=== PATIENT | male | born 1985 | race Hispanic/Latino ===

== ENCOUNTER 2017-07-21 19:23 | Emergency (ER) | payer OTHER ==
[2017-07-21] MEDS ORDERED: NA CHLORIDE 0.9% 1,000 ML ONE (20:33)
[2017-07-21 21:06] LABS: Absolute Lymphocytes (CBC) 0.8 K/uL (0.7-4.9); Absolute Monocytes 0.6 K/uL (0.1-1.3); Absolute Neutrophil 4.9 K/uL (1.8-8.0); Basophils % 0.4 % (0-1.3); Eosinophils % 3.8 % (0-4.4); Hematocrit 42.2 % (39.6-49.0); Lymphocytes % 12.3 % (15.3-44.8); MCV 82.4 fL (80-100); MPV 11.4 fL (7.6-11.3); Monocytes % 9.4 % (3.3-12.3); RBC Red Blood Cell Count 5.13 M/uL (4.33-5.43)
[2017-07-21 21:12] LABS: Urine Blood NEGATIVE (NEG); Urine Glucose NEGATIVE (NEG); Urine Protein NEGATIVE (NEG)
[2017-07-21 21:18] LABS: Bicarbonate 31 mEq/L (21-31); Glucose Level 103 mg/dL (65-120); Lipase 29 U/L (22-51); Potassium 3.9 mEq/L (3.6-5.0); Sodium Level 137 mEq/L (135-145)
[2017-07-21 21:23] LABS: ALT/SGPT 17 IU/L (10-60); AST/SGOT 22 IU/L (10-42); Albumin 4.1 g/dL (3.2-5.5); Alkaline Phosphatase 77 IU/L (42-121); BUN Blood Urea Nitrogen 10 mg/dL (6-20); Bilirubin Direct 0.1 mg/dL (0-0.2); Bilirubin Total 0.6 mg/dL (0.3-1.2); Protein, Total 8.8 g/dL (6.0-8.3)
[2017-07-21 21:24] LABS: Amylase Level 43 U/L (28-100)
[2017-07-21 21:48] LABS: Urine Bacteria <20 /HPF (NONE SEEN); Urine Culture Reflex Order NOT NEEDED; Urine RBC <5 /HPF (NONE SEEN)
--- NOTE | 2017-07-21 22:19 | EDPHYS ---
Physician Documentation [facility] Name: Kimani Augustin Jr Age: 32 yrs Sex: Male : 1985 Arrival Date: 07/21/2017 Time: 19:28 Bed 7 Private MD: ED Physician Irving Draper HPI: 07/21 20:33 This 32 yrs old Male presents to ER via Ambulatory with complaints of tw4 Weakness, Dizziness, Body ache. 20:33 The patient presents to the emergency department with weakness of the entire body, tw4 generalized weakness. Context: occurred at home. Associated signs and symptoms: The patient has no apparent associated signs or symptoms. Severity of symptoms: At their worst the symptoms were moderate in the emergency department the symptoms are unchanged. The patient has not experienced similar symptoms in the past. 20:34 The patient presents to the emergency department with weakness of the. Patient's tw4 baseline: Neuro: alert and fully oriented, Motor: no deficits, Ambulation: walks without assistance. Current symptoms:. 20:34 Onset: The symptoms/episode began/occurred 2 day(s) ago. tw4 Historical: - Allergies: 19:48 EGG/POULTRY; tl3 - Home Meds: 19:48 Depakote 500 mg Oral TbEC 2 tabs 2 times per day [Active]; Dilantin 1/2 TAB Oral 50 mg tl3 twice a day [Active]; calcitrol 0.25mg [Active]; - PMHx: 19:48 hypocalcemia; Seizures; tl3 - Immunization history:: Adult Immunizations up to date. - Social history:: Smoking status: Patient uses tobacco products, denies chronic smoking, but will smoke occasionally. - Ebola Screening: : Patient denies travel to an Ebola-affected area in the 21 days before illness onset. ROS: 20:33 Constitutional: Negative for fever, chills, and weight loss, Cardiovascular: Negative tw4 for chest pain, palpitations, and edema, Respiratory: Negative for shortness of breath, cough, wheezing, and pleuritic chest pain, Abdomen/GI: Negative for abdominal pain, nausea, vomiting, diarrhea, and constipation, Back: Negative for injury and pain, MS/Extremity: Negative for injury and deformity. Exam: 20:33 Constitutional: This is a well developed, well nourished patient who is awake, alert, tw4 and in no acute distress. Head/Face: Normocephalic, atraumatic. Chest/axilla: Normal chest wall appearance and motion. Nontender with no deformity. No lesions are appreciated. Cardiovascular: Regular rate and rhythm with a normal S1 and S2. No gallops, murmurs, or rubs. Normal PMI, no JVD. No pulse deficits. Respiratory: Lungs have equal breath sounds bilaterally, clear to auscultation and percussion. No rales, rhonchi or wheezes noted. No increased work of breathing, no retractions or nasal flaring. Abdomen/GI: Soft, non-tender, with normal bowel sounds. No distension or tympany. No guarding or rebound. No evidence of tenderness throughout. Back: No spinal tenderness. No costovertebral tenderness. Full range of motion. MS/ Extremity: Pulses equal, no cyanosis. Neurovascular intact. Full, normal range of motion. Neuro: Awake and alert, GCS 15, oriented to person, place, time, and situation. Cranial nerves II-XII grossly intact. Motor strength 5/5 in all extremities. Sensory grossly intact. Cerebellar exam normal. Normal gait. Vital Signs: 19:48 BP 121 / 77; Pulse 107; Resp 18; Temp 98.6(O); Pulse Ox 98% ; Height 5 ft. 6 in. tl3 (167.64 cm); 21:05 BP 125 / 104; Resp 16; Temp 99.1; rv 21:35 BP 118 / 82; Pulse 83; Resp 16; Pulse Ox 100% on R/A; rv NIH Stroke Scale Scores: 21:32 NIHSS Score: 4 rv MDM: 20:24 Patient medically screened. tw4 22:38 Data reviewed: vital signs, nurses notes. Counseling: I had a detailed discussion with [facility] the patient and/or guardian regarding: the historical points, exam findings, and any diagnostic results supporting the discharge/admit diagnosis. Special discussion: I discussed with the patient/guardian in detail that at this point there is no indication for admission to the hospital. It is understood, however, that if the symptoms persist or worsen the patient needs to return immediately for re-evaluation. 07/21 20:25 Order name: Amylase, Serum [facility] 07/21 20:25 Order name: Basic Metabolic Panel [facility] 07/21 20:25 Order name: CBC with Diff 07/21 20:25 Order name: Creatinine for Radiology 4 07/21 20:25 Order name: Hepatic Function 07/21 20:25 Order name: Lipase 07/21 20:25 Order name: Urine Microscopic Only 07/21 20:25 Order name: Flu; Complete Time: 21:43 tw4 07/21 20:25 Order name: Amylase Level; Complete Time: 21:57 EDMS 07/21 20:25 Order name: Basic Metabolic Panel; Complete Time: 21:57 EDMS 07/21 21:57 Interpretation: Normal except: CA 6.3; CL 99. 4 07/21 20:25 Order name: CBC with Automated Diff; Complete Time: 21:43 EDMS 07/21 21:43 Interpretation: Normal except: MCV 82.4; PLT 102; RDW 16.8; MPV 11.4; TERRA% 74.1; LYM% tw4 12.3. 07/21 20:25 Order name: Creatinine (Radiology Only); Complete Time: 21:43 EDMS 07/21 20:25 Order name: Liver (Hepatic) Function; Complete Time: 21:57 EDMS 07/21 21:57 Interpretation: A/G 0.9; GLOB 4.7; TP 8.8. 4 07/21 20:25 Order name: Lipase; Complete Time: 21:57 EDMS 07/21 21:57 Interpretation: Within normal limits: LIP 29. 07/21 20:25 Order name: IV Saline Lock; Complete Time: 21:21 [facility] 07/21 20:25 Order name: Labs collected and sent; Complete Time: 20:57 [facility] 07/21 20:25 Order name: Urine Dipstick-Ancillary (obtain specimen); Complete Time: 20:57 [facility] 07/21 20:25 Order name: Urine Microscopic Only; Complete Time: 21:57 EDMS 07/21 20:57 Order name: Urine Dipstick--Ancillary (enter results); Complete Time: 21:43 ms Administered Medications: 20:57 Drug: NS 0.9% 1000 ml Route: IV; Rate: 1 bolus; Site: right antecubital; rv 22:42 Drug: Calcium Carbonate 500 mg 2 tablet Route: PO; rv Disposition: 07/21/17 22:18 Discharged to Home. Impression: Hypocalcemia. - Condition is Stable. - Discharge Instructions: Hypocalcemia, Adult. - Medication Reconciliation Form, Thank You Letter, Antibiotic Education, Prescription Opioid Use form. - Follow up: Private Physician; When: As needed; Reason: Recheck today's complaints, Continuance of care, Re-evaluation by your physician. - Problem is new. - Symptoms are unchanged. NIH Stroke Scale - NIH Stroke Score Date: 07/21/2017 Time: 21:32 Total Score = 4 1a. Level of Consciousness (LOC) - 0(Alert) 1b. Level of Consciousness (LOC) (Year \T\ Age) - 0(Both) 1c. LOC Commands (Open \T\ Closes Eyes/Route Supervisor) - 0(Both) 2. Best Gaze (Lateral Gaze Paresis) - 0(Normal) 3. Visual Field Loss - 0(No visual loss) 4. Facial Palsy - 0(Normal) 5a. Left Arm: Motor (10-second hold) - 0(No drift) 5b. Right Arm: Motor (10-second hold) - 0(No drift) 6a. Left Leg: Motor (5-second hold - always test supine) - 2(Drift, some effort against gravity) 6b. Right Leg: Motor (5-second hold - always test supine) - 2(Drift, some effort against gravity) 7. Limb Ataxia (finger/nose \T\ heel/brandt - test with eyes open) - 0(Absent) 8. Sensory Loss (pinprick arms/legs/face) - 0(Normal) 9. Best Language: Aphasia (description/naming/reading) - 0(No aphasia) 10. Dysarthria (speech clarity - read or repeat words) - 0(Normal) 11. Extinction and Inattention (visual/tactile/auditory/spatial/personal) - 0(No abnormality) Initials: rv Signatures: Dispatcher [employer] EDIrving Grande MD MD tw4 Daphney Torres RN RN tl3 Chapincito Manning RN RN rv Corrections: (The following items were deleted from the chart) 20:35 20:33 Onset: The symptoms/episode began/occurred today, [facility] tw 22:43 22:18 07/21/2017 22:18 Discharged to Home. Impression: Hypocalcemia. Condition rv is Stable. Forms are Medication Reconciliation Form, Thank You Letter, Antibiotic Education, Prescription Opioid Use. Follow up: Private Physician; When: As needed; Reason: Recheck today's complaints, Continuance of care, Re-evaluation by your physician. Problem is new. Symptoms are unchanged. tw4
--- NOTE | 2017-07-21 22:19 | ER ---
Nurse's Notes [facility] Name: Kimani Augustin Jr Age: 32 yrs Sex: Male : 1985 Arrival Date: 07/21/2017 Time: 19:28 Bed 7 Private MD: Diagnosis: Hypocalcemia Presentation: 07/21 19:45 Presenting complaint: Patient states: states he has been feeling weak with body aches, tl3 vomiting X 2, S/S for the last two days. Transition of care: patient was not received from another setting of care. No acute neurological deficit is noted. Pre-hospital glucose is not applicable to this patient. Onset of symptoms. Risk Assessment: Do you want to hurt yourself or someone else? Patient reports no desire to harm self or others. Initial Sepsis Screen: Does the patient meet any 2 criteria? No. Patient's initial sepsis screen is negative. Does the patient have a suspected source of infection? No. Patient's initial sepsis screen is negative. Care prior to arrival: None. 19:45 Method Of Arrival: Ambulatory tl3 19:45 Acuity: GUZMAN 3 tl3 Triage Assessment: 19:48 The onset of the patients symptoms was more than six hours ago. tl3 21:07 The onset of the patients symptoms was July 20, 2017 at 08:00. General: Appears. rv General: Behavior is calm, cooperative. 21:07 Neuro: Reports dizziness, weakness since yesterday. rv Stroke Activation: Physician: Stroke Attending; Name: ; Notified At: ; Arrived At: Physician: Chief Stroke Resident; Name: ; Notified At: ; Arrived At: Physician: Stroke Resident; Name: ; Notified At: ; Arrived At: Physician: ED Attending; Name: ; Notified At: ; Arrived At: Physician: ED Resident; Name: ; Notified At: ; Arrived At: 19:45 not applical tl3 Historical: - Allergies: 19:48 EGG/POULTRY; tl3 - Home Meds: 19:48 Depakote 500 mg Oral TbEC 2 tabs 2 times per day [Active]; Dilantin 1/2 TAB Oral 50 mg tl3 twice a day [Active]; calcitrol 0.25mg [Active]; - PMHx: 19:48 hypocalcemia; Seizures; tl3 - Immunization history:: Adult Immunizations up to date. - Social history:: Smoking status: Patient uses tobacco products, denies chronic smoking, but will smoke occasionally. - Ebola Screening: : Patient denies travel to an Ebola-affected area in the 21 days before illness onset. Screenin:06 Abuse screen: Denies threats or abuse. Denies injuries from another. Nutritional rv screening: No deficits noted. Tuberculosis screening: No symptoms or risk factors identified. Fall Risk None identified. Assessment: 20:58 The patient has not been NPO before screening. The patient is alert, and able to follow rv commands. The patient does not exhibit slurred or garbled speech. The patient is not exhibiting difficulty speaking. The patient does not exhibit difficulty understanding words. The patient is able to swallow own secretions with no drooling or need for suction. Patient tolerated one teaspoon of water. No drooling, immediate coughing, gurgling, or clearing of the throat was noted. The patient tolerated 90mL of water. No drooling, immediate coughing, gurgling, or clearing of the throat was noted. The patient passed the bedside swallow screening. Oral medications may be given as ordered. Contact Physician for further diet orders. T-PA (Activase) Screening:. Pain: Denies pain. Neuro: Level of Consciousness is awake, alert, obeys commands, Oriented to person, place, time, situation, Weakness weakness in both lower extremities. Cardiovascular: Capillary refill < 3 seconds. Respiratory: Airway is patent. GI: No signs and/or symptoms were reported involving the gastrointestinal system. : No signs and/or symptoms were reported regarding the genitourinary system. EENT: No signs and/or symptoms were reported regarding the EENT system. Derm: Skin is intact. Musculoskeletal: Reports weakness in right leg and left leg. Vital Signs: 19:48 BP 121 / 77; Pulse 107; Resp 18; Temp 98.6(O); Pulse Ox 98% ; Height 5 ft. 6 in. tl3 (167.64 cm); 21:05 BP 125 / 104; Resp 16; Temp 99.1; rv 21:35 BP 118 / 82; Pulse 83; Resp 16; Pulse Ox 100% on R/A; rv NIH Stroke Scale Scores: 21:32 NIHSS Score: 4 rv ED Course: 19:28 Patient arrived in ED. es 19:47 Triage completed. tl3 19:48 Arm band placed on left wrist. tl3 20:23 Jose Foster, LILIAN is Primary Nurse. bp 20:23 Irving Draper MD is Attending Physician. tw4 20:30 Inserted saline lock: 20 gauge in right antecubital area, using aseptic technique. rv 21:41 Patient has correct armband on for positive identification. Placed in gown. Bed in low rv position. Call light in reach. Side rails up X 1. Pulse ox on. NIBP on. 22:42 No provider procedures requiring assistance completed. IV discontinued, intact, rv bleeding controlled, No redness/swelling at site. Pressure dressing applied. Administered Medications: 20:57 Drug: NS 0.9% 1000 ml Route: IV; Rate: 1 bolus; Site: right antecubital; rv 22:42 Drug: Calcium Carbonate 500 mg 2 tablet Route: PO; rv Outcome: 22:18 Discharge ordered by . tw4 22:42 Discharged to home ambulatory. rv 22:42 Condition: improved 22:42 Discharge instructions given to patient, Instructed on discharge instructions. 22:43 Patient left the ED. rv NIH Stroke Scale - NIH Stroke Score Date: 07/21/2017 Time: 21:32 Total Score = 4 1a. Level of Consciousness (LOC) - 0(Alert) 1b. Level of Consciousness (LOC) (Year \T\ Age) - 0(Both) 1c. LOC Commands (Open \T\ Closes Eyes/Radiologic Technologist Mammogram) - 0(Both) 2. Best Gaze (Lateral Gaze Paresis) - 0(Normal) 3. Visual Field Loss - 0(No visual loss) 4. Facial Palsy - 0(Normal) 5a. Left Arm: Motor (10-second hold) - 0(No drift) 5b. Right Arm: Motor (10-second hold) - 0(No drift) 6a. Left Leg: Motor (5-second hold - always test supine) - 2(Drift, some effort against gravity) 6b. Right Leg: Motor (5-second hold - always test supine) - 2(Drift, some effort against gravity) 7. Limb Ataxia (finger/nose \T\ heel/brandt - test with eyes open) - 0(Absent) 8. Sensory Loss (pinprick arms/legs/face) - 0(Normal) 9. Best Language: Aphasia (description/naming/reading) - 0(No aphasia) 10. Dysarthria (speech clarity - read or repeat words) - 0(Normal) 11. Extinction and Inattention (visual/tactile/auditory/spatial/personal) - 0(No abnormality) Initials: rv Signatures: Kerline Bravo Brian, RN RN Irving Brown MD MD tw4 Daphney Torres RN RN tl3 Chapincito Manning RN RN rv Corrections: (The following items were deleted from the chart) 21:05 21:04 Inserted saline lock: 20 gauge in right antecubital area, using aseptic rv technique. rv 21:34 20:58 NIHSS Score: 6 rv rv
[2017-07-21] MEDS ORDERED: CALCIUM CARBONATE 500 MG TAB ONE (22:35)
== END 2017-07-21 22:43 | disposition home or self-care (01) ==
LOC: ER 19:23
DX: E83.51 Hypocalcemia (principal)
CPT/HCPCS: 36415; 80048; 80076; 81003; 81015; 82150; 83690; 85025; 87804; 99283; J7030

== ENCOUNTER 2017-10-25 18:26 | Emergency (ER) | payer OTHER ==
--- NOTE | 2017-10-25 19:49 | RAD REPORT ---
EXAM DESCRIPTION: CT - Head C Spine Mpr Wo Con - 10/25/2017 7:18 pm CLINICAL HISTORY: Head and neck injury status post fall. Head and neck pain COMPARISON: None. TECHNIQUE: Computed axial tomography of the head and cervical spine was obtained. Sagittal and coronal reconstruction was performed. All CT scans are performed using dose optimization technique as appropriate and may include automated exposure control or mA/KV adjustment according to patient size. FINDINGS: Left temporal scalp swelling is present. An intracranial bleed is not seen. Bilateral cerebral calcifications are unchanged. The ventricles ar e normal in caliber. An extra-axial fluid collection is not noted.Fluid within the visualized sinuses is not seen A cervical fracture is not visualized. No dislocation is noted. 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 A cervical fracture is not visualized. If the patient continues to have symptoms to suggest intracra nial /spinal cord pathology then MRI would be recommended
[2017-10-25 20:18] LABS: Absolute Lymphocytes (CBC) 1.1 K/uL (0.7-4.9); Absolute Monocytes 0.5 K/uL (0.1-1.3); Absolute Neutrophil 4.5 K/uL (1.8-8.0); Basophils % 0.6 % (0-1.3); Eosinophils % 2.4 % (0-4.4); Hematocrit 43.9 % (39.6-49.0); Lymphocytes % 17.7 % (15.3-44.8); MCH 27.6 pg (27.0-35.0); MCV 84.4 fL (80-100); MPV 11.1 fL (7.6-11.3); Monocytes % 7.5 % (3.3-12.3)
[2017-10-25 20:21] LABS: Protime INR 1.2
[2017-10-25 21:15] LABS: ALT/SGPT 23 U/L (12-78); AST/SGOT 28 U/L (15-37); Albumin 3.6 g/dL (3.4-5.0); Alkaline Phosphatase 95 U/L (45-117); BUN Blood Urea Nitrogen 12 mg/dL (7-18); Bicarbonate 32 mmol/L (21-32); Bilirubin Direct < 0.1 mg/dL (0-0.2); Bilirubin Total 0.3 mg/dL (0.2-1.0); Glucose Level 94 mg/dL (74-106); Potassium 4.1 mmol/L (3.5-5.1); Protein, Total 8.8 g/dL (6.4-8.2); Sodium Level 140 mmol/L (136-145)
[2017-10-25 21:21] LABS: Phenytoin (Dilantin) Level < 0.4 ug/mL (10.0-20.0); Valproic Acid (Depakene) Level < 3.0 ug/mL (50-100)
[2017-10-25] MEDS ORDERED: DIVALPROEX DR 250 MG TAB PO ONE (21:39)
[2017-10-25] MEDS ORDERED: NA CHLORIDE 0.9% 2,000 ML ONE (21:39)
[2017-10-25] MEDS ORDERED: PHENYTOIN ER 100 MG CAP PO ONE (21:44)
--- NOTE | 2017-10-25 21:52 | ER ---
Nurse's Notes [facility] Name: Kimani Augustin Jr Age: 32 yrs Sex: Male : 1985 Arrival Date: 10/25/2017 Time: 18:30 Bed 7 Private MD: Diagnosis: Epilepsy and recurrent seizures;Hypocalcemia;Contusion of unspecified part of head Presentation: 10/25 18:56 Presenting complaint: Patient states: Reports Pain to left side of head after unknown aj head injury yesterday with + LOC. Patient does not recall circumstances. Bruising noted to left jain and positive dela cruz sign behind left ear. Transition of care: patient was not received from another setting of care. 18:56 Method Of Arrival: Ambulatory aj 18:58 Care prior to arrival: None. Mechanism of Injury: unknown. Trauma event details: Injury aj occurred in the [facility], Injury occurred: in a public building. Injury occurred: October 24, 2017 Injury occurred at: 17:00. 18:58 Acuity: GUZMAN 3 aj 19:01 Onset of symptoms was October 24, 2017. Risk Assessment: Do you want to hurt yourself aj or someone else? Patient reports no desire to harm self or others. Initial Sepsis Screen: Does the patient meet any 2 criteria? No. Patient's initial sepsis screen is negative. Does the patient have a suspected source of infection? No. Patient's initial sepsis screen is negative. Trauma Activation: Alert Physician: ED Physician; Name: ; Notified At: 18:59; Arrived At: Physician: General Surgeon; Name: not notified; Notified At: 18:59; Arrived At: Physician: Radiology; Name: ; Notified At: 18:59; Arrived At: Physician: Respiratory; Name: ; Notified At: 18:59; Arrived At: Physician: Lab; Name: ; Notified At: 18:59; Arrived At: Historical: - Allergies: 19:02 EGG/POULTRY; aj - Home Meds: 19:02 calcitrol 0.25mg [Active]; Depakote 500 mg Oral TbEC 2 tabs 2 times per day [Active]; aj Dilantin 1/2 TAB Oral 50 mg twice a day [Active]; - PMHx: 19:02 hypocalcemia; Seizures; aj - Immunization history: Last tetanus immunization: < 5 years ago. - Social history:: Smoking status: Patient uses tobacco products, smokes one-half pack cigarettes per day. - Ebola Screening: : Patient negative for fever greater than or equal to 101.5 degrees Fahrenheit, and additional compatible Ebola Virus Disease symptoms Patient denies exposure to infectious person Patient denies travel to an Ebola-affected area in the 21 days before illness onset No symptoms or risks identified at this time. Screenin:21 Abuse screen: Denies threats or abuse. Nutritional screening: No deficits noted. tl2 Tuberculosis screening: No symptoms or risk factors identified. Fall Risk Primary Survey: 18:58 A: Airway: patent. Breathing/Chest: Respiratory pattern: regular, Respiratory effort: aj spontaneous, unlabored, Breath sounds: clear, bilaterally. Circulation: Skin color: pink, Skin temperature: warm, dry. Disability Alert. 20:58 Reassessment Airway Airway Patent Breathing/Chest Respiratory pattern Regular ea Respiratory effort Spontaneous Unlabored Circulation Color [place] Temperature Warm Dry. Secondary Survey: 19:55 Gastrointestinal: Abdomen is soft, Bowel sounds present in all quadrants. : No signs ea and/or symptoms were reported regarding the genitourinary system. Injury Description: contusion. Assessment: 18:58 General: Appears in no apparent distress. comfortable, Behavior is calm, cooperative, aj appropriate for age. Pain: Complains of pain in left frontal area, left temporal area and left ear. Neuro: Level of Consciousness is awake, alert, obeys commands, Oriented to person, place, time, situation, Appropriate for age. Respiratory: Airway is patent Respiratory effort is even, unlabored, Respiratory pattern is regular, symmetrical. Derm: Skin is intact, is healthy with good turgor, Skin is pink, warm \T\ dry. normal, Bruising that is dark purple, on left side of forehead, left temporal area and left ear. 19:50 General: Appears in no apparent distress. comfortable, Behavior is calm, cooperative, ea appropriate for age. Pain: Complains of pain in left side of forehead. Neuro: Level of Consciousness is awake, alert, obeys commands, Oriented to person, place, time, situation, Appropriate for age. Cardiovascular: Heart tones S1 S2 present Patient's skin is warm and dry. Respiratory: Airway is patent Respiratory effort is even, unlabored, Respiratory pattern is regular, symmetrical, Breath sounds are clear bilaterally. GI: No signs and/or symptoms were reported involving the gastrointestinal system. Bowel sounds present X 4 quads. Derm: Bruising that is dark purple, on left side of forehead. Musculoskeletal: Circulation, motion, and sensation intact. 20:00 Reassessment: Patient and/or family updated on plan of care and expected duration. Pain ea level reassessed. Patient is alert, oriented x 3, equal unlabored respirations, skin warm/dry/pink. 21:21 Reassessment: Patient and/or family updated on plan of care and expected duration. Pain ea level reassessed. Patient is alert, oriented x 3, equal unlabored respirations, skin warm/dry/pink. 22:47 Reassessment: Patient and/or family updated on plan of care and expected duration. Pain ea level reassessed. Patient is alert, oriented x 3, equal unlabored respirations, skin warm/dry/pink. awaiting on IV fluids to complete. Patient states feeling better. Patient states symptoms have improved. 22:57 Reassessment: Patient and/or family updated on plan of care and expected duration. Pain ea level reassessed. Patient is alert, oriented x 3, equal unlabored respirations, skin warm/dry/pink. Discharge instructions given to patient, verbalized the understanding of instruction. Vital Signs: 18:58 BP 133 / 92; Pulse 102; Resp 16; Temp 98.7; Pulse Ox 97% on R/A; Weight 81.19 kg; aj Height 5 ft. 6 in. (167.64 cm); 19:55 BP 110 / 71; Pulse 91; Resp 18; Pulse Ox 100% on R/A; tl2 21:21 BP 120 / 92; Pulse 87; Resp 18; Pulse Ox 98% on R/A; tl2 22:46 BP 120 / 82; Pulse 85; Resp 18; Pulse Ox 98% ; ea 22:51 Temp 98.2(TE); ea 18:58 Body Mass Index 28.89 (81.19 kg, 167.64 cm) aj Mary Jane Coma Score: 18:58 Eye Response: spontaneous(4). Verbal Response: oriented(5). Motor Response: obeys aj commands(6). Total: 15. 19:20 Eye Response: spontaneous(4). Verbal Response: oriented(5). Motor Response: obeys cp commands(6). Total: 15. 19:55 Eye Response: spontaneous(4). Verbal Response: oriented(5). Motor Response: obeys tl2 commands(6). Total: 15. 21:21 Eye Response: spontaneous(4). Verbal Response: oriented(5). Motor Response: obeys ea commands(6). Total: 15. 22:46 Eye Response: spontaneous(4). Verbal Response: oriented(5). Motor Response: obeys ea commands(6). Total: 15. Trauma Score (Adult): 18:58 Eye Response: spontaneous(1); Verbal Response: oriented(1); Motor Response: obeys aj commands(2); Systolic BP: > 89 mm Hg(4); Respiratory Rate: 10 to 29 per min(4); [place] Score: 15; Trauma Score: 12 19:55 Eye Response: spontaneous(1); Verbal Response: oriented(1); Motor Response: obeys tl2 commands(2); Systolic BP: > 89 mm Hg(4); Respiratory Rate: 10 to 29 per min(4); Mary Jane Score: 15; Trauma Score: 12 ED Course: 18:30 Patient arrived in ED. rg4 18:59 Triage completed. aj 19:02 Arm band placed on left wrist. Patient placed in an exam room. aj 19:12 Nelson Lemon PA is PHCP. cp 19:13 Lamont Lester MD is Attending Physician. cp 19:[address] nj 19:18 CT completed. Patient tolerated procedure well. Patient moved back from CT. nj 19:19 Head C Spine MPR Wo Con CT In Process Unspecified. EDMS 19:49 Mona Villegas, LILIAN is Primary Nurse. ea 19:55 Inserted saline lock: 20 gauge in right antecubital area, using aseptic technique. tl2 Blood collected. 20:00 Rigid cervical collar applied. tl2 20:21 Patient has correct armband on for positive identification. Bed in low position. Call tl2 light in reach. Side rails up X2. Seizure precautions initiated. 20:22 Patient maintains SpO2 saturation greater than 95% on room air. tl2 20:22 Thermoregulation: warm blanket given to patient. tl2 21:51 Ezequiel Joyner MD is Referral Physician. cp 22:51 No provider procedures requiring assistance completed. ea 23:01 IV discontinued, intact, bleeding controlled, No redness/swelling at site. Pressure ea dressing applied. Administered Medications: 21:37 Not Given (Physician Discretion): Dilantin 25 mg PO once cp 21:44 Drug: NS 0.9% 1000 ml Route: IV; Rate: 1 bolus; Site: right antecubital; ea 22:55 Follow up: Response: No adverse reaction; IV Status: Completed infusion; IV Intake: ea 1000ml 21:44 Drug: NS 0.9% 1000 ml Route: IV; Rate: 1 bolus; Site: right antecubital; ea 22:54 Follow up: Response: No adverse reaction; IV Status: Completed infusion; IV Intake: ea 1000ml 21:44 Drug: Depakote 1000 mg Route: PO; ea 22:19 Follow up: Response: No adverse reaction ea 21:44 Drug: Dilantin 100 mg Route: PO; ea 22:19 Follow up: Response: No adverse reaction ea 22:35 Drug: Calcium Carbonate 500 mg 2 tablet Route: PO; tl2 22:54 Follow up: Response: No adverse reaction ea Intake: 22:54 IV: 1000ml; Total: 1000ml. ea 22:55 IV: 1000ml; Total: 2000ml. ea 22:56 PO: 250ml (Water); IV: 2000ml; Total: 4250ml. ea Outcome: 21:52 Discharge ordered by . cp 22:51 Patient's length of stay in the Emergency Department was greater than 2 hours. awaiting ea on IV fluids to completePatient's length of stay extended due to 22:55 Condition: improved ea 22:55 Discharge instructions given to patient, Instructed on discharge instructions, follow up and referral plans. medication usage, Demonstrated understanding of instructions, follow-up care, medications, Prescriptions given X 2. 23:02 Discharged to home ambulatory. ea 23:02 Patient left the ED. ea Signatures: Dispatcher [employer] EDMS Ximena Hightower RN Nelson Rodriguez PA PA cp Knox, Taylor, RN RN tl2 Ilsa Pollard4 Emre Perez Elena, RN RN ea
--- NOTE | 2017-10-25 21:52 | EDPHYS ---
Physician Documentation [facility] Name: Kimani Augustin Jr Age: 32 yrs Sex: Male : 1985 Arrival Date: 10/25/2017 Time: 18:30 Bed 7 Private MD: ED Physician Lamont Lester HPI: 10/25 19:20 This 32 yrs old Male presents to ER via Ambulatory with complaints of Weakness.cp 19:20 The patient or guardian reports injury. The complaints affect the left side of head. cp Context of injury: resulted from seizure. 19:20 Onset: The symptoms/episode began/occurred yesterday. Associated signs and symptoms: cp Loss of consciousness: This patient experience a loss of consciousness, for an unknown period of time, Pertinent positives: neck pain, seizure, generalized weakness, Pertinent negatives: incontinence, vomiting. Severity of symptoms: in the emergency department the symptoms have improved, moderately. 19:20 Patient reports running out of prescribed medications for seizures for past month. cp Historical: - Allergies: 19:02 EGG/POULTRY; aj - Home Meds: 19:02 calcitrol 0.25mg [Active]; Depakote 500 mg Oral TbEC 2 tabs 2 times per day [Active]; aj Dilantin 1/2 TAB Oral 50 mg twice a day [Active]; - PMHx: 19:02 hypocalcemia; Seizures; aj - Immunization history: Last tetanus immunization: < 5 years ago. - Social history:: Smoking status: Patient uses tobacco products, smokes one-half pack cigarettes per day. - Ebola Screening: : Patient negative for fever greater than or equal to 101.5 degrees Fahrenheit, and additional compatible Ebola Virus Disease symptoms Patient denies exposure to infectious person Patient denies travel to an Ebola-affected area in the 21 days before illness onset No symptoms or risks identified at this time. ROS: 19:25 Constitutional: Negative for body aches, chills, fever, poor PO intake. cp 19:25 Eyes: Negative for injury, pain, redness, and discharge. cp 19:25 ENT: Negative for drainage from ear(s), ear pain, sore throat, difficulty swallowing, cp difficulty handling secretions. 19:25 Neck: Positive for pain with movement. cp 19:25 Cardiovascular: Negative for chest pain. 19:25 Respiratory: Negative for cough, shortness of breath, wheezing. 19:25 Abdomen/GI: Negative for abdominal pain, nausea, vomiting, and diarrhea. 19:25 Skin: Negative for cellulitis, rash. 19:25 Neuro: Positive for headache, loss of consciousness, history of seizures, Negative for altered mental status. 19:25 All other systems are negative. Exam: 19:30 Constitutional: The patient appears in no acute distress, alert, awake, comfortable, cp non-toxic, well developed, well nourished. 19:30 Eyes: Pupils equal round and reactive to light, extra-ocular motions intact. Lids and cp lashes normal. Conjunctiva and sclera are non-icteric and not injected. Cornea within normal limits. Periorbital areas with no swelling, redness, or edema. 19:30 Head/face: Noted is contusion, that is superficial, of the left temporal area and left ear. 19:30 ENT: Ear canal(s): are normal, clear, TM's: bulging, is not appreciated, bilaterally, erythema, is not appreciated, bilaterally, Nose: is normal, Mouth: Lips: moist, Oral mucosa: pink and intact, moist, Posterior pharynx: is normal, airway is patent, no erythema, no exudate. 19:30 Neck: External neck: tenderness, that is mild, left lateral neck, Trachea: is midline with no obvious abnormalities, ROM/movement: pain, that is mild, with rotation to the left, limited range of motion, is not appreciated, nuchal rigidity, is not appreciated. 19:30 Chest/axilla: Inspection: normal, Palpation: is normal, no crepitus, no tenderness. 19:30 Cardiovascular: Rate: normal, Rhythm: regular, Pulses: Pulses are 2+ in right radial artery and left radial artery. Edema: is not appreciated, JVD: is not appreciated. 19:30 Respiratory: the patient does not display signs of respiratory distress, Respirations: normal, no use of accessory muscles, no retractions, no splinting, no tachypnea, labored breathing, is not present, Breath sounds: are clear throughout, no decreased breath sounds, no stridor, no wheezing. 19:30 Abdomen/GI: Inspection: abdomen appears normal, Palpation: abdomen is soft and cp non-tender, in all quadrants. 19:30 Back: pain, is absent, ROM is normal. 19:30 Musculoskeletal/extremity: Exam is negative for decreased range of motion, deformity. cp 19:30 Skin: cellulitis, is not appreciated, no rash present. 19:30 Neuro: Orientation: to person, place \T\ time. Mentation: lucid, able to follow commands, Cerebellar function: is grossly normal, Motor: moves all fours, strength is normal, Sensation: no obvious gross deficits. 20:13 ECG was reviewed by the Attending Physician. cp Vital Signs: 18:58 BP 133 / 92; Pulse 102; Resp 16; Temp 98.7; Pulse Ox 97% on R/A; Weight 81.19 kg; aj Height 5 ft. 6 in. (167.64 cm); 19:55 BP 110 / 71; Pulse 91; Resp 18; Pulse Ox 100% on R/A; tl2 21:21 BP 120 / 92; Pulse 87; Resp 18; Pulse Ox 98% on R/A; tl2 22:46 BP 120 / 82; Pulse 85; Resp 18; Pulse Ox 98% ; ea 22:51 Temp 98.2(TE); ea 18:58 Body Mass Index 28.89 (81.19 kg, 167.64 cm) aj Mary Jane Coma Score: 18:58 Eye Response: spontaneous(4). Verbal Response: oriented(5). Motor Response: obeys aj commands(6). Total: 15. 19:20 Eye Response: spontaneous(4). Verbal Response: oriented(5). Motor Response: obeys cp commands(6). Total: 15. 19:55 Eye Response: spontaneous(4). Verbal Response: oriented(5). Motor Response: obeys tl2 commands(6). Total: 15. 21:21 Eye Response: spontaneous(4). Verbal Response: oriented(5). Motor Response: obeys ea commands(6). Total: 15. 22:46 Eye Response: spontaneous(4). Verbal Response: oriented(5). Motor Response: obeys ea commands(6). Total: 15. Trauma Score (Adult): 18:58 Eye Response: spontaneous(1); Verbal Response: oriented(1); Motor Response: obeys aj commands(2); Systolic BP: > 89 mm Hg(4); Respiratory Rate: 10 to 29 per min(4); Mary Jane Score: 15; Trauma Score: 12 19:55 Eye Response: spontaneous(1); Verbal Response: oriented(1); Motor Response: obeys tl2 commands(2); Systolic BP: > 89 mm Hg(4); Respiratory Rate: 10 to 29 per min(4); [place] Score: 15; Trauma Score: 12 MDM: 19:14 Patient medically screened. cp 20:00 Differential diagnosis: Contusion of Hematoma on Intracranial bleed- Concussion cp cerebral contusion. 21:50 Data reviewed: vital signs, nurses notes, lab test result(s), EKG, radiologic studies, cp CT scan. 21:50 Test interpretation: by ED physician or midlevel provider: ECG. cp 21:50 Counseling: I had a detailed discussion with the patient and/or guardian regarding: the cp historical points, exam findings, and any diagnostic results supporting the discharge/admit diagnosis, lab results, radiology results, the need for outpatient follow up, a neurologist, to return to the emergency department if symptoms worsen or persist or if there are any questions or concerns that arise at home. 21:50 ED course: VSS. No seizure activity observed in ED. Will discharge to home for cp continued monitoring. 10/25 19:13 Order name: Acetaminophen; Complete Time: 21:21 10/25 19:13 Order name: Basic Metabolic Panel; Complete Time: 21:21 cp 10/25 19:13 Order name: CBC with Diff; Complete Time: 20:52 cp 10/25 20:52 Interpretation: Normal except: PLT 111; RDW 17.1. 10/25 19:13 Order name: ETOH Level; Complete Time: 21:13 cp 10/25 21:13 Interpretation: ETOH 3; Reviewed. 10/25 19:13 Order name: Hepatic Function; Complete Time: 21:21 cp 10/25 19:13 Order name: PT-INR; Complete Time: 20:52 cp 10/25 19:08 Order name: Head C Spine MPR Wo Con CT; Complete Time: 20:09 tl2 10/25 20:10 Interpretation: Reviewed report. 10/25 19:13 Order name: Ptt, Activated; Complete Time: 20:52 cp 10/25 19:13 Order name: Salicylate; Complete Time: 21:13 cp 10/25 21:14 Interpretation: Reviewed. 10/25 20:12 Order name: Dilantin; Complete Time: 21:24 cp /06 20:12 Order name: Depakote; Complete Time: 21:24 cp 10/25 20:12 Order name: LAB Add On cp 10/25 19:13 Order name: EKG; Complete Time: 19:14 cp 10/25 19:13 Order name: EKG - Nurse/Tech; Complete Time: 20:13 cp 10/25 19:13 Order name: IV Saline Lock; Complete Time: 20:13 cp 10/25 19:13 Order name: Labs collected and sent; Complete Time: 20:13 cp 10/25 19:13 Order name: C-Collar; Complete Time: 19:50 cp 10/25 19:14 Order name: Seizure Precautions; Complete Time: 19:50 cp EC:13 Rate is 84 beats/min. Rhythm is regular. SC interval is normal. QRS interval is normal. cp QT interval is normal. Interpreted by me. Reviewed by me. Administered Medications: 21:37 Not Given (Physician Discretion): Dilantin 25 mg PO once cp 21:44 Drug: NS 0.9% 1000 ml Route: IV; Rate: 1 bolus; Site: right antecubital; ea 22:55 Follow up: Response: No adverse reaction; IV Status: Completed infusion; IV Intake: ea 1000ml 21:44 Drug: NS 0.9% 1000 ml Route: IV; Rate: 1 bolus; Site: right antecubital; ea 22:54 Follow up: Response: No adverse reaction; IV Status: Completed infusion; IV Intake: ea 1000ml 21:44 Drug: Depakote 1000 mg Route: PO; ea 22:19 Follow up: Response: No adverse reaction ea 21:44 Drug: Dilantin 100 mg Route: PO; ea 22:19 Follow up: Response: No adverse reaction ea 22:35 Drug: Calcium Carbonate 500 mg 2 tablet Route: PO; tl2 22:54 Follow up: Response: No adverse reaction ea Disposition: 10/26 02:12 Co-signature as Attending Physician, Lamont Lester MD I agree with the assessment and ps1 plan of care. Disposition: 10/25/17 21:52 Discharged to Home. Impression: Epilepsy and recurrent seizures, Hypocalcemia, Contusion of unspecified part of head. - Condition is Stable. - Discharge Instructions: Head Injury, Adult, Seizure, Adult, Hypocalcemia, Adult. - Prescriptions for calcitriol 0.25 mcg Oral capsule - take 1 capsule by ORAL route once daily; 30 capsule. Depakote 500 mg Oral Tablet, Delayed Release (E.C.) - take 2 tablet by ORAL route every 12 hours; 60 tablet. - Medication Reconciliation Form, Thank You Letter, Antibiotic Education, Prescription Opioid Use, Work release form, Family Work Release form. - Follow up: Ezequiel Joyner MD; When: 1 - 2 days; Reason: Recheck today's complaints. - Problem is an ongoing problem. - Symptoms have improved. Signatures: Dispatcher [employer] EDMS Ximena Hightower RN RN Nelson Segura PA PA cp Tabitha Kidd RN RN tl2 Mona Villegas RN RN Lamont Alexander MD MD ps1 Corrections: (The following items were deleted from the chart) 10/25 23:02 21:52 10/25/2017 21:52 Discharged to Home. Impression: Epilepsy and recurrent seizures; ea Hypocalcemia; Contusion of unspecified part of head. Condition is Stable. Forms are Medication Reconciliation Form, Thank You Letter, Antibiotic Education, Prescription Opioid Use. Follow up: Ezequiel Joyner; When: 1 - 2 days; Reason: Recheck today's complaints. Problem is an ongoing problem. Symptoms have improved. cp
[2017-10-25] MEDS ORDERED: CALCIUM CARBONATE 500 MG TAB ONE (22:29)
--- NOTE | 2017-10-26 07:33 | EKG ---
Test Date: 2017-10-25 Test Time: 19:55:36 [employer]: REA MEASUREMENT RESULTS: Intervals: Rate: 84 [place]: 116 QRSD: 96 QT: 382 QTc: 451 [place]: P: 74 OH: 116 QRS: 45 T: 60 INTERPRETIVE STATEMENTS: Normal sinus rhythm Normal ECG Compared to ECG 11/22/2015 17:56:01 No significant changes Electronically Signed On 10-26-17 07:32:53 CDT by Beni Rhodes
== END 2017-10-25 23:02 | disposition home or self-care (01) ==
LOC: ER 18:26
DX: S00.93XA Contusion of unspecified part of head, initial encounter (principal); E83.51 Hypocalcemia; X58.XXXA Exposure to other specified factors, initial encounter; Y93.9 Activity, unspecified; Y92.9 Unspecified place or not applicable; Z91.012 Allergy to eggs; Z91.018 Allergy to other foods; F17.210 Nicotine dependence, cigarettes, uncomplicated
CPT/HCPCS: 36415; 70450; 72125; 80048; 80076; 80164; 80185; 80320; 80329; 85025; 85610; 85730; 93005; 96360; 99285; J7030

== ENCOUNTER 2017-12-02 21:58 | Emergency (ER) | payer OTHER ==
--- NOTE | 2017-12-02 22:21 | ER ---
Nurse's Notes [facility] Name: Kimani Augustin Jr Age: 32 yrs Sex: Male : 1985 Arrival Date: 12/02/2017 Time: 22:04 Bed 6 Private MD: Diagnosis: Nausea Presentation: 12/02 22:00 Presenting complaint: Patient states: that he was sent home from work because he became fc sweaty and not feeling well. States that he is concerned that his bp is high. Has hx of seizures and last one was 3 months ago. Has been taking medications as ordered. Transition of care: patient was not received from another setting of care. Onset of symptoms was December 02, 2017. Risk Assessment: Do you want to hurt yourself or someone else? Patient reports no desire to harm self or others. Initial Sepsis Screen: Does the patient meet any 2 criteria? HR > 90 bpm. Yes Does the patient have a suspected source of infection? No. Patient's initial sepsis screen is negative. Care prior to arrival: None. 22:00 Method Of Arrival: Ambulatory fc 22:00 Acuity: GUZMAN 3 fc Historical: - Allergies: 22:23 EGG/POULTRY; fc - Home Meds: 22:23 calcitrol 0.25mg [Active]; Depakote 500 mg Oral TbEC 2 tabs 2 times per day [Active]; fc - PMHx: 22:23 hypocalcemia; Seizures; fc - PSHx: 22:23 None; fc - Immunization history:: Last tetanus immunization: up to date. - Social history:: Smoking status: Patient/guardian denies using tobacco. - Ebola Screening: : Patient negative for fever greater than or equal to 101.5 degrees Fahrenheit, and additional compatible Ebola Virus Disease symptoms Patient denies exposure to infectious person Patient denies travel to an Ebola-affected area in the 21 days before illness onset. Screenin:22 Abuse screen: Denies threats or abuse. Nutritional screening: No deficits noted. Tuberculosis screening: No symptoms or risk factors identified. Fall Risk No fall in past 12 months (0 pts). Secondary diagnosis (15 points) seizures, No IV (0 pts). Ambulatory Aid- None/Bed Rest/Nurse Assist (0 pts). Gait- Normal/Bed Rest/Wheelchair (0 pts) Mental Status- Overestimates/Forgets Limitations (15 pts.). Total Domínguez Fall Scale indicates Low Risk Score (25-44 pts). Fall prevention measures have been instituted. Side Rails Up X 2 Placed close to Nursing Station Frequent Obs/Assesments occuring As available Patient and Family Educated on Fall Prevention Program and strategies. Assessment: 22:28 General: Appears in no apparent distress. Behavior is appropriate for age. Pain: Denies lp1 pain. Neuro: Level of Consciousness is awake, alert, obeys commands. Cardiovascular: Patient's skin is warm and dry. Respiratory: Respiratory effort is even, unlabored. GI: Abdomen is flat, Reports nausea. : No signs and/or symptoms were reported regarding the genitourinary system. EENT: No signs and/or symptoms were reported regarding the EENT system. Derm: Skin is pink, warm \T\ dry. Musculoskeletal: Circulation, motion, and sensation intact. Vital Signs: 22:00 BP 117 / 92; Pulse 97; Resp 18; Temp 98.6(O); Pulse Ox 98% on R/A; Weight 80.74 kg (R); fc Height 5 ft. 6 in. (167.64 cm) (R); Pain 0/10; 22:00 Body Mass Index 28.73 (80.74 kg, 167.64 cm) ED Course: 22:00 Arm band placed on Patient placed in an exam room, on a stretcher. fc 22:04 Patient arrived in ED. ds1 22:07 Chavez Blevins MD is Attending Physician. gs 22:20 Triage completed. fc 22:22 Patient has correct armband on for positive identification. Bed in low position. Call fc light in reach. Side rails up X 1. Pulse ox on. NIBP on. 22:26 Daiana Regalado, LILIAN is Primary Nurse. lp1 22:28 No provider procedures requiring assistance completed. Patient did not have IV access lp1 during this emergency room visit. Administered Medications: No medications were administered Outcome: 22:21 Discharge ordered by . gs 22:28 Discharged to home ambulatory. lp1 22:28 Condition: good 22:28 Discharge instructions given to patient, Instructed on discharge instructions, follow up and referral plans. medication usage, Demonstrated understanding of instructions, follow-up care, medications, Prescriptions given X 2. 22:28 Patient left the ED. lp1 Signatures: Monique Farnsworth RN RN fc Constanza Anne ds1 Daiana Regalado RN RN lp1 Chavez Blevins MD MD gs Corrections: (The following items were deleted from the chart) 22:22 Fall Risk None identified. [facility]
--- NOTE | 2017-12-02 22:21 | EDPHYS ---
Physician Documentation [facility] Name: Kimani Augustin Jr Age: 32 yrs Sex: Male : 1985 Arrival Date: 12/02/2017 Time: 22:04 Bed 6 Private MD: ED Physician Chavez Blevins HPI: 12/02 22:17 This 32 yrs old Male presents to ER via Unassigned with complaints of Nausea. gs 22:17 Onset: The symptoms/episode began/occurred today, at 03:00. Possible causes: unknown. gs The symptoms are aggravated by food . Associated signs and symptoms: Pertinent negatives: abdominal pain, dysuria, fever, vomiting. Severity of symptoms: At their worst the symptoms were moderate in the emergency department the symptoms have resolved and did so earlier today. The patient has experienced similar episodes in the past, a few times. Historical: - Allergies: 22:23 EGG/POULTRY; fc - Home Meds: 22:23 calcitrol 0.25mg [Active]; Depakote 500 mg Oral TbEC 2 tabs 2 times per day [Active]; fc - PMHx: 22:23 hypocalcemia; Seizures; fc - PSHx: 22:23 None; fc - Immunization history:: Last tetanus immunization: up to date. - Social history:: Smoking status: Patient/guardian denies using tobacco. - Ebola Screening: : Patient negative for fever greater than or equal to 101.5 degrees Fahrenheit, and additional compatible Ebola Virus Disease symptoms Patient denies exposure to infectious person Patient denies travel to an Ebola-affected area in the 21 days before illness onset. ROS: 22:17 All other systems are negative. gs Exam: 22:17 Head/Face: Normocephalic, atraumatic. Eyes: Pupils equal round and reactive to light, gs extra-ocular motions intact. Lids and lashes normal. Conjunctiva and sclera are non-icteric and not injected. Cornea within normal limits. Periorbital areas with no swelling, redness, or edema. ENT: Nares patent. No nasal discharge, no septal abnormalities noted. Tympanic membranes are normal and external auditory canals are clear. Oropharynx with no redness, swelling, or masses, exudates, or evidence of obstruction, uvula midline. Mucous membranes moist. Neck: Trachea midline, no thyromegaly or masses palpated, and no cervical lymphadenopathy. Supple, full range of motion without nuchal rigidity, or vertebral point tenderness. No Meningismus. Chest/axilla: Normal chest wall appearance and motion. Nontender with no deformity. No lesions are appreciated. Cardiovascular: Regular rate and rhythm with a normal S1 and S2. No gallops, murmurs, or rubs. Normal PMI, no JVD. No pulse deficits. Respiratory: Lungs have equal breath sounds bilaterally, clear to auscultation and percussion. No rales, rhonchi or wheezes noted. No increased work of breathing, no retractions or nasal flaring. Abdomen/GI: Soft, non-tender, with normal bowel sounds. No distension or tympany. No guarding or rebound. No evidence of tenderness throughout. Back: No spinal tenderness. No costovertebral tenderness. Full range of motion. Skin: Warm, dry with normal turgor. Normal color with no rashes, no lesions, and no evidence of cellulitis. MS/ Extremity: Pulses equal, no cyanosis. Neurovascular intact. Full, normal range of motion. Neuro: Awake and alert, GCS 15, oriented to person, place, time, and situation. Cranial nerves II-XII grossly intact. Motor strength 5/5 in all extremities. Sensory grossly intact. Cerebellar exam normal. Normal gait. 22:17 Constitutional: The patient appears alert, awake. Vital Signs: 22:00 BP 117 / 92; Pulse 97; Resp 18; Temp 98.6(O); Pulse Ox 98% on R/A; Weight 80.74 kg (R); fc Height 5 ft. 6 in. (167.64 cm) (R); Pain 0/10; 22:00 Body Mass Index 28.73 (80.74 kg, 167.64 cm) fc MDM: 22:16 Patient medically screened. gs 22:17 Differential diagnosis: viral gastroenteritis, heat illness. Data reviewed: vital gs signs, nurses notes. Response to treatment: the patient's symptoms have resolved after treatment, and as a result, I will discharge patient. Administered Medications: No medications were administered Disposition: 12/02/17 22:21 Discharged to Home. Impression: Nausea. - Condition is Stable. - Discharge Instructions: Nausea, Adult, Form - Excuse from Work, School, or Physical Activity. - Prescriptions for Pepcid 20 mg Oral Tablet - take 1 tablet by ORAL route every 12 hours As needed; 20 tablet. Zofran 4 mg Oral Tablet - take 1 tablet by ORAL route every 12 hours As needed; 6 tablet. - Work release form, Medication Reconciliation Form, Thank You Letter, Antibiotic Education, Prescription Opioid Use form. - Follow up: Emergency Department; When: 2 - 3 days; Reason: Re-evaluation by your physician. Signatures: Monique Farnsworth RN RN Daiana Regalado RN RN lp1 Chavez Blevins MD MD gs Corrections: (The following items were deleted from the chart) 22:28 22:21 12/02/2017 22:21 Discharged to Home. Impression: Nausea. Condition is Stable. lp1 Forms are Medication Reconciliation Form, Thank You Letter, Antibiotic Education, Prescription Opioid Use. Follow up: Emergency Department; When: 2 - 3 days; Reason: Re-evaluation by your physician. gs
== END 2017-12-02 22:28 | disposition home or self-care (01) ==
LOC: ER 21:58
DX: R11.0 Nausea (principal); G40.909 Epilepsy, unspecified, not intractable, without status epilepticus; Z91.012 Allergy to eggs; Z91.018 Allergy to other foods
CPT/HCPCS: 99283

== ENCOUNTER 2017-12-12 01:21 | Emergency (ER) | payer OTHER ==
[2017-12-12 02:07] LABS: Absolute Lymphocytes (CBC) 2.4 K/uL (0.7-4.9); Absolute Monocytes 0.5 K/uL (0.1-1.3); Absolute Neutrophil 4.4 K/uL (1.8-8.0); Basophils % 0.6 % (0-1.3); Eosinophils % 3.1 % (0-4.4); Hematocrit 42.4 % (39.6-49.0); Lymphocytes % 31.2 % (15.3-44.8); MCH 28.4 pg (27.0-35.0); MCV 84.5 fL (80-100); MPV 11.2 fL (7.6-11.3); Monocytes % 7.1 % (3.3-12.3); RBC Red Blood Cell Count 5.02 M/uL (4.33-5.43)
[2017-12-12 02:40] LABS: ALT/SGPT 30 U/L (12-78); AST/SGOT 34 U/L (15-37); Albumin 3.6 g/dL (3.4-5.0); Alkaline Phosphatase 96 U/L (45-117); BUN Blood Urea Nitrogen 18 mg/dL (7-18); Bicarbonate 27 mmol/L (21-32); Bilirubin Direct < 0.1 mg/dL (0-0.2); Bilirubin Total 0.3 mg/dL (0.2-1.0); CKMB Creatine Kinase MB 1.1 ng/mL (0.3-3.6); Creatine Phosphokinase 372 U/L (39-308); Glucose Level 90 mg/dL (74-106); Lipase 224 U/L (73-393); Magnesium 1.8 mg/dL (1.8-2.4); Potassium 3.3 mmol/L (3.5-5.1); Protein, Total 8.7 g/dL (6.4-8.2); Sodium Level 138 mmol/L (136-145)
[2017-12-12] MEDS ORDERED: POTASSIUM CL SA 10 MEQ TAB PO ONE (03:10)
--- NOTE | 2017-12-12 03:17 | ER ---
Nurse's Notes [facility] Name: Kimani Augustin Jr Age: 32 yrs Sex: Male : 1985 Arrival Date: 12/12/2017 Time: :23 Bed 8 Private MD: Diagnosis: Epilepsy and recurrent seizures;Hypocalcemia;Hypokalemia Presentation: 12/12 01:28 Presenting complaint: EMS states: Pt was at work and had a seizure, sustained small tl2 laceration to nose. Pt has history of epilepsy and last seizure was approx 1 month ago. Pt took morning dose of Keppra but missed night dose. Pt was post ictal upon EMS arrival but is now AOx4. Transition of care: patient was not received from another setting of care. Onset of symptoms was December 12, 2017 at 00:30. Risk Assessment: Do you want to hurt yourself or someone else? Patient reports no desire to harm self or others. Initial Sepsis Screen: Does the patient meet any 2 criteria? No. Patient's initial sepsis screen is negative. Does the patient have a suspected source of infection? No. Patient's initial sepsis screen is negative. Care prior to arrival: None. 01:28 Method Of Arrival: EMS: [facility] tl2 01:28 Acuity: GUZMAN 3 tl2 Triage Assessment: :31 General: Appears in no apparent distress. uncomfortable, Behavior is calm, cooperative, tl2 appropriate for age. Pain: Complains of pain in nose. Neuro: Level of Consciousness is awake, alert, obeys commands, Oriented to person, place, time, situation. Cardiovascular: Denies chest pain. Respiratory: Airway is patent Respiratory effort is even, unlabored, Respiratory pattern is regular, symmetrical. GI: No signs and/or symptoms were reported involving the gastrointestinal system. : No signs and/or symptoms were reported regarding the genitourinary system. Derm: Skin is pink, warm \T\ dry. Injury Description: Laceration sustained to nose is clean, superficial, 0.5 to 2.5 cm long, was sustained 30-60 minutes ago. Historical: - Allergies: EGG/POULTRY; tl2 - Home Meds: : Depakote 500 mg Oral TbEC 2 tabs 2 times per day [Active]; calcitrol 0.25mg [Active]; tl2 - PMHx: 01:31 hypocalcemia; Seizures; tl2 - Immunization history:: Adult Immunizations up to date. - Social history:: Smoking status: Patient/guardian denies using tobacco. - Ebola Screening: : No symptoms or risks identified at this time. Screenin:33 Abuse screen: Denies threats or abuse. Nutritional screening: No deficits noted. tl2 Tuberculosis screening: No symptoms or risk factors identified. Fall Risk Gait- Impaired (20 pts.). Assessment: 01:31 General: see triage assessment. General:. tl2 02:46 Reassessment: Patient appears in no apparent distress at this time. Patient and/or tl2 family updated on plan of care and expected duration. Pain level reassessed. Pt appears to be sleeping, RR even and unlabored. 03:49 Reassessment: Patient appears in no apparent distress at this time. Patient and/or tl2 family updated on plan of care and expected duration. Pain level reassessed. Patient is alert, oriented x 3, equal unlabored respirations, skin warm/dry/pink. Pt verbalized understanding of discharge instructions, need for follow up. Pt stable and ambulatory out of ER Patient states feeling better. Vital Signs: 01:31 BP 127 / 86; Pulse 99; Resp 18; Temp 98.6(O); Pulse Ox 98% on R/A; Weight 86.18 kg; tl2 Height 5 ft. 8 in. (172.72 cm); Pain 5/10; 02:44 BP 109 / 64 LA Sitting (auto/reg); Pulse 88 LA; Resp 22 S; Pulse Ox 96% on R/A; cb2 01:31 Body Mass Index 28.89 (86.18 kg, 172.72 cm) tl2 Alleman Coma Score: 01:31 Eye Response: spontaneous(4). Verbal Response: oriented(5). Motor Response: obeys tl2 commands(6). Total: 15. ED Course: 01:23 Patient arrived in ED. al2 01:24 Irvnig Draper MD is Attending Physician. tw4 01:26 Tabitha Kidd, LILIAN is Primary Nurse. tl2 01:30 Triage completed. tl2 01:31 Arm band placed on right wrist. tl2 01:33 Patient has correct armband on for positive identification. Bed in low position. Call tl2 light in reach. Side rails up X2. 01:33 Inserted saline lock: 22 gauge in left hand, using aseptic technique. Blood collected. tl2 Maintain EMS IV. Dressing intact. Site clean \T\ dry. Gauge \T\ site: 18 g R AC. 01:34 Seizure precautions initiated. tl2 02:41 Notified ED physician of a critical lab result(s). calcium of 5.8 Dr Draper notified. bb 03:49 No provider procedures requiring assistance completed. IV discontinued, intact, tl2 bleeding controlled, No redness/swelling at site. Pressure dressing applied. Administered Medications: 03:06 Drug: Potassium Chloride 40 mEq Route: PO; tl2 03:48 Follow up: Response: No adverse reaction tl2 03:20 CANCELLED (Physician Discretion): Depakene 500 mg PO once lp1 03:22 Drug: Calcium Carbonate 500 mg 2 tablet Route: PO; tl2 03:48 Follow up: Response: No adverse reaction tl2 03:22 Drug: Depakote 500 mg Route: PO; tl2 03:48 Follow up: Response: No adverse reaction tl2 Point of Care Testing: Blood Glucose: 01:28 Blood Glucose: 92 mg/dL; cb2 Ranges: Outcome: 03:17 Discharge ordered by . tw4 03:49 Discharged to home ambulatory. tl2 03:49 Condition: stable 03:49 Discharge instructions given to patient, Instructed on discharge instructions, follow up and referral plans. Demonstrated understanding of instructions, follow-up care. 03:51 Patient left the ED. tl2 Signatures: Mary Grace Diaz RN RN bb Tabitha Kidd RN RN tl2 Jose Farnsworth Angelica al2 Wadley, Terrence, MD MD tw4 Daiana Regalado RN lp1
--- NOTE | 2017-12-12 03:17 | EDPHYS ---
Physician Documentation [facility] Name: Kimani Augustin Jr Age: 32 yrs Sex: Male : 1985 Arrival Date: 12/12/2017 Time: :23 Bed 8 Private MD: ED Physician Irving Draper HPI: 12/12 01:47 This 32 yrs old Male presents to ER via EMS with complaints of Seizure. tw4 01:47 The patient presents after having a single isolated seizure, that lasted an unknown tw4 period of time. Character of seizure(s): Loss of consciousness: the patient experienced loss of consciousness, Motor activity: the motor activity is unknown. Context: the seizure(s) was witnessed, by no one, the downtime is unknown. Seizure Hx: Seizure medications: phenobarbital. Associated injury: The patient did not suffer any apparent associated injury. The patient has not experienced similar symptoms in the past. Historical: - Allergies: 01:31 EGG/POULTRY; tl2 - Home Meds: :31 Depakote 500 mg Oral TbEC 2 tabs 2 times per day [Active]; calcitrol 0.25mg [Active]; tl2 - PMHx: 01:31 hypocalcemia; Seizures; tl2 - Immunization history:: Adult Immunizations up to date. - Social history:: Smoking status: Patient/guardian denies using tobacco. - Ebola Screening: : No symptoms or risks identified at this time. ROS: 01:47 Constitutional: Negative for fever, chills, and weight loss, Cardiovascular: Negative tw4 for chest pain, palpitations, and edema, Respiratory: Negative for shortness of breath, cough, wheezing, and pleuritic chest pain, Abdomen/GI: Negative for abdominal pain, nausea, vomiting, diarrhea, and constipation, Back: Negative for injury and pain, MS/Extremity: Negative for injury and deformity, Skin: Negative for injury, rash, and discoloration. 01:47 Neuro: Positive for seizure activity. Exam: 01:47 Constitutional: This is a well developed, well nourished patient who is awake, alert, tw4 and in no acute distress. Head/Face: Normocephalic, atraumatic. Chest/axilla: Normal chest wall appearance and motion. Nontender with no deformity. No lesions are appreciated. Cardiovascular: Regular rate and rhythm with a normal S1 and S2. No gallops, murmurs, or rubs. Normal PMI, no JVD. No pulse deficits. Respiratory: Lungs have equal breath sounds bilaterally, clear to auscultation and percussion. No rales, rhonchi or wheezes noted. No increased work of breathing, no retractions or nasal flaring. Abdomen/GI: Soft, non-tender, with normal bowel sounds. No distension or tympany. No guarding or rebound. No evidence of tenderness throughout. Back: No spinal tenderness. No costovertebral tenderness. Full range of motion. MS/ Extremity: Pulses equal, no cyanosis. Neurovascular intact. Full, normal range of motion. Neuro: Awake and alert, GCS 15, oriented to person, place, time, and situation. Cranial nerves II-XII grossly intact. Motor strength 5/5 in all extremities. Sensory grossly intact. Cerebellar exam normal. Normal gait. Vital Signs: 01:31 BP 127 / 86; Pulse 99; Resp 18; Temp 98.6(O); Pulse Ox 98% on R/A; Weight 86.18 kg; tl2 Height 5 ft. 8 in. (172.72 cm); Pain 5/10; 02:44 BP 109 / 64 LA Sitting (auto/reg); Pulse 88 LA; Resp 22 S; Pulse Ox 96% on R/A; cb2 01:31 Body Mass Index 28.89 (86.18 kg, 172.72 cm) tl2 Mary Jane Coma Score: 01:31 Eye Response: spontaneous(4). Verbal Response: oriented(5). Motor Response: obeys tl2 commands(6). Total: 15. MDM: 01:25 Patient medically screened. tw4 03:14 Differential diagnosis: cerebral vascular accident, cardiac arrhythmia. Data reviewed: tw4 vital signs, nurses notes. Data interpreted: Pulse oximetry: Interpretation: normal. Counseling: I had a detailed discussion with the patient and/or guardian regarding: the historical points, exam findings, and any diagnostic results supporting the discharge/admit diagnosis. Special discussion: I discussed with the patient/guardian in detail that at this point there is no indication for admission to the hospital. It is understood, however, that if the symptoms persist or worsen the patient needs to return immediately for re-evaluation. 12/12 01:26 Order name: BE 12/12 01:26 Order name: Basic Metabolic Panel 12/12 01:26 Order name: CBC with Diff 12/12 01:26 Order name: Ckmb; Complete Time: 02:41 12/12 02:42 Interpretation: Within normal limits: CKMB 1.1. 12/12 01:26 Order name: CPK; Complete Time: 02:41 12/12 02:41 Interpretation: Normal except: CPK 372. 12/12 01:26 Order name: Hepatic Function; Complete Time: 02:41 12/12 02:41 Interpretation: Normal except: TP 8.7; GLOB 5.1; A/G 0.7. 12/12 01:26 Order name: Lipase; Complete Time: 02:41 12/12 02:42 Interpretation: Within normal limits: LIP 224. 12/12 01:26 Order name: Magnesium; Complete Time: 02:41 12/12 02:42 Interpretation: Within normal limits: MG 1.8. 12/12 01:26 Order name: Basic Metabolic Panel; Complete Time: 02:41 EDMS 12/12 02:42 Interpretation: Normal except: K 3.3; GFR 78; CA 5.8. 12/12 01:26 Order name: CBC with Automated Diff; Complete Time: 02:41 EDMS 12/12 02:42 Interpretation: Normal except: PLT 118; RDW 16.4. 12/12 01:26 Order name: Cardiac monitoring; Complete Time: :35 12/12 01:26 Order name: EKG - Nurse/Tech; Complete Time: :44 12/12 01:26 Order name: IV Saline Lock; Complete Time: :35 12/12 01:26 Order name: Labs collected and sent; Complete Time: :34 12/12 01:26 Order name: NPO; Complete Time: 34 12/12 01:26 Order name: O2 Per Protocol; Complete Time: :34 12/12 01:26 Order name: O2 Sat Monitoring; Complete Time: :4 Administered Medications: 03:06 Drug: Potassium Chloride 40 mEq Route: PO; tl2 03:48 Follow up: Response: No adverse reaction tl2 03:20 CANCELLED (Physician Discretion): Depakene 500 mg PO once lp1 03:22 Drug: Calcium Carbonate 500 mg 2 tablet Route: PO; tl2 03:48 Follow up: Response: No adverse reaction tl2 03:22 Drug: Depakote 500 mg Route: PO; tl2 03:48 Follow up: Response: No adverse reaction tl2 Point of Care Testing: Blood Glucose: 01:28 Blood Glucose: 92 mg/dL; cb2 Ranges: Critical Glucose Levels:Adult <50 mg/dl or >400 mg/dl <40 mg/dl or >180 mg/dl Disposition: 12/12/17 03:17 Discharged to Home. Impression: Epilepsy and recurrent seizures, Hypocalcemia, Hypokalemia. - Condition is Stable. - Discharge Instructions: Potassium Content of Foods, Seizure, Adult, Hypocalcemia, , Hypocalcemia, Adult, Hypokalemia. - Medication Reconciliation Form, Thank You Letter, Antibiotic Education, Prescription Opioid Use form. - Follow up: Private Physician; When: Upon discharge from the Emergency Department; Reason: Further diagnostic work-up, Recheck today's complaints, Continuance of care. - Problem is new. - Symptoms have improved. Signatures: Dispatcher [employer] EDDaiana Otero RN RN lp1 Tabitha Kidd RN RN tl2 Irving Draper MD MD tw4 Corrections: (The following items were deleted from the chart) 03:20 03:13 Depakene 500 mg PO once ordered. tw4 lp1 03:51 03:17 12/12/2017 03:17 Discharged to Home. Impression: Epilepsy and recurrent seizures; tl2 Hypocalcemia; Hypokalemia. Condition is Stable. Forms are Medication Reconciliation Form, Thank You Letter, Antibiotic Education, Prescription Opioid Use. Follow up: Private Physician; When: Upon discharge from the Emergency Department; Reason: Further diagnostic work-up, Recheck today's complaints, Continuance of care. Problem is new. Symptoms have improved. tw4
[2017-12-12] MEDS ORDERED: CALCIUM CARBONATE 500 MG TAB ONE (03:23)
[2017-12-12] MEDS ORDERED: DIVALPROEX DR 250 MG TAB PO ONE (03:26)
--- NOTE | 2017-12-12 08:25 | EKG ---
Test Date: 2017-12-12 Test Time: 01:42:41 Director Financial Planning: JENNY MEASUREMENT RESULTS: Intervals: Rate: 99 MI: 120 QRSD: 100 QT: 368 QTc: 472 [place]: P: 81 MI: 120 QRS: 65 T: 57 INTERPRETIVE STATEMENTS: Normal sinus rhythm Incomplete right bundle branch block Borderline ECG Compared to ECG 10/25/2017 19:55:36 Incomplete right bundle-branch block now present Electronically Signed On 12-12-17 08:25:05 CDT by Collin Sigala
== END 2017-12-12 03:51 | disposition home or self-care (01) ==
LOC: ER 01:21
DX: E83.51 Hypocalcemia (principal); E87.6 Hypokalemia; Z91.012 Allergy to eggs; Z91.018 Allergy to other foods
CPT/HCPCS: 36415; 80048; 80076; 82550; 82553; 82962; 83690; 83735; 85025; 93005; 99284

== ENCOUNTER 2018-01-16 10:17 | Emergency (ER) | payer OTHER ==
[2018-01-16] MEDS ORDERED: NA CHLORIDE 0.9% 1,000 ML ONE (10:59)
[2018-01-16] MEDS ORDERED: DIVALPROEX DR 250 MG TAB PO ONE ×2 (10:59→12:15)
[2018-01-16] MEDS ORDERED: levETIRAcetam 1,000 MG in NA CHLORIDE 0.9% 100 ML IV ONE (11:00)
[2018-01-16 11:14] LABS: Absolute Lymphocytes (CBC) 0.8 K/uL (0.7-4.9); Absolute Monocytes 0.3 K/uL (0.1-1.3); Absolute Neutrophil 3.8 K/uL (1.8-8.0); Basophils % 0.5 % (0-1.3); Eosinophils % 2.6 % (0-4.4); Hematocrit 43.1 % (39.6-49.0); Lymphocytes % 16.1 % (15.3-44.8); MCH 28.2 pg (27.0-35.0); MCV 85.8 fL (80-100); Monocytes % 6.6 % (3.3-12.3); RBC Red Blood Cell Count 5.03 M/uL (4.33-5.43)
[2018-01-16 11:28] LABS: Protime INR 1.27
[2018-01-16 11:41] LABS: ALT/SGPT 26 U/L (12-78); AST/SGOT 27 U/L (15-37); Albumin 3.9 g/dL (3.4-5.0); Alkaline Phosphatase 103 U/L (45-117); BUN Blood Urea Nitrogen 15 mg/dL (7-18); Bicarbonate 31 mmol/L (21-32); Bilirubin Direct 0.1 mg/dL (0-0.2); Bilirubin Total 0.5 mg/dL (0.2-1.0); Glucose Level 103 mg/dL (74-106); Potassium 3.7 mmol/L (3.5-5.1); Protein, Total 9.2 g/dL (6.4-8.2); Sodium Level 140 mmol/L (136-145)
--- NOTE | 2018-01-16 11:45 | EKG ---
Test Date: 2018-01-16 Test Time: 10:31:32 Core Inspector: LANIE MEASUREMENT RESULTS: Intervals: Rate: 103 NV: 118 QRSD: 96 QT: 372 QTc: 487 [place]: P: 69 NV: 118 QRS: 42 T: 54 INTERPRETIVE STATEMENTS: Sinus tachycardia Otherwise normal ECG Compared to ECG 12/12/2017 01:42:41 Sinus rhythm no longer present Incomplete right bundle-branch block no longer present Electronically Signed On 01-16-18 11:44:03 CATALYTIC CONVERTER OPERATOR by Collin Sigala
[2018-01-16] MEDS ORDERED: CALCIUM GLUCONATE 1gm/100 ML NS (4.65 mEq/100mL) IV ONE ×2 (12:15)
--- NOTE | 2018-01-16 12:41 | ER ---
Nurse's Notes [facility] Name: Kimani Augustin Jr Age: 32 yrs Sex: Male : 1985 Arrival Date: 01/16/2018 Time: 10:18 Bed 8 Private MD: Diagnosis: Epileptic seizures related to external causes;Epilepsy and recurrent seizures;Hypocalcemia;Hypoparathyroidism, unspecified;Hypoparathyroidism Presentation: 01/16 10:19 Presenting complaint: EMS states: SEIZURE. Transition of care: patient was not received bp from another setting of care. Onset of symptoms is unknown. Risk Assessment: Do you want to hurt yourself or someone else? Patient reports no desire to harm self or others. Initial Sepsis Screen: Does the patient meet any 2 criteria? No. Patient's initial sepsis screen is negative. Does the patient have a suspected source of infection? No. Patient's initial sepsis screen is negative. Care prior to arrival: None. 10:19 Method Of Arrival: EMS: [facility] bp 10:19 Acuity: GUZMAN 3 bp Triage Assessment: 10:20 General: Appears in no apparent distress. comfortable, Behavior is calm, cooperative, bp appropriate for age. Pain: Denies pain. EENT: No deficits noted. Neuro: Level of Consciousness is awake, alert, obeys commands, Oriented to person, place, time, situation, Appropriate for age. Cardiovascular: No deficits noted. Respiratory: Airway is patent Respiratory effort is even, unlabored, Respiratory pattern is regular, symmetrical. GI: No signs and/or symptoms were reported involving the gastrointestinal system. : No signs and/or symptoms were reported regarding the genitourinary system. Derm: No deficits noted. Musculoskeletal: Circulation, motion, and sensation intact. Range of motion: intact in all extremities. Historical: - Allergies: 10:20 EGG/POULTRY; bp - Home Meds: 10:20 calcitrol 0.25mg [Active]; Depakote 500 mg Oral TbEC 2 tabs 2 times per day [Active]; bp - PMHx: 10:20 hypocalcemia; Seizures; bp - Immunization history:: Adult Immunizations up to date. - Social history:: Smoking status: unknown. - Ebola Screening: : Patient negative for fever greater than or equal to 101.5 degrees Fahrenheit, and additional compatible Ebola Virus Disease symptoms Patient denies exposure to infectious person Patient denies travel to an Ebola-affected area in the 21 days before illness onset No symptoms or risks identified at this time. - Family history:: not pertinent. Screenin:25 Abuse screen: Denies threats or abuse. Denies injuries from another. Nutritional bp screening: No deficits noted. Tuberculosis screening: No symptoms or risk factors identified. Fall Risk None identified. Assessment: 10:24 General: SEE TRIAGE NOTE. bp 10:45 General: Appears comfortable, Behavior is calm, cooperative. Pain: Denies pain. Neuro: aa5 Level of Consciousness is awake, alert, obeys commands, Oriented to person, place, time, situation. Cardiovascular: Heart tones S1 S2 present Rhythm is regular. Respiratory: Airway is patent Respiratory effort is even, unlabored, Respiratory pattern is regular, symmetrical, Breath sounds are clear bilaterally. GI: Abdomen is round non-distended, Bowel sounds present X 4 quads. Abd is soft and non tender X 4 quads. : No signs and/or symptoms were reported regarding the genitourinary system. EENT: No signs and/or symptoms were reported regarding the EENT system. Derm: Skin is pink, warm \T\ dry. Musculoskeletal: Range of motion: intact in all extremities. 11:10 Reassessment: Patient and/or family updated on plan of care and expected duration. Pain aa5 level reassessed. Patient is alert, oriented x 3, equal unlabored respirations, skin warm/dry/pink. Patient denies pain at this time. Pt sitting up in bed. Pt's family at bedside. Pt notified of wait time for lab results. . 12:35 Reassessment: Patient and/or family updated on plan of care and expected duration. Pain aa5 level reassessed. Patient is alert, oriented x 3, equal unlabored respirations, skin warm/dry/pink. Patient denies pain at this time. Awaiting for calcium infusion to complete for d/c home, pt notified of wait time. . 13:35 Reassessment: Patient is alert, oriented x 3, equal unlabored respirations, skin aa5 warm/dry/pink. Vital Signs: 10:20 BP 112 / 67; Pulse 100; Resp 16; Temp 98; Pulse Ox 98% ; Weight 81.65 kg; bp 11:10 BP 111 / 71; Pulse 93; Resp 18 S; Pulse Ox 97% on R/A; Pain 0/10; aa5 11:40 BP 107 / 61; Pulse 94; Resp 18 S; Pulse Ox 99% on R/A; aa5 12:43 BP 106 / 77; Pulse 89; Resp 18 S; Pulse Ox 99% on R/A; aa5 13:34 BP 102 / 69; Pulse 86; Resp 16 S; Temp 98.1(O); Pulse Ox 98% on R/A; Pain 0/10; aa5 Mary Jane Coma Score: 10:20 Eye Response: spontaneous(4). Verbal Response: oriented(5). Motor Response: obeys bp commands(6). Total: 15. ED Course: 10:18 Patient arrived in ED. bp 10:19 Triage completed. bp 10:20 Nelson Mercer MD is Attending Physician. fermín 10:20 Arm band placed on. bp 10:25 Patient has correct armband on for positive identification. Bed in low position. Call bp light in reach. Side rails up X2. Adult w/ patient. Seizure precautions initiated. 10:35 EKG done, by maintenance shop technician. reviewed by Nelson Mercer MD. at1 10:41 Dionne Danielson, LILIAN is Primary Nurse. aa5 10:55 Initial lab(s) drawn, sent to lab. Inserted saline lock: 20 gauge in right antecubital aa5 area, using aseptic technique. Blood collected. 11:42 Notified ED physician of a critical lab result(s). Ca=6.0. iw 12:40 Ezequiel Joyner MD is Referral Physician. fermín 12:43 Dre Pulliam MD is Referral Physician. fermín 13:34 No provider procedures requiring assistance completed. aa5 13:34 IV discontinued, intact, bleeding controlled, No redness/swelling at site. Pressure aa5 dressing applied. Administered Medications: 10:55 Drug: NS 0.9% 1000 ml Route: IV; Rate: 1 bolus; Site: right antecubital; aa5 12:35 Follow up: IV Status: Completed infusion aa5 10:55 Drug: Depakote 500 mg Route: PO; aa5 12:35 Follow up: Response: No adverse reaction aa5 11:10 Drug: Keppra 1000 mg Route: IV; Rate: per protocol; Site: right antecubital; aa5 11:25 Follow up: Response: No adverse reaction; IV Status: Completed infusion aa5 12:35 Drug: Depakote 500 mg Route: PO; aa5 13:34 Follow up: Response: No adverse reaction aa5 12:35 Drug: Calcium Gluconate 1 grams Route: IVPB; Infused Over: 60 mins; Site: right aa5 antecubital; 13:34 Follow up: Response: No adverse reaction; IV Status: Completed infusion aa5 12:35 Drug: Calcium Carbonate 500 mg Route: PO; aa5 13:34 Follow up: Response: No adverse reaction aa5 12:35 Drug: Calcium Carbonate 500 mg Route: PO; aa5 13:34 Follow up: Response: No adverse reaction aa5 Outcome: 12:41 Discharge ordered by MD. kovacs 13:35 Discharged to home ambulatory, with significant other. aa5 13:35 Condition: stable 13:35 Discharge instructions given to patient, significant other, Instructed on discharge instructions, follow up and referral plans. medication usage, Demonstrated understanding of instructions, follow-up care, medications, Prescriptions given X 2. 13:36 Patient left the ED. aa5 Signatures: Nelson Mercer MD MD cha Williams, Irene, RN RN Dionne Danielson, RN RN aa5 Ximena Love, under ground miner EKG Tat1 Jose Foster RN RN bp
--- NOTE | 2018-01-16 12:41 | EDPHYS ---
Physician Documentation [facility] Name: Kimani Augustin Jr Age: 32 yrs Sex: Male : 1985 Arrival Date: 01/16/2018 Time: 10:18 Bed 8 Private MD: Nelson Grossman HPI: 01/16 10:26 This 32 yrs old Male presents to ER via EMS with complaints of Seizure. fermín 10:26 The patient presents after having a single isolated seizure, that lasted 60 second(s). fermín Character of seizure(s): Loss of consciousness: the patient experienced loss of consciousness, Motor activity: generalized. Seizure onset: this morning. Context: the seizure(s) was witnessed, by family. Seizure Hx: Cause: unknown, Last seizure: The patient's last seizure was approximately 1 week(s) ago, Usual frequency: roughly every 2 week(s). Associated injury: The patient did not suffer any apparent associated injury. Current symptoms: Currently, the patient is not experiencing any symptoms, the patient feels back to baseline. The patient has experienced similar episodes in the past, multiple times. Historical: - Allergies: 10:20 EGG/POULTRY; bp - Home Meds: 10:20 calcitrol 0.25mg [Active]; Depakote 500 mg Oral TbEC 2 tabs 2 times per day [Active]; bp - PMHx: 10:20 hypocalcemia; Seizures; bp - Immunization history:: Adult Immunizations up to date. - Social history:: Smoking status: unknown. - Ebola Screening: : Patient negative for fever greater than or equal to 101.5 degrees Fahrenheit, and additional compatible Ebola Virus Disease symptoms Patient denies exposure to infectious person Patient denies travel to an Ebola-affected area in the 21 days before illness onset No symptoms or risks identified at this time. - Family history:: not pertinent. ROS: 10:26 Constitutional: Negative for fever, chills, and weight loss, Eyes: Negative for injury, fermín pain, redness, and discharge, ENT: Negative for injury, pain, and discharge, Neck: Negative for injury, pain, and swelling, Cardiovascular: Negative for chest pain, palpitations, and edema, Respiratory: Negative for shortness of breath, cough, wheezing, and pleuritic chest pain, Abdomen/GI: Negative for abdominal pain, nausea, vomiting, diarrhea, and constipation, Back: Negative for injury and pain, : Negative for injury, bleeding, discharge, and swelling, MS/Extremity: Negative for injury and deformity, Skin: Negative for injury, rash, and discoloration, Psych: Negative for depression, anxiety, suicide ideation, homicidal ideation, and hallucinations, Allergy/Immunology: Negative for hives, rash, and allergies, Endocrine: Negative for neck swelling, polydipsia, polyuria, polyphagia, and marked weight changes, Hematologic/Lymphatic: Negative for swollen nodes, abnormal bleeding, and unusual bruising. 10:26 Neuro: Positive for seizure activity. Exam: 10:26 Constitutional: This is a well developed, well nourished patient who is awake, alert, fermín and in no acute distress. Head/Face: Normocephalic, atraumatic. Eyes: Pupils equal round and reactive to light, extra-ocular motions intact. Lids and lashes normal. Conjunctiva and sclera are non-icteric and not injected. Cornea within normal limits. Periorbital areas with no swelling, redness, or edema. ENT: Nares patent. No nasal discharge, no septal abnormalities noted. Tympanic membranes are normal and external auditory canals are clear. Oropharynx with no redness, swelling, or masses, exudates, or evidence of obstruction, uvula midline. Mucous membranes moist. Neck: Trachea midline, no thyromegaly or masses palpated, and no cervical lymphadenopathy. Supple, full range of motion without nuchal rigidity, or vertebral point tenderness. No Meningismus. Chest/axilla: Normal chest wall appearance and motion. Nontender with no deformity. No lesions are appreciated. Cardiovascular: Regular rate and rhythm with a normal S1 and S2. No gallops, murmurs, or rubs. Normal PMI, no JVD. No pulse deficits. Respiratory: Lungs have equal breath sounds bilaterally, clear to auscultation and percussion. No rales, rhonchi or wheezes noted. No increased work of breathing, no retractions or nasal flaring. Abdomen/GI: Soft, non-tender, with normal bowel sounds. No distension or tympany. No guarding or rebound. No evidence of tenderness throughout. Back: No spinal tenderness. No costovertebral tenderness. Full range of motion. Male : Normal genitalia with no discharge or lesions. Skin: Warm, dry with normal turgor. Normal color with no rashes, no lesions, and no evidence of cellulitis. MS/ Extremity: Pulses equal, no cyanosis. Neurovascular intact. Full, normal range of motion. Neuro: Awake and alert, GCS 15, oriented to person, place, time, and situation. Cranial nerves II-XII grossly intact. Motor strength 5/5 in all extremities. Sensory grossly intact. Cerebellar exam normal. Normal gait. Psych: Awake, alert, with orientation to person, place and time. Behavior, mood, and affect are within normal limits. Vital Signs: 10:20 BP 112 / 67; Pulse 100; Resp 16; Temp 98; Pulse Ox 98% ; Weight 81.65 kg; bp 11:10 BP 111 / 71; Pulse 93; Resp 18 S; Pulse Ox 97% on R/A; Pain 0/10; aa5 11:40 BP 107 / 61; Pulse 94; Resp 18 S; Pulse Ox 99% on R/A; aa5 12:43 BP 106 / 77; Pulse 89; Resp 18 S; Pulse Ox 99% on R/A; aa5 13:34 BP 102 / 69; Pulse 86; Resp 16 S; Temp 98.1(O); Pulse Ox 98% on R/A; Pain 0/10; aa5 [place] Coma Score: 10:20 Eye Response: spontaneous(4). Verbal Response: oriented(5). Motor Response: obeys bp commands(6). Total: 15. MDM: 10:20 Patient medically screened. [facility] 10:28 Data reviewed: vital signs, nurses notes, lab test result(s), EKG. [facility] 01/16 10:23 Order name: Acetaminophen; Complete Time: 11:43 [facility] 01/16 10:23 Order name: Basic Metabolic Panel; Complete Time: 11:43 [facility] 01/16 10:23 Order name: CBC with Diff; Complete Time: : [facility] 01/16 10:23 Order name: ETOH Level; Complete Time: 11: fermín 01/16 10:23 Order name: Hepatic Function; Complete Time: :43 01/16 10:23 Order name: PT-INR; Complete Time: 11: [facility] 01/16 10:23 Order name: Ptt, Activated; Complete Time: 11: [facility] 01/16 10:23 Order name: Salicylate; Complete Time: 11:43 [facility] 01/16 10:23 Order name: Urine Drug Screen [facility] 01/16 10:26 Order name: Depakote; Complete Time: 11:41 [facility] 01/16 11:43 Order name: Pth,Intact; Complete Time: 12:37 [facility] 01/16 13:07 Order name: Urine Dipstick--Ancillary (enter results) 01/16 10:23 Order name: EKG; Complete Time: 10:24 [facility] 01/16 10:23 Order name: EKG - Nurse/Tech; Complete Time: 11:21 [facility] 01/16 10:23 Order name: IV Saline Lock; Complete Time: 11:21 [facility] 01/16 10:23 Order name: Labs collected and sent; Complete Time: 11:22 [facility] 01/16 10:23 Order name: Urine Dipstick-Ancillary (obtain specimen); Complete Time: 13:14 [facility] 01/16 10:23 Order name: Seizure Precautions; Complete Time: 10:42 [facility] Administered Medications: 10:55 Drug: NS 0.9% 1000 ml Route: IV; Rate: 1 bolus; Site: right antecubital; aa5 12:35 Follow up: IV Status: Completed infusion aa5 10:55 Drug: Depakote 500 mg Route: PO; aa5 12:35 Follow up: Response: No adverse reaction aa5 11:10 Drug: Keppra 1000 mg Route: IV; Rate: per protocol; Site: right antecubital; aa5 11:25 Follow up: Response: No adverse reaction; IV Status: Completed infusion aa5 12:35 Drug: Depakote 500 mg Route: PO; aa5 13:34 Follow up: Response: No adverse reaction aa5 12:35 Drug: Calcium Gluconate 1 grams Route: IVPB; Infused Over: 60 mins; Site: right aa5 antecubital; 13:34 Follow up: Response: No adverse reaction; IV Status: Completed infusion aa5 12:35 Drug: Calcium Carbonate 500 mg Route: PO; aa5 13:34 Follow up: Response: No adverse reaction aa5 12:35 Drug: Calcium Carbonate 500 mg Route: PO; aa5 13:34 Follow up: Response: No adverse reaction aa5 Disposition: 01/16/18 12:41 Discharged to Home. Impression: Epileptic seizures related to external causes, Epilepsy and recurrent seizures, Hypocalcemia, Hypoparathyroidism, unspecified, Hypoparathyroidism. - Condition is Stable. - Discharge Instructions: Seizure, Adult, Seizure, Adult, [id number], Hypocalcemia, Adult, Hypoparathyroidism. - Prescriptions for Keppra 500 mg Oral Tablet - take 1 tablet by ORAL route every 12 hours; 20 tablet. Os- Cuong 500 + D3 - take 1 tablet by ORAL route 2 times per day; 60 tablet. - Medication Reconciliation Form, Thank You Letter, Antibiotic Education, Prescription Opioid Use, Work release form form. - Follow up: Private Physician; When: 2 - 3 days; Reason: Recheck today's complaints, Continuance of care, Re-evaluation by your physician. Follow up: Ezequiel Joyner; When: 2 - 3 days; Reason: Recheck today's complaints, Continuance of care, Re-evaluation by your physician. Follow up: Dre Pulliam MD; When: 2 - 3 days; Reason: Recheck today's complaints, Re-evaluation by your physician. - Problem is new. - Symptoms have improved. Signatures: Dispatcher [employer] EDMS Nelson Mercer MD MD cha Calderon, Audri, RN RN aa5 Jose Foster RN RN bp Corrections: (The following items were deleted from the chart) 12:43 12:41 01/16/2018 12:41 Discharged to Home. Impression: Epileptic seizures related to fermín external causes; Epilepsy and recurrent seizures; Hypocalcemia; Hypoparathyroidism, unspecified; Hypoparathyroidism. Condition is Stable. Discharge Instructions: Seizure, Adult, Seizure, Adult, [id number], Hypocalcemia, Adult. Prescriptions for Depakote 500 mg Oral Tablet, Delayed Release (E.C.) - take 1 tablet by ORAL route every 12 hours; 30 tablet, Keppra 500 mg Oral Tablet - take 1 tablet by ORAL route every 12 hours; 20 tablet, Os-Cuong 500 + D3 - take 1 tablet by ORAL route 2 times per day; 60 tablet. and Forms are Medication Reconciliation Form, Thank You Letter, Antibiotic Education, Prescription Opioid Use. Follow up: Private Physician; When: 2 - 3 days; Reason: Recheck today's complaints, Continuance of care, Re-evaluation by your physician. Follow up: Ezequiel Joyner; When: 2 - 3 days; Reason: Recheck today's complaints, Continuance of care, Re-evaluation by your physician. Problem is new. Symptoms have improved. fermín 13:36 12:43 01/16/2018 12:41 Discharged to Home. Impression: Epileptic seizures related to aa5 external causes; Epilepsy and recurrent seizures; Hypocalcemia; Hypoparathyroidism, unspecified; Hypoparathyroidism. Condition is Stable. Discharge Instructions: Seizure, Adult, Seizure, Adult, [id number], Hypocalcemia, Adult, Hypoparathyroidism. Prescriptions for Keppra 500 mg Oral Tablet - take 1 tablet by ORAL route every 12 hours; 20 tablet, Os-Cuong 500 + D3 - take 1 tablet by ORAL route 2 times per day; 60 tablet. and Forms are Medication Reconciliation Form, Thank You Letter, Antibiotic Education, Prescription Opioid Use. Follow up: Private Physician; When: 2 - 3 days; Reason: Recheck today's complaints, Continuance of care, Re-evaluation by your physician. Follow up: Ezequiel Joyner; When: 2 - 3 days; Reason: Recheck today's complaints, Continuance of care, Re-evaluation by your physician. Follow up: Dre Pulliam; When: 2 - 3 days; Reason: Recheck today's complaints, Re-evaluation by your physician. Problem is new. Symptoms have improved. fermín
[2018-01-16] MEDS ORDERED: CALCIUM CARBONATE 500 MG TAB PO SCH (13:00)
[2018-01-16 13:21] LABS: Barbiturates NEGATIVE (NEGATIVE); Benzodiazepines NEGATIVE (NEGATIVE); Cocaine NEGATIVE (NEGATIVE); METHAMPHETAM NEGATIVE (NEGATIVE); Methadone NEGATIVE (NEGATIVE); Opiates NEGATIVE (NEGATIVE); Phencyclidine NEGATIVE (NEGATIVE); THC Cannibis NEGATIVE (NEGATIVE)
[2018-01-16 15:13] LABS: Urine Blood NEGATIVE (NEG); Urine Glucose NEGATIVE (NEG); Urine Protein 2+ (NEG)
== END 2018-01-16 13:36 | disposition home or self-care (01) ==
LOC: ER 10:17
DX: E83.51 Hypocalcemia (principal); E20.9 Hypoparathyroidism, unspecified; G40.909 Epilepsy, unspecified, not intractable, without status epilepticus; Z91.012 Allergy to eggs; Z91.018 Allergy to other foods
CPT/HCPCS: 36415; 80048; 80076; 80164; 80307; 80320; 80329; 81003; 83970; 85025; 85610; 85730; 93005; 96361; 96365; 96375; 99284; J0610; J1953; J7030

== ENCOUNTER 2018-02-09 19:41 | Observation (INO) | payer OTHER ==
[2018-02-09 20:45] LABS: Absolute Lymphocytes (CBC) 1.8 K/uL (0.7-4.9); Absolute Monocytes 0.5 K/uL (0.1-1.3); Absolute Neutrophil 2.8 K/uL (1.8-8.0); Basophils % 0.8 % (0-1.3); Eosinophils % 5.2 % (0-4.4); Hematocrit 41.3 % (39.6-49.0); Lymphocytes % 32.8 % (15.3-44.8); MPV 11.9 fL (7.6-11.3); Monocytes % 9.6 % (3.3-12.3); RBC Red Blood Cell Count 4.68 M/uL (4.33-5.43)
[2018-02-09 20:52] LABS: Protime INR 1.23
[2018-02-09] MEDS ORDERED: FAMOTIDINE 20 MG/2 ML VIAL IV ONE (20:52)
[2018-02-09] MEDS ORDERED: ASPIRIN 81 MG CHEWABLE TABLET ONE (20:52)
--- NOTE | 2018-02-09 21:05 | RAD REPORT ---
EXAM DESCRIPTION: RAD - Chest Single View - 02/09/2018 8:42 pm CLINICAL HISTORY: Chest pain COMPARISON: November 2015 TECHNIQUE: AP portable chest image was obtained 3 hours . FINDINGS: Lungs are clear. Heart and vasculature are normal. No measurable pleural effusion and no p neumothorax. No acute bony abnormality seen. No acute aortic findings suspected. IMPRESSION: No acute cardiopulmonary process. No significant change from comparison.
[2018-02-09 21:20] LABS: Barbiturates NEGATIVE (NEGATIVE); Benzodiazepines NEGATIVE (NEGATIVE); Cocaine NEGATIVE (NEGATIVE); METHAMPHETAM NEGATIVE (NEGATIVE); Methadone NEGATIVE (NEGATIVE); Opiates NEGATIVE (NEGATIVE); Phencyclidine NEGATIVE (NEGATIVE); THC Cannibis NEGATIVE (NEGATIVE)
[2018-02-09 21:42] LABS: ALT/SGPT 26 U/L (12-78); AST/SGOT 27 U/L (15-37); Albumin 3.7 g/dL (3.4-5.0); Alkaline Phosphatase 97 U/L (45-117); BUN Blood Urea Nitrogen 11 mg/dL (7-18); Bicarbonate 27 mmol/L (21-32); Bilirubin Direct 0.1 mg/dL (0-0.2); Bilirubin Total 0.4 mg/dL (0.2-1.0); Glucose Level 62 mg/dL (74-106); Lipase 172 U/L (73-393); Magnesium 1.7 mg/dL (1.8-2.4); NT PRO-BNP 37 pg/mL (<125); Potassium 3.2 mmol/L (3.5-5.1); Protein, Total 8.3 g/dL (6.4-8.2); Sodium Level 137 mmol/L (136-145); Troponin (Emerg Dept Use Only) < 0.02 ng/mL (0.0-0.045)
[2018-02-09 21:47] LABS: Urine Blood NEGATIVE (NEG); Urine Glucose NEGATIVE (NEG); Urine Protein NEGATIVE (NEG)
--- NOTE | 2018-02-09 22:11 | ER ---
Nurse's Notes [facility] Name: Kimani Augustin Jr Age: 32 yrs Sex: Male : 1985 Arrival Date: 02/09/2018 Time: 19:42 Bed 4 Private MD: Diagnosis: Chest pain, unspecified;Hypokalemia;Hypocalcemia;Hypomagnesemia Presentation: 02/09 19:44 Presenting complaint: Patient states: "Sometimes I feel cold or hot, I dont know. I aj1 feel like my chest hurts a little bit and I just feel like my blood pressure goes up. Reports left sided chest pain that radiates to the left shoulder. Reports that this pain has been on and off for the past 3 days. Patient appears drowsy in triage, has a hard time answering questions. States that he is tired because he "works too much". Transition of care: patient was not received from another setting of care. Onset of symptoms was February 06, 2018. Risk Assessment: Do you want to hurt yourself or someone else? Patient reports no desire to harm self or others. Initial Sepsis Screen: Does the patient meet any 2 criteria? No. Patient's initial sepsis screen is negative. Does the patient have a suspected source of infection? No. Patient's initial sepsis screen is negative. Care prior to arrival: None. 19:44 Method Of Arrival: Ambulatory aj1 19:44 Acuity: GUZMAN 3 aj1 Triage Assessment: 19:47 General: Appears in no apparent distress. comfortable, Behavior is calm, cooperative, aj1 appropriate for age. Pain: Complains of pain in anterior aspect of left upper chest Pain radiates to left arm Pain currently is 5 out of 10 on a pain scale. Neuro:. Cardiovascular: Reports chest pain. Respiratory: Airway is patent Respiratory effort is even, unlabored, Respiratory pattern is regular, symmetrical. Historical: - Allergies: 19:47 EGG/POULTRY; aj1 - Home Meds: 19:47 calcitrol 0.25mg [Active]; Depakote 500 mg Oral TbEC 2 tabs 2 times per day [Active]; aj1 - PMHx: 19:47 hypocalcemia; Seizures; aj1 - Immunization history:: Flu vaccine is not up to date. - Social history:: Smoking status: Patient uses tobacco products, smokes one pack cigarettes per day. - Ebola Screening: : Patient denies travel to an Ebola-affected area in the 21 days before illness onset. - Family history:: not pertinent. Screenin:15 Abuse screen: Denies threats or abuse. Nutritional screening: No deficits noted. ea Tuberculosis screening: No symptoms or risk factors identified. Fall Risk None identified. Assessment: 20:15 General: Appears in no apparent distress. Behavior is calm, cooperative, drowsy. Pain: ea Complains of pain in chest. Neuro: Level of Consciousness is awake, alert, obeys commands, Oriented to person, place, time. Cardiovascular: Patient's skin is warm and dry. Respiratory: Airway is patent Respiratory effort is even, unlabored, Respiratory pattern is regular, symmetrical, Breath sounds are clear. GI: No signs and/or symptoms were reported involving the gastrointestinal system. : No signs and/or symptoms were reported regarding the genitourinary system. Derm: Skin is pink, warm \\T\\ dry. 21:50 Reassessment: Patient and/or family updated on plan of care and expected duration. Pain ea level reassessed. Patient is alert, oriented x 3, equal unlabored respirations, skin warm/dry/pink. 22:30 Reassessment: Patient and/or family updated on plan of care and expected duration. Pain ea level reassessed. Patient is alert, oriented x 3, equal unlabored respirations, skin warm/dry/pink. 23:25 Reassessment: Patient and/or family updated on plan of care and expected duration. Pain ea level reassessed. Patient is alert, oriented x 3, equal unlabored respirations, skin warm/dry/pink. Awaiting on room assignment. 23:46 Reassessment: Report called to Michelle RN on second floor. ea Vital Signs: 19:47 BP 126 / 85; Pulse 86; Resp 18; Temp 98.4; Pulse Ox 100% on R/A; aj1 20:21 BP 140 / 82; Pulse 88; Resp 18; Pulse Ox 99% ; ea 21:00 BP 114 / 77; Pulse 72; Resp 18; Pulse Ox 99% ; ea 22:30 BP 137 / 96; Pulse 70; Resp 18; Pulse Ox 98% ; ea 23:49 BP 118 / 74; Pulse 68; Resp 18; Pulse Ox 98% ; ea ED Course: 19:42 Patient arrived in ED. ag3 19:47 Triage completed. aj1 19:47 Arm band placed on Patient placed in an exam room. aj1 20:02 Mona Villegas, LILIAN is Primary Nurse. ea 20:04 Nelson Mercer MD is Attending Physician. fermín 20:15 Patient has correct armband on for positive identification. Bed in low position. Call ea light in reach. Side rails up X2. monitoring manager on. Pulse ox on. NIBP on. 20:15 Patient maintains SpO2 saturation greater than 95% on room air. ea 20:19 Inserted saline lock: 20 gauge in left antecubital area, using aseptic technique. Blood ea collected. 20:42 XRAY Chest (1 view) In Process Unspecified. EDMS 22:09 Pawan Lux MD is Hospitalizing Provider. fermín 23:24 No provider procedures requiring assistance completed. Patient admitted, IV remains in ea place. Administered Medications: 20:50 Drug: Aspirin Chewable Tablet 324 mg Route: PO; ea 21:00 Follow up: Response: No adverse reaction ea 21:06 Drug: Pepcid 20 mg Route: IVP; Site: left antecubital; ea 21:15 Follow up: Response: No adverse reaction ea 22:10 Drug: Potassium Effervescent Tablet 50 mEq Route: PO; ea 22:50 Follow up: Response: No adverse reaction ea 22:10 Drug: Magnesium Sulfate 2 grams Route: IVPB; Infused Over: 2 hrs; Site: left ea antecubital; 02/10 00:01 Follow up: Response: No adverse reaction; IV Status: Completed infusion ea 02/09 22:50 Drug: Calcium Gluconate 1 grams Route: IVPB; Infused Over: 60 mins; Site: left ea antecubital; 23:48 Follow up: Response: No adverse reaction; IV Status: Completed infusion ea 23:25 Drug: Calcium Carbonate 500 mg 2 tablet Route: PO; ea 23:49 Follow up: Response: No adverse reaction ea Outcome: 22:10 Decision to Hospitalize by Provider. fermín 22:30 Condition: stable ea 22:30 Instructed on the need for admit. 02/10 00:17 Patient left the ED. ea Signatures: Dispatcher [employer] EDBere Velasquez RN RN aj1 Nelson Mercer MD MD cha Antunez, Elena, RN RN ea Gomez, Alice 3 Corrections: (The following items were deleted from the chart) 02/09 19:49 19:44 Presenting complaint: Patient states: "Sometimes I feel cold or hot, I dont know. aj1 I feel like my chest hurts a little bit and I just feel like my blood pressure goes up. Reports left sided chest pain that radiates to the left shoulder. Reports that this pain has been on and off for the past 3 days aj1
--- NOTE | 2018-02-09 22:12 | EDPHYS ---
Physician Documentation [facility] Name: Kimani Augustin Jr Age: 32 yrs Sex: Male : 1985 Arrival Date: 02/09/2018 Time: 19:42 Bed 4 Private MD: ED Physician Nelson Mercer HPI: 02/09 20:33 This 32 yrs old Male presents to ER via Ambulatory with complaints of Chest fermín Pain. 20:33 The patient or guardian reports chest pain that is located primarily in the anterior fermín chest wall, left. The pain does not radiate. Associated signs and symptoms: The patient has no apparent associated signs or symptoms. The chest pain is described as a heaviness. Modifying factors: The symptoms are alleviated by nothing. the symptoms are aggravated by nothing. Severity of pain: At its worst the pain was mild in the emergency department the pain is unchanged. The patient has not experienced similar symptoms in the past. Historical: - Allergies: 19:47 EGG/POULTRY; aj1 - Home Meds: 19:47 calcitrol 0.25mg [Active]; Depakote 500 mg Oral TbEC 2 tabs 2 times per day [Active]; aj1 - PMHx: 19:47 hypocalcemia; Seizures; aj1 - Immunization history:: Flu vaccine is not up to date. - Social history:: Smoking status: Patient uses tobacco products, smokes one pack cigarettes per day. - Ebola Screening: : Patient denies travel to an Ebola-affected area in the 21 days before illness onset. - Family history:: not pertinent. ROS: 20:33 Constitutional: Negative for fever, chills, and weight loss, Eyes: Negative for injury, fermín pain, redness, and discharge, ENT: Negative for injury, pain, and discharge, Neck: Negative for injury, pain, and swelling, Respiratory: Negative for shortness of breath, cough, wheezing, and pleuritic chest pain, Abdomen/GI: Negative for abdominal pain, nausea, vomiting, diarrhea, and constipation, Back: Negative for injury and pain, : Negative for injury, bleeding, discharge, and swelling, MS/Extremity: Negative for injury and deformity, Skin: Negative for injury, rash, and discoloration, Neuro: Negative for headache, weakness, numbness, tingling, and seizure. 20:33 Cardiovascular: Positive for chest pain. Exam: 20:33 Constitutional: This is a well developed, well nourished patient who is awake, alert, fermín and in no acute distress. Head/Face: Normocephalic, atraumatic. Eyes: Pupils equal round and reactive to light, extra-ocular motions intact. Lids and lashes normal. Conjunctiva and sclera are non-icteric and not injected. Cornea within normal limits. Periorbital areas with no swelling, redness, or edema. ENT: Nares patent. No nasal discharge, no septal abnormalities noted. Tympanic membranes are normal and external auditory canals are clear. Oropharynx with no redness, swelling, or masses, exudates, or evidence of obstruction, uvula midline. Mucous membranes moist. Neck: Trachea midline, no thyromegaly or masses palpated, and no cervical lymphadenopathy. Supple, full range of motion without nuchal rigidity, or vertebral point tenderness. No Meningismus. Chest/axilla: Normal chest wall appearance and motion. Nontender with no deformity. No lesions are appreciated. Cardiovascular: Regular rate and rhythm with a normal S1 and S2. No gallops, murmurs, or rubs. Normal PMI, no JVD. No pulse deficits. Respiratory: Lungs have equal breath sounds bilaterally, clear to auscultation and percussion. No rales, rhonchi or wheezes noted. No increased work of breathing, no retractions or nasal flaring. Abdomen/GI: Soft, non-tender, with normal bowel sounds. No distension or tympany. No guarding or rebound. No evidence of tenderness throughout. Back: No spinal tenderness. No costovertebral tenderness. Full range of motion. Male : Normal genitalia with no discharge or lesions. Skin: Warm, dry with normal turgor. Normal color with no rashes, no lesions, and no evidence of cellulitis. MS/ Extremity: Pulses equal, no cyanosis. Neurovascular intact. Full, normal range of motion. Neuro: Awake and alert, GCS 15, oriented to person, place, time, and situation. Cranial nerves II-XII grossly intact. Motor strength 5/5 in all extremities. Sensory grossly intact. Cerebellar exam normal. Normal gait. Psych: Awake, alert, with orientation to person, place and time. Behavior, mood, and affect are within normal limits. 20:33 Musculoskeletal/extremity: DVT Exam: No signs of deep vein thrombosis. no pain, no swelling, no tenderness, negative Homans' sign noted on exam, no appreciated bluish discoloration, no erythema, no increased warmth. Vital Signs: 19:47 BP 126 / 85; Pulse 86; Resp 18; Temp 98.4; Pulse Ox 100% on R/A; aj1 20:21 BP 140 / 82; Pulse 88; Resp 18; Pulse Ox 99% ; ea 21:00 BP 114 / 77; Pulse 72; Resp 18; Pulse Ox 99% ; ea 22:30 BP 137 / 96; Pulse 70; Resp 18; Pulse Ox 98% ; ea 23:49 BP 118 / 74; Pulse 68; Resp 18; Pulse Ox 98% ; ea MDM: 20:09 Patient medically screened. [facility] 20:34 Data reviewed: vital signs, nurses notes, lab test result(s), EKG, radiologic studies, fermín plain films. 02/09 20:07 Order name: Basic Metabolic Panel; Complete Time: 22:01 [facility] 02/09 20:07 Order name: CBC with Diff; Complete Time: 21:25 [facility] 02/09 20:07 Order name: LFT's; Complete Time: 22:01 [facility] 02/09 20:07 Order name: Magnesium; Complete Time: 22:01 [facility] 02/09 20:07 Order name: NT PRO-BNP; Complete Time: 22:01 [facility] 02/09 20:07 Order name: PT-INR; Complete Time: 21:25 [facility] 02/09 20:07 Order name: Troponin (emerg Dept Use Only); Complete Time: 22:01 [facility] 02/09 20:07 Order name: UDS; Complete Time: 21:25 [facility] 02/09 20:07 Order name: Lipase; Complete Time: 22:01 [facility] 02/09 20:07 Order name: Urine Culture [facility] 02/09 20:09 Order name: Depakote; Complete Time: 21:37 [facility] 02/09 21:11 Order name: Urine Dipstick--Ancillary (enter results); Complete Time: 22:01 02/09 23:22 Order name: Lipid Profile [facility] 02/09 23:22 Order name: Lipid Profile [facility] 02/09 20:07 Order name: XRAY Chest (1 view); Complete Time: 21:25 [facility] 02/09 20:07 Order name: EKG; Complete Time: 20:08 [facility] 02/09 20:07 Order name: Cardiac monitoring; Complete Time: 21:17 [facility] 02/09 20:07 Order name: EKG - Nurse/Tech; Complete Time: 20:39 [facility] 02/09 23:22 Order name: Heart Healthy [facility] 02/09 23:22 Order name: EKG Electrocardiogram [facility] 02/09 23:22 Order name: EKG Electrocardiogram [facility] 02/09 23:22 Order name: Troponin I [facility] 02/09 23:22 Order name: Troponin I [facility] 02/09 23:22 Order name: Troponin I [facility] 02/09 20:07 Order name: IV Saline Lock; Complete Time: 20:39 [facility] 02/09 20:07 Order name: Labs collected and sent; Complete Time: 20:39 [facility] 02/09 20:07 Order name: O2 Per Protocol; Complete Time: 20:39 [facility] 02/09 20:07 Order name: O2 Sat Monitoring; Complete Time: 20:39 [facility] 02/09 20:07 Order name: Urine Dipstick-Ancillary (obtain specimen); Complete Time: 21:17 [facility] Administered Medications: 20:50 Drug: Aspirin Chewable Tablet 324 mg Route: PO; ea 21:00 Follow up: Response: No adverse reaction ea 21:06 Drug: Pepcid 20 mg Route: IVP; Site: left antecubital; ea 21:15 Follow up: Response: No adverse reaction ea 22:10 Drug: Potassium Effervescent Tablet 50 mEq Route: PO; ea 22:50 Follow up: Response: No adverse reaction ea 22:10 Drug: Magnesium Sulfate 2 grams Route: IVPB; Infused Over: 2 hrs; Site: left ea antecubital; 02/10 00:01 Follow up: Response: No adverse reaction; IV Status: Completed infusion ea 02/09 22:50 Drug: Calcium Gluconate 1 grams Route: IVPB; Infused Over: 60 mins; Site: left ea antecubital; 23:48 Follow up: Response: No adverse reaction; IV Status: Completed infusion ea 23:25 Drug: Calcium Carbonate 500 mg 2 tablet Route: PO; ea 23:49 Follow up: Response: No adverse reaction Disposition: 02/09/18 22:10 Hospitalization ordered by Pawan Lux for Observation. Preliminary diagnosis are Chest pain, unspecified, Hypokalemia, Hypocalcemia, Hypomagnesemia. - Bed requested for Telemetry/MedSurg (observation). - Status is Observation. ea - Condition is Stable. - Problem is new. - Symptoms have improved. UTI on Admission? No Signatures: Dispatcher [employer] EDBere Velasquez RN RN aj1 Nelson Mercer MD MD cha Garcia, Cindy, LILIAN RN Mona Mo RN RN ea Corrections: (The following items were deleted from the chart) 23:36 22:10 Hospitalization Ordered by Pawan Lux MD for Observation. Preliminary cg diagnosis is Chest pain, unspecified; Hypokalemia; Hypocalcemia; Hypomagnesemia. Bed requested for Telemetry/MedSurg (observation). Status is Observation. Condition is Stable. Problem is new. Symptoms have improved. UTI on Admission? No. [facility] 02/10 00:17 02/09 23:36 02/09/2018 22:10 Hospitalization Ordered by Pawan Lux MD for ea Observation. Preliminary diagnosis is Chest pain, unspecified; Hypokalemia; Hypocalcemia; Hypomagnesemia. Bed requested for Telemetry/MedSurg (observation). Status is Observation. Condition is Stable. Problem is new. Symptoms have improved. UTI on Admission? No. cg
[2018-02-09] MEDS ORDERED: POTASSIUM 25 MEQ EFFERV TAB ONE (22:18)
[2018-02-09] MEDS ORDERED: Magnesium Sulfate 2gm IVPB 2 G/50 ML BAG IV ONE (22:19)
[2018-02-09] MEDS ORDERED: CALCIUM GLUCONATE 1 GM IVPB 1 GM/50 ML BAG IV ONE (22:34)
[2018-02-09] MEDS ORDERED: CALCIUM CARBONATE 500 MG TAB ONE (23:06)
[2018-02-09] MEDS ORDERED: MORPHINE 4 MG/ML SYR IV PRN (23:18)
[2018-02-09] MEDS ORDERED: ACETAMINOPHEN 500 MG TAB PO PRN (23:18)
[2018-02-09] MEDS ORDERED: ALPRAZOLAM 0.25 MG TABLET PO PRN (23:18)
[2018-02-10] MEDS ORDERED: CALCIUM CARB 500MG/VIT D 200 IU TAB PO SCH (08:00)
[2018-02-10] MEDS ORDERED: INFLUENZA VACCINE (for 3y+) 0.5 ML DOSE IMVAC ONE (08:00)
[2018-02-10] MEDS ORDERED: CALCIUM GLUC 10% INJ 4.65 MEQ in NA CHLORIDE 0.9% 100 ML IV ONE (08:00)
--- NOTE | 2018-02-10 08:44 | P.HP ---
Certification for Inpatient Patient admitted to: Observation With expected LOS: <2 Midnights Patient will require the following post-hospital care: None Practitioner: I am a practitioner with admitting privileges, knowledge of patient current condition, hospital course, and medical plan of care. Services: Services provided to patient in accordance with Admission requirements found in Title 42 Section 412.3 of the Code of Federal Regulations Patient History Date of Service: 02/09/18 Reason for admission: History of multiple old electrolyte abnormalities; history of seizure disor History of Present Illness: Patient 32-year-old gentleman who came into the hospital with multiple electrolyte abnormalities. He has history of seizures and is not overly compliant with his treatment regimen. He came into the hospital with severe hypocalcemia as well as some hypomagnesemia and hypokalemia. He appears to knee mainly treatment for the a calcium although the other electrolytes were slightly abnormal. He will be admitted to the hospital for workup. Allergies EGG/POULTRY Allergy (Uncoded 02/10/18 00:40) Unknown Home Medications: Calcitriol 1 cap PO BID 11/22/15 Calcium Carbonate/Vitamin D3 [Oscal 500 + Vit D 200 Iu Tab*] 1 tab PO BIDWM #60 tab 04/30/17 Divalproex Sodium [Depakote] 500 mg PO BID #60 tablet. 04/30/17 PHENYTOIN ER Cap [Dilantin ER Cap*] 100 mg PO TID #90 cap 04/30/17 - Past Medical/Surgical History Has patient received pneumonia vaccine in the past: No Diabetic: No -: hypocalcemia -: seizures -: hypoparathyroidism -: Partial colectomy - Family History Father Medical History: Hypertension, Diabetes, Kidney disease Mother Medical History: Diabetes, Cancer - Social History Smoking Status: Current every day smoker Alcohol use: Yes CD- Drugs: No Place of Residence: Home Review of Systems 10-point ROS is otherwise unremarkable Physical Examination - Vital Signs Temperature: 98.0 F Blood Pressure: 116/74 Pulse: 88 Respirations: 18 Pulse Ox (%): 96 - Physical Exam General: Alert, In no apparent distress, Oriented x3 HEENT: Atraumatic, PERRLA, Mucous membr. moist/pink, EOMI, Sclerae nonicteric Neck: Supple, 2+ carotid pulse no bruit, No LAD, Without JVD or thyroid abnormality Respiratory: Clear to auscultation bilaterally, Normal air movement Cardiovascular: Regular rate/rhythm, Normal S1 S2, No murmurs Gastrointestinal: Normal bowel sounds, Hypoactive, Soft and benign, Non- distended, W/out succussion splash, W/out hepatosplenomegaly, W/out hepatomegaly , W/out splenomegaly, No tenderness Musculoskeletal: No clubbing, No swelling, No tenderness Integumentary: No rashes Neurological: Normal gait, Normal speech, Normal strength at 5/5 x4 extr, Normal tone, Sensation intact, Cranial nerves 3-12 intact, Normal affect Lymphatics: No axilla or inguinal lymphadenopathy - Studies Laboratory Data (last 24 hrs) 02/09/18 20:30: PT 14.5 H, INR 1.23 02/09/18 20:30: WBC 5.5, Hgb 13.5 L, Hct 41.3, Plt Count 113 L 02/09/18 20:30: Sodium 137, Potassium 3.2 L, BUN 11, Creatinine 1.09, Glucose 62 L, Magnesium 1.7 L, Total Bilirubin 0.4, AST 27, ALT 26, Alkaline Phosphatase 97, Lipase 172 Assessment & Plan - Problems (Diagnosis) (1) Inguinal hernia Current Visit: Yes Status: Acute (2) Hypokalemia Onset Date: 12/13/15 Current Visit: No Status: Acute (3) Seizure Onset Date: 12/13/15 Current Visit: No Status: Acute (4) Hypocalcemia Onset Date: 04/30/17 Current Visit: No Status: Chronic (5) Hypoparathyroidism Onset Date: 12/13/15 Current Visit: No Status: Chronic Qualifiers: - Plan Plan: 1. Supplement 2. Recheck his labs are better than possible discharge 3. Patient niece the take calcium and vitamin-D supplementation 4. Continue monitoring labs as an outpatient 5. Strict blood pressure and blood sugar control 6. GI and DVT prophylaxis Discharge Plan: Home Plan to discharge in: 24 Hours - Advance Directives Does patient have a Living Will: No Does patient have a Durable POA for Healthcare: No - Code Status/Comfort Care Code Status Assessed: Yes Code Status: Full Code Critical Care: No Time Spent Managing PTS Care (In Minutes): 55
[2018-02-10] MEDS ORDERED: ENOXAPARIN 40 MG/0.4 ML SQ SCH (09:00)
[2018-02-10] MEDS ORDERED: DIVALPROEX DR 500MG TAB PO SCH (09:00)
[2018-02-10] MEDS ORDERED: CALCITRIOL PO SCH (09:00)
[2018-02-10] MEDS ORDERED: ASPIRIN EC 81 MG TAB PO SCH (09:00)
[2018-02-10] MEDS ORDERED: METOPROLOL TAR 50 MG TAB PO SCH (09:00)
[2018-02-10] MEDS ORDERED: CALCITROL 0.25 MCG CAP PO SCH (09:00)
[2018-02-10] MEDS ORDERED: PHENYTOIN ER 100 MG CAP PO SCH (09:00)
[2018-02-10 12:51] LABS: Absolute Lymphocytes (CBC) 1.9 K/uL (0.7-4.9); Absolute Monocytes 0.4 K/uL (0.1-1.3); Absolute Neutrophil 4.4 K/uL (1.8-8.0); Basophils % 0.9 % (0-1.3); Eosinophils % 3.9 % (0-4.4); Hematocrit 44.7 % (39.6-49.0); Lymphocytes % 26.6 % (15.3-44.8); MPV 11.3 fL (7.6-11.3); RBC Red Blood Cell Count 5.15 M/uL (4.33-5.43)
[2018-02-10 13:13] LABS: BUN Blood Urea Nitrogen 10 mg/dL (7-18); Bicarbonate 30 mmol/L (21-32); Glucose Level 83 mg/dL (74-106); Magnesium 2.4 mg/dL (1.8-2.4); Phosphorus 6.2 mg/dL (2.5-4.9); Potassium 4.2 mmol/L (3.5-5.1); Sodium Level 138 mmol/L (136-145)
[2018-02-10] MEDS ORDERED: CALCIUM GLUC 10% INJ 9.3 MEQ in NA CHLORIDE 0.9% 100 ML IV ONE (13:25)
--- NOTE | 2018-02-10 17:28 | EKG ---
Test Date: 2018-02-09 Test Time: 20:15:52 Physician Liaison: REA MEASUREMENT RESULTS: Intervals: Rate: 82 PA: 120 QRSD: 94 QT: 420 QTc: 490 [place]: P: 67 PA: 120 QRS: 48 T: 49 INTERPRETIVE STATEMENTS: Normal sinus rhythm Prolonged QT Abnormal ECG Compared to ECG 01/16/2018 10:31:32 Prolonged QT interval now present Sinus tachycardia no longer present Electronically Signed On 02-10-18 17:18:09 [employer] ARRANGEMENT COUNSELOR by Beni Rhodes
== END 2018-02-10 15:18 | disposition home or self-care (01) ==
LOC: ER 19:41 → ERHOLD 23:18 → 2ND 23:48
PROVIDERS: ADMIT Hospitalist; ATTEND Hospitalist
DX: K40.90 Unilateral inguinal hernia, without obstruction or gangrene, not specified as recurrent (principal); E87.6 Hypokalemia; E83.51 Hypocalcemia; R56.9 Unspecified convulsions; E20.9 Hypoparathyroidism, unspecified; F17.210 Nicotine dependence, cigarettes, uncomplicated; Z91.012 Allergy to eggs
CPT/HCPCS: 36415; 71045; 80048; 80061; 80076; 80164; 80307; 81003; 83690; 83735; 83880; 84100; 84484; 85025; 85610; 87086; 87088; 93005; 96365; 96368; 96375; 99285; G0378; J0610; J1650; J3475

== ENCOUNTER 2018-03-08 18:44 | Inpatient (IN) | payer OTHER, SELFPAY ==
[2018-03-08 20:02] LABS: Absolute Lymphocytes (CBC) 1.2 K/uL (0.7-4.9); Absolute Monocytes 0.4 K/uL (0.1-1.3); Absolute Neutrophil 6.2 K/uL (1.8-8.0); Basophils % 0.8 % (0-1.3); Eosinophils % 2.2 % (0-4.4); Hematocrit 44.3 % (39.6-49.0); Lymphocytes % 14.6 % (15.3-44.8); MPV 11.9 fL (7.6-11.3); Monocytes % 5.2 % (3.3-12.3); RBC Red Blood Cell Count 5.14 M/uL (4.33-5.43)
[2018-03-08] MEDS ORDERED: levETIRAcetam 500 MG TAB ONE (20:02)
[2018-03-08] MEDS ORDERED: NA CHLORIDE 0.9% 1,000 ML ONE (20:02)
[2018-03-08 20:15] LABS: BUN Blood Urea Nitrogen 12 mg/dL (7-18); Bicarbonate 30 mmol/L (21-32); Glucose Level 98 mg/dL (74-106); Potassium 3.9 mmol/L (3.5-5.1); Sodium Level 141 mmol/L (136-145)
[2018-03-08] MEDS ORDERED: ACETAMINOPHEN 500 MG TAB ONE (20:53)
[2018-03-08] MEDS ORDERED: CALCIUM GLUCONATE 1 GM IVPB 1 GM/50 ML BAG IV ONE (21:05)
--- NOTE | 2018-03-08 21:14 | EDPHYS ---
Physician Documentation [facility] Name: Kimani Augustin Jr Age: 32 yrs Sex: Male : 1985 Arrival Date: 03/08/2018 Time: 18:48 Bed 25 Private MD: ED Physician Chavez Blevins HPI: 03/08 21:06 This 32 yrs old Male presents to ER via Wheelchair with complaints of hands gs cramping. 21:06 Onset: The symptoms/episode began/occurred today. Associated signs and symptoms: gs Pertinent negatives: None. Current symptoms: In the emergency department the patient's symptoms are unchanged from the initial presentation. The patient has experienced similar episodes in the past, several times. The patient has not recently seen a physician. Historical: - Allergies: 18:50 EGG/POULTRY; sv - Home Meds: 19:54 calcitrol 0.25mg [Active]; Depakote 500 mg Oral TbEC 2 tabs 2 times per day [Active]; mg2 - PMHx: 18:50 hypocalcemia; Seizures; sv - PSHx: 19:54 None; mg2 - Immunization history:: Flu vaccine status is unknown. - Social history:: Smoking status: unknown. - Ebola Screening: : No symptoms or risks identified at this time. ROS: 21:06 All other systems are negative. gs Exam: 21:11 Head/Face: Normocephalic, atraumatic. Eyes: Pupils equal round and reactive to light, gs extra-ocular motions intact. Lids and lashes normal. Conjunctiva and sclera are non-icteric and not injected. Cornea within normal limits. Periorbital areas with no swelling, redness, or edema. ENT: Nares patent. No nasal discharge, no septal abnormalities noted. Tympanic membranes are normal and external auditory canals are clear. Oropharynx with no redness, swelling, or masses, exudates, or evidence of obstruction, uvula midline. Mucous membranes moist. Neck: Trachea midline, no thyromegaly or masses palpated, and no cervical lymphadenopathy. Supple, full range of motion without nuchal rigidity, or vertebral point tenderness. No Meningismus. Chest/axilla: Normal chest wall appearance and motion. Nontender with no deformity. No lesions are appreciated. Cardiovascular: Regular rate and rhythm with a normal S1 and S2. No gallops, murmurs, or rubs. Normal PMI, no JVD. No pulse deficits. Respiratory: Lungs have equal breath sounds bilaterally, clear to auscultation and percussion. No rales, rhonchi or wheezes noted. No increased work of breathing, no retractions or nasal flaring. Abdomen/GI: Soft, non-tender, with normal bowel sounds. No distension or tympany. No guarding or rebound. No evidence of tenderness throughout. Back: No spinal tenderness. No costovertebral tenderness. Full range of motion. Skin: Warm, dry with normal turgor. Normal color with no rashes, no lesions, and no evidence of cellulitis. 21:11 Constitutional: The patient appears alert, awake. 21:11 Musculoskeletal/extremity: Extremities: grossly normal except: carpel pedal spasm, Circulation is intact in all extremities. Vital Signs: 18:50 BP 133 / 95; Pulse 97; Resp 18; Temp 98.2; Pulse Ox 100% ; Weight 81.65 kg; Height 5 sv ft. 8 in. (172.72 cm); Pain 0/10; 20:17 BP 110 / 45; Pulse 91; Resp 18; Pulse Ox 99% on R/A; tl3 22:01 BP 112 / 73; Pulse 95; Resp 18; Temp 98.1; Pulse Ox 100% on R/A; mg2 18:50 Body Mass Index 27.37 (81.65 kg, 172.72 cm) sv MDM: 19:39 Patient medically screened. 21:11 Data reviewed: vital signs, nurses notes. 03/08 19:39 Order name: CBC with Diff; Complete Time: 20:19 03/08 19:39 Order name: Basic Metabolic Panel; Complete Time: 20:19 03/08 20:21 Order name: Albumin; Complete Time: 21:13 03/08 21:17 Order name: Ionized Calcium EDWA 03/08 21:56 Order name: CBC with Automated Diff EDWA 03/08 21:56 Order name: CBC with Automated Diff EDMS 03/08 21:56 Order name: CONS Pharmacy Consult EDWA 03/08 21:56 Order name: Regular EDMS 03/08 21:56 Order name: Comprehensive Metabolic Panel EDWA 03/08 21:56 Order name: Comprehensive Metabolic Panel EDWA Administered Medications: 20:11 Drug: NS 0.9% 1000 ml Route: IV; Rate: 1 bolus; Site: left antecubital; Delivery: tl3 Primary tubing; 21:48 Follow up: IV Status: Completed infusion; IV Intake: 1000ml tl3 20:11 Drug: Keppra 1000 mg Route: PO; tl3 20:18 Follow up: Response: No adverse reaction tl3 20:45 Drug: Tylenol 1000 mg Route: PO; mg2 21:47 Follow up: Response: No adverse reaction tl3 21:12 Drug: Calcium Gluconate 1 grams Route: IVPB; Infused Over: 60 mins; Site: left mg2 antecubital; 22:52 Follow up: IV Status: Completed infusion; IV Intake: 50ml tl3 Disposition: 03/08/18 21:13 Hospitalization ordered by Pawan Lux for Observation. Preliminary diagnosis is Hypocalcemia. - Bed requested for Telemetry/MedSurg (observation). - Status is Observation. tl3 - Condition is Stable. - Problem is an acute exacerbation. - Symptoms have improved. UTI on Admission? No Signatures: Dispatcher [employer] EDMakeda Love RN RN Kristen Thomas RN RN Chavez Blevins MD MD Daphney Torres RN RN tl3 Obey Howard RN RN mg2 Corrections: (The following items were deleted from the chart) 21:57 21:13 Hospitalization Ordered by Pawan Lux MD for Observation. Preliminary mw diagnosis is Hypocalcemia. Bed requested for Telemetry/MedSurg (observation). Status is Observation. Condition is Stable. Problem is an acute exacerbation. Symptoms have improved. UTI on Admission? No. 23:23 21:57 03/08/2018 21:13 Hospitalization Ordered by Pawan Lux MD for Observation. tl3 Preliminary diagnosis is Hypocalcemia. Bed requested for Telemetry/MedSurg (observation). Status is Observation. Condition is Stable. Problem is an acute exacerbation. Symptoms have improved. UTI on Admission? No. mw
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
[2018-03-08] MEDS ORDERED: MORPHINE 2 MG/ML SYR IV PRN (21:53)
[2018-03-08] MEDS ORDERED: ACETAMINOPHEN 500 MG TAB PO PRN (21:53)
[2018-03-08] MEDS ORDERED: CALCIUM GLUC 10% INJ 9.3 MEQ in NA CHLORIDE 0.9% 100 ML IV ONE (21:53)
[2018-03-08] MEDS ORDERED: ONDANSETRON 4 MG/2 ML VIAL IV PRN (21:53)
[2018-03-08] MEDS: CALCIUM CARB 500MG/VIT D 200 IU TAB PO SCH (23:52)
[2018-03-08] MEDS: NA CHLORIDE 0.9% 1,000 ML IV SCH (23:53)
[2018-03-09 00:10] VITALS: O2SAT 96; BMI 27.3
[2018-03-09 05:50] LABS: Absolute Lymphocytes (CBC) 1.5 K/uL (0.7-4.9); Absolute Monocytes 0.4 K/uL (0.1-1.3); Absolute Neutrophil 3.3 K/uL (1.8-8.0); Basophils % 0.7 % (0-1.3); Eosinophils % 5.4 % (0-4.4); Hematocrit 37.5 % (39.6-49.0); Lymphocytes % 26.6 % (15.3-44.8); MPV 11.5 fL (7.6-11.3); Monocytes % 7.4 % (3.3-12.3); RBC Red Blood Cell Count 4.36 M/uL (4.33-5.43)
[2018-03-09 06:50] LABS: ALT/SGPT 18 U/L (12-78); AST/SGOT 18 U/L (15-37); Albumin 2.9 g/dL (3.4-5.0); Alkaline Phosphatase 78 U/L (45-117); BUN Blood Urea Nitrogen 11 mg/dL (7-18); Bicarbonate 29 mmol/L (21-32); Bilirubin Total 0.2 mg/dL (0.2-1.0); Glucose Level 102 mg/dL (74-106); Potassium 3.1 mmol/L (3.5-5.1); Protein, Total 6.9 g/dL (6.4-8.2); Sodium Level 144 mmol/L (136-145)
--- NOTE | 2018-03-09 07:25 | P.HP ---
Certification for Inpatient Patient admitted to: Inpatient With expected LOS: >2 Midnights Patient will require the following post-hospital care: None Practitioner: I am a practitioner with admitting privileges, knowledge of patient current condition, hospital course, and medical plan of care. Services: Services provided to patient in accordance with Admission requirements found in Title 42 Section 412.3 of the Code of Federal Regulations Patient History Date of Service: 03/08/18 Reason for admission: Severe hypocalcemia History of Present Illness: Patient is a 32-year-old gentleman came into the hospital with severe hypocalcemia. Patient has a history of hypoparathyroidism. This appears to be a genetic issue although he is not exactly sure. He does state that he has other family members who had low calcium levels. Patient has been admitted for numerous times in the past for similar complaints. Will admit him to the hospital and treat his calcium. Will start him on IV calcium and proceed from there. Increase his oral calcium intake daily. Continue his calcitriol and his seizure medication. Allergies No Known Allergies Allergy (Verified 03/09/18 00:13) Home Medications: Calcitriol [Rocaltrol] 0.25 mcg PO DAILY 03/09/18 Levetiracetam [Keppra] 500 mg PO BID 03/09/18 - Past Medical/Surgical History Has patient received pneumonia vaccine in the past: No Diabetic: No -: hypocalcemia -: seizures -: hypoparathyroidism -: Partial colectomy - Family History Father Medical History: Hypertension, Diabetes, Kidney disease Mother Medical History: Diabetes, Cancer - Social History Smoking Status: Current every day smoker Alcohol use: Yes CD- Drugs: No Caffeine use: No Place of Residence: Home Review of Systems 10-point ROS is otherwise unremarkable Physical Examination - Vital Signs Temperature: 98.1 F Blood Pressure: 112/73 Pulse: 95 Respirations: 18 Pulse Ox (%): 98 - Physical Exam General: Alert, In no apparent distress, Oriented x3 HEENT: Atraumatic, PERRLA, Mucous membr. moist/pink, EOMI, Sclerae nonicteric Neck: Supple, 2+ carotid pulse no bruit, No LAD, Without JVD or thyroid abnormality Respiratory: Clear to auscultation bilaterally, Normal air movement Cardiovascular: Regular rate/rhythm, Normal S1 S2 Gastrointestinal: Normal bowel sounds, Soft and benign, Non-distended, No tenderness Musculoskeletal: No clubbing, No swelling, No tenderness Integumentary: No rashes Neurological: Normal gait, Normal speech, Normal strength at 5/5 x4 extr, Normal tone, Sensation intact, Cranial nerves 3-12 intact, Normal affect Lymphatics: No axilla or inguinal lymphadenopathy - Studies Laboratory Data (last 24 hrs) 03/08/18 19:45: Sodium 141, Potassium 3.9, BUN 12, Creatinine 0.84, Glucose 98 03/08/18 19:45: WBC 8.1, Hgb 14.6, Hct 44.3, Plt Count 135 L Assessment & Plan - Problems (Diagnosis) (1) Hypocalcemia Onset Date: 12/13/15 Current Visit: No Status: Acute (2) Seizure Onset Date: 12/13/15 Current Visit: No Status: Acute (3) Hypoparathyroidism Onset Date: 12/13/15 Current Visit: No Status: Chronic Qualifiers: - Plan Plan: 1. Gentle hydration 2. IV calcium supplementation 3. Check phosphorus and Mag level 4. Tax Assistant regarding compliance 5. Increase oral calcium intake 6. Increase fluid intake to prevent nephrolithiasis 7. Anticipate discharge home in the next 48 hr as long as his calcium stabilizes. Discharge Plan: Home Plan to discharge in: Greater than 2 days - Advance Directives Does patient have a Living Will: No Does patient have a Durable POA for Healthcare: No - Code Status/Comfort Care Code Status Assessed: Yes Code Status: Full Code Critical Care: No Time Spent Managing PTS Care (In Minutes): 50
[2018-03-09] MEDS ORDERED: INFLUENZA VACCINE (for 3y+) 0.5 ML DOSE IMVAC ONE (08:00)
[2018-03-09] MEDS: CALCIUM CARB 500MG/VIT D 200 IU TAB PO SCH ×2 (08:30→14:01)
[2018-03-09] MEDS ORDERED: CALCITROL 0.25 MCG CAP PO SCH (09:00)
[2018-03-09] MEDS ORDERED: levETIRAcetam 500 MG TAB PO SCH (09:00)
[2018-03-09] MEDS ORDERED: CALCIUM GLUC 10% INJ 4.65 MEQ in NA CHLORIDE 0.9% 100 ML IV ONE (10:00)
[2018-03-09] MEDS: NA CHLORIDE 0.9% 1,000 ML IV SCH (11:10)
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
[2018-03-09 15:27] LABS: ALT/SGPT 21 U/L (12-78); AST/SGOT 18 U/L (15-37); Albumin 3.4 g/dL (3.4-5.0); Alkaline Phosphatase 91 U/L (45-117); BUN Blood Urea Nitrogen 10 mg/dL (7-18); Bicarbonate 31 mmol/L (21-32); Bilirubin Total 0.2 mg/dL (0.2-1.0); Glucose Level 76 mg/dL (74-106); Protein, Total 8.5 g/dL (6.4-8.2); Sodium Level 142 mmol/L (136-145)
--- NOTE | 2018-03-09 16:20 | P.DS ---
Admission Date: 03/08/18 Discharge Date: 03/09/18 Primary [facility] Provider: [facility] Disposition: ROUTINE DISCHARGE Discharge Condition: GOOD Reason for Admission: Severe hypocalcemia Consultations: none Procedures: Medical Problem List: Chronic Hypocalcemia secondary to hypoparathyroidism Seizure disorder Hypokalemia Dehydration Brief History of Present Illness: 32-year-old male presented emergency room with muscle spasms. Patient found to have hypocalcemia. Patient with history of chronic hypocalcemia related to hypoparathyroidism. Patient reports noncompliance with medication. He reports that his PCP was not able to refill his medication for treatment. Hospital Course: Patient presented with spasm to his muscles. Patient found to have hypocalcemia. Patient with history of chronic hypocalcemia secondary to hypoparathyroidism. Patient with noncompliance of medication. Patient reports not following up with his PCP to refill his medication. Compliance addressed in detail. Patient was given IV calcium and IV fluids. Patient's symptoms resolved. Patient without any spasms, tetany, seizures, chest pain or shortness of breath. At discharge patient will continue with Calcitrol 0.25 mcg daily and Caltrate plus vitamin D 1 pills 3 times a day. Recommend to recheck CMP with magnesium in 1 week. Recommend for the patient to establish care with Endocrinology to further evaluate and treat his condition. Patient to increase fluid intake. No work until repeat CMP is reviewed by his PCP and cleared to go back. Patient with underlying seizure disorder. No active seizures identified. Patient will continue with Keppra 500 mg 1 pill twice daily. Vital Signs/Physical Exam: Temp Pulse Resp BP Pulse Ox 98.6 F 76 16 98/51 L 97 03/09/18 14:39 03/09/18 14:39 03/09/18 14:39 03/09/18 14:39 03/09/18 14:39 General: Alert, In no apparent distress, Oriented x3, Cooperative HEENT: Atraumatic Neck: Supple Respiratory: Clear to auscultation bilaterally, Normal air movement Cardiovascular: Normal pulses, Regular rate/rhythm Gastrointestinal: Normal bowel sounds, Soft and benign, Non-distended, No tenderness, No masses, No rebound, No guarding Musculoskeletal: No erythema, No tenderness, No warmth Integumentary: No tenderness/swelling, No erythema, No warmth, No cyanosis Neurological: Normal speech, Normal strength at 5/5 x4 extr, Normal tone, Normal affect Lymphatics: No axilla or inguinal lymphadenopathy Laboratory Data at Discharge: WBC 5.6 K/uL (4.3-10.9) D 03/09/18 05:20 Hgb 12.4 g/dL (13.6-17.9) L 03/09/18 05:20 Hct 37.5 % (39.6-49.0) L D 03/09/18 05:20 Plt Count 120 K/uL (152-406) L 03/09/18 05:20 Sodium 142 mmol/L (136-145) 03/09/18 14:38 Potassium 4.0 mmol/L (3.5-5.1) 03/09/18 14:38 BUN 10 mg/dL (7-18) 03/09/18 14:38 Creatinine 0.89 mg/dL (0.55-1.3) 03/09/18 14:38 Glucose 76 mg/dL (74-106) 03/09/18 14:38 Total Bilirubin 0.2 mg/dL (0.2-1.0) 03/09/18 14:38 AST 18 U/L (15-37) 03/09/18 14:38 ALT 21 U/L (12-78) 03/09/18 14:38 Alkaline Phosphatase 91 U/L (45-117) 03/09/18 14:38 Home Medications: Calcitriol [Rocaltrol] 0.25 mcg PO DAILY #30 capsule 03/09/18 Calcium Carbonate/Vitamin D3 [Oscal 500 + Vit D 200 Iu Tab*] 1 tab PO TID #90 tab 03/09/18 Levetiracetam [Keppra] 500 mg PO BID 03/09/18 New Medications: Calcitriol [Rocaltrol] 0.25 mcg PO DAILY #30 capsule Calcium Carbonate/Vitamin D3 [Oscal 500 + Vit D 200 Iu Tab*] 1 tab PO TID #90 tab Patient Discharge Instructions: 1. Patient will need to follow up with his PCP within 1 week to follow up this hospitalization. 2. Patient presented with spasm to his muscles. Patient found to have hypocalcemia. Patient with history of chronic hypocalcemia secondary to hypoparathyroidism. Patient with noncompliance of medication. Patient reports not following up with his PCP to refill his medication. Compliance addressed in detail. Patient was given IV calcium and IV fluids. Patient's symptoms resolved. Patient without any spasms , tetany, seizures, chest pain or shortness of breath. At discharge patient will continue with Calcitrol 0.25 mcg daily and Caltrate plus vitamin D 1 pills 3 times a day. Recommend to recheck CMP with magnesium in 1 week. Recommend for the patient to establish care with Endocrinology to further evaluate and treat his condition. Patient to increase fluid intake. No work until repeat CMP is reviewed by his PCP and cleared to go back. 3. Patient with underlying seizure disorder. No active seizures identified. Patient will continue with Keppra 500 mg 1 pill twice daily. Diet: AHA Activity: Ad mateusz Time spent managing pt's care (in minutes): 55
[2018-03-09] MEDS ORDERED: ENOXAPARIN 40 MG/0.4 ML SQ SCH (17:00)
[2018-03-09 17:09] VITALS: BP 107/67; TEMP 99
[2018-03-09] MEDS ORDERED: CALCIUM CARB 500MG/VIT D 200 IU TAB PO SCH (21:55)
== END 2018-03-09 17:31 | disposition home or self-care (01) | DRG 645 ==
LOC: ER 18:44 → ERHOLD 22:02 → 4TH 22:52
PROVIDERS: ADMIT Hospitalist; ATTEND Family Medicine
DX: E20.9 Hypoparathyroidism, unspecified (principal); E83.51 Hypocalcemia; G40.909 Epilepsy, unspecified, not intractable, without status epilepticus; E87.6 Hypokalemia; E86.0 Dehydration; Z91.14 Patient's other noncompliance with medication regimen; Z91.012 Allergy to eggs; F17.210 Nicotine dependence, cigarettes, uncomplicated
CPT/HCPCS: 36415; 80048; 80053; 82040; 82330; 85025; G0008; J0610; J1650; J7030; Q2035

== ENCOUNTER 2018-03-14 02:24 | Inpatient (IN) | payer SELFPAY ==
[2018-03-14 03:03] LABS: Absolute Lymphocytes (CBC) 1.5 K/uL (0.7-4.9); Absolute Monocytes 0.5 K/uL (0.1-1.3); Absolute Neutrophil 4.2 K/uL (1.8-8.0); Basophils % 0.7 % (0-1.3); Eosinophils % 3.7 % (0-4.4); Hematocrit 42.2 % (39.6-49.0); Lymphocytes % 22.7 % (15.3-44.8); MPV 11.3 fL (7.6-11.3); Monocytes % 8.4 % (3.3-12.3)
[2018-03-14 03:05] LABS: Protime INR 1.26
[2018-03-14] MEDS ORDERED: NA CHLORIDE 0.9% 1,000 ML ONE (03:07)
[2018-03-14 03:32] LABS: ALT/SGPT 24 U/L (12-78); AST/SGOT 29 U/L (15-37); Albumin 3.2 g/dL (3.4-5.0); Alkaline Phosphatase 83 U/L (45-117); BUN Blood Urea Nitrogen 15 mg/dL (7-18); Bicarbonate 33 mmol/L (21-32); Bilirubin Direct < 0.1 mg/dL (0-0.2); Bilirubin Total 0.3 mg/dL (0.2-1.0); Glucose Level 119 mg/dL (74-106); Potassium 3.4 mmol/L (3.5-5.1); Sodium Level 140 mmol/L (136-145)
--- NOTE | 2018-03-14 03:41 | EDPHYS ---
Physician Documentation [facility] Name: Kimani Augustin Jr Age: 32 yrs Sex: Male : 1985 Arrival Date: 03/14/2018 Time: 02:25 Bed 6 Private MD: ED Physician Nelson Mercer HPI: 03/14 02:34 This 32 yrs old Male presents to ER via EMS with complaints of Seizure. cp Historical: - Allergies: 02:33 EGG/POULTRY; ea - Home Meds: 02:33 Depakote 500 mg Oral TbEC 2 tabs 2 times per day [Active]; calcitrol 0.25mg [Active]; ea - PMHx: 02:33 hypocalcemia; Seizures; ea - PSHx: 02:33 None; ea - Immunization history:: Adult Immunizations up to date. - Social history:: Smoking status: Patient uses tobacco products, 3 packs per week, Patient uses alcohol, on a daily basis. - Ebola Screening: : No symptoms or risks identified at this time. ROS: 02:37 Eyes: Negative for injury, pain, redness, and discharge. cp 02:37 Constitutional: Negative for body aches, chills, fever, poor PO intake. 02:37 ENT: Negative for drainage from ear(s), ear pain, sore throat, difficulty swallowing, difficulty handling secretions. 02:37 Cardiovascular: Negative for chest pain, edema, palpitations. 02:37 Respiratory: Negative for cough, shortness of breath, wheezing. 02:37 Abdomen/GI: Negative for abdominal pain, nausea, vomiting, and diarrhea, constipation, black/tarry stool, rectal bleeding. 02:37 : Negative for urinary symptoms. 02:37 Skin: Negative for cellulitis, rash. 02:37 Neuro: Positive for headache, history of seizure, Negative for altered mental status. cp 02:37 All other systems are negative. cp Exam: 02:39 Head/Face: Normocephalic, atraumatic. cp 02:39 Constitutional: The patient appears in no acute distress, alert, awake, non-diaphoretic, non-toxic, well developed, well nourished. 02:56 ECG was reviewed by the Attending Physician. cp Vital Signs: 02:30 BP 124 / 84; Pulse 115; Resp 18; Temp 98.7(O); Pulse Ox 95% on R/A; Weight 81.65 kg; ea Height 5 ft. 8 in. (172.72 cm); 03:49 BP 100 / 58; Pulse 94; Resp 18; Pulse Ox 97% on R/A; mt 04:55 BP 106 / 85; Pulse 75; Resp 18; Pulse Ox 97% on R/A; ea 02:30 Body Mass Index 27.37 (81.65 kg, 172.72 cm) ea [place] Coma Score: 02:30 Eye Response: spontaneous(4). Verbal Response: oriented(5). Motor Response: obeys ea commands(6). Total: 15. MDM: 02:35 Patient medically screened. 03:10 Data reviewed: vital signs, nurses notes, lab test result(s), EKG, radiologic studies. [facility] 03:40 Physician consultation: Alyce Dickson MD was called at 03:40, was contacted at 03:40, regarding admission, to the telemetry unit. 03/14 02:29 Order name: Acetaminophen; Complete Time: 03:36 cp 03/14 02:29 Order name: Basic Metabolic Panel; Complete Time: 03:36 cp 03/14 02:29 Order name: CBC with Diff; Complete Time: 03:06 cp 03/14 02:29 Order name: ETOH Level; Complete Time: 03:26 cp 03/14 02:29 Order name: Hepatic Function; Complete Time: 03:36 cp 03/14 02:29 Order name: PT-INR; Complete Time: 03:06 cp 03/14 02:29 Order name: Ptt, Activated; Complete Time: 03:06 cp 03/14 02:29 Order name: Salicylate; Complete Time: 03:26 cp 03/14 02:29 Order name: Urine Drug Screen 03/14 02:44 Order name: Depakote 03/14 03:21 Order name: Valproic Acid (Depakene) Level; Complete Time: 03:36 EDMS 03/14 05:50 Order name: Urine Dipstick--Ancillary (enter results) mi 03/14 02:29 Order name: EKG; Complete Time: 02:31 cp 03/14 02:29 Order name: EKG - Nurse/Tech; Complete Time: 02:53 cp 03/14 02:29 Order name: IV Saline Lock; Complete Time: 02:50 cp 03/14 02:29 Order name: Labs collected and sent; Complete Time: 02:50 cp 03/14 02:29 Order name: Urine Dipstick-Ancillary (obtain specimen); Complete Time: 02:53 cp EC:56 Rate is 99 beats/min. Rhythm is regular. MI interval is normal. QRS interval is normal. cp QT interval is prolonged at 380 msec. T waves are Peaked. Interpreted by me. Reviewed by me. Administered Medications: 03:00 Drug: NS 0.9% 1000 ml Route: IV; Rate: 1 bolus; Site: right antecubital; ea 04:12 Follow up: Response: No adverse reaction; IV Status: Completed infusion; IV Intake: ea 1000ml 04:03 Drug: Keppra 500 mg Route: IV; Rate: per protocol; Site: right antecubital; ea 04:20 Follow up: Response: No adverse reaction; IV Status: Completed infusion ea 04:03 Drug: Depakote 500 mg Route: PO; ea 04:27 Follow up: Response: No adverse reaction ea 05:06 Drug: Calcium Gluconate 1 grams Route: IVPB; Infused Over: 60 mins; Site: right ea antecubital; 05:50 Follow up: Response: No adverse reaction; IV Status: Completed infusion ea 05:06 Drug: Calcium Carbonate 500 mg 2 tablet Route: PO; ea 05:40 Follow up: Response: No adverse reaction ea Disposition: 03:10 Co-signature as Attending Physician, Nelson Mercer MD I agree with the assessment and fermní plan of care. Disposition: 03/14/18 03:41 Hospitalization ordered by Alyce Dickson for Observation. Preliminary diagnosis are Epilepsy and recurrent seizures, Hypocalcemia. - Bed requested for Telemetry/MedSurg (observation). - Status is Observation. ea - Condition is Stable. - Problem is an acute exacerbation. - Symptoms have improved. UTI on Admission? No Signatures: Dispatcher [employer] Nelson Hernandez MD MD cha Page, Corey, PA PA cp Garcia, Cindy, RN RN cg Antunez, Elena, RN RN ea Corrections: (The following items were deleted from the chart) 02:44 02:37 Neuro: Positive for history of seizure, Negative for altered mental status, cp headache, cp 02:44 02:37 All other systems are negative, cp cp 03:20 02:45 Valproic Acid (Depakene) Level ordered. EDMS EDMS 04:38 03:41 Hospitalization Ordered by Alyce Dickson MD for Observation. Preliminary cg diagnosis is Epilepsy and recurrent seizures; Hypocalcemia. Bed requested for Telemetry/MedSurg (observation). Status is Observation. Condition is Stable. Problem is an acute exacerbation. Symptoms have improved. UTI on Admission? No. cp 05:52 04:38 03/14/2018 03:41 Hospitalization Ordered by Alyce Dickson MD for Observation. ea Preliminary diagnosis is Epilepsy and recurrent seizures; Hypocalcemia. Bed requested for Telemetry/MedSurg (observation). Status is Observation. Condition is Stable. Problem is an acute exacerbation. Symptoms have improved. UTI on Admission? No. cg
--- NOTE | 2018-03-14 03:41 | ER ---
Nurse's Notes [facility] Name: Kimani Augustin Jr Age: 32 yrs Sex: Male : 1985 Arrival Date: 03/14/2018 Time: 02:25 Bed 6 Private MD: Diagnosis: Epilepsy and recurrent seizures;Hypocalcemia Presentation: 03/14 02:26 Presenting complaint: EMS states: EMS called to scene, pt reports she witnessed ea him having seizure about 20 to 30 minutes ago. EMS reports he was post ictal upon arrival. BP 120/64, P:118, Temp 97.7, 95% room air, BGL 91. Transition of care: patient was not received from another setting of care. Onset of symptoms was March 14, 2018. Risk Assessment: Do you want to hurt yourself or someone else? Patient reports no desire to harm self or others. Initial Sepsis Screen: Does the patient meet any 2 criteria? No. Patient's initial sepsis screen is negative. Does the patient have a suspected source of infection? No. Patient's initial sepsis screen is negative. Care prior to arrival: 20 G to RAC, BGL 91. 02:26 Method Of Arrival: EMS: [facility] ea 02:26 Acuity: GUZMAN 3 ea Triage Assessment: 02:30 General: Appears in no apparent distress. Behavior is calm, cooperative. Pain: ea Complains of pain in headache. Neuro: Level of Consciousness is awake, alert, obeys commands, Oriented to person, place, time, situation. Cardiovascular: Patient's skin is warm and dry. Respiratory: Airway is patent Respiratory effort is even, unlabored, Respiratory pattern is regular, symmetrical. GI: No signs and/or symptoms were reported involving the gastrointestinal system. : No signs and/or symptoms were reported regarding the genitourinary system. Derm: Skin is pink, warm \T\ dry. Historical: - Allergies: 02:33 EGG/POULTRY; ea - Home Meds: 02:33 Depakote 500 mg Oral TbEC 2 tabs 2 times per day [Active]; calcitrol 0.25mg [Active]; ea - PMHx: 02:33 hypocalcemia; Seizures; ea - PSHx: 02:33 None; ea - Immunization history:: Adult Immunizations up to date. - Social history:: Smoking status: Patient uses tobacco products, 3 packs per week, Patient uses alcohol, on a daily basis. - Ebola Screening: : No symptoms or risks identified at this time. Screenin:38 Abuse screen: Denies threats or abuse. Nutritional screening: No deficits noted. ea Tuberculosis screening: No symptoms or risk factors identified. Fall Risk Secondary diagnosis (15 points) seizures, IV access (20 points). Assessment: 02:30 Reassessment: see triage assessment. ea 03:30 Reassessment: Patient and/or family updated on plan of care and expected duration. Pain ea level reassessed. Patient is alert, oriented x 3, equal unlabored respirations, skin warm/dry/pink. 04:21 Reassessment: Patient and/or family updated on plan of care and expected duration. Pain ea level reassessed. Patient is alert, oriented x 3, equal unlabored respirations, skin warm/dry/pink. 05:28 Reassessment: Report called to receiving nurse on second floor. ea 05:38 Reassessment: Patient and/or family updated on plan of care and expected duration. Pain ea level reassessed. Patient is alert, oriented x 3, equal unlabored respirations, skin warm/dry/pink. 05:43 Reassessment: Patient and/or family updated on plan of care and expected duration. Pain ea level reassessed. Patient is alert, oriented x 3, equal unlabored respirations, skin warm/dry/pink. Pt admitted to second floor via wheelchair per tech, pt tolerating well. Vital Signs: 02:30 BP 124 / 84; Pulse 115; Resp 18; Temp 98.7(O); Pulse Ox 95% on R/A; Weight 81.65 kg; ea Height 5 ft. 8 in. (172.72 cm); 03:49 BP 100 / 58; Pulse 94; Resp 18; Pulse Ox 97% on R/A; mt 04:55 BP 106 / 85; Pulse 75; Resp 18; Pulse Ox 97% on R/A; ea 02:30 Body Mass Index 27.37 (81.65 kg, 172.72 cm) ea [place] Coma Score: 02:30 Eye Response: spontaneous(4). Verbal Response: oriented(5). Motor Response: obeys ea commands(6). Total: 15. ED Course: 02:25 Patient arrived in ED. ea 02:30 Patient has correct armband on for positive identification. Bed in low position. Call ea light in reach. Side rails up X2. 02:30 Arm band placed on right wrist. Patient placed in an exam room, on a stretcher, on ea pulse oximetry. 02:30 Seizure precautions initiated. ea 02:30 Maintain EMS IV. Dressing intact. Good blood return noted. Site clean \T\ dry. Gauge \T\ ea site: 20 G RAC. 02:32 Triage completed. ea 02:33 Nelson Lemon PA is PHCP. cp 02:33 Nelson Mercer MD is Attending Physician. cp 02:39 Mona Villegas RN is Primary Nurse. ea 03:40 Alyce Dickson MD is Hospitalizing Provider. cp 04:49 No provider procedures requiring assistance completed. Patient admitted, IV remains in ea place. Administered Medications: 03:00 Drug: NS 0.9% 1000 ml Route: IV; Rate: 1 bolus; Site: right antecubital; ea 04:12 Follow up: Response: No adverse reaction; IV Status: Completed infusion; IV Intake: ea 1000ml 04:03 Drug: Keppra 500 mg Route: IV; Rate: per protocol; Site: right antecubital; ea 04:20 Follow up: Response: No adverse reaction; IV Status: Completed infusion ea 04:03 Drug: Depakote 500 mg Route: PO; ea 04:27 Follow up: Response: No adverse reaction ea 05:06 Drug: Calcium Gluconate 1 grams Route: IVPB; Infused Over: 60 mins; Site: right ea antecubital; 05:50 Follow up: Response: No adverse reaction; IV Status: Completed infusion ea 05:06 Drug: Calcium Carbonate 500 mg 2 tablet Route: PO; ea 05:40 Follow up: Response: No adverse reaction ea Intake: 04:12 IV: 1000ml; Total: 1000ml. ea Outcome: 03:41 Decision to Hospitalize by Provider. cp 04:30 Instructed on the need for admit. ea 05:39 Condition: stable ea 05:39 Admitted to Med/surg accompanied by nurse, room 212, with chart, Report called to ea Receiving nurse on second floor. 05:52 Patient left the ED. ea Signatures: Nelson Lemon PA PA cp [place], Moriah ok Mona Villegas, LILIAN RN star
[2018-03-14] MEDS ORDERED: LEVETIRACETAM 500 MG/5 ML VIAL IV ONE (03:59)
[2018-03-14] MEDS ORDERED: NA CHLORIDE 0.9% 100 ML IV ONE (03:59)
[2018-03-14] MEDS ORDERED: DIVALPROEX DR 250 MG TAB PO ONE (03:59)
[2018-03-14] MEDS ORDERED: CALCIUM CARBONATE CHEW 500MG TAB ONE (05:04)
[2018-03-14] MEDS ORDERED: CALCIUM CARBONATE 500 MG TAB ONE (05:06)
[2018-03-14] MEDS ORDERED: CALCIUM GLUCONATE 1 GM IVPB 1 GM/50 ML BAG IV ONE (05:06)
--- NOTE | 2018-03-14 05:12 | P.HP ---
Certification for Inpatient Patient admitted to: Observation With expected LOS: <2 Midnights Practitioner: I am a practitioner with admitting privileges, knowledge of patient current condition, hospital course, and medical plan of care. Services: Services provided to patient in accordance with Admission requirements found in Title 42 Section 412.3 of the Code of Federal Regulations Patient History Date of Service: 03/14/18 Reason for admission: seizure episode History of Present Illness: Mr Augustin is a 32 years old male with history of hypocalcemia due to hypoparathyroidism, seizure disorder, who was was recently admitted to the hospital due to muscle spasm secondary to hypocalcemia. Early this morning, when the patient was asleep, his found him having a seizure episode around 2:00 AM. She called 911, when EMS arrived found the patient post-ictal status. There are no history of fever or chills. At my encounter, the patient was alert but does not remember what happened. Lab work was remarkable for hypocalcemia, 5.1 mg/dl. According to his , he was not taking his medication. Allergies No Known Allergies Allergy (Verified 03/09/18 00:13) Home medications list reviewed: Yes Home Medications: Calcitriol [Rocaltrol] 0.25 mcg PO DAILY #30 capsule 03/09/18 Calcium Carbonate/Vitamin D3 [Oscal 500 + Vit D 200 Iu Tab*] 1 tab PO TID #90 tab 03/09/18 Levetiracetam [Keppra] 500 mg PO BID 03/09/18 - Past Medical/Surgical History Diabetic: No -: hypocalcemia -: seizures -: hypoparathyroidism -: Partial colectomy - Family History Father -: Hypertension, Diabetes, Kidney disease Mother -: Diabetes, Cancer - Social History Alcohol use: Yes CD- Drugs: No Caffeine use: No Place of Residence: Home Review of Systems 10-point ROS is otherwise unremarkable Physical Examination - Physical Exam General: Alert, In no apparent distress, Confused HEENT: Atraumatic, PERRLA, Mucous membr. moist/pink, EOMI, Sclerae nonicteric Neck: Supple, 2+ carotid pulse no bruit, No LAD, Without JVD or thyroid abnormality Respiratory: Clear to auscultation bilaterally, Normal air movement Cardiovascular: Regular rate/rhythm, Normal S1 S2 Gastrointestinal: Normal bowel sounds, No tenderness Musculoskeletal: No tenderness Integumentary: No rashes Neurological: Normal speech, Normal strength at 5/5 x4 extr, Normal tone, Normal affect Lymphatics: No axilla or inguinal lymphadenopathy - Studies Laboratory Data (last 24 hrs) 03/14/18 02:45: PT 14.9 H, INR 1.26, APTT 35.3 03/14/18 02:45: WBC 6.5 D, Hgb 13.9, Hct 42.2, Plt Count 109 L 03/14/18 02:45: Sodium 140, Potassium 3.4 L, BUN 15, Creatinine 1.02, Glucose 119 H, Total Bilirubin 0.3, AST 29, ALT 24, Alkaline Phosphatase 83 Assessment and Plan - Problems (Diagnosis) (1) Seizure Onset Date: 04/30/17 Current Visit: No Status: Acute (2) Hypocalcemia Onset Date: 04/30/17 Current Visit: No Status: Chronic (3) Hypoparathyroidism Onset Date: 12/13/15 Current Visit: No Status: Chronic Qualifiers: Hypoparathyroidism type: unspecified Qualified Code(s): E20.9 - Hypoparathyroidism, unspecified - Plan The patient will be admitted to the hospital due to seizure episode in context of sever hypocalcemia. He already has received 1 gm of IV calcium gluconate. Will order 1 more gm of calcium gluconate IV, check calcium level at noon, resume Keppra, consult neurology. - Advance Directives Does patient have a Living Will: No Does patient have a Durable POA for Healthcare: No - Code Status/Comfort Care Code Status Assessed: Yes Code Status: Full Code
[2018-03-14] MEDS ORDERED: ONDANSETRON 4 MG/2 ML VIAL IV PRN (05:22)
[2018-03-14] MEDS ORDERED: CALCIUM GLUC 10% INJ 4.65 MEQ in NA CHLORIDE 0.9% 100 ML IV ONE (05:22)
[2018-03-14 06:04] LABS: Barbiturates NEGATIVE (NEGATIVE); Benzodiazepines NEGATIVE (NEGATIVE); Cocaine NEGATIVE (NEGATIVE); METHAMPHETAM NEGATIVE (NEGATIVE); Methadone NEGATIVE (NEGATIVE); Opiates NEGATIVE (NEGATIVE); Phencyclidine NEGATIVE (NEGATIVE); THC Cannibis NEGATIVE (NEGATIVE)
[2018-03-14 06:05] VITALS: BMI 28.2
[2018-03-14] MEDS ORDERED: ACETAMINOPHEN 500 MG TAB PO PRN (06:10)
[2018-03-14] MEDS: NA CHLORIDE 0.9% 1,000 ML IV SCH ×2 (06:12→14:18)
[2018-03-14] MEDS ORDERED: POTASSIUM CL SA 10 MEQ TAB PO ONE (09:00)
[2018-03-14] MEDS ORDERED: CALCIUM CARB 500MG/VIT D 200 IU TAB PO SCH (09:00)
[2018-03-14 09:26] LABS: Urine Appearance CLEAR; Urine Bilirubin NEGATIVE (NEG); Urine Blood NEGATIVE (NEG); Urine Color YELLOW; Urine Glucose NEGATIVE (NEG); Urine Protein NEGATIVE (NEG); Urine Urobilinogen 0.2 mg/dL (0.2-1.0); Urine pH 7.5 (5.0-7.0)
[2018-03-14 09:47] LABS: Urine Microscopic Reflex NO UMIC
[2018-03-14] MEDS: ENOXAPARIN 40 MG/0.4 ML SQ SCH (09:56)
[2018-03-14] MEDS: levETIRAcetam 500 MG TAB PO SCH ×2 (09:56→20:41)
[2018-03-14] MEDS: CALCITROL 0.25 MCG CAP PO SCH (09:56)
[2018-03-14] MEDS: DIVALPROEX DR 500MG TAB PO SCH ×2 (09:57→20:41)
--- NOTE | 2018-03-14 10:44 | EKG ---
Test Date: 2018-03-14 Test Time: 02:48:46 Masticator: NIKIA MEASUREMENT RESULTS: Intervals: Rate: 99 ME: 120 QRSD: 100 QT: 380 QTc: 487 Flanagan: P: 67 ME: 120 QRS: 68 T: 64 INTERPRETIVE STATEMENTS: Normal sinus rhythm Prolonged QT Abnormal ECG Compared to ECG 02/09/2018 20:15:52 No significant changes Electronically Signed On 03-14-18 10:42:45 [employer] EDUCATION [employer] TEACH[employer] by Beni Rhodes
[2018-03-14 11:34] LABS: Urine Blood NEGATIVE (NEG); Urine Glucose NEGATIVE (NEG); Urine Protein 2+ (NEG); Urine Specific Gravity 1.015 (1.005-1.030); Urine pH 7.5 (5.0-7.0)
[2018-03-14] MEDS: CALCIUM GLUC 10% INJ 4.65 MEQ in NA CHLORIDE 0.9% 100 ML IV SCH ×3 (12:26→22:39)
--- NOTE | 2018-03-14 13:01 | P.PN ---
Subjective Date of Service: 03/14/18 Primary Care Provider: [facility] Chief Complaint: seizure episode Subjective: Improving Physical Examination - Vital Signs Temperature: 97.6 F Blood Pressure: 101/59 Pulse: 73 Respirations: 16 Pulse Ox (%): 96 - Physical Exam General: Alert, In no apparent distress, Oriented x3, Cooperative HEENT: Atraumatic Neck: Supple Respiratory: Clear to auscultation bilaterally, Normal air movement Cardiovascular: Normal pulses, Regular rate/rhythm Gastrointestinal: Normal bowel sounds, Soft and benign, Non-distended, No tenderness, No masses, No rebound, No guarding Musculoskeletal: No erythema, No tenderness, No warmth Integumentary: No tenderness/swelling, No erythema, No warmth, No cyanosis Neurological: Normal speech, Normal strength at 5/5 x4 extr, Normal tone, Normal affect - Studies Laboratory Data (last 24 hrs) 03/14/18 02:45: PT 14.9 H, INR 1.26, APTT 35.3 03/14/18 02:45: WBC 6.5 D, Hgb 13.9, Hct 42.2, Plt Count 109 L 03/14/18 02:45: Sodium 140, Potassium 3.4 L, BUN 15, Creatinine 1.02, Glucose 119 H, Total Bilirubin 0.3, AST 29, ALT 24, Alkaline Phosphatase 83 Medications List Reviewed: Yes Assessment & Plan Discharge Plan: Home Plan to discharge in: 48 Hours Physician Review Additional Text: Impression: Seizure with history of seizure disorder Hypocalcemia likely hypoparathyroidism Dehydration Plan: Seizure with history of seizure disorder: Will restart anti seizure medication. Neurology consulted. Seizure likely related to low calcium. This is currently being replaced. Hypocalcemia likely hypoparathyroidism: Continue with IV calcium replacement. Case discussed with nephrology. Continue with recommendations Dehydration: Continue IV fluids. Time Spent Managing Pts Care (In Minutes): 55
[2018-03-14] MEDS: POTASSIUM CL 40 MEQ in NA CHLORIDE 0.9% 500 ML IV SCH ×2 (13:47→18:26)
[2018-03-14] MEDS: CALCIUM CARB 500MG/VIT D 200 IU TAB PO SCH ×2 (14:18→20:41)
--- NOTE | 2018-03-14 14:38 | CON ---
Date of Consultation: 03/14/2018 NEPHROLOGY CONSULTATION Consulting Physician: Dr. Erwin. Reason For Consultation: Hypocalcemia, electrolyte imbalance, hypertension. History Of Present Illness: This is a pleasant, unfortunate 32-year-old gentleman with significant p ast medical history of recurrent hypocalcemia secondary to hypoparathyroidism. Complicated with the seizure, the patient on calcitriol and Keppra with calcium supplement. Recently, the patient was adm itted to the hospital early this month on the . The patient when he was admitted, he was treated for hypocalcemia. Upon discharge, his calcium was corrected 6.2. The patient was completely asympt omatic. Apparently, the patient was brought back to the hospital because of seizure activity. On ev aluation, his calcium was down to 6. The patient denied any nausea, any vomiting. According to him, he has been taking his medication, but it looks doubt to be that way. Past Medical History: Include: 1.Hypoparathyroidism. 2.Seizure. Allergies: NO KNOWN DRUGS ALLERGY. Family History: Positive for hypertension, diabetes, and kidney disease. Surgical History: Negative. Social History: The patient is an active smoker, active alcohol. Denies drug abuse. Review of Systems: Head and Neck: No red eye. No ear pain. GI: No nausea, no vomiting. : No polyuria, no dysuria, no hematuria. [employer] ST[employer] PROFESSOR: Not applicable. Respiratory: No shortness of breath. Cardiovascular: No chest pain. Neuro: Has seizure. Musculoskeletal: No joint pain. Endocrine: No polydipsia. Skin: No rash. Physical Examination: Vital Signs: When I saw the patient, blood pressure 106/51, pulse of 83. Chest: Clear to auscultation. Heart: S1, S2 regular. Abdomen: Soft and nontender. Extremities: No edema. Neuro: Alert and oriented. Nonfocal. Laboratory Data: Sodium 140, potassium 3.4, bicarb 33, BUN 15, creatinine 1, calcium 5.1, corrected calcium is 5.7, albumin 3.2. Previous PTH back in December less than 6, TSH 1.5. Current Medications: The patient on include: 1.Lovenox. 2.Calcium carbonate oral 1 tablet daily. 3.Keppra. 4.Depakote. 5.Zofran. 6.IV fluid. Assessment And Plan: 1.Hypocalcemia, symptomatic, with the seizure. I am going to go ahead and give the patient 2 g of c alcium gluconate right now, and then we will maintain the patient on 1 g every 6 hour for goal of cor rected calcium above 7.5. We will increase his oral calcium to t.i.d. I am going to go ahead and re peat the PTH and the vitamin D level with the active vitamin D and we will follow up. 2.Hypokalemia. The patient received oral supplement. Given the seizure, I am going to give him als o IV and we will follow up the patient. We will go ahead and check for magnesium level. 3.Seizure secondary to hypocalcemia. We will follow up with the Primary. Continue Brooke and the Reagan for the time being. Thank you, Dr. Erwin for allowing us to participate in the care of your patient RADHA Voice ID: [id number] Report ID: [id number]
--- NOTE | 2018-03-14 23:43 | CON ---
Reason For Consultation: Consultation called because of seizures. History Of Present Illness: Mr. 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 He also has hypoparathyroidism and repeated hypocalcemia which likely in fact due to the se izure risk. He reportedly had a seizure earlier this morning, found by his , seizing, brought to the [facility], found to have hypocalcemia to 5.1 and was not taking his Dilantin and Keppr a like he should. The patient was given calcium replacement along with Depakote 1000 mg twice daily and Keppra 500 mg twice daily. Since his hospitalization, he has not had additional seizures. Past Medical History: Hypocalcemia, seizures, hypothyroidism, and partial colectomy. Family History: Hypertension, diabetes, and kidney disease in father and cancer and diabetes in moth er. Social History: Regular use of alcohol and tobacco. Denies IV drugs. Allergies: NO KNOWN DRUG ALLERGIES. Home Medications: Rocaltrol 0.25 mcg daily, vitamin D3, Os-Cuong plus D 1 daily, and Keppra 500 mg twi ce daily. Review of Systems: No recent fevers, chills, nausea, vomiting, myalgias, arthralgias, rash, headache, or weight change. Physical Examination: Vital Signs: Blood pressure 101/59, pulse 55, respiratory rate 17, temperature 98.7, and oxygen satu ration 96%. Weight 158 pounds, height 5 feet and 8 inches, and BMI 28.2. General: Mr. Augustin is resting in bed. He is actually no distress. HEENT: He is normocephalic, atraumatic. He has significant gum hypertrophy, likely secondary to pro longed use of Dilantin. NEUROLOGIC: Otherwise, cranial nerves show no defects or deficits. Motor is symmetric in arms and l egs, 5/5 strength proximally and distally. Sensory exam is intact in upper and lower extremities. C oordination is intact in upper and lower extremities. Gait, good stance and stride. Reflexes 2+, up per and lower extremities. Laboratory Data: Labs have been reviewed. His complete blood count with differential is normal. Co agulation panel unremarkable. Chemistries remarkable for a calcium of 5.1 on admission, still 5.[address] replacement. Vitamin D level low at 16.3. Urinalysis, 2+ protein. Urine toxicology negative fo r alcohol. Valproic acid level of 4. Assessment: Mr. Augustin is a 32-year-old patient with complex partial seizures and poorly compliant with antiepileptic medications along with hypoparathyroidism and chronic hypocalcemia, which is also a risk for seizures. He has no signs of infection. Plan: 1.Replace calcium. 2.Restart the Keppra as indicated. 3.He is currently on Depakote. Continue Depakote as indicated. 4.The patient was instructed on the importance of being compliant with medications. 5.Once he is within normal range of calcium, he may be discharged home. Follow up with Dr. Joyner in clinic 1 month later. Continue all medications as indicated. CARLY/ILENE Voice ID: [id number] Report ID: [id number]
[2018-03-15 05:10] LABS: Albumin 3.3 g/dL (3.4-5.0); BUN Blood Urea Nitrogen 12 mg/dL (7-18); Bicarbonate 32 mmol/L (21-32); Creatine Phosphokinase 431 U/L (39-308); Glucose Level 83 mg/dL (74-106); Magnesium 1.9 mg/dL (1.8-2.4); Phosphorus 5.8 mg/dL (2.5-4.9); Potassium 4.4 mmol/L (3.5-5.1); Sodium Level 142 mmol/L (136-145)
[2018-03-15] MEDS: CALCIUM GLUC 10% INJ 4.65 MEQ in NA CHLORIDE 0.9% 100 ML IV SCH ×2 (05:21→11:08)
[2018-03-15] MEDS: NA CHLORIDE 0.9% 1,000 ML IV SCH (05:21)
[2018-03-15] MEDS: levETIRAcetam 500 MG TAB PO SCH ×2 (08:08→23:08)
[2018-03-15] MEDS: CALCIUM CARB 500MG/VIT D 200 IU TAB PO SCH ×3 (08:08→23:08)
[2018-03-15] MEDS: CALCITROL 0.25 MCG CAP PO SCH ×2 (08:08→23:08)
[2018-03-15] MEDS: ENOXAPARIN 40 MG/0.4 ML SQ SCH (08:08)
[2018-03-15] MEDS: DIVALPROEX DR 500MG TAB PO SCH ×2 (08:08→23:08)
[2018-03-15 09:41] VITALS: O2SAT 95
--- NOTE | 2018-03-15 11:20 | P.PN ---
Subjective Date of Service: 03/15/18 Primary Care Provider: [facility] Chief Complaint: seizure episode Subjective: Improving Physical Examination - Vital Signs Temperature: 98.8 F Blood Pressure: 96/53 Pulse: 77 Respirations: 18 Pulse Ox (%): 95 - Physical Exam General: Alert, In no apparent distress, Oriented x3, Cooperative HEENT: Atraumatic Neck: Supple Respiratory: Clear to auscultation bilaterally, Normal air movement Cardiovascular: Normal pulses, Regular rate/rhythm Gastrointestinal: Normal bowel sounds, Soft and benign, Non-distended, No tenderness, No masses, No rebound, No guarding Musculoskeletal: No erythema, No tenderness, No warmth Integumentary: No tenderness/swelling, No erythema, No warmth, No cyanosis Neurological: Normal speech, Normal strength at 5/5 x4 extr, Normal tone, Normal affect - Studies Medications List Reviewed: Yes Assessment & Plan Discharge Plan: Home Plan to discharge in: 24 Hours Physician Review Additional Text: Impression: Seizure with history of seizure disorder Hypocalcemia likely hypoparathyroidism Dehydration Plan: Seizure with history of seizure disorder: Will restart anti seizure medication. Neurology consulted. Seizure likely related to low calcium. This is currently being replaced. Hypocalcemia likely hypoparathyroidism: Will discontinue and continued IV calcium replacement. Patient doing well. Will continue with calcium carbonate 3 times a day and Calcitrol 1 mcg if twice daily. Will recheck calcium tomorrow. Anticipate possible discharge tomorrow. Dehydration: Continue IV fluids. Time Spent Managing Pts Care (In Minutes): 55
[2018-03-15] MEDS: NACHLORIDE 0.45% 1,000 ML IV SCH ×2 (11:46→23:09)
--- NOTE | 2018-03-15 20:04 | P.PN ---
Subjective Date of Service: 03/15/18 Primary Care Provider: [facility] Chief Complaint: seizure episode Subjective: Improving Corrected Ca ~7.0 PTH 6.0 Asymptomatic can dc IV calcium by tomorrow discharge on calcitriol 0.5 mcg bid and calcium carbonate 1250mg tid need to rpt labs in 2-3wks can f/u with nephrology clinic in 2-3wks Physical Examination - Vital Signs Temperature: 99 F Blood Pressure: 93/51 Pulse: 80 Respirations: 18 Pulse Ox (%): 96 - Physical Exam General: In no apparent distress, Oriented x3 HEENT: Atraumatic Neck: Supple, Without JVD or thyroid abnormality Respiratory: Clear to auscultation bilaterally, Normal air movement Cardiovascular: No edema, Normal pulses, Regular rate/rhythm, Normal S1 S2, No rubs, No murmurs Gastrointestinal: Normal bowel sounds, Soft and benign - Studies Medications List Reviewed: Yes Assessment And Plan - Current Problems (Diagnosis) (1) Hypocalcemia Onset Date: 12/13/15 Current Visit: No Status: Acute (2) Seizure Onset Date: 12/13/15 Current Visit: No Status: Acute - Plan symptomatic Hypocalcemia, due to hypoparathyrodism improving can dc IV calcium tomorrow and dc on calictriol 0.5mcg bid and calcium carbonate 1250mg tid Seizures likely due to hypocalcemia on depakote and kemattra neurology on board
[2018-03-16 05:12] LABS: Albumin 3.1 g/dL (3.4-5.0); BUN Blood Urea Nitrogen 12 mg/dL (7-18); Bicarbonate 31 mmol/L (21-32); Glucose Level 107 mg/dL (74-106); Magnesium 1.8 mg/dL (1.8-2.4); Phosphorus 5.5 mg/dL (2.5-4.9); Potassium 3.4 mmol/L (3.5-5.1); Sodium Level 141 mmol/L (136-145)
[2018-03-16] MEDS ORDERED: POTASSIUM 25 MEQ EFFERV TAB PO ONE (05:33)
[2018-03-16] MEDS ORDERED: MAGNESIUM SULFATE 1 gm IVPB 1 GM/100 ML BAG IV ONE (05:35)
[2018-03-16] MEDS: NACHLORIDE 0.45% 1,000 ML IV SCH (05:57)
[2018-03-16] MEDS ORDERED: CALCIUM GLUC 10% INJ 4.65 MEQ in NA CHLORIDE 0.9% 100 ML IV ONE (07:45)
[2018-03-16] MEDS: CALCITROL 0.25 MCG CAP PO SCH (09:18)
[2018-03-16] MEDS: ENOXAPARIN 40 MG/0.4 ML SQ SCH (09:18)
[2018-03-16] MEDS: CALCIUM CARB 500MG/VIT D 200 IU TAB PO SCH ×2 (09:21→13:27)
[2018-03-16] MEDS: levETIRAcetam 500 MG TAB PO SCH (09:21)
[2018-03-16] MEDS: DIVALPROEX DR 500MG TAB PO SCH (09:22)
[2018-03-16 09:36] VITALS: BP 123/59; TEMP 98.3
--- NOTE | 2018-03-16 11:16 | P.DS ---
Admission Date: 03/14/18 Discharge Date: 03/16/18 Primary Care Provider: [facility] Disposition: ROUTINE DISCHARGE Discharge Condition: GOOD Reason for Admission: seizure episode Consultations: Neurology-Dr. Joyner Nephrology-Dr. Berkowitz Procedures: none Medical Problem List: Seizure with history of seizure disorder Hypocalcemia likely hypoparathyroidism Dehydration Brief History of Present Illness: 32 yo HM with history of chronic hypocalcemia, seizure disorder and hypoparathyroidism presented to the ER with seizures. He was found to have hypocalcemia again. He was admitted for treatment. Hospital Course: Patient presented with seizure due to hypocalcemia. He also has a seizure disorder. He was recently hospitalized for low calcium. He was found to have a calcium level of 5.1. While in the hospital he received IV fluids and IV calcium. Calcium improved. No more seizures identified. Patient was seen by nephrology and neurology. At discharge patient will continue with calcitriol 0.5 mcg twice daily and Caltrate plus vitamin-D 1 pill 3 times a day. Recommend to follow up with nephrology in his PCP within 1 week. Recommend to recheck lab calcium level and CMP within 1 week as medication will likely need to be adjusted. Patient with underlying seizure disorder. No more seizures occur during the hospital. Patient will continue with seizure precautions. Patient will continue with his medications including Depakote and Keppra. Patient may follow up with neurology within 1 month. Vital Signs/Physical Exam: Temp Pulse Resp BP Pulse Ox 98.3 F 93 H 20 123/59 L 94 03/16/18 08:00 03/16/18 08:00 03/16/18 08:00 03/16/18 08:00 03/16/18 08:00 General: Alert, In no apparent distress, Oriented x3, Cooperative HEENT: Atraumatic Neck: Supple Respiratory: Clear to auscultation bilaterally, Normal air movement Cardiovascular: Normal pulses, Regular rate/rhythm Gastrointestinal: Normal bowel sounds, Soft and benign, Non-distended, No tenderness, No masses, No rebound, No guarding Musculoskeletal: No erythema, No tenderness, No warmth Integumentary: No tenderness/swelling, No erythema, No warmth, No cyanosis Neurological: Normal speech, Normal strength at 5/5 x4 extr, Normal tone, Normal affect Lymphatics: No axilla or inguinal lymphadenopathy Laboratory Data at Discharge: WBC 6.5 K/uL (4.3-10.9) D 03/14/18 02:45 Hgb 13.9 g/dL (13.6-17.9) 03/14/18 02:45 Hct 42.2 % (39.6-49.0) 03/14/18 02:45 Plt Count 109 K/uL (152-406) L 03/14/18 02:45 PT 14.9 SECONDS (9.5-12.5) H 03/14/18 02:45 INR 1.26 03/14/18 02:45 APTT 35.3 SECONDS (24.3-36.9) 03/14/18 02:45 Sodium 141 mmol/L (136-145) 03/16/18 04:25 Potassium 3.4 mmol/L (3.5-5.1) L 03/16/18 04:25 BUN 12 mg/dL (7-18) 03/16/18 04:25 Creatinine 0.72 mg/dL (0.55-1.3) 03/16/18 04:25 Glucose 107 mg/dL (74-106) H 03/16/18 04:25 Phosphorus 5.5 mg/dL (2.5-4.9) H 03/16/18 04:25 Magnesium 1.8 mg/dL (1.8-2.4) 03/16/18 04:25 Total Bilirubin 0.3 mg/dL (0.2-1.0) 03/14/18 02:45 AST 29 U/L (15-37) 03/14/18 02:45 ALT 24 U/L (12-78) 03/14/18 02:45 Alkaline Phosphatase 83 U/L (45-117) 03/14/18 02:45 Home Medications: Divalproex Sodium [Depakote] 2 tab PO BID 03/14/18 levETIRAcetam [Keppra*] 1 tab PO BID 03/14/18 Calcitriol [Rocaltrol] 0.5 mcg PO BID #60 capsule 03/16/18 Calcium Carbonate/Vitamin D3 [Oscal 500 + Vit D 200 Iu Tab*] 1 tab PO TID #90 tab 03/16/18 New Medications: Calcitriol [Rocaltrol] 0.5 mcg PO BID #60 capsule Calcium Carbonate/Vitamin D3 [Oscal 500 + Vit D 200 Iu Tab*] 1 tab PO TID #90 tab Patient Discharge Instructions: 1. Patient will need to follow up with his PCP within 1 week to follow up this hospitalization. 2. Patient presented with seizure due to hypocalcemia. He also has a seizure disorder. He was recently hospitalized for low calcium. He was found to have a calcium level of 5.1. While in the hospital he received IV fluids and IV calcium. Calcium improved. No more seizures identified. Patient was seen by nephrology and neurology. At discharge patient will continue with calcitriol 0.5 mcg twice daily and Caltrate plus vitamin-D 1 pill 3 times a day. Recommend to follow up with nephrology in his PCP within 1 week. Recommend to recheck lab calcium level and CMP within 1 week as medication will likely need to be adjusted. 3. Patient with underlying seizure disorder. Patient will continue with his medications including Depakote and Keppra. Patient will continue with seizure precautions. Patient may follow up with neurology within 1 month. Diet: Regular Activity: Fall precautions Time spent managing pt's care (in minutes): 55
[2018-03-16] MEDS ORDERED: POTASSIUM CL SA 10 MEQ TAB PO ONE (12:51)
--- NOTE | 2018-03-16 13:16 | P.PN ---
Subjective Date of Service: 03/16/18 Primary Care Provider: [facility] Chief Complaint: seizure episode Corrected Ca ~7.0 PTH 6.0 Asymptomatic discharge on calcitriol 0.5 mcg bid and Osca 2tabs tid clesred for discharge from nephrology point of view need to rpt labs in 2-3wks can f/u with nephrology clinic in 2-3wks Physical Examination - Vital Signs Temperature: 98.3 F Blood Pressure: 123/59 Pulse: 93 Respirations: 20 Pulse Ox (%): 94 - Physical Exam General: Alert, In no apparent distress, Oriented x3 HEENT: Atraumatic Neck: Supple, Without JVD or thyroid abnormality Respiratory: Clear to auscultation bilaterally, Normal air movement Cardiovascular: No edema, Regular rate/rhythm, Normal S1 S2 - Studies Medications List Reviewed: Yes Assessment And Plan - Current Problems (Diagnosis) (1) Hypocalcemia Onset Date: 12/13/15 Current Visit: No Status: Acute (2) Seizure Onset Date: 12/13/15 Current Visit: No Status: Acute - Plan symptomatic Hypocalcemia, due to hypoparathyrodism improving can dc IV calcium tomorrow and dc on calictriol 0.5mcg bid and oscal 2tabs tid Seizures likely due to hypocalcemia on depakote and keppra neurology on board
[2018-03-18 22:44] LABS: Vitamin D 1,25-Dihydroxy Total 20 pg/mL (18-72); Vitamin D,1,25-OH2, D2 <8 pg/mL
== END 2018-03-16 14:16 | disposition home or self-care (01) | DRG 101 ==
LOC: ER 02:24 → ERHOLD 04:29 → OBSVTOIN 04:29 → 2ND 05:29
PROVIDERS: ADMIT Internal Medicine; ATTEND Family Medicine
DX: G40.909 Epilepsy, unspecified, not intractable, without status epilepticus (principal); E83.51 Hypocalcemia; E87.6 Hypokalemia; E86.0 Dehydration; E20.9 Hypoparathyroidism, unspecified
CPT/HCPCS: 36415; 80048; 80069; 80076; 80164; 80307; 80320; 80329; 81003; 82306; 82310; 82550; 82652; 83735; 83970; 84132; 85025; 85610; 85730; 93005; 96361; 96365; 96367; 99285; J0610; J1650; J1953; J3475; J7030

== ENCOUNTER 2018-05-06 14:32 | Emergency (ER) | payer OTHER ==
--- NOTE | 2018-05-06 15:09 | ER ---
Nurse's Notes [facility] Name: Kimani Augustin Jr Age: 32 yrs Sex: Male : 1985 Arrival Date: 05/06/2018 Time: 14:35 Bed Waiting Private MD: Diagnosis: Presentation: 05/06 14:40 Presenting complaint: Intermittent upper abdominal pain x 1 year. Transition of care: hb patient was not received from another setting of care. Onset of symptoms is unknown. Risk Assessment: Do you want to hurt yourself or someone else? Patient reports no desire to harm self or others. Care prior to arrival: None. 14:40 Method Of Arrival: Ambulatory hb 14:40 Acuity: GUZMAN 3 hb Historical: - Allergies: 14:41 EGG/POULTRY; hb - Home Meds: 14:41 calcitrol 0.25mg [Active]; Depakote 500 mg Oral TbEC 2 tabs 2 times per day [Active]; hb - PMHx: 14:41 hypocalcemia; Seizures; hb - PSHx: 14:41 None; hb - Immunization history:: Adult Immunizations up to date. - Social history:: Smoking status: Patient/guardian denies using tobacco. - Ebola Screening: : No symptoms or risks identified at this time. Vital Signs: 14:41 BP 113 / 79; Pulse 79; Resp 16; Temp 99.4; Pulse Ox 100% on R/A; Pain 0/10; hb ED Course: 14:35 Patient arrived in ED. as 14:41 Triage completed. hb 14:41 Arm band placed on right wrist. hb Administered Medications: No medications were administered Outcome: 15:08 Patient left the ED. hb Signatures: Michelle Conti Heather, RN RN hb
[2018-05-06 15:19] VITALS: BP 113/79; TEMP 99.4; O2SAT 100
== END 2018-05-06 15:08 | disposition left against medical advice (07) ==
LOC: ER 14:32
DX: Z53.21 Procedure and treatment not carried out due to patient leaving prior to being seen by health care provider (principal)
CPT/HCPCS: 99281

== ENCOUNTER 2018-11-07 00:33 | Emergency (ER) | payer OTHER ==
[2018-11-07] MEDS ORDERED: NA CHLORIDE 0.9% 1,000 ML ONE (00:50)
[2018-11-07] MEDS ORDERED: DIVALPROEX DR 250 MG TAB PO ONE (00:50)
--- NOTE | 2018-11-07 01:57 | ER ---
Nurse's Notes [facility] Name: Kimani Augustin Jr Age: 33 yrs Sex: Male : 1985 Arrival Date: 11/07/2018 Time: 00:35 Bed 7 Private MD: Diagnosis: Epilepsy and recurrent seizures Presentation: 11/07 00:37 Presenting complaint: Nurse states patient was visiting ICU patient when he began lp1 seizing, witness by ICU patient who is mother. States seizure lasting about 4 minutes; Patient has hx of seizures; Patient post-ictal on arrival to ED. Transition of care: patient was not received from another setting of care. Onset of symptoms was November 07, 2018 at 00:00. Risk Assessment: Do you want to hurt yourself or someone else? Patient reports no desire to harm self or others. Initial Sepsis Screen: Does the patient meet any 2 criteria? No. Patient's initial sepsis screen is negative. Does the patient have a suspected source of infection? No. Patient's initial sepsis screen is negative. Care prior to arrival: None. 00:37 Method Of Arrival: Wheelchair lp1 00:37 Acuity: GUZMAN 2 lp1 Historical: - Allergies: 00:40 EGG/POULTRY; lp1 - Home Meds: 00:40 Depakote 500 mg Oral TbEC 2 tabs 2 times per day [Active]; calcitrol 0.25mg [Active]; lp1 - PMHx: 00:40 hypocalcemia; Seizures; lp1 - PSHx: 00:40 None; lp1 - Immunization history:: Adult Immunizations unknown. - Social history:: Smoking status: Patient uses tobacco products, smokes one pack cigarettes per day. - Ebola Screening: : No symptoms or risks identified at this time. Screenin:40 Fall Risk Total Domínguez Fall Scale indicates High Risk Score (45 or more points). Fall lp1 prevention measures have been instituted. Side Rails Up X 2 Frequent Obs/Assessments Occuring As available patient and family educated on Fall Prevention Program and Strategies. 01:05 Abuse screen: Denies threats or abuse. Denies injuries from another. Nutritional lp1 screening: No deficits noted. Tuberculosis screening: No symptoms or risk factors identified. Assessment: 00:45 General: Appears in no apparent distress. Behavior is calm. Pain: Denies pain. Neuro: lp1 Level of Consciousness is awake, confused, Oriented to person. Cardiovascular: Patient's skin is warm and dry. Respiratory: Respiratory effort is even, unlabored. GI: No signs and/or symptoms were reported involving the gastrointestinal system. : No signs and/or symptoms were reported regarding the genitourinary system. EENT: No signs and/or symptoms were reported regarding the EENT system. Derm: Skin is pink, warm \T\ dry. Musculoskeletal: No deficits noted. 01:05 General: Behavior is calm, cooperative. Neuro: Level of Consciousness is awake, alert, lp1 obeys commands, Oriented to person, place. Respiratory: Respiratory effort is even, unlabored. Derm: Skin is pink, warm \T\ dry. 01:48 Reassessment: Patient appears in no apparent distress at this time. Patient resting, lp1 eyes closed, respirations unlabored. 02:31 Reassessment: Patient appears in no apparent distress at this time. No changes from lp1 previously documented assessment. Vital Signs: 00:39 BP 103 / 80; Pulse 110; Resp 20; Temp 99(TE); Pulse Ox 98% on R/A; Weight 81.65 kg; lp1 Height 5 ft. 6 in. (167.64 cm); Pain 0/10; 01:03 BP 124 / 88; Pulse 89; Resp 20; Pulse Ox 97% on R/A; lp1 01:49 BP 124 / 88; Pulse 78; Resp 15; Pulse Ox 96% on R/A; lp1 02:31 BP 109 / 78; Pulse 73; Resp 14; Pulse Ox 99% on R/A; lp1 00:39 Body Mass Index 29.05 (81.65 kg, 167.64 cm) lp1 Mary Jane Coma Score: 00:40 Eye Response: spontaneous(4). Verbal Response: confused(4). Motor Response: obeys lp1 commands(6). Total: 14. 01:04 Eye Response: spontaneous(4). Verbal Response: oriented(5). Motor Response: obeys lp1 commands(6). Total: 15. ED Course: 00:35 Patient arrived in ED. ds1 00:37 Daiana Regalado RN is Primary Nurse. lp1 00:38 Chavez Blevins MD is Attending Physician. gs 00:39 Triage completed. lp1 00:39 Arm band placed on. lp1 00:40 Seizure precautions initiated. drug department worker on. Pulse ox on. NIBP on. lp1 00:55 Inserted saline lock: 20 gauge in right forearm, using aseptic technique. Blood lp1 collected. 02:29 No provider procedures requiring assistance completed. lp1 02:39 IV discontinued, No redness/swelling at site. Pressure dressing applied. lp1 Administered Medications: 00:50 Drug: Depakote 1000 mg Route: PO; lp1 02:29 Follow up: Response: No adverse reaction lp1 00:55 Drug: NS 0.9% 1000 ml Route: IV; Rate: 1 bolus; Site: right forearm; lp1 02:29 Follow up: IV Status: Completed infusion; IV Intake: 1000ml lp1 Intake: 02:29 IV: 1000ml; Total: 1000ml. lp1 Outcome: 01:55 Discharge ordered by . 02:39 Discharged to Patient transported back to ICU where mother is lp1 02:39 Condition: good 02:39 Discharge instructions given to patient, Instructed on discharge instructions, follow up and referral plans. Demonstrated understanding of instructions, follow-up care. 02:40 Patient left the ED. lp1 Signatures: Constanza Anne ds1 Daiana Regalado RN RN lp1 Chavez Blevins MD MD
--- NOTE | 2018-11-07 01:57 | EDPHYS ---
Physician Documentation [facility] Name: Kimani Augustin Jr Age: 33 yrs Sex: Male : 1985 Arrival Date: 11/07/2018 Time: 00:35 Bed 7 Private MD: ED Physician Chavez Blevins HPI: 11/07 01:54 This 33 yrs old Male presents to ER via Wheelchair with complaints of Seizure. gs 01:54 The patient presents after having a single isolated seizure. Character of seizure(s): gs Motor activity: generalized. Seizure onset: just prior to arrival. Context: Contributing factors: missed recent doses of medications. Seizure Hx: Last seizure: The patient's last seizure was approximately 1 month(s) ago. Associated injury: The patient did not suffer any apparent associated injury. Current symptoms: Currently, the patient is not experiencing any symptoms. The patient has experienced similar episodes in the past, chronically. Historical: - Allergies: 00:40 EGG/POULTRY; lp1 - Home Meds: 00:40 Depakote 500 mg Oral TbEC 2 tabs 2 times per day [Active]; calcitrol 0.25mg [Active]; lp1 - PMHx: 00:40 hypocalcemia; Seizures; lp1 - PSHx: 00:40 None; lp1 - Immunization history:: Adult Immunizations unknown. - Social history:: Smoking status: Patient uses tobacco products, smokes one pack cigarettes per day. - Ebola Screening: : No symptoms or risks identified at this time. ROS: 01:54 All other systems are negative. gs Exam: 01:54 Head/Face: Normocephalic, atraumatic. Eyes: Pupils equal round and reactive to light, gs extra-ocular motions intact. Lids and lashes normal. Conjunctiva and sclera are non-icteric and not injected. Cornea within normal limits. Periorbital areas with no swelling, redness, or edema. ENT: Nares patent. No nasal discharge, no septal abnormalities noted. Tympanic membranes are normal and external auditory canals are clear. Oropharynx with no redness, swelling, or masses, exudates, or evidence of obstruction, uvula midline. Mucous membranes moist. Neck: Trachea midline, no thyromegaly or masses palpated, and no cervical lymphadenopathy. Supple, full range of motion without nuchal rigidity, or vertebral point tenderness. No Meningismus. Chest/axilla: Normal chest wall appearance and motion. Nontender with no deformity. No lesions are appreciated. Cardiovascular: Regular rate and rhythm with a normal S1 and S2. No gallops, murmurs, or rubs. Normal PMI, no JVD. No pulse deficits. Respiratory: Lungs have equal breath sounds bilaterally, clear to auscultation and percussion. No rales, rhonchi or wheezes noted. No increased work of breathing, no retractions or nasal flaring. Abdomen/GI: Soft, non-tender, with normal bowel sounds. No distension or tympany. No guarding or rebound. No evidence of tenderness throughout. Back: No spinal tenderness. No costovertebral tenderness. Full range of motion. Skin: Warm, dry with normal turgor. Normal color with no rashes, no lesions, and no evidence of cellulitis. MS/ Extremity: Pulses equal, no cyanosis. Neurovascular intact. Full, normal range of motion. Neuro: Awake and alert, GCS 15, oriented to person, place, time, and situation. Cranial nerves II-XII grossly intact. Motor strength 5/5 in all extremities. Sensory grossly intact. Cerebellar exam normal. Normal gait. 01:54 Constitutional: The patient appears alert, awake. Vital Signs: 00:39 BP 103 / 80; Pulse 110; Resp 20; Temp 99(TE); Pulse Ox 98% on R/A; Weight 81.65 kg; lp1 Height 5 ft. 6 in. (167.64 cm); Pain 0/10; 01:03 BP 124 / 88; Pulse 89; Resp 20; Pulse Ox 97% on R/A; lp1 01:49 BP 124 / 88; Pulse 78; Resp 15; Pulse Ox 96% on R/A; lp1 02:31 BP 109 / 78; Pulse 73; Resp 14; Pulse Ox 99% on R/A; lp1 00:39 Body Mass Index 29.05 (81.65 kg, 167.64 cm) lp1 Mary Jane Coma Score: 00:40 Eye Response: spontaneous(4). Verbal Response: confused(4). Motor Response: obeys lp1 commands(6). Total: 14. 01:04 Eye Response: spontaneous(4). Verbal Response: oriented(5). Motor Response: obeys lp1 commands(6). Total: 15. MDM: 00:43 Patient medically screened. 01:54 Data reviewed: vital signs, nurses notes. Data reviewed: lab test result(s). Counseling: I had a detailed discussion with the patient and/or guardian regarding: the historical points, exam findings, and any diagnostic results supporting the discharge/admit diagnosis, lab results. Response to treatment: the patient's symptoms have markedly improved after treatment, and as a result, I will discharge patient. 11/07 00:44 Order name: Daltonakote; Complete Time: 01:54 Administered Medications: 00:50 Drug: Depakote 1000 mg Route: PO; lp1 02:29 Follow up: Response: No adverse reaction lp1 00:55 Drug: NS 0.9% 1000 ml Route: IV; Rate: 1 bolus; Site: right forearm; lp1 02:29 Follow up: IV Status: Completed infusion; IV Intake: 1000ml 1 Disposition: 11/07/18 01:55 Discharged to Home. Impression: Epilepsy and recurrent seizures. - Condition is Stable. - Discharge Instructions: Seizure, Adult. - Medication Reconciliation Form, Thank You Letter, Antibiotic Education, Prescription Opioid Use form. - Follow up: Private Physician; When: 2 - 3 days; Reason: Re-evaluation by your physician. Signatures: Dispatcher [employer] Daiana Young RN RN 1 Chavez Blevins MD MD Corrections: (The following items were deleted from the chart) 02:40 01:55 11/07/2018 01:55 Discharged to Home. Impression: Epilepsy and recurrent seizures. lp1 Condition is Stable. Forms are Medication Reconciliation Form, Thank You Letter, Antibiotic Education, Prescription Opioid Use. Follow up: Private Physician; When: 2 - 3 days; Reason: Re-evaluation by your physician.
[2018-11-07 06:07] VITALS: TEMP 99
[2018-11-07 06:11] VITALS: BP 109/78; O2SAT 99
== END 2018-11-07 02:40 | disposition home or self-care (01) ==
LOC: ER 00:33
DX: G40.909 Epilepsy, unspecified, not intractable, without status epilepticus (principal); F17.210 Nicotine dependence, cigarettes, uncomplicated; Z91.012 Allergy to eggs; Z91.018 Allergy to other foods
CPT/HCPCS: 96361; 36415; 80164; 96360; 99284; J7030

== ENCOUNTER 2018-11-12 06:26 | Emergency (ER) | payer OTHER ==
[2018-11-12 06:55] LABS: Absolute Lymphocytes (CBC) 2.8 K/uL (0.7-4.9); Basophils % 0.4 % (0-1.3); Hematocrit 43.9 % (39.6-49.0); Lymphocytes % 35.6 % (15.3-44.8); MPV 11.4 fL (7.6-11.3); RBC Red Blood Cell Count 4.97 M/uL (4.33-5.43)
[2018-11-12 07:51] LABS: Potassium 3.6 mmol/L (3.5-5.1)
--- NOTE | 2018-11-12 08:02 | EDPHYS ---
Physician Documentation [facility] Name: Kimani Augustin Jr Age: 33 yrs Sex: Male : 1985 Arrival Date: 11/12/2018 Time: 06:27 Bed 7 Private MD: ED Physician Artie Espino HPI: 11/12 06:38 This 33 yrs old Male presents to ER via Stretcher with complaints of Seizure. pm1 06:38 The patient presents after having a single isolated seizure, the episode(s) was pm1 witnessed, staff in hospital. Character of seizure(s): Motor activity: generalized, Incontinence: none, Apnea: the patient did not experience apnea, Circulation: the patient did not experience evidence of pulse disturbance. Seizure onset: just prior to arrival. Context: occurred at a hospital, while visiting with mother who is hospitalized, occurred while the patient was sitting in chair. Contributing factors: not taking seizure medications as directed. Seizure Hx: Seizure medications: valproic acid. Associated injury: The patient did not suffer any apparent associated injury. Current symptoms: sleepy. No ORONA, paralysis, visual changes. The patient has experienced similar episodes in the past, multiple times. The patient has been recently seen at the [facility] Emergency Department, last week, for similar complaints labs were performed, low valproic acid level. Historical: - Allergies: 06:32 EGG/POULTRY; jd3 - Home Meds: 06:32 calcitrol 0.25mg [Active]; Depakote 500 mg Oral TbEC 2 tabs 2 times per day [Active]; jd3 - PMHx: 06:32 hypocalcemia; Seizures; jd3 - PSHx: 06:32 None; jd3 - Immunization history:: Adult Immunizations unknown. - Social history:: Smoking status: unknown. - Ebola Screening: : Patient negative for fever greater than or equal to 101.5 degrees Fahrenheit, and additional compatible Ebola Virus Disease symptoms. ROS: 06:45 Constitutional: Negative for fever, chills, and weight loss, Eyes: Negative for injury, pm1 pain, redness, and discharge, ENT: Negative for injury, pain, and discharge, Neck: Negative for injury, pain, and swelling, Cardiovascular: Negative for chest pain, palpitations, and edema, Respiratory: Negative for shortness of breath, cough, wheezing, and pleuritic chest pain, Abdomen/GI: Negative for abdominal pain, nausea, vomiting, diarrhea, and constipation, Back: Negative for injury and pain, MS/Extremity: Negative for injury and deformity, Skin: Negative for injury, rash, and discoloration. 06:45 Neuro: Positive for seizure activity, Negative for altered mental status, headache, numbness, tingling, weakness. Exam: 06:45 Eyes: Pupils equal round and reactive to light, extra-ocular motions intact. Lids and pm1 lashes normal. Conjunctiva and sclera are non-icteric and not injected. Cornea within normal limits. Periorbital areas with no swelling, redness, or edema. ENT: Nares patent. No nasal discharge, no septal abnormalities noted. Tympanic membranes are normal and external auditory canals are clear. Oropharynx with no redness, swelling, or masses, exudates, or evidence of obstruction, uvula midline. Mucous membranes moist. Neck: Trachea midline, no thyromegaly or masses palpated, and no cervical lymphadenopathy. Supple, full range of motion without nuchal rigidity, or vertebral point tenderness. No Meningismus. Chest/axilla: Normal chest wall appearance and motion. Nontender with no deformity. No lesions are appreciated. Cardiovascular: Regular rate and rhythm with a normal S1 and S2. No gallops, murmurs, or rubs. Normal PMI, no JVD. No pulse deficits. Respiratory: Lungs have equal breath sounds bilaterally, clear to auscultation and percussion. No rales, rhonchi or wheezes noted. No increased work of breathing, no retractions or nasal flaring. Abdomen/GI: Soft, non-tender, with normal bowel sounds. No distension or tympany. No guarding or rebound. No evidence of tenderness throughout. Back: No spinal tenderness. No costovertebral tenderness. Full range of motion. Skin: Warm, dry with normal turgor. Normal color with no rashes, no lesions, and no evidence of cellulitis. MS/ Extremity: Pulses equal, no cyanosis. Neurovascular intact. Full, normal range of motion. 06:45 Constitutional: The patient appears in no acute distress, alert, awake, comfortable, non-diaphoretic, non-toxic, well developed, well hydrated, well groomed, well nourished. 06:45 Neuro: Orientation: is normal, Motor: is normal, no acute changes, moves all fours. Vital Signs: 06:34 BP 114 / 70; Pulse 107; Resp 19 S; Temp 98.4(TE); Pulse Ox 100% on 4 lpm NC; Weight jd3 81.65 kg (R); Height 5 ft. 6 in. (167.64 cm) (R); Pain 0/10; 07:30 BP 108 / 76; Pulse 100; Resp 16; Pulse Ox 100% on 2 lpm NC; ph 08:26 BP 112 / 78; Pulse 98; Resp 18; Temp 98.1; Pulse Ox 98% on R/A; ph 06:34 Body Mass Index 29.05 (81.65 kg, 167.64 cm) jd3 Irvine Coma Score: 06:36 Eye Response: spontaneous(4). Verbal Response: confused(4). Motor Response: obeys jd3 commands(6). Total: 14. MDM: 06:34 Patient medically screened. pm1 07:57 Data reviewed: vital signs. Data interpreted: Pulse oximetry: on room air is 100 %. pm1 Interpretation: normal. Counseling: I had a detailed discussion with the patient and/or guardian regarding: the historical points, exam findings, and any diagnostic results supporting the discharge/admit diagnosis, lab results, the need for outpatient follow up, for definitive care, a neurologist, Frame Nailer, to return to the emergency department if symptoms worsen or persist or if there are any questions or concerns that arise at home. 11/12 06:37 Order name: CBC with Diff; Complete Time: 07:15 pm1 11/12 06:37 Order name: BMP; Complete Time: 07:53 pm1 11/12 06:37 Order name: Valproic Acid (depakote); Complete Time: 07:53 pm1 11/12 06:37 Order name: UDS; Complete Time: 08:09 pm11/12 08:13 Order name: Urine Dipstick--Ancillary (enter results) bd 11/12 06:37 Order name: IV Saline Lock; Complete Time: 08:04 pm1 11/12 06:37 Order name: Urine Dipstick-Ancillary (obtain specimen); Complete Time: 08:03 pm1 11/12 07:51 Order name: Diet Regular; Complete Time: 07:53 ph Administered Medications: 08:08 Drug: Depakote 1000 mg Route: PO; ph 08:08 Follow up: Response: No adverse reaction; Medication administered at discharge. ph Disposition: 22:46 Co-signature as Attending Physician, Artie Espino MD. rn Disposition: 11/12/18 08:00 Discharged to Home. Impression: Epilepsy and recurrent seizures. - Condition is Stable. - Discharge Instructions: Seizure, Adult, [id number]. - Prescriptions for Depakote 500 mg Oral Tablet, Delayed Release (E.C.) - take 2 tablet by ORAL route every 12 hours; 60 tablet. - Work release form, Medication Reconciliation Form, Thank You Letter, Antibiotic Education, Prescription Opioid Use form. - Follow up: Emergency Department; When: As needed; Reason: Worsening of condition. Follow up: Private Physician; When: 2 - 3 days; Reason: Recheck today's complaints, Continuance of care, Re-evaluation by your physician. - Problem is new. - Symptoms have improved. Signatures: Dispatcher [employer] EDMS Artie Espino MD MD rn Hall, Patricia RN RN Devon Sargent, [employer] DEVELOPMENT ARCHITECT pm1 Margarito Ha RN RN jd3 Corrections: (The following items were deleted from the chart) 08:29 08:00 11/12/2018 08:00 Discharged to Home. Impression: Epilepsy and recurrent seizures. ph Condition is Stable. Forms are Medication Reconciliation Form, Thank You Letter, Antibiotic Education, Prescription Opioid Use. Follow up: Emergency Department; When: As needed; Reason: Worsening of condition. Follow up: Private Physician; When: 2 - 3 days; Reason: Recheck today's complaints, Continuance of care, Re-evaluation by your physician. Problem is new. Symptoms have improved. pm1
--- NOTE | 2018-11-12 08:02 | ER ---
Nurse's Notes [facility] Name: Kimani Augustin Jr Age: 33 yrs Sex: Male : 1985 Arrival Date: 11/12/2018 Time: 06:27 Bed 7 Private MD: Diagnosis: Epilepsy and recurrent seizures Presentation: 11/12 06:27 Presenting complaint: Shruthi RN (boathouse keeper): " the pt had this happen a couple of jd3 days ago. He is visiting his mother here on the fourth floor and had a seizure. it lasted about 10-12 mins. he has a history of seizures.". Transition of care: patient was not received from another setting of care. Onset of symptoms was November 12, 2018. Risk Assessment: Do you want to hurt yourself or someone else? Patient reports no desire to harm self or others. Initial Sepsis Screen: Does the patient meet any 2 criteria? No. Patient's initial sepsis screen is negative. Does the patient have a suspected source of infection? No. Patient's initial sepsis screen is negative. Care prior to arrival: None. 06:27 Method Of Arrival: Stretcher jd3 06:27 Acuity: GUZMAN 2 jd3 Triage Assessment: 06:36 Neuro: Level of Consciousness is awake, obeys commands, confused, Oriented to person, jd3 place. Historical: - Allergies: 06:32 EGG/POULTRY; jd3 - Home Meds: 06:32 calcitrol 0.25mg [Active]; Depakote 500 mg Oral TbEC 2 tabs 2 times per day [Active]; jd3 - PMHx: 06:32 hypocalcemia; Seizures; jd3 - PSHx: 06:32 None; jd3 - Immunization history:: Adult Immunizations unknown. - Social history:: Smoking status: unknown. - Ebola Screening: : Patient negative for fever greater than or equal to 101.5 degrees Fahrenheit, and additional compatible Ebola Virus Disease symptoms. Screenin:38 Abuse screen: Denies threats or abuse. Nutritional screening: No deficits noted. jd3 Tuberculosis screening: No symptoms or risk factors identified. Fall Risk IV access (20 points). Ambulatory Aid- None/Bed Rest/Nurse Assist (0 pts). Gait- Normal/Bed Rest/Wheelchair (0 pts) Mental Status- Oriented to own ability (0 pts). Total Domínguez Fall Scale indicates No Risk (0-24 pts). Assessment: 06:37 General: Appears in no apparent distress. comfortable, Behavior is calm, cooperative, jd3 appropriate for age, drowsy. Pain: Denies pain. Neuro: Level of Consciousness is awake, obeys commands, confused, post ictal, Oriented to person, place. Cardiovascular: Heart tones S1 S2 present Capillary refill < 3 seconds Patient's skin is warm and dry. Respiratory: Airway is patent Respiratory effort is even, unlabored, Respiratory pattern is regular, symmetrical, Breath sounds are clear bilaterally. GI: No signs and/or symptoms were reported involving the gastrointestinal system. Patient currently denies nausea, vomiting. : No signs and/or symptoms were reported regarding the genitourinary system. EENT: No signs and/or symptoms were reported regarding the EENT system. Derm: Skin is intact, Skin is dry, Skin is normal, Skin temperature is warm. 08:08 Reassessment: Patient appears in no apparent distress at this time. Patient and/or ph family updated on plan of care and expected duration. Pain level reassessed. Patient is alert, oriented x 3, equal unlabored respirations, skin warm/dry/pink. 08:23 Reassessment: Patient appears in no apparent distress at this time. Patient and/or ph family updated on plan of care and expected duration. Pain level reassessed. Patient is alert, oriented x 3, equal unlabored respirations, skin warm/dry/pink. Pt d/c home w/ Depakote prescription and states that he has follow up appt later this week. Vital Signs: 06:34 BP 114 / 70; Pulse 107; Resp 19 S; Temp 98.4(TE); Pulse Ox 100% on 4 lpm NC; Weight jd3 81.65 kg (R); Height 5 ft. 6 in. (167.64 cm) (R); Pain 0/10; 07:30 BP 108 / 76; Pulse 100; Resp 16; Pulse Ox 100% on 2 lpm NC; ph 08:26 BP 112 / 78; Pulse 98; Resp 18; Temp 98.1; Pulse Ox 98% on R/A; ph 06:34 Body Mass Index 29.05 (81.65 kg, 167.64 cm) jd3 Mary Jane Coma Score: 06:36 Eye Response: spontaneous(4). Verbal Response: confused(4). Motor Response: obeys jd3 commands(6). Total: 14. ED Course: 06:27 Patient arrived in ED. jd3 06:28 [facility] pm1 06:28 Artie Espino MD is Attending Physician. pm1 06:31 Triage completed. jd3 06:37 Arm band placed on. jd3 06:38 Patient has correct armband on for positive identification. Bed in low position. Call jd3 light in reach. Side rails up X2. Seizure precautions initiated. 07:51 Buffy Hardwick, RN is Primary Nurse. ph 08:28 No provider procedures requiring assistance completed. IV discontinued, intact, ph bleeding controlled, No redness/swelling at site. Pressure dressing applied, IV started by night filler. Administered Medications: 08:08 Drug: Depakote 1000 mg Route: PO; ph 08:08 Follow up: Response: No adverse reaction; Medication administered at discharge. ph Outcome: 08:00 Discharge ordered by MD. pm1 08:28 Discharged to home ambulatory. ph 08:28 Condition: improved 08:28 Discharge instructions given to patient, Instructed on discharge instructions, follow up and referral plans. medication usage, Demonstrated understanding of instructions, follow-up care, medications, Prescriptions given X 1. 08:29 Patient left the ED. ph Signatures: Buffy Hardwick, RN RN Devon Sargent NP BOATHOUSE KEEPER pm1 Margarito Ha RN RN jd3 Corrections: (The following items were deleted from the chart) 06:38 06:36 Neuro: Level of Consciousness is awake, alert, obeys commands, confused, Oriented jd3 to person, place, jd3 06:45 06:37 Neuro: Level of Consciousness is awake, obeys commands, confused, Oriented to jd3 person, place, jd3
[2018-11-12 08:04] LABS: Barbiturates NEGATIVE (NEGATIVE); Benzodiazepines NEGATIVE (NEGATIVE); Cocaine NEGATIVE (NEGATIVE); METHAMPHETAM NEGATIVE (NEGATIVE); Methadone NEGATIVE (NEGATIVE); Opiates NEGATIVE (NEGATIVE); Phencyclidine NEGATIVE (NEGATIVE); THC Cannibis NEGATIVE (NEGATIVE)
[2018-11-12] MEDS ORDERED: DIVALPROEX DR 250 MG TAB PO ONE (08:08)
[2018-11-12 08:48] VITALS: BP 112/78; TEMP 98.1; O2SAT 98
[2018-11-12 09:51] LABS: Urine Blood NEGATIVE (NEG); Urine Glucose NEGATIVE (NEG); Urine Protein 2+ (NEG); Urine pH 7.5 (5.0-7.0)
== END 2018-11-12 08:29 | disposition home or self-care (01) ==
LOC: ER 06:26
DX: G40.909 Epilepsy, unspecified, not intractable, without status epilepticus (principal); Z91.012 Allergy to eggs; Z91.018 Allergy to other foods
CPT/HCPCS: 36415; 80048; 80164; 80307; 81003; 85025; 99283

== ENCOUNTER 2018-11-23 19:13 | Emergency (ER) | payer OTHER ==
[2018-11-23 20:04] LABS: Absolute Lymphocytes (CBC) 1.6 K/uL (0.7-4.9); Basophils % 0.8 % (0-1.3); Hematocrit 42.3 % (39.6-49.0); Lymphocytes % 18.8 % (15.3-44.8); RBC Red Blood Cell Count 4.91 M/uL (4.33-5.43)
[2018-11-23 20:07] LABS: Protime INR 1.32
[2018-11-23 20:11] LABS: Barbiturates NEGATIVE (NEGATIVE); Benzodiazepines NEGATIVE (NEGATIVE); Cocaine NEGATIVE (NEGATIVE); METHAMPHETAM NEGATIVE (NEGATIVE); Methadone NEGATIVE (NEGATIVE); Opiates NEGATIVE (NEGATIVE); Phencyclidine NEGATIVE (NEGATIVE); THC Cannibis NEGATIVE (NEGATIVE)
[2018-11-23 20:25] LABS: Urine Blood NEGATIVE (NEG); Urine Glucose NEGATIVE (NEG); Urine Protein TRACE (NEG)
[2018-11-23 20:39] LABS: ALT/SGPT 19 U/L (12-78); AST/SGOT 31 U/L (15-37); Albumin 3.7 g/dL (3.4-5.0); Alkaline Phosphatase 91 U/L (45-117); BUN Blood Urea Nitrogen 10 mg/dL (7-18); Bicarbonate 29 mmol/L (21-32); Bilirubin Direct 0.1 mg/dL (0-0.2); Bilirubin Total 0.7 mg/dL (0.2-1.0); Glucose Level 94 mg/dL (74-106); Potassium 4.2 mmol/L (3.5-5.1); Protein, Total 8.6 g/dL (6.4-8.2); Sodium Level 139 mmol/L (136-145)
[2018-11-23 20:42] LABS: Valproic Acid (Depakene) Level < 3.0 ug/mL (50-100)
[2018-11-23] MEDS ORDERED: DIVALPROEX DR 250 MG TAB PO ONE (20:57)
[2018-11-23] MEDS ORDERED: CALCIUM CARBONATE CHEW 500MG TAB ONE (21:05)
--- NOTE | 2018-11-23 21:22 | ER ---
Nurse's Notes [facility] Name: Kimani Augustin Jr Age: 33 yrs Sex: Male : 1985 Arrival Date: 11/23/2018 Time: 19:16 Bed 25 Private MD: Diagnosis: Epilepsy and recurrent seizures;Hypocalcemia Presentation: 11/23 19:27 Presenting complaint: Presenting complaint: Patient states: His told him that when aj1 he was asleep last night he had several seizures, more than is usual for him. Patient states that the rest of today he has not had any seizure. Patient denies any recent head injury. Patient takes Depakote for his seizures. 19:28 Transition of care: patient was not received from another setting of care. Onset of aj1 symptoms was November 23, 2018. Risk Assessment: Do you want to hurt yourself or someone else? Patient reports no desire to harm self or others. Initial Sepsis Screen: Does the patient meet any 2 criteria? No. Patient's initial sepsis screen is negative. Does the patient have a suspected source of infection? No. Patient's initial sepsis screen is negative. Care prior to arrival: None. 19:28 Method Of Arrival: Ambulatory aj 19:28 Acuity: GUZMAN 3 aj1 Triage Assessment: 19:31 General: Appears in no apparent distress. comfortable, Behavior is calm, cooperative, aj1 appropriate for age. Pain: Denies pain. Neuro: Level of Consciousness is awake, alert, obeys commands. Cardiovascular: Patient's skin is warm and dry. Respiratory: Airway is patent Respiratory effort is even, unlabored, Respiratory pattern is regular, symmetrical. Historical: - Allergies: 19:31 EGG/POULTRY; aj1 - Home Meds: 19:31 calcitrol 0.25mg [Active]; Depakote 500 mg Oral TbEC 2 tabs 2 times per day [Active]; aj1 - PMHx: 19:31 hypocalcemia; Seizures; aj1 - Immunization history:: Flu vaccine is not up to date. - Social history:: Smoking status: Patient uses tobacco products, smokes one-half pack cigarettes per day. - Ebola Screening: : Patient denies travel to an Ebola-affected area in the 21 days before illness onset. Screenin:59 Abuse screen: Denies threats or abuse. Denies injuries from another. Nutritional mg2 screening: No deficits noted. Tuberculosis screening: No symptoms or risk factors identified. Fall Risk Secondary diagnosis (15 points) seizures, IV access (20 points). Assessment: 19:57 General: Appears in no apparent distress. comfortable, Behavior is calm, cooperative. mg2 Pain: Complains of pain in head and throat. Neuro: Level of Consciousness is awake, alert, obeys commands, Oriented to person, place, time, situation. Neuro: Seizure activity patient had 2 episodes of seizure last night. Cardiovascular: Capillary refill < 3 seconds Patient's skin is warm and dry. Respiratory: Airway is patent Respiratory effort is even, unlabored, Respiratory pattern is regular, symmetrical. GI: No signs and/or symptoms were reported involving the gastrointestinal system. : No signs and/or symptoms were reported regarding the genitourinary system. EENT: No signs and/or symptoms were reported regarding the EENT system. Derm: Skin is intact, is healthy with good turgor, Skin is pink, warm \T\ dry. normal. Musculoskeletal: Circulation, motion, and sensation intact. Capillary refill < 3 seconds. 21:14 Reassessment: Patient appears in no apparent distress at this time. Patient and/or mg2 family updated on plan of care and expected duration. Pain level reassessed. Patient is alert, oriented x 3, equal unlabored respirations, skin warm/dry/pink. 21:35 Reassessment: no seizures noted in ed. mg2 Vital Signs: 19:31 BP 114 / 80; Pulse 91; Resp 18; Temp 98.4; Pulse Ox 98% on R/A; Height 5 ft. 6 in. aj1 (167.64 cm) (R); Pain 0/10; 21:13 BP 106 / 80; Pulse 90; Resp 18; Pulse Ox 100% on R/A; mg2 Mary Jane Coma Score: 19:31 Eye Response: spontaneous(4). Verbal Response: oriented(5). Motor Response: obeys aj1 commands(6). Total: 15. ED Course: 19:16 Patient arrived in ED. cl3 19:30 Triage completed. aj1 19:31 Arm band placed on Patient placed in an exam room. aj 19:33 Marc Pittman PA is PHCP. [facility] 19:33 Irving Draper MD is Attending Physician. [facility] 19:35 Obey Howard, RN is Primary Nurse. mg2 19:59 Patient has correct armband on for positive identification. Pulse ox on. NIBP on. Door mg2 closed. Warm blanket given. 19:59 No provider procedures requiring assistance completed. Inserted saline lock: 20 gauge mg2 in left forearm, using aseptic technique. Blood collected. 20:00 Bed in low position. Call light in reach. Side rails up X2. Seizure precautions mg2 initiated. 21:35 IV discontinued, intact, bleeding controlled, No redness/swelling at site. Pressure mg2 dressing applied. Administered Medications: 21:05 Drug: Depakote 500 mg Route: PO; mg2 21:20 Follow up: Response: No adverse reaction mg2 21:13 Drug: Calcium Carbonate 500 mg 2 tablet Route: PO; mg2 21:20 Follow up: Response: No adverse reaction mg2 Outcome: 21:22 Discharge ordered by MD. [facility] 21:35 Discharged to home ambulatory. mg2 21:35 Condition: stable 21:35 Discharge instructions given to patient, Instructed on discharge instructions, follow up and referral plans. medication usage, Demonstrated understanding of instructions, follow-up care, medications, Prescriptions given X 1. 21:36 Patient left the ED. mg2 Signatures: Bere Zaldivar RN RN aj1 Marc Pittman PA PA [facility] Obey Howard, LILIAN RN mg2 Eileen Taylor cl3 Corrections: (The following items were deleted from the chart) 19:30 19:27 Presenting complaint: aj1 aj1
--- NOTE | 2018-11-23 21:23 | EDPHYS ---
Physician Documentation [facility] Name: Kimani Augustin Jr Age: 33 yrs Sex: Male : 1985 Arrival Date: 11/23/2018 Time: 19:16 Bed 25 Private MD: ED Physician Irving Draper HPI: 11/23 19:34 This 33 yrs old Male presents to ER via Ambulatory with complaints of Seizure. jmm 19:34 The patient presents with a history of multiple seizures. Seizure onset: today. This is jmm a 33 year old male with a history of epilepsy and chronic hypocalcemia that presents to the ED concerned his calcium levels may be low due to increased seizures. Patient states he is taking Depakote as directed. . Historical: - Allergies: 19:31 EGG/POULTRY; aj1 - Home Meds: 19:31 calcitrol 0.25mg [Active]; Depakote 500 mg Oral TbEC 2 tabs 2 times per day [Active]; aj1 - PMHx: 19:31 hypocalcemia; Seizures; aj1 - Immunization history:: Flu vaccine is not up to date. - Social history:: Smoking status: Patient uses tobacco products, smokes one-half pack cigarettes per day. - Ebola Screening: : Patient denies travel to an Ebola-affected area in the 21 days before illness onset. ROS: 19:34 Constitutional: Negative for fever, chills, and weight loss, Cardiovascular: Negative jmm for chest pain, palpitations, and edema, Respiratory: Negative for shortness of breath, cough, wheezing, and pleuritic chest pain. 19:34 Neuro: Positive for seizure activity. 19:34 All other systems are negative. Exam: 19:34 Constitutional: This is a well developed, well nourished patient who is awake, alert, jmm and in no acute distress. Head/Face: atraumatic. Eyes: EOMI, no conjunctival erythema appreciated ENT: Moist Mucus Membranes Neck: Trachea midline, Supple Chest/axilla: Normal chest wall appearance and motion. Cardiovascular: Regular rate and rhythm. No edema appreciated Respiratory: Normal respirations, no respiratory distress appreciated Abdomen/GI: Non distended, soft Back: Normal ROM Skin: General appearance color normal MS/ Extremity: Moves all extremities, no obvious deformities appreciated, no edema noted to the lower extremities Neuro: Awake and alert, normal gait Psych: Behavior is normal, Mood is normal, Patient is cooperative and pleasant Vital Signs: 19:31 BP 114 / 80; Pulse 91; Resp 18; Temp 98.4; Pulse Ox 98% on R/A; Height 5 ft. 6 in. aj1 (167.64 cm) (R); Pain 0/10; 21:13 BP 106 / 80; Pulse 90; Resp 18; Pulse Ox 100% on R/A; mg2 [place] Coma Score: 19:31 Eye Response: spontaneous(4). Verbal Response: oriented(5). Motor Response: obeys aj1 commands(6). Total: 15. MDM: 19:34 Patient medically screened. [facility] [place] 21:21 Data reviewed: vital signs, nurses notes. Counseling: I had a detailed discussion with nickie the patient and/or guardian regarding: the historical points, exam findings, and any diagnostic results supporting the discharge/admit diagnosis, lab results, the need for outpatient follow up, to return to the emergency department if symptoms worsen or persist or if there are any questions or concerns that arise at home. ED course: Labs appear consistent with previous. Depakote replaced. Patient advised to take depakote as directed. Patient otherwise given strict return precautions. Patient understood and agrees with the plan of care. . 11/23 19:34 Order name: Acetaminophen; Complete Time: 20:44 [facility] [place] 11/23 19:34 Order name: Basic Metabolic Panel; Complete Time: 20:44 [facility] 11/23 19:34 Order name: CBC with Diff; Complete Time: 20:11 [facility] 11/23 19:34 Order name: ETOH Level; Complete Time: 20:58 [facility] 11/23 19:34 Order name: Hepatic Function; Complete Time: 20:44 [facility] 11/23 19:34 Order name: PT-INR; Complete Time: 20:11 [facility] 11/23 19:34 Order name: Ptt, Activated; Complete Time: 20:11 [facility] 11/23 19:34 Order name: Salicylate; Complete Time: 20:41 [facility] 11/23 19:34 Order name: Urine Drug Screen; Complete Time: 20:11 [facility] 11/23 19:34 Order name: Depakote; Complete Time: 20:44 [facility] 11/23 19:46 Order name: Urine Dipstick--Ancillary (enter results); Complete Time: 20:27 ar5 11/23 20:01 Order name: Strep; Complete Time: 20:27 mg2 11/23 20:43 Order name: Throat Culture [facility] 11/23 19:34 Order name: EKG; Complete Time: 19:35 [facility] 11/23 19:34 Order name: EKG - Nurse/Tech; Complete Time: 19:56 [facility] 11/23 19:34 Order name: IV Saline Lock; Complete Time: 19:56 [facility] 11/23 19:34 Order name: Labs collected and sent; Complete Time: 19:56 [facility] 11/23 19:34 Order name: Urine Dipstick-Ancillary (obtain specimen); Complete Time: 19:57 [facility] Administered Medications: 21:05 Drug: Depakote 500 mg Route: PO; mg2 21:20 Follow up: Response: No adverse reaction mg2 21:13 Drug: Calcium Carbonate 500 mg 2 tablet Route: PO; mg2 21:20 Follow up: Response: No adverse reaction mg2 Disposition: 11/24 06:51 Co-signature as Attending Physician, Irving Draper MD I agree with the assessment and tw4 plan of care. Disposition: 11/23/18 21:22 Discharged to Home. Impression: Epilepsy and recurrent seizures, Hypocalcemia. - Condition is Stable. - Discharge Instructions: Seizure, Adult, Hypocalcemia, Adult. - Prescriptions for Depakote 500 mg Oral Tablet - take 1 tablet by ORAL route every 12 hours; 60 tablet. - Medication Reconciliation Form, Thank You Letter, Antibiotic Education, Prescription Opioid Use, Work release form form. - Follow up: Private Physician; When: 2 - 3 days; Reason: Recheck today's complaints, Continuance of care, Re-evaluation by your physician. Signatures: Dispatcher [employer] EDBere Velasquez RN RN aj1 Marc Pittman PA PA jmm Wadley, Terrence, MD MD tw4 Obey Howard RN RN mg2 Corrections: (The following items were deleted from the chart) 11/23 21:36 21:22 11/23/2018 21:22 Discharged to Home. Impression: Epilepsy and recurrent seizures; mg2 Hypocalcemia. Condition is Stable. Forms are Medication Reconciliation Form, Thank You Letter, Antibiotic Education, Prescription Opioid Use. Follow up: Private Physician; When: 2 - 3 days; Reason: Recheck today's complaints, Continuance of care, Re-evaluation by your physician. nickie
[2018-11-23 22:01] VITALS: TEMP 98.4
[2018-11-23 22:03] VITALS: BP 106/80; O2SAT 100
--- NOTE | 2018-11-24 06:14 | EKG ---
Test Date: 2018-11-23 Test Time: 19:41:31 Product Support Representative: MG MEASUREMENT RESULTS: Intervals: Rate: 80 NV: 118 QRSD: 98 QT: 418 QTc: 482 [place]: P: 72 NV: 118 QRS: 51 T: 63 INTERPRETIVE STATEMENTS: Normal sinus rhythm Prolonged QT Abnormal ECG Compared to ECG 03/14/2018 02:48:46 No significant changes Electronically Signed On 11-24-18 06:14:11 CDT by Collin Sigala
== END 2018-11-23 21:36 | disposition home or self-care (01) ==
LOC: ER 19:13
DX: G40.909 Epilepsy, unspecified, not intractable, without status epilepticus (principal); E83.51 Hypocalcemia; Z91.012 Allergy to eggs; F17.210 Nicotine dependence, cigarettes, uncomplicated
CPT/HCPCS: 36415; 80048; 80076; 80164; 80307; 80320; 80329; 81003; 85025; 85610; 85730; 87070; 87081; 93005; 99284

== ENCOUNTER 2018-12-15 11:55 | Emergency (ER) | payer OTHER ==
[2018-12-15] MEDS ORDERED: NA CHLORIDE 0.9% 1,000 ML ONE (12:07)
--- NOTE | 2018-12-15 12:47 | RAD REPORT ---
EXAM DESCRIPTION: CT - CTHCSPWOC - 12/15/2018 12:26 pm CLINICAL HISTORY: Trauma, head and neck injury. seizure, fall, face and head injury COMPARISON: Head C Spine Mpr Wo Con dated 10/25/2017; Head C Spine Mpr Wo Con dated 11/22/2015; Facial Bones W/ Mpr dated 12/15/2018 TECHNIQUE: Axial 5 mm thick images of the head were obtained. Axial 2 mm thick images of the cervical spine were obtained with sagittal and coronal reconstruction images generated and reviewed. All CT scans are performed using dose optimization technique as appropriate and may include automated exposure control or mA/KV adjustment according to patient size. FINDINGS: CT HEAD WITHOUT CONTRAST: No acute hemorrhage, hydrocephalus or extra-axial collection is identified.Multiple calcifications ar e seen throughout the brain parenchyma, unchanged. These are likely related to prior neurocysticercos is. Moderate fluid is present in both maxillary antra.The calvarium is intact. 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 IMPRESSION: No acute intracranial or cervical spine findings.
--- NOTE | 2018-12-15 12:53 | RAD REPORT ---
EXAM DESCRIPTION: CT - CTFB CLINICAL HISTORY: FACIAL PAIN Trauma, pain facial injury COMPARISON: No comparisons TECHNIQUE: Axial 2 mm thick images of the face were obtained with sagittal and coronal reconstructio n images. All CT scans are performed using dose optimization technique as appropriate and may include automated exposure control or mA/KV adjustment according to patient size. FINDINGS: No acute facial bone fracture is seen.Soft tissue swelling is seen in the nasal bone regio n.The mandible is intact. The globes and orbital contents are grossly unremarkable.Moderate fluid is seen in both maxillary ant ra, greater on the right. IMPRESSION: Negative for facial bone fracture.
[2018-12-15 12:58] LABS: BUN Blood Urea Nitrogen 6 mg/dL (7-18); Bicarbonate 28 mmol/L (21-32); Glucose Level 97 mg/dL (74-106); Potassium 3.9 mmol/L (3.5-5.1); Sodium Level 140 mmol/L (136-145)
[2018-12-15] MEDS ORDERED: DIVALPROEX DR 250 MG TAB PO ONE (13:40)
[2018-12-15] MEDS ORDERED: ACETAMINOPHEN 325 MG TABLET ONE (13:42)
[2018-12-15] MEDS ORDERED: CALCIUM GLUCONATE 1gm/100 ML NS (4.65 mEq/100mL) IV ONE ×2 (14:00)
[2018-12-15] MEDS ORDERED: CALCIUM CARBONATE 500 MG TAB PO ONE (14:00)
--- NOTE | 2018-12-15 15:03 | RAD REPORT ---
EXAM DESCRIPTION: RAD - Thoracic Spine Ap/Lat - 12/15/2018 2:50 pm CLINICAL HISTORY: fall;Pain Radiculopathy COMPARISON: No comparisons FINDINGS: The thoracic spine vertebral body heights and disc spaces are largely maintained. No acute compression fracture. No significant malalignment. IMPRESSION: An acute finding is not visualized.
--- NOTE | 2018-12-15 15:05 | RAD REPORT ---
EXAM DESCRIPTION: RAD - Lumbar Spine 3 Views - 12/15/2018 2:51 pm CLINICAL HISTORY: fall;Pain Radiculopathy COMPARISON: No comparisons FINDINGS: Vertebral body heights appear maintained. No compression fracture noted. Disc thinning is present posterior osteophyte at L4-5. Mild levoscoliosis is present of the lumbar spine. IMPRESSION: No acute lumbar spine finding evident.
--- NOTE | 2018-12-15 15:16 | EDPHYS ---
Physician Documentation [facility] Name: Kimani Augustin Jr Age: 33 yrs Sex: Male : 1985 Arrival Date: 12/15/2018 Time: 11:58 Bed 2 Private MD: ED Physician Artie Espino HPI: 12/15 12:04 This 33 yrs old Male presents to ER via Unassigned with complaints of Seizure. rn 12:04 The patient presents with a history of multiple seizures, a total of 2. Seizure onset: rn this morning. Associated injury: Head/face:. Current symptoms: confusion. The patient has experienced similar episodes in the past. Patient with seizure disorder, takes depakote and has problems with low calcium. Per report, patient had seizure in shower, fell, hit face, family didn't call 911. Had 2nd seizure, fell, hit back of head, called 911. Patient now awake, reports mild headache, no vomiting, no focal injury or pain. Reports has false teeth and have been messed up before, denies dental or mouth pain.. Historical: - Allergies: 12:05 EGG/POULTRY; sv - Home Meds: 12:05 Depakote 500 mg Oral TbEC 2 tabs 2 times per day [Active]; calcitrol 0.25mg [Active]; sv - PMHx: 12:05 hypocalcemia; Seizures; sv - Immunization history:: Adult Immunizations up to date. - Social history:: Smoking status: Patient/guardian denies using tobacco. - Family history:: not pertinent. - Ebola Screening: : No symptoms or risks identified at this time. - Hospitalizations: : No recent hospitalization is reported. ROS: 12:04 Constitutional: Negative for fever, chills, and weight loss, Eyes: Negative for injury, rn pain, redness, and discharge, ENT: + nasal injury Neck: Negative for injury, pain, and swelling, Cardiovascular: Negative for chest pain, palpitations, and edema, Respiratory: Negative for shortness of breath, cough, wheezing, and pleuritic chest pain, Abdomen/GI: Negative for abdominal pain, nausea, vomiting, diarrhea, and constipation, Back: Negative for injury and pain, MS/Extremity: Negative for injury and deformity, Skin: Negative for injury, rash, and discoloration, Neuro: Negative for weakness, numbness, tingling Exam: 12:04 Constitutional: This is a well developed, well nourished patient who is awake, alert, rn and in no acute distress. Head/Face: + hematoma top back of head, no active bleed or laceration Eyes: Pupils equal round and reactive to light, extra-ocular motions intact. Lids and lashes normal. Conjunctiva and sclera are non-icteric and not injected. Cornea within normal limits. Periorbital areas with no swelling, redness, or edema. ENT: + abrasion and 0.5 cm skin tear to nasal bridge with mild swelling, no deformity. + poor general dentition, no alveolar ridge fracture, no loose teeth. No focal pain. False upper middle teeth. Neck: Trachea midline, no thyromegaly or masses palpated, and no cervical lymphadenopathy. Supple, full range of motion without nuchal rigidity, or vertebral point tenderness. No Meningismus. Chest/axilla: Normal chest wall appearance and motion. Nontender with no deformity. No lesions are appreciated. Cardiovascular: Regular rate and rhythm. No pulse deficits. Respiratory: No increased work of breathing, no retractions or nasal flaring. Abdomen/GI: soft, non-tender Back: No spinal tenderness. No costovertebral tenderness. Full range of motion. Skin: Warm, dry, and no evidence of cellulitis. MS/ Extremity: Pulses equal, no cyanosis. Neurovascular intact. Full, normal range of motion. Equal circumference. Neuro: Awake and alert, GCS 15, oriented to person, place, time, and situation. Cranial nerves II-XII grossly intact. Motor strength 5/5 in all extremities. Sensory grossly intact. Cerebellar exam normal. Vital Signs: 12:05 BP 103 / 75; Pulse 89; Resp 16; Temp 99; Pulse Ox 95% ; Weight 81 kg; Height 5 ft. 6 sv in. (167.64 cm); 13:00 BP 101 / 76; Pulse 79; Resp 16; Pulse Ox 96% ; sv 13:45 BP 99 / 77; Pulse 80; Resp 16; Pulse Ox 99% ; sv 15:00 BP 100 / 70; Pulse 74; Resp 16; Pulse Ox 100% ; sv 15:35 BP 105 / 67; Pulse 66; Resp 16; Pulse Ox 99% ; sv 12:05 Body Mass Index 28.82 (81.00 kg, 167.64 cm) sv [place] Coma Score: 11:55 Eye Response: spontaneous(4). Verbal Response: oriented(5). Motor Response: obeys sv commands(6). Total: 15. MDM: 11:58 Patient medically screened. rn 15:13 Differential diagnosis: seizure, facial and head trauma. Data reviewed: vital signs, rn nurses notes, lab test result(s), EKG, radiologic studies, CT scan, plain films, and as a result, I will discharge patient. Counseling: I had a detailed discussion with the patient and/or guardian regarding: the historical points, exam findings, and any diagnostic results supporting the discharge/admit diagnosis, lab results, radiology results, the need for outpatient follow up, to return to the emergency department if symptoms worsen or persist or if there are any questions or concerns that arise at home. Response to treatment: the patient's symptoms have markedly improved after treatment, the patient's condition has returned to base line, the patient is now symptom free, and as a result, I will discharge patient. Special discussion: Based on the patient's history, exam and DX evaluation, there is no indication for emergent intervention or inpatient TX. It is understood by the patient/guardian that if the SXs persist or worsen they need to return immediately for re-evaluation. I discussed with the patient/guardian in detail that at this point there is no indication for admission to the hospital. It is understood, however, that if the symptoms persist or worsen the patient needs to return immediately for re-evaluation. Based on the history and exam findings, there is no indication for further emergent testing or inpatient evaluation. I discussed with the patient/guardian the need to see the neurologist for further evaluation of the symptoms. I discussed with the patient/guardian the need to see the primary care provider for further evaluation of the symptoms. ED course: Family member here, states patient doesn't take meds, patient approached about this and admits has been out for days. . 12/15 12:03 Order name: Depakote; Complete Time: 13:12 rn 12/15 12:03 Order name: BMP; Complete Time: 13:12 rn 12/15 11:59 Order name: CT Head C Spine; Complete Time: 12:57 rn 12/15 11:59 Order name: CT Facial Bones W/O Con; Complete Time: 12:57 rn 12/15 13:49 Order name: XRAY Lumbar Spine (3 Views); Complete Time: 15:13 rn 12/15 13:49 Order name: XRAY Thoracic Spine (Ap/lat); Complete Time: 15:13 rn 12/15 12:03 Order name: IV Start; Complete Time: 12:15 rn 12/15 12:03 Order name: EKG; Complete Time: 12:04 rn 12/15 12:03 Order name: EKG Strip; Complete Time: 12:15 rn Administered Medications: 12:15 Drug: NS 0.9% 1000 ml Route: IV; Rate: 1000 ml; Site: right antecubital; sv 13:30 Follow up: Response: No adverse reaction; IV Status: Completed infusion; IV Intake: sv 1000ml 13:13 CANCELLED (Duplicate Order): Calcium Gluconate 2 grams IVPB once over 60 mins; (mix in rn NS 100 mL) 13:45 Drug: Depakote 500 mg Route: PO; sv 14:30 Follow up: Response: No adverse reaction sv 13:45 Drug: Tylenol 650 mg Route: PO; sv 14:30 Follow up: Response: No adverse reaction sv 13:55 Drug: Calcium Carbonate 500 mg 2 tablet Route: PO; ae4 14:30 Follow up: Response: No adverse reaction sv 13:57 Drug: Calcium Gluconate 1 grams Route: IVPB; Infused Over: 60 mins; Site: right ae4 antecubital; 15:00 Follow up: Response: No adverse reaction; IV Status: Completed infusion; IV Intake: sv 100ml Disposition: 12/15/18 15:15 Discharged to Home. Impression: Epilepsy and recurrent seizures, Hypocalcemia. - Condition is Stable. - Discharge Instructions: Seizure, Adult, Hypocalcemia, Adult. - Prescriptions for Keppra 500 mg Oral Tablet - take 1 tablet by ORAL route every 12 hours; 60 tablet. - Work release form, Medication Reconciliation Form, Thank You Letter, Antibiotic Education, Prescription Opioid Use form. - Follow up: Private Physician; When: As needed; Reason: Recheck today's complaints, Re-evaluation by your physician. - Problem is an acute exacerbation. - Symptoms have improved. Signatures: Dispatcher [employer] EDMS Carol, Makeda, RN RN sv Espino, Artie, MD MD rn Willian, Homar, RN RN ae4 Corrections: (The following items were deleted from the chart) 12:07 12:04 Constitutional: Negative for fever, chills, and weight loss, Eyes: Negative for rn injury, pain, redness, and discharge, ENT: + nasal injury Neck: Negative for injury, pain, and swelling, Cardiovascular: Negative for chest pain, palpitations, and edema, Respiratory: Negative for shortness of breath, cough, wheezing, and pleuritic chest pain, Abdomen/GI: Negative for abdominal pain, nausea, vomiting, diarrhea, and constipation, MS/Extremity: Negative for injury and deformity, Skin: Negative for injury, rash, and discoloration, Neuro: Negative for weakness, numbness, tingling rn 12:09 12:04 Constitutional: This is a well developed, well nourished patient who is awake, rn alert, and in no acute distress. Head/Face: + hematoma top back of head, no active bleed or laceration Eyes: Pupils equal round and reactive to light, extra-ocular motions intact. Lids and lashes normal. Conjunctiva and sclera are non-icteric and not injected. Cornea within normal limits. Periorbital areas with no swelling, redness, or edema. ENT: + abrasion and 0.5 cm skin tear to nasal bridge with mild swelling, no deformity. + poor general dentition, no alveolar ridge fracture, no loose teeth. No focal pain. Neck: Trachea midline, no thyromegaly or masses palpated, and no cervical lymphadenopathy. Supple, full range of motion without nuchal rigidity, or vertebral point tenderness. No Meningismus. Chest/axilla: Normal chest wall appearance and motion. Nontender with no deformity. No lesions are appreciated. Cardiovascular: Regular rate and rhythm. No pulse deficits. Respiratory: No increased work of breathing, no retractions or nasal flaring. Abdomen/GI: soft, non-tender Back: No spinal tenderness. No costovertebral tenderness. Full range of motion. Skin: Warm, dry, and no evidence of cellulitis. MS/ Extremity: Pulses equal, no cyanosis. Neurovascular intact. Full, normal range of motion. Equal circumference. Neuro: Awake and alert, GCS 15, oriented to person, place, time, and situation. Cranial nerves II-XII grossly intact. Motor strength 5/5 in all extremities. Sensory grossly intact. Cerebellar exam normal. rn 13:13 13:10 Calcium Gluconate 2 grams IVPB once over 60 mins; (mix in NS 100 mL) ordered. dar rn 15:38 15:15 12/15/2018 15:15 Discharged to Home. Impression: Epilepsy and recurrent seizures; sv Hypocalcemia. Condition is Stable. Forms are Medication Reconciliation Form, Thank You Letter, Antibiotic Education, Prescription Opioid Use. Follow up: Private Physician; When: As needed; Reason: Recheck today's complaints, Re-evaluation by your physician. Problem is an acute exacerbation. Symptoms have improved. rn
--- NOTE | 2018-12-15 15:16 | ER ---
Nurse's Notes [facility] Name: Kimani Augustin Jr Age: 33 yrs Sex: Male : 1985 Arrival Date: 12/15/2018 Time: 11:58 Bed 2 Private MD: Diagnosis: Epilepsy and recurrent seizures;Hypocalcemia Presentation: 12/15 11:55 Presenting complaint: EMS states: 2 unwitnessed seizures while at home, hematoma noted sv to top of head, nose injury, frontal teeth deformity occurred today. Transition of care: patient was not received from another setting of care. Onset of symptoms was December 15, 2018. Risk Assessment: Do you want to hurt yourself or someone else? Patient reports no desire to harm self or others. Initial Sepsis Screen: Does the patient meet any 2 criteria? No. Patient's initial sepsis screen is negative. Does the patient have a suspected source of infection? No. Patient's initial sepsis screen is negative. Care prior to arrival: IV initiated. 18 GA, in the right antecubital area. 11:55 Method Of Arrival: EMS: [facility] sv 11:55 Acuity: GUZMAN 3 sv Triage Assessment: 11:55 General: Appears in no apparent distress. uncomfortable, Behavior is calm, cooperative, sv appropriate for age. Pain: Complains of pain in nose. EENT: Oral mucosa is moist. partial absence of teeth noted in the front. Throat is clear tongue appears to be bitten on the right side.. Neuro: Level of Consciousness is awake, alert, obeys commands, Oriented to person, place, time, situation, Moves all extremities. Full function Seizure activity reported prior to arrival. Respiratory: Respiratory effort is even, unlabored, Respiratory pattern is regular, symmetrical. Derm: Skin is pink, warm \T\ dry. Injury Description: Head injury sustained to right side of the back of head is open, had loss of consciousness, was sustained unknown. Historical: - Allergies: 12:05 EGG/POULTRY; sv - Home Meds: 12:05 Depakote 500 mg Oral TbEC 2 tabs 2 times per day [Active]; calcitrol 0.25mg [Active]; sv - PMHx: 12:05 hypocalcemia; Seizures; sv - Immunization history:: Adult Immunizations up to date. - Social history:: Smoking status: Patient/guardian denies using tobacco. - Family history:: not pertinent. - Ebola Screening: : No symptoms or risks identified at this time. - Hospitalizations: : No recent hospitalization is reported. Screenin:55 Abuse screen: Denies threats or abuse. Denies injuries from another. Nutritional sv screening: No deficits noted. Tuberculosis screening: No symptoms or risk factors identified. Fall Risk None identified. Assessment: 12:52 Reassessment: Patient appears in no apparent distress at this time. No changes from sv previously documented assessment. Patient and/or family updated on plan of care and expected duration. Pain level reassessed. Patient is alert, oriented x 3, equal unlabored respirations, skin warm/dry/pink. 13:45 Reassessment: Patient appears in no apparent distress at this time. Patient and/or sv family updated on plan of care and expected duration. Pain level reassessed. Patient is alert, oriented x 3, equal unlabored respirations, skin warm/dry/pink. 14:30 Reassessment: Patient appears in no apparent distress at this time. No changes from sv previously documented assessment. Patient and/or family updated on plan of care and expected duration. Pain level reassessed. Patient is alert, oriented x 3, equal unlabored respirations, skin warm/dry/pink. 15:34 Reassessment: Patient appears in no apparent distress at this time. No changes from sv previously documented assessment. Patient and/or family updated on plan of care and expected duration. Pain level reassessed. Patient is alert, oriented x 3, equal unlabored respirations, skin warm/dry/pink. Vital Signs: 12:05 BP 103 / 75; Pulse 89; Resp 16; Temp 99; Pulse Ox 95% ; Weight 81 kg; Height 5 ft. 6 sv in. (167.64 cm); 13:00 BP 101 / 76; Pulse 79; Resp 16; Pulse Ox 96% ; sv 13:45 BP 99 / 77; Pulse 80; Resp 16; Pulse Ox 99% ; sv 15:00 BP 100 / 70; Pulse 74; Resp 16; Pulse Ox 100% ; sv 15:35 BP 105 / 67; Pulse 66; Resp 16; Pulse Ox 99% ; sv 12:05 Body Mass Index 28.82 (81.00 kg, 167.64 cm) sv Milton Coma Score: 11:55 Eye Response: spontaneous(4). Verbal Response: oriented(5). Motor Response: obeys sv commands(6). Total: 15. ED Course: 11:55 Patient has correct armband on for positive identification. Bed in low position. Call sv light in reach. Side rails up X2. Seizure precautions initiated. Pulse ox on. NIBP on. Head of bed elevated. 11:55 Maintain EMS IV. Dressing intact. Site clean \T\ dry. Gauge \T\ site: 18G R AC. sv 11:58 Patient arrived in ED. rn 11:58 Artie Espino MD is Attending Physician. rn 12:03 Makeda Medina RN is Primary Nurse. sv 12:05 Triage completed. sv 12:06 Arm band placed on. sv 12:15 EKG done, by ED staff, reviewed by Artie Espino MD. jb1 12:26 CT Head C Spine In Process Unspecified. EDMS 12:26 CT Facial Bones W/O Con In Process Unspecified. EDMS 12:32 Patient moved back from CT. sv 12:38 Awaiting lab results, Awaiting radiology results. sv 14:05 IV discontinued, intact, bleeding controlled, Pressure dressing applied, IV infiltrated sv to the R AC. 14:10 Inserted saline lock: 20 gauge in left antecubital area, using aseptic technique. sv Flushed left antecubital with 5 ml normal saline. 14:48 XRAY Lumbar Spine (3 Views) In Process Unspecified. EDMS 14:48 XRAY Thoracic Spine (Ap/lat) In Process Unspecified. EDMS 15:35 No provider procedures requiring assistance completed. IV discontinued, intact, sv bleeding controlled, No redness/swelling at site. Pressure dressing applied. Administered Medications: 12:15 Drug: NS 0.9% 1000 ml Route: IV; Rate: 1000 ml; Site: right antecubital; sv 13:30 Follow up: Response: No adverse reaction; IV Status: Completed infusion; IV Intake: sv 1000ml 13:13 CANCELLED (Duplicate Order): Calcium Gluconate 2 grams IVPB once over 60 mins; (mix in rn NS 100 mL) 13:45 Drug: Depakote 500 mg Route: PO; sv 14:30 Follow up: Response: No adverse reaction sv 13:45 Drug: Tylenol 650 mg Route: PO; sv 14:30 Follow up: Response: No adverse reaction sv 13:55 Drug: Calcium Carbonate 500 mg 2 tablet Route: PO; ae4 14:30 Follow up: Response: No adverse reaction sv 13:57 Drug: Calcium Gluconate 1 grams Route: IVPB; Infused Over: 60 mins; Site: right ae4 antecubital; 15:00 Follow up: Response: No adverse reaction; IV Status: Completed infusion; IV Intake: sv 100ml Intake: 13:30 IV: 1000ml; Total: 1000ml. sv 15:00 IV: 100ml; Total: 1100ml. sv Outcome: 15:15 Discharge ordered by . rn 15:35 Discharged to home via wheelchair, with family. sv 15:35 Condition: stable 15:35 Discharge instructions given to patient, Instructed on discharge instructions, follow up and referral plans. medication usage, Demonstrated understanding of instructions, follow-up care, medications, Prescriptions given X 1. 15:38 Patient left the ED. sv Signatures: Dispatcher [employer] EDMS Julio Amin Stephanie, RN RN sv Artie Espino MD MD rn Elliott, Andrea, RN RN ae4 Corrections: (The following items were deleted from the chart) 12:06 12:05 BP 103 / 75; Pulse 89bpm; Resp 16bpm; Pulse Ox 95%; Temp 99F; sv sv
[2018-12-15 15:43] VITALS: TEMP 99
[2018-12-15 15:49] VITALS: BP 105/67; O2SAT 99
--- NOTE | 2018-12-16 07:52 | EKG ---
Test Date: 2018-12-15 Test Time: 12:12:39 Information Security Manager: NAGI MEASUREMENT RESULTS: Intervals: Rate: 90 DC: 118 QRSD: 96 QT: 392 QTc: 479 [place]: P: 80 DC: 118 QRS: 55 T: 76 INTERPRETIVE STATEMENTS: Normal sinus rhythm Normal ECG Compared to ECG 11/23/2018 19:41:31 Prolonged QT interval no longer present Electronically Signed On 12-16-18 07:51:54 CDT by Collin Sigala
== END 2018-12-15 15:38 | disposition home or self-care (01) ==
LOC: ER 11:55
DX: E83.51 Hypocalcemia (principal); W19.XXXA Unspecified fall, initial encounter; Y93.E1 Activity, personal bathing and showering; Y92.9 Unspecified place or not applicable; Z91.012 Allergy to eggs; Z91.018 Allergy to other foods
CPT/HCPCS: 96365; 96361; 93005; 80048; 36415; 80164; 70450; 72125; 70486; 76377; 72100; 72070; 99285; J0610; J7030

== ENCOUNTER 2019-02-28 18:12 | Emergency (ER) | payer OTHER ==
[2019-02-28 19:01] LABS: Basophils % 1.1 % (0-1.3); Hematocrit 41.4 % (39.6-49.0); MPV 11.2 fL (7.6-11.3); RBC Red Blood Cell Count 4.72 M/uL (4.33-5.43)
[2019-02-28 19:22] LABS: ALT/SGPT 24 U/L (12-78); AST/SGOT 32 U/L (15-37); Albumin 3.5 g/dL (3.4-5.0); Alkaline Phosphatase 112 U/L (45-117); BUN Blood Urea Nitrogen 7 mg/dL (7-18); Bicarbonate 28 mmol/L (21-32); Bilirubin Direct < 0.1 mg/dL (0-0.2); Bilirubin Total 0.3 mg/dL (0.2-1.0); Glucose Level 107 mg/dL (74-106); Potassium 3.6 mmol/L (3.5-5.1); Protein, Total 8.4 g/dL (6.4-8.2); Sodium Level 139 mmol/L (136-145)
[2019-02-28 19:32] LABS: Urine Blood TRACE (NEG); Urine Glucose NEGATIVE (NEG); Urine Protein 3+ (NEG); Urine Specific Gravity 1.025 (1.005-1.030); Urine pH 6.5 (5.0-7.0)
[2019-02-28] MEDS ORDERED: levETIRAcetam 500 MG TAB ONE (19:32)
[2019-02-28] MEDS ORDERED: CALCIUM GLUCONATE 1 GM IVPB 1 GM/50 ML BAG IV ONE ×2 (19:39→19:54)
[2019-02-28 19:43] LABS: Barbiturates NEGATIVE (NEGATIVE); Benzodiazepines NEGATIVE (NEGATIVE); Cocaine NEGATIVE (NEGATIVE); METHAMPHETAM NEGATIVE (NEGATIVE); Methadone NEGATIVE (NEGATIVE); Opiates NEGATIVE (NEGATIVE); Phencyclidine NEGATIVE (NEGATIVE); THC Cannibis NEGATIVE (NEGATIVE)
[2019-02-28 19:50] LABS: Blood Morphology Comment NOT SEEN (NOT SEEN); Platelet Estimate ADEQ; Platelets, Giant FEW; Urine White Blood Cell Casts OK
--- NOTE | 2019-02-28 22:11 | ER ---
Nurse's Notes [facility] Name: Kimani Augustin Jr Age: 33 yrs Sex: Male : 1985 Arrival Date: 02/28/2019 Time: 18:13 Bed 7 Private MD: Ezequiel Joyner F Diagnosis: Seizure;Hypocalcemia Presentation: 02/28 18:14 Presenting complaint: Patient states: Seizure like activity for about 3 mins witnessed sg by coworkers, pt noted to be in a postictal state per EMS, pt is now aa\T\ox4 and responsive. Transition of care: patient was not received from another setting of care. Onset of symptoms was February 28, 2019. Risk Assessment: Do you want to hurt yourself or someone else? Patient reports no desire to harm self or others. Initial Sepsis Screen: Does the patient meet any 2 criteria? No. Patient's initial sepsis screen is negative. Does the patient have a suspected source of infection? No. Patient's initial sepsis screen is negative. Care prior to arrival: IV initiated. 20 GA, in the left antecubital area, Glucose check: 88. 18:14 Method Of Arrival: EMS: [facility] sg 18:14 Acuity: GUZMAN 3 sg Triage Assessment: 18:14 General: Appears in no apparent distress. well groomed, well developed, well nourished, sg Behavior is calm, cooperative, appropriate for age. Pain: Denies pain. Neuro: Level of Consciousness is awake, alert, obeys commands, Oriented to person, place, time, Speech is normal, Facial symmetry appears normal. Cardiovascular: Denies chest pain, diaphoresis, fatigue, nausea, shortness of breath, Patient's skin is warm and dry. Chest pain is denied. Respiratory: Airway is patent Respiratory effort is even, unlabored, Respiratory pattern is regular, symmetrical, Denies cough, shortness of breath labored breathing. GI: No signs and/or symptoms were reported involving the gastrointestinal system. : No signs and/or symptoms were reported regarding the genitourinary system. Derm: Skin is pink, warm \T\ dry. Musculoskeletal: Circulation, motion, and sensation intact. Historical: - Allergies: 18:14 EGG/POULTRY; sg - Home Meds: 22:16 calcitrol 0.25mg [Active]; Depakote 500 mg Oral TbEC 2 tabs 2 times per day [Active]; lp1 - PMHx: 18:14 hypocalcemia; Seizures; sg - Immunization history:: Adult Immunizations up to date. - Social history:: Smoking status: Patient/guardian denies using tobacco. - Ebola Screening: : Patient negative for fever greater than or equal to 101.5 degrees Fahrenheit, and additional compatible Ebola Virus Disease symptoms Patient denies exposure to infectious person Patient denies travel to an Ebola-affected area in the 21 days before illness onset No symptoms or risks identified at this time. Screenin:50 Abuse screen: Denies threats or abuse. Denies injuries from another. Nutritional sv screening: No deficits noted. Tuberculosis screening: No symptoms or risk factors identified. Fall Risk None identified. Assessment: 19:30 General: Appears in no apparent distress. Behavior is calm, cooperative. Pain: Denies lp1 pain. Neuro: Level of Consciousness is awake, alert, obeys commands, Oriented to person, place, situation, Gait is Speech is normal. Cardiovascular: Patient's skin is warm and dry. Respiratory: Respiratory effort is even, unlabored. GI: No signs and/or symptoms were reported involving the gastrointestinal system. : No signs and/or symptoms were reported regarding the genitourinary system. EENT: No deficits noted. Derm: Skin is pink, warm \T\ dry. Musculoskeletal: No deficits noted. 20:30 Reassessment: Patient appears in no apparent distress at this time. Patient is alert, lp1 oriented x 3, equal unlabored respirations, skin warm/dry/pink. 21:30 Reassessment: Patient appears in no apparent distress at this time. Patient and/or lp1 family updated on plan of care and expected duration. Pain level reassessed. Patient in bed, listening to music with headphones. 22:15 Reassessment: Patient appears in no apparent distress at this time. Patient is alert, lp1 oriented x 3, equal unlabored respirations, skin warm/dry/pink. Provider at bedside to discuss results, patient demonstrates understanding. Vital Signs: 18:20 BP 162 / 70; Pulse 108; Resp 18; Temp 97.7; Pulse Ox 100% on R/A; sg 19:30 BP 110 / 49; Pulse 90; Resp 18; Pulse Ox 100% on R/A; lp1 22:00 BP 119 / 84; Pulse 67; Resp 18; Pulse Ox 100% on R/A; lp1 Mary Jane Coma Score: 18:14 Eye Response: spontaneous(4). Verbal Response: oriented(5). Motor Response: obeys sg commands(6). Total: 15. ED Course: 18:13 Patient arrived in ED. sg 18:13 Ezequiel Joyner MD is Private Physician. sg 18:13 Arm band placed on. sg 18:17 Triage completed. sg 18:37 Larry Garcia PA is PHCP. jr8 18:37 Nelson Mercer MD is Attending Physician. jr8 18:50 Patient has correct armband on for positive identification. Bed in low position. Call sv light in reach. Adult w/ patient. 18:50 Initial lab(s) drawn, by me, sent to lab. Maintain EMS IV. Dressing intact. Good blood sv return noted. Site clean \T\ dry. Gauge \T\ site: 20G L wrist. 19:07 Daiana Regalado RN is Primary Nurse. lp1 19:13 Report given to Daiana QUINTANA and Marciano QUINTANA. sv 19:30 Seizure precautions initiated. lp1 22:10 Ezequiel Joyner MD is Referral Physician. jr8 22:16 No provider procedures requiring assistance completed. lp1 22:21 IV discontinued, No redness/swelling at site. Pressure dressing applied. lp1 Administered Medications: 19:32 Drug: Keppra 500 mg Route: PO; lp1 20:58 Follow up: Response: No adverse reaction lp1 19:53 Drug: Calcium Gluconate 1 grams Route: IVPB; Infused Over: 60 mins; Site: left wrist; lp1 20:58 Follow up: IV Status: Completed infusion; IV Intake: 100ml lp1 20:58 Drug: Calcium Gluconate 1 grams Route: IVPB; Infused Over: 60 mins; Site: left wrist; lp1 22:00 Follow up: IV Status: Completed infusion; IV Intake: 100ml lp1 Intake: 11:00 IV: 1000ml; Total: 1000ml. sg 20:58 IV: 100ml; Total: 1100ml. lp1 22:00 IV: 100ml; Total: 1200ml. lp1 Outcome: 22:10 Discharge ordered by . jr8 22:21 Discharged to home ambulatory, with friend. lp1 22:21 Condition: good 22:21 Discharge instructions given to patient, Instructed on discharge instructions, follow up and referral plans. medication usage, Demonstrated understanding of instructions, follow-up care, medications, Prescriptions given X 2. 22:24 Patient left the ED. lp1 Signatures: Makeda Medina RN RN Chaim Mckeon RN RN sg Pena, Laura, RN RN lp1 Larry Garcia PA PA jr8
--- NOTE | 2019-02-28 22:11 | EDPHYS ---
Physician Documentation [facility] Name: Kimani Augustin Jr Age: 33 yrs Sex: Male : 1985 Arrival Date: 02/28/2019 Time: 18:13 Bed 7 Private MD: Ezequiel Joyner F ED Physician Nelson Mercer HPI: 02/28 19:27 This 33 yrs old Male presents to ER via EMS with complaints of Probable jr8 Seizure. 19:27 The patient presents after having a single isolated seizure. Character of seizure(s): jr8 Loss of consciousness: the patient experienced loss of consciousness, Motor activity: generalized, Incontinence: none, Apnea: the patient did not experience apnea, Circulation: the patient did not experience evidence of pulse disturbance, Eye movements: are unknown. Seizure onset: just prior to arrival. Context: occurred at work. Seizure Hx: Original onset: longstanding. Associated injury: The patient did not suffer any apparent associated injury. Current symptoms: Currently, the patient is not experiencing any symptoms, the patient feels back to baseline, no decreased level of consciousness, no confusion, no dysphasia, no headache, no paralysis, no visual changes. The patient has experienced similar episodes in the past, multiple times. The patient has not recently seen a physician. Stated that he has been out of his meds for 48 hours. Historical: - Allergies: 18:14 EGG/POULTRY; sg - Home Meds: 22:16 calcitrol 0.25mg [Active]; Depakote 500 mg Oral TbEC 2 tabs 2 times per day [Active]; lp1 - PMHx: 18:14 hypocalcemia; Seizures; sg - Immunization history:: Adult Immunizations up to date. - Social history:: Smoking status: Patient/guardian denies using tobacco. - Ebola Screening: : Patient negative for fever greater than or equal to 101.5 degrees Fahrenheit, and additional compatible Ebola Virus Disease symptoms Patient denies exposure to infectious person Patient denies travel to an Ebola-affected area in the 21 days before illness onset No symptoms or risks identified at this time. ROS: 19:27 Eyes: Negative for injury, pain, redness, and discharge, ENT: Negative for injury, jr8 pain, and discharge, Neck: Negative for injury, pain, and swelling, Cardiovascular: Negative for chest pain, palpitations, and edema, Respiratory: Negative for shortness of breath, cough, wheezing, and pleuritic chest pain, Abdomen/GI: Negative for abdominal pain, nausea, vomiting, diarrhea, and constipation, Back: Negative for injury and pain, MS/Extremity: Negative for injury and deformity, Skin: Negative for injury, rash, and discoloration. 19:27 Neuro: Positive for seizure activity. Exam: 19:27 Eyes: Pupils equal round and reactive to light, extra-ocular motions intact. Lids and jr8 lashes normal. Conjunctiva and sclera are non-icteric and not injected. Cornea within normal limits. Periorbital areas with no swelling, redness, or edema. ENT: Nares patent. No nasal discharge, no septal abnormalities noted. Tympanic membranes are normal and external auditory canals are clear. Oropharynx with no redness, swelling, or masses, exudates, or evidence of obstruction, uvula midline. Mucous membranes moist. Neck: Trachea midline, no thyromegaly or masses palpated, and no cervical lymphadenopathy. Supple, full range of motion without nuchal rigidity, or vertebral point tenderness. No Meningismus. Cardiovascular: Regular rate and rhythm with a normal S1 and S2. No gallops, murmurs, or rubs. Normal PMI, no JVD. No pulse deficits. Respiratory: Lungs have equal breath sounds bilaterally, clear to auscultation and percussion. No rales, rhonchi or wheezes noted. No increased work of breathing, no retractions or nasal flaring. Abdomen/GI: Soft, non-tender, with normal bowel sounds. No distension or tympany. No guarding or rebound. No evidence of tenderness throughout. Back: No spinal tenderness. No costovertebral tenderness. Full range of motion. Skin: Warm, dry with normal turgor. Normal color with no rashes, no lesions, and no evidence of cellulitis. MS/ Extremity: Pulses equal, no cyanosis. Neurovascular intact. Full, normal range of motion. Neuro: Awake and alert, GCS 15, oriented to person, place, time, and situation. Cranial nerves II-XII grossly intact. Motor strength 5/5 in all extremities. Sensory grossly intact. Cerebellar exam normal. Normal gait. Vital Signs: 18:20 BP 162 / 70; Pulse 108; Resp 18; Temp 97.7; Pulse Ox 100% on R/A; sg 19:30 BP 110 / 49; Pulse 90; Resp 18; Pulse Ox 100% on R/A; lp1 22:00 BP 119 / 84; Pulse 67; Resp 18; Pulse Ox 100% on R/A; lp1 Mary Jane Coma Score: 18:14 Eye Response: spontaneous(4). Verbal Response: oriented(5). Motor Response: obeys sg commands(6). Total: 15. MDM: 18:37 Patient medically screened. [facility] 22:09 Data reviewed: vital signs, nurses notes, lab test result(s), EKG. Data interpreted: [facility] Pulse oximetry: on room air is 100 %. Interpretation: normal. Counseling: I had a detailed discussion with the patient and/or guardian regarding: the historical points, exam findings, and any diagnostic results supporting the discharge/admit diagnosis, lab results, the need for outpatient follow up, a family practitioner, a neurologist, to return to the emergency department if symptoms worsen or persist or if there are any questions or concerns that arise at home. ED course: Patient doing well. No pain and no other symptoms. No seizures while in ED. Replaced calcium and will up his calcitriol and continue keppra at home. Patient good with this and will follow up. 02/28 18:40 Order name: Basic Metabolic Panel; Complete Time: 02/28 18:40 Order name: CBC with Diff; Complete Time: 02/28 18:40 Order name: ETOH Level; Complete Time: 19:02/28 18:40 Order name: Hepatic Function; Complete Time: 02/28 18:40 Order name: Urine Drug Screen; Complete Time: 02/28 19:29 Order name: Urine Dipstick--Ancillary (enter results); Complete Time: 19:32 02/28 18:40 Order name: EKG; Complete Time: 18:40 02/28 18:40 Order name: EKG - Nurse/Tech; Complete Time: 02/28 18:40 Order name: IV Saline Lock; Complete Time: 18:40 02/28 18:40 Order name: Labs collected and sent; Complete Time: 18:40 02/28 19:50 Order name: CBC Smear Scan; Complete Time: 19:53 EDSD 02/28 18:40 Order name: Urine Dipstick-Ancillary (obtain specimen); Complete Time: 19:27 jr8 02/28 21:43 Order name: EKG - Nurse/Tech; Complete Time: 22:09 jr8 Administered Medications: 19:32 Drug: Keppra 500 mg Route: PO; lp1 20:58 Follow up: Response: No adverse reaction lp1 19:53 Drug: Calcium Gluconate 1 grams Route: IVPB; Infused Over: 60 mins; Site: left wrist; lp1 20:58 Follow up: IV Status: Completed infusion; IV Intake: 100ml lp1 20:58 Drug: Calcium Gluconate 1 grams Route: IVPB; Infused Over: 60 mins; Site: left wrist; lp1 22:00 Follow up: IV Status: Completed infusion; IV Intake: 100ml lp1 Disposition: 02/28/19 22:10 Discharged to Home. Impression: Seizure, Hypocalcemia. - Condition is Stable. - Discharge Instructions: Seizure, Adult, Hypocalcemia, Adult. - Prescriptions for calcitriol 0.25 mcg Oral capsule - take 1 capsule by ORAL route once daily then go to 2 capsules once a day; 60 capsule. Keppra 500 mg Oral Tablet - take 1 tablet by ORAL route every 12 hours; 60 tablet. - Work release form, Medication Reconciliation Form, Thank You Letter, Antibiotic Education, Prescription Opioid Use form. - Follow up: Ezequiel Joyner MD; When: 2 - 3 days; Reason: Recheck today's complaints, Continuance of care, Re-evaluation by your physician. - Problem is new. - Symptoms have improved. Addendum: 03/03/2019 08:19 Co-signature as Attending Physician, Nelson Mercer MD I agree with the assessment and c collins plan of care. Signatures: Dispatcher [employer] EDSD Chaim Mckeon RN RN sg Anderson, Corey, MD MD cha Pena, Laura RN RN lp1 Larry Garcia PA PA jr8 Corrections: (The following items were deleted from the chart) 02/28 22:24 22:10 02/28/2019 22:10 Discharged to Home. Impression: Seizure; Hypocalcemia. Condition lp1 is Stable. Prescriptions for calcitriol 0.25 mcg Oral capsule - take 1 capsule by ORAL route once daily then go to 2 capsules once a day; 60 capsule, Keppra 500 mg Oral Tablet - take 1 tablet by ORAL route every 12 hours; 60 tablet. and Forms are Medication Reconciliation Form, Thank You Letter, Antibiotic Education, Prescription Opioid Use. Follow up: Ezequiel Joyner; When: 2 - 3 days; Reason: Recheck today's complaints, Continuance of care, Re-evaluation by your physician. Problem is new. Symptoms have improved. jr8
[2019-02-28 22:50] VITALS: TEMP 97.7; O2SAT 100
[2019-02-28 22:53] VITALS: BP 119/84
--- NOTE | 2019-03-02 06:38 | EKG ---
Test Date: 2019-02-28 Test Time: 22:07:09 Brass Plater: DALE MEASUREMENT RESULTS: Intervals: Rate: 72 UT: 116 QRSD: 100 QT: 446 QTc: 488 [place]: P: 74 UT: 116 QRS: 53 T: 59 INTERPRETIVE STATEMENTS: Normal sinus rhythm Prolonged QT Abnormal ECG Compared to ECG 02/28/2019 19:19:52 Incomplete right bundle-branch block no longer present Electronically Signed On 03-02-19 06:37:40 CANNON CREWMEMBER by Collin Sigala
--- NOTE | 2019-03-02 06:39 | EKG ---
Test Date: 2019-02-28 Test Time: 19:19:52 Climate Change Analyst: DALE MEASUREMENT RESULTS: Intervals: Rate: 87 MO: 114 QRSD: 96 QT: 406 QTc: 488 [place]: P: 70 MO: 114 QRS: 49 T: 61 INTERPRETIVE STATEMENTS: Normal sinus rhythm Possible Left atrial enlargement Prolonged QT Abnormal ECG Compared to ECG 12/15/2018 12:12:39 Prolonged QT interval now present Electronically Signed On 03-02-19 06:38:30 RETREAD BUILDER by Collin Sigala
== END 2019-02-28 22:24 | disposition home or self-care (01) ==
LOC: ER 18:12
DX: R56.9 Unspecified convulsions (principal); E83.51 Hypocalcemia; Z91.012 Allergy to eggs; Z91.011 Allergy to milk products
CPT/HCPCS: 96365; 93005 ×2; 85025; 80048; 36415; 80320; 80076; 80307 ×8; 81003; 99284; 96366; J0610 ×2

== ENCOUNTER 2019-03-14 18:19 | Emergency (ER) | payer OTHER ==
[2019-03-14] MEDS ORDERED: NA CHLORIDE 0.9% 1,000 ML ONE (18:38)
[2019-03-14] MEDS ORDERED: levETIRAcetam 500 MG in NA CHLORIDE 0.9% 100 ML IV ONE (18:45)
[2019-03-14] MEDS ORDERED: levETIRAcetam 1,000 MG in NA CHLORIDE 0.9% 100 ML IV ONE (18:45)
[2019-03-14 18:49] LABS: Absolute Lymphocytes (CBC) 1.3 K/uL (0.7-4.9); Basophils % 0.6 % (0-1.3); Hematocrit 39.4 % (39.6-49.0); MPV 10.9 fL (7.6-11.3); RBC Red Blood Cell Count 4.57 M/uL (4.33-5.43)
[2019-03-14 18:56] LABS: Protime INR 1.43
[2019-03-14 19:08] LABS: ALT/SGPT 22 U/L (12-78); AST/SGOT 22 U/L (15-37); Albumin 3.5 g/dL (3.4-5.0); Alkaline Phosphatase 100 U/L (45-117); BUN Blood Urea Nitrogen 9 mg/dL (7-18); Bicarbonate 27 mmol/L (21-32); Bilirubin Direct 0.1 mg/dL (0-0.2); Bilirubin Total 0.4 mg/dL (0.2-1.0); Glucose Level 90 mg/dL (74-106); Potassium 3.5 mmol/L (3.5-5.1); Protein, Total 8.2 g/dL (6.4-8.2); Sodium Level 139 mmol/L (136-145)
[2019-03-14 19:22] LABS: Urine Blood TRACE (NEG); Urine Glucose NEGATIVE (NEG); Urine Protein 2+ (NEG); Urine Specific Gravity >1.030 (1.005-1.030)
[2019-03-14 19:53] LABS: Barbiturates NEGATIVE (NEGATIVE); Benzodiazepines NEGATIVE (NEGATIVE); Cocaine NEGATIVE (NEGATIVE); METHAMPHETAM NEGATIVE (NEGATIVE); Methadone NEGATIVE (NEGATIVE); Opiates NEGATIVE (NEGATIVE); Phencyclidine NEGATIVE (NEGATIVE); THC Cannibis NEGATIVE (NEGATIVE)
[2019-03-14] MEDS ORDERED: CALCIUM GLUCONATE 1 GM IVPB 2 GM/100 ML BAG IV ONE (20:03)
--- NOTE | 2019-03-14 22:03 | ER ---
Nurse's Notes [facility] Name: Kimani Augustin Jr Age: 33 yrs Sex: Male : 1985 Arrival Date: 03/14/2019 Time: 18:23 Bed 4 Private MD: Diagnosis: Hypocalcemia;Epilepsy and recurrent seizures Presentation: 03/14 18:26 Presenting complaint: EMS states: WITNESSED SZ WHILE WORKING AT [employer]. Transition bp of care: patient was not received from another setting of care. Onset of symptoms is unknown. Risk Assessment: Do you want to hurt yourself or someone else? Patient reports no desire to harm self or others. Initial Sepsis Screen: Does the patient meet any 2 criteria? No. Patient's initial sepsis screen is negative. Does the patient have a suspected source of infection? No. Patient's initial sepsis screen is negative. Care prior to arrival: IV initiated. 20 GA, in the left forearm, Glucose check: 120. 18:26 Method Of Arrival: EMS: [facility] bp 18:26 Acuity: GUZMAN 3 bp Triage Assessment: 18:28 General: Appears in no apparent distress. comfortable, Behavior is cooperative, bp appropriate for age, drowsy. Pain: Denies pain. EENT: No deficits noted. Neuro: Level of Consciousness is alert, obeys commands, lethargic, Oriented to person, place, time, situation, Appropriate for age. Cardiovascular: No deficits noted. Respiratory: No deficits noted. GI: No signs and/or symptoms were reported involving the gastrointestinal system. : No signs and/or symptoms were reported regarding the genitourinary system. Derm: No deficits noted. Musculoskeletal: No deficits noted. Historical: - Allergies: 18:28 EGG/POULTRY; bp - Home Meds: 18:28 None [Active]; bp - PMHx: 18:28 Seizures; hypocalcemia; bp - Immunization history:: Adult Immunizations up to date. - Coronavirus screen:: The patient has NOT traveled to [place], [place], or [place] in the past 14 days. Proceed with normal triage process as indicated. The patient has NOT had contact with known/suspected case of Coronavirus? Proceed with normal triage procedures. - Social history:: Smoking status: Patient denies any tobacco usage or history of. - Ebola Screening: : No symptoms or risks identified at this time. Screenin:30 Abuse screen: Denies threats or abuse. Denies injuries from another. Nutritional bp screening: No deficits noted. Tuberculosis screening: No symptoms or risk factors identified. Fall Risk Fall in past 12 months (25 points). Secondary diagnosis (15 points) seizures, IV access (20 points). Ambulatory Aid- None/Bed Rest/Nurse Assist (0 pts). Gait- Normal/Bed Rest/Wheelchair (0 pts) Mental Status- Oriented to own ability (0 pts). Total Domínguez Fall Scale indicates High Risk Score (45 or more points). Fall prevention measures have been instituted. Side Rails Up X 2 Placed Close to Nursing Station Frequent Obs/Assessments Occuring As available patient and family educated on Fall Prevention Program and Strategies. Assessment: 18:30 General: SEE TRIAGE NOTE. bp 18:42 Reassessment: PARVEEN REQUESTED FROM PHARMACY. PT VS STABLE ON MONITOR, SZ PRECAUTIONS bp IN PLACE. PT AOx4 BUT DROWSY. 19:15 Reassessment: Patient appears in no apparent distress at this time. Patient is alert, lp1 oriented x 3, equal unlabored respirations, skin warm/dry/pink. Patient with seizure precautions in place Patient states feeling better. 20:15 Reassessment: Patient and/or family updated on plan of care and expected duration. Pain lp1 level reassessed. Patient called work, patient's cell phone left at work; Notified mother of being in ED. 20:30 Reassessment: Patient complaint of pain to back at this time. Neuro: Level of lp1 Consciousness is awake, alert, obeys commands, Oriented to person, place, situation, Gait is. 21:31 Reassessment: Patient appears in no apparent distress at this time. Patient is alert, lp1 oriented x 3, equal unlabored respirations, skin warm/dry/pink. family member at bedside with patient. Vital Signs: 18:28 BP 106 / 75; Pulse 103; Resp 16; Temp 98; Pulse Ox 97% ; Weight 63.5 kg; bp 18:43 BP 99 / 69; Pulse 104; Resp 16; Pulse Ox 100% ; bp 19:16 BP 109 / 77; Pulse 102; Resp 17; Pulse Ox 98% on R/A; Pain 0/10; lp1 20:29 BP 108 / 80; Pulse 89; Resp 18; Pulse Ox 99% on R/A; lp1 21:31 BP 116 / 75; Pulse 80; Resp 18; Temp 98(O); Pulse Ox 100% on R/A; lp1 Mary Jane Coma Score: 18:28 Eye Response: spontaneous(4). Verbal Response: oriented(5). Motor Response: obeys bp commands(6). Total: 15. ED Course: 18:23 Patient arrived in ED. jl7 18:24 [facility] cp 18:24 Lewis Cheng MD is Attending Physician. cp 18:26 Jose Foster, LILIAN is Primary Nurse. bp 18:27 Triage completed. bp 18:28 Arm band placed on. bp 18:30 Patient has correct armband on for positive identification. Bed in low position. Call bp light in reach. Side rails up X2. 18:30 Maintain EMS IV. Dressing intact. Good blood return noted. Site clean \T\ dry. Gauge \T\ bp site: 20 GAUGE LEFT FA. 19:15 Seizure precautions initiated. lp1 20:29 No provider procedures requiring assistance completed. lp1 22:01 Ezequiel Joyner MD is Referral Physician. cp 22:10 IV discontinued, No redness/swelling at site. Pressure dressing applied. lp1 Administered Medications: 18:39 Drug: NS 0.9% 1000 ml Route: IV; Rate: 1 bolus; Site: left forearm; jl7 20:30 Follow up: IV Status: Completed infusion; IV Intake: 1000ml lp1 18:57 Drug: Keppra 1000 mg Route: IV; Rate: calculated rate; Site: left antecubital; jl7 19:15 Follow up: IV Status: Completed infusion lp1 20:29 Drug: Calcium Gluconate 2 grams Route: IVPB; Infused Over: 60 mins; Site: left lp1 antecubital; 21:40 Follow up: IV Status: Completed infusion lp1 Intake: 20:30 IV: 1000ml; Total: 1000ml. lp1 Outcome: 22:02 Discharge ordered by . cp 22:15 Discharged to home ambulatory, with family. lp1 22:15 Condition: good 22:15 Discharge instructions given to patient, Instructed on discharge instructions, follow up and referral plans. medication usage, Demonstrated understanding of instructions, follow-up care, medications, Prescriptions given X 2. 22:22 Patient left the ED. lp1 Signatures: Daiana Regalado, RN RN lp1 Nelson Lemon PA PA cp Leal, Jahala, RN RN jl7 Jose Foster RN RN bp
--- NOTE | 2019-03-14 22:03 | EDPHYS ---
Physician Documentation [facility] Name: Kimani Augustin Jr Age: 33 yrs Sex: Male : 1985 Arrival Date: 03/14/2019 Time: 18:23 Bed 4 Private MD: ED Physician Lewis Cheng HPI: 03/14 18:27 This 33 yrs old Male presents to ER via Unassigned with complaints of Seizure. cp 18:27 The patient presents after having a single isolated seizure, that lasted an unknown cp period of time, the episode(s) was witnessed, by co-worker(s). Character of seizure(s): Loss of consciousness: the patient experienced loss of consciousness, Motor activity: generalized, shaking all over, Incontinence: none. Seizure onset: just prior to arrival. Seizure Hx: Original onset: unknown, Seizure medications: Keppra. Associated injury: The patient did not suffer any apparent associated injury. EMS care: none. Current symptoms: confusion. Historical: - Allergies: 18:28 EGG/POULTRY; bp - Home Meds: 18:28 None [Active]; bp - PMHx: 18:28 Seizures; hypocalcemia; bp - Immunization history:: Adult Immunizations up to date. - Coronavirus screen:: The patient has NOT traveled to [place], [place], or [place] in the past 14 days. Proceed with normal triage process as indicated. The patient has NOT had contact with known/suspected case of Coronavirus? Proceed with normal triage procedures. - Social history:: Smoking status: Patient denies any tobacco usage or history of. - Ebola Screening: : No symptoms or risks identified at this time. ROS: 18:30 Constitutional: Negative for body aches, chills, fever, poor PO intake. cp 18:30 Eyes: Negative for injury, pain, redness, and discharge. cp 18:30 ENT: Negative for drainage from ear(s), ear pain, sore throat, difficulty swallowing, difficulty handling secretions. 18:30 Neck: Negative for pain with movement, pain at rest, stiffness, tenderness. 18:30 Cardiovascular: Negative for chest pain. 18:30 Respiratory: Negative for cough, wheezing. 18:30 Abdomen/GI: Negative for abdominal pain, vomiting, diarrhea, constipation. 18:30 Skin: Negative for rash. 18:30 Neuro: Positive for history of seizure. 18:30 All other systems are negative. Exam: 18:40 ECG was reviewed by the Attending Physician. cp 18:45 Constitutional: The patient appears in no acute distress, alert, awake, non-toxic, well cp developed, well nourished. 18:45 Head/Face: Normocephalic, atraumatic. cp 18:45 Eyes: Periorbital structures: appear normal, Pupils: equal, round, and reactive to light and accomodation, Conjunctiva: normal, no exudate, no injection, Lids and lashes: appear normal, bilaterally. 18:45 ENT: External ear(s): are unremarkable, Ear canal(s): are normal, clear, TM's: dullness, bilaterally, Nose: is normal, Mouth: Lips: moist, Oral mucosa: pink and intact, moist, Posterior pharynx: Airway: no evidence of obstruction, patent, erythema, is not appreciated, exudate, is not appreciated, Dental exam: dental caries, that is moderate, diffusely, Voice: is normal. 18:45 Neck: ROM/movement: is normal, is supple, without pain, no range of motions limitations, no meningismus, no nuchal rigidity. 18:45 Chest/axilla: Inspection: normal, Palpation: is normal, no crepitus, no tenderness. 18:45 Cardiovascular: Rate: tachycardic, Rhythm: regular. 18:45 Respiratory: the patient does not display signs of respiratory distress, Respirations: normal, no use of accessory muscles, no retractions, no splinting, no tachypnea, labored breathing, is not present, Breath sounds: are clear throughout, no decreased breath sounds, no stridor, no wheezing. 18:45 Abdomen/GI: Inspection: abdomen appears normal, Palpation: abdomen is soft and non-tender, in all quadrants, rebound tenderness, is not appreciated, voluntary guarding, is not appreciated, involuntary guarding, is not appreciated. 18:45 Back: pain, is absent, ROM is normal. 18:45 Skin: no rash present. 18:45 Neuro: Mentation: slow to respond, Motor: moves all fours, strength is normal. Vital Signs: 18:28 BP 106 / 75; Pulse 103; Resp 16; Temp 98; Pulse Ox 97% ; Weight 63.5 kg; bp 18:43 BP 99 / 69; Pulse 104; Resp 16; Pulse Ox 100% ; bp 19:16 BP 109 / 77; Pulse 102; Resp 17; Pulse Ox 98% on R/A; Pain 0/10; lp1 20:29 BP 108 / 80; Pulse 89; Resp 18; Pulse Ox 99% on R/A; lp1 21:31 BP 116 / 75; Pulse 80; Resp 18; Temp 98(O); Pulse Ox 100% on R/A; lp1 Mary Jane Coma Score: 18:28 Eye Response: spontaneous(4). Verbal Response: oriented(5). Motor Response: obeys bp commands(6). Total: 15. MDM: 18:29 Patient medically screened. cp 18:45 Differential diagnosis: drug overdose, cardiac arrhythmia, seizure, TIA, electrolyte cp abnormality. 22:00 Data reviewed: vital signs, nurses notes, lab test result(s), EKG. cp 22:00 Counseling: I had a detailed discussion with the patient and/or guardian regarding: the cp historical points, exam findings, and any diagnostic results supporting the discharge/admit diagnosis, lab results, the need for outpatient follow up, for definitive care, a neurologist, to return to the emergency department if symptoms worsen or persist or if there are any questions or concerns that arise at home. Response to treatment: the patient's symptoms have markedly improved after treatment, and as a result, I will discharge patient. 03/14 18:26 Order name: Acetaminophen; Complete Time: 19:20 cp 03/14 18:26 Order name: Basic Metabolic Panel; Complete Time: 19:20 cp 03/14 18:26 Order name: CBC with Diff; Complete Time: 19:20 cp 03/14 18:26 Order name: ETOH Level; Complete Time: 19:20 cp 03/14 18:26 Order name: Hepatic Function; Complete Time: 19:20 cp 03/14 18:26 Order name: PT-INR; Complete Time: 19:20 cp 03/14 18:26 Order name: Ptt, Activated; Complete Time: 19:20 cp 03/14 18:26 Order name: Salicylate; Complete Time: 19:20 cp 03/14 18:26 Order name: Urine Drug Screen; Complete Time: 20:16 cp 03/14 18:26 Order name: EKG; Complete Time: 18:27 cp 03/14 19:18 Order name: Urine Dipstick--Ancillary (enter results) sp 03/14 18:26 Order name: EKG - Nurse/Tech; Complete Time: 18:32 cp 03/14 18:26 Order name: IV Saline Lock; Complete Time: 18:32 cp 03/14 18:26 Order name: Labs collected and sent; Complete Time: 18:32 cp 03/14 18:26 Order name: Urine Dipstick-Ancillary (obtain specimen); Complete Time: 19:14 cp EC:40 Rate is 105 beats/min. Rhythm is regular. TX interval is normal. QRS interval is cp normal. QT interval is normal. Interpreted by me. Reviewed by me. Administered Medications: 18:39 Drug: NS 0.9% 1000 ml Route: IV; Rate: 1 bolus; Site: left forearm; jl7 20:30 Follow up: IV Status: Completed infusion; IV Intake: 1000ml lp1 18:57 Drug: Keppra 1000 mg Route: IV; Rate: calculated rate; Site: left antecubital; jl7 19:15 Follow up: IV Status: Completed infusion lp1 20:29 Drug: Calcium Gluconate 2 grams Route: IVPB; Infused Over: 60 mins; Site: left lp1 antecubital; 21:40 Follow up: IV Status: Completed infusion lp1 Disposition: 03/15 02:46 Co-signature as Attending Physician, Lewis Cheng MD I agree with the assessment and kdr plan of care. Disposition: 03/14/19 22:02 Discharged to Home. Impression: Hypocalcemia, Epilepsy and recurrent seizures. - Condition is Stable. - Discharge Instructions: Seizure, Adult, Hypocalcemia, Adult. - Prescriptions for Keppra 500 mg Oral Tablet - take 1 tablet by ORAL route every 12 hours; 20 tablet. calcitriol 0.5 mcg Oral capsule - take 1 capsule by ORAL route once daily; 30 capsule. - Work release form, Medication Reconciliation Form, Thank You Letter, Antibiotic Education, Prescription Opioid Use form. - Follow up: Ezequiel Joyner MD; When: 2 - 3 days; Reason: Recheck today's complaints. - Problem is an ongoing problem. - Symptoms have improved. Signatures: Dispatcher [employer] EDLewis Dowell MD MD kdr Pena, Laura, RN RN lp1 Nelson Lemon PA PA cp Leal, Jahala RN RN jl7 Jose Foster, RN RN bp Corrections: (The following items were deleted from the chart) 03/14 22:22 22:02 03/14/2019 22:02 Discharged to Home. Impression: Hypocalcemia; Epilepsy and lp1 recurrent seizures. Condition is Stable. Forms are Medication Reconciliation Form, Thank You Letter, Antibiotic Education, Prescription Opioid Use. Follow up: Ezequiel Joyner; When: 2 - 3 days; Reason: Recheck today's complaints. Problem is an ongoing problem. Symptoms have improved. cp
[2019-03-14 22:33] VITALS: TEMP 98
[2019-03-14 22:38] VITALS: BP 116/75; O2SAT 100
--- NOTE | 2019-03-16 09:43 | EKG ---
Test Date: 2019-03-14 Test Time: 18:32:06 Room Cooler Installer: PAWAN MEASUREMENT RESULTS: Intervals: Rate: 105 MS: 114 QRSD: 94 QT: 370 QTc: 489 [place]: P: 75 MS: 114 QRS: 39 T: 54 INTERPRETIVE STATEMENTS: Sinus tachycardia Otherwise normal ECG Compared to ECG 02/28/2019 22:07:09 Sinus rhythm no longer present Prolonged QT interval no longer present Electronically Signed On 03-16-19 09:43:00 HEALTHCARE APPLICATIONS ANALYST by Collin Sigala
== END 2019-03-14 22:22 | disposition home or self-care (01) ==
LOC: ER 18:19
DX: G40.909 Epilepsy, unspecified, not intractable, without status epilepticus (principal); E83.51 Hypocalcemia; Z91.012 Allergy to eggs
CPT/HCPCS: 96365; 96367; 96361; 93005; 85025; 80048; 36415; 80320; 80329 ×2; 85610; 80076; 80307 ×8; 85730; 81003; 99283; J1953; J0610; J7030

== ENCOUNTER 2019-04-27 12:02 | Emergency (ER) | payer OTHER ==
[2019-04-27 12:32] LABS: Absolute Lymphocytes (CBC) 1.1 K/uL (0.7-4.9); Basophils % 0.7 % (0-1.3); Hematocrit 41.9 % (39.6-49.0); Lymphocytes % 20.2 % (15.3-44.8); MPV 11.3 fL (7.6-11.3)
[2019-04-27] MEDS ORDERED: levETIRAcetam 500 MG TAB ONE (12:40)
[2019-04-27] MEDS ORDERED: NA CHLORIDE 0.9% 1,000 ML ONE (12:40)
[2019-04-27 13:12] LABS: Albumin 3.4 g/dL (3.4-5.0); Bilirubin Total 0.4 mg/dL (0.2-1.0); Potassium 3.7 mmol/L (3.5-5.1); Protein, Total 7.9 g/dL (6.4-8.2)
[2019-04-27 13:15] LABS: Barbiturates NEGATIVE (NEGATIVE); Benzodiazepines NEGATIVE (NEGATIVE); Cocaine NEGATIVE (NEGATIVE); METHAMPHETAM NEGATIVE (NEGATIVE); Methadone NEGATIVE (NEGATIVE); Opiates NEGATIVE (NEGATIVE); Phencyclidine NEGATIVE (NEGATIVE); THC Cannibis NEGATIVE (NEGATIVE)
[2019-04-27] MEDS ORDERED: Caclcium Chloride 10% INJ SYR IV ONE (13:53)
[2019-04-27 13:54] LABS: Urine Blood NEGATIVE (NEG); Urine Glucose NEGATIVE (NEG); Urine Protein 3+ (NEG); Urine Specific Gravity 1.025 (1.005-1.030); Urine pH 7.5 (5.0-7.0)
[2019-04-27] MEDS ORDERED: NA CHLORIDE 0.9% 100 ML IV ONE (13:54)
--- NOTE | 2019-04-27 15:24 | EDPHYS ---
Physician Documentation [facility] Name: Kimani Augustin Jr Age: 33 yrs Sex: Male : 1985 Arrival Date: 04/27/2019 Time: 12:07 Bed 23 Private MD: ED Physician Artie Espino HPI: 04/26 12:15 This 33 yrs old Male presents to ER via EMS with complaints of Seizure. pm1 12:15 The patient presents with a history of multiple seizures, a total of 2, the episode(s) pm1 was witnessed, by co-worker(s). Character of seizure(s): Loss of consciousness: the patient did not lose consciousness, Motor activity: generalized, shaking all over, Incontinence: none, Apnea: the patient did not experience apnea, Circulation: the patient did not experience evidence of pulse disturbance. Seizure onset: just prior to arrival. Context: the seizure(s) was witnessed, by co-worker(s), occurred at work, occurred while the patient was sitting. Seizure Hx: Seizure medications: depakote and calcitrol. Has not taken his depakote for at least 2 months. Associated injury: The patient did not suffer any apparent associated injury. EMS care: IV saline lock. Current symptoms: Currently, the patient is not experiencing any symptoms. The patient has experienced similar episodes in the past, multiple times, history of non-compliance with seizure medications. It is unknown whether or not the patient has recently seen a physician. Historical: - Allergies: 12:30 EGG/POULTRY; vc - PMHx: 12:30 hypocalcemia; Seizures; vc - PSHx: 12:30 None; vc - Immunization history:: Adult Immunizations up to date. - Social history:: Smoking status: Patient reports the use of cigarette tobacco products. ROS: 12:15 Constitutional: Negative for fever, chills, and weight loss, Eyes: Negative for injury, pm1 pain, redness, and discharge, ENT: Negative for injury, pain, and discharge, Neck: Negative for injury, pain, and swelling, Cardiovascular: Negative for chest pain, palpitations, and edema, Respiratory: Negative for shortness of breath, cough, wheezing, and pleuritic chest pain, Abdomen/GI: Negative for abdominal pain, nausea, vomiting, diarrhea, and constipation, Back: Negative for injury and pain, MS/Extremity: Negative for injury and deformity, Skin: Negative for injury, rash, and discoloration. 12:15 Neuro: Positive for seizure activity, Negative for dizziness, headache, numbness, tingling, weakness. Exam: 12:15 Constitutional: This is a well developed, well nourished patient who is awake, alert, pm1 and in no acute distress. Head/Face: Normocephalic, atraumatic. Neck: Trachea midline, no thyromegaly or masses palpated, and no cervical lymphadenopathy. Supple, full range of motion without nuchal rigidity, or vertebral point tenderness. No Meningismus. Chest/axilla: Normal chest wall appearance and motion. Nontender with no deformity. No lesions are appreciated. Cardiovascular: Regular rate and rhythm with a normal S1 and S2. No gallops, murmurs, or rubs Respiratory: Lungs have equal breath sounds bilaterally, clear to auscultation and percussion. No rales, rhonchi or wheezes noted. No increased work of breathing, no retractions or nasal flaring. Abdomen/GI: Soft, non-tender, with normal bowel sounds. No distension or tympany. No guarding or rebound. No evidence of tenderness throughout. Back: No spinal tenderness. No costovertebral tenderness. Full range of motion. Skin: Warm, dry with normal turgor. Normal color with no rashes, no lesions, and no evidence of cellulitis. MS/ Extremity: Pulses equal, no cyanosis. Neurovascular intact. Full, normal range of motion. 12:15 Neuro: Exam negative for acute changes, focal neuro deficits, Orientation: to person, place, time, situation, Motor: moves all fours. Vital Signs: 12:07 BP 112 / 67; Pulse 107; Resp 17; Temp 98.3; Pulse Ox 96% on R/A; Height 5 ft. 8 in. vc (172.72 cm); 13:00 BP 107 / 85; Pulse 106; Resp 20; Pulse Ox 94% on R/A; vc 14:00 BP 110 / 72; Pulse 65; Resp 10; Pulse Ox 96% on R/A; vc MDM: 12:08 Patient medically screened. pm1 12:49 Data reviewed: vital signs. Data interpreted: Pulse oximetry: on room air is 96 %. pm1 Interpretation: normal. 12:49 ED course: Ayaka QUINTANA contacted patient's pharmacy. Patient has not picked up any pm1 prescriptions since 2018. Patient is noncompliant with his medications. 13:39 Counseling: I had a detailed discussion with the patient and/or guardian regarding: the pm1 historical points, exam findings, and any diagnostic results supporting the discharge/admit diagnosis, lab results, the need for outpatient follow up, a neurologist, to return to the emergency department if symptoms worsen or persist or if there are any questions or concerns that arise at home. 04/26 12:15 Order name: CBC with Diff; Complete Time: 12:54 pm1 04/26 12:15 Order name: UDS; Complete Time: 13:34 pm1 04/26 12:15 Order name: CMP; Complete Time: 13:34 pm1 04/26 12:15 Order name: ETOH Level; Complete Time: 13:34 pm1 04/26 13:00 Order name: Urine Dipstick--Ancillary (enter results); Complete Time: 14:08 eb 04/26 13:42 Order name: Depakote; Complete Time: 14:08 pm1 04/26 12:15 Order name: Urine Dipstick-Ancillary (obtain specimen); Complete Time: 12:59 pm1 Administered Medications: 12:39 Drug: NS 0.9% 1000 ml Route: IV; Rate: 1000 ml; Site: right antecubital; vc 12:39 Drug: Keppra 500 mg Route: PO; vc 13:45 Follow up: Response: No adverse reaction vc 14:15 Dru grams of (Calcium Gluconate 2 grams, NS 0.9% 2 grams) {Note: Substituted vc calcium chloride for calcium gluconate.} Route: IVPB; Rate: ml/hr; Infused Over: 60 mins; Site: right antecubital; Delivery: Primary tubing; Disposition: 18:21 Co-signature as Attending Physician, Artie Espino MD. rn Disposition: 04/27/19 15:23 Discharged to Home. Impression: Epilepsy and recurrent seizures. - Condition is Stable. - Discharge Instructions: Seizure, Adult, [id number]. - Prescriptions for Keppra 500 mg Oral Tablet - take 1 tablet by ORAL route every 12 hours; 20 tablet. - Medication Reconciliation Form, Thank You Letter, Antibiotic Education, Prescription Opioid Use, Work release form form. - Follow up: Emergency Department; When: As needed; Reason: Worsening of condition. Follow up: Private Physician; When: 2 - 3 days; Reason: Recheck today's complaints, Continuance of care, Re-evaluation by your physician. - Problem is new. - Symptoms have improved. Signatures: Dispatcher [employer] EDMS Artie Espino MD MD rn Marinas, Patrick, FUNERAL SERVICE LICENSEE FUNERAL SERVICE LICENSEE pm1 Ayaka Corbett RN RN vc Corrections: (The following items were deleted from the chart) 15:42 15:23 04/27/2019 15:23 Discharged to Home. Impression: Epilepsy and recurrent seizures. vc Condition is Stable. Discharge Instructions: Seizure, Adult, [id number]. Prescriptions for Keppra 500 mg Oral Tablet - take 1 tablet by ORAL route every 12 hours; 20 tablet. and Forms are Medication Reconciliation Form, Thank You Letter, Antibiotic Education, Prescription Opioid Use. Follow up: Emergency Department; When: As needed; Reason: Worsening of condition. Follow up: Private Physician; When: 2 - 3 days; Reason: Recheck today's complaints, Continuance of care, Re-evaluation by your physician. Problem is new. Symptoms have improved. pm1
--- NOTE | 2019-04-27 15:24 | ER ---
Nurse's Notes [facility] Name: Kimani Augustin Jr Age: 33 yrs Sex: Male : 1985 Arrival Date: 04/27/2019 Time: 12:07 Bed 23 Private MD: Diagnosis: Epilepsy and recurrent seizures Presentation: 04/26 12:07 Chief complaint: Patient states: "I have not taken my depakote since I was here last." vc EMS states: "He was sitting in a chair at work when he started having a seizure, witnesses eased him from the chair to his side. First seizure lasted 30 seconds, 2nd seizure lasted 2 min. Patient bit tongue, no other injuries inquired. Patient knows his name and birthday, does not remember what happened or the year. FSBS 127. No meds given in route. Patient usually has seizures when he gets hot in the kitchen, this time he was not in the kitchen but was wearing a heavy jacket.". Coronavirus screen: The patient has NOT traveled to a country currently being monitored by the CDC within the last 14 days. Coronavirus screen: The patient has NOT traveled to a country currently being monitored by the CDC within the last 14 days. Proceed with normal triage procedures. Ebola Screen: Patient denies travel to an Ebola-affected area in the 21 days before illness onset. No symptoms or risks identified at this time. Initial Sepsis Screen: Does the patient meet any 2 criteria? No. Patient's initial sepsis screen is negative. Does the patient have a suspected source of infection? No. Patient's initial sepsis screen is negative. Risk Assessment: Do you want to hurt yourself or someone else? Patient reports no desire to harm self or others. Care prior to arrival: IV initiated. 20 GA, in the right antecubital area, Glucose check: 127. 12:07 Method Of Arrival: EMS: [facility] vc 12:07 Acuity: GUZMAN 3 vc 12:07 Onset of symptoms was April 27, 2019 at 11:15. vc Triage Assessment: 12:06 General: Appears in no apparent distress. comfortable, Behavior is calm, cooperative, vc appropriate for age. Pain: Denies pain. Historical: - Allergies: 12:30 EGG/POULTRY; vc - PMHx: 12:30 hypocalcemia; Seizures; vc - PSHx: 12:30 None; vc - Immunization history:: Adult Immunizations up to date. - Social history:: Smoking status: Patient reports the use of cigarette tobacco products. Screenin:45 Abuse screen: Denies threats or abuse. Nutritional screening: No deficits noted. vc Tuberculosis screening: No symptoms or risk factors identified. Fall Risk Fall in past 12 months (25 points). Secondary diagnosis (15 points) seizures, IV access (20 points). Ambulatory Aid- None/Bed Rest/Nurse Assist (0 pts). Gait- Normal/Bed Rest/Wheelchair (0 pts) Mental Status- Oriented to own ability (0 pts). Total Domínguez Fall Scale indicates High Risk Score (45 or more points). Fall prevention measures have been instituted. Side Rails Up X 2 Placed Close to Nursing Station Frequent Obs/Assessments Occuring. Assessment: 12:10 General: Appears in no apparent distress. slender, Behavior is calm, cooperative, flat, vc listless, quiet. Pain: Denies pain. Neuro: Level of Consciousness is awake, obeys commands, lethargic, post ictal, Oriented to person, place. Cardiovascular: Reports None Patient's skin is warm and dry. Respiratory: Airway is patent Respiratory effort is even, unlabored, Respiratory pattern is regular, symmetrical. GI: No signs and/or symptoms were reported involving the gastrointestinal system. : No signs and/or symptoms were reported regarding the genitourinary system. EENT: Throat is clear. Derm: Skin is intact, is healthy with good turgor. Musculoskeletal: Circulation, motion, and sensation intact. Range of motion: intact in all extremities. 13:03 Reassessment: Patient and/or family updated on plan of care and expected duration. Pain vc level reassessed. Patient is alert, oriented x 3, equal unlabored respirations, skin warm/dry/pink. Neuro: Level of Consciousness is awake, alert, obeys commands, Oriented to person, place, time, situation. 14:00 Reassessment: Patient and/or family updated on plan of care and expected duration. Pain vc level reassessed. Patient is alert, oriented x 3, equal unlabored respirations, skin warm/dry/pink. Patient denies pain at this time. Patient states feeling better. Patient states symptoms have improved. 15:00 Reassessment: Patient and/or family updated on plan of care and expected duration. Pain vc level reassessed. Patient is alert, oriented x 3, equal unlabored respirations, skin warm/dry/pink. Patient denies pain at this time. Patient states feeling better. Patient states symptoms have improved. Vital Signs: 12:07 BP 112 / 67; Pulse 107; Resp 17; Temp 98.3; Pulse Ox 96% on R/A; Height 5 ft. 8 in. vc (172.72 cm); 13:00 BP 107 / 85; Pulse 106; Resp 20; Pulse Ox 94% on R/A; vc 14:00 BP 110 / 72; Pulse 65; Resp 10; Pulse Ox 96% on R/A; vc ED Course: 12:06 Patient has correct armband on for positive identification. Bed in low position. Call vc light in reach. Side rails up X2. Seizure precautions initiated. box car washer on. Pulse ox on. NIBP on. 12:06 Arm band placed on. vc 12:07 Patient arrived in ED. vc 12:08 Devon Sargent NP is PHCP. pm1 12:08 Artie Espino MD is Attending Physician. pm1 12:15 Triage completed. vc 12:32 Ayaka Corbett RN is Primary Nurse. vc 15:40 No provider procedures requiring assistance completed. IV discontinued, intact, vc bleeding controlled, No redness/swelling at site. Pressure dressing applied. Administered Medications: 12:39 Drug: NS 0.9% 1000 ml Route: IV; Rate: 1000 ml; Site: right antecubital; vc 12:39 Drug: Keppra 500 mg Route: PO; vc 13:45 Follow up: Response: No adverse reaction vc 14:15 Dru grams of (Calcium Gluconate 2 grams, NS 0.9% 2 grams) {Note: Substituted vc calcium chloride for calcium gluconate.} Route: IVPB; Rate: ml/hr; Infused Over: 60 mins; Site: right antecubital; Delivery: Primary tubing; Outcome: 15:23 Discharge ordered by . pm1 15:40 Discharged to home ambulatory, with family. vc 15:40 Condition: good 15:40 Discharge instructions given to patient, family, Instructed on discharge instructions, follow up and referral plans. medication usage, Demonstrated understanding of instructions, follow-up care, medications, Prescriptions given X 1. 15:42 Patient left the ED. vc Signatures: Devon Sargent, MANAGER PATIENT MANAGER PATIENT pm1 Ayaka Corbett, RN RN vc
[2019-04-27 15:48] VITALS: TEMP 98.3
[2019-04-27 15:50] VITALS: BP 110/72; O2SAT 96
== END 2019-04-27 15:42 | disposition home or self-care (01) ==
LOC: ER 12:02
DX: G40.802 Other epilepsy, not intractable, without status epilepticus (principal); Z72.0 Tobacco use; Z91.012 Allergy to eggs; Z91.018 Allergy to other foods
CPT/HCPCS: 85025; 36415; 80320; 80164; 80307 ×8; 81003; 80053; 96374; 99284; J7030

== ENCOUNTER 2019-08-29 12:54 | Emergency (ER) | payer OTHER ==
--- NOTE | 2019-08-29 13:49 | RAD REPORT ---
EXAM DESCRIPTION: CT - Head C Spine Mpr Wo Con - 08/29/2019 1:32 pm CLINICAL HISTORY: Seizure. Head and neck injury status post fall. Head and neck pain COMPARISON: 2018 TECHNIQUE: Computed axial tomography of the head and cervical spine was obtained. Sagittal and coronal reconstruction was performed. All CT scans are performed using dose optimization technique as appropriate and may include automated exposure control or mA/KV adjustment according to patient size. FINDINGS: Stable bilateral cerebral calcifications Left frontal scalp swelling without visualization of a fracture An intracranial bleed is not seen. The ventricles are normal in caliber. An extra-axial fluid collect ion is not noted. Chronic sinusitis A cervical fracture is not visualized. No dislocation is noted. IMPRESSION: No acute intracranial abnormality is seen. A cervical fracture is not visualized. If the patient continues to have symptoms to suggest intracra nial /spinal cord pathology then MRI would be recommended
[2019-08-29] MEDS ORDERED: LIDOCAINE 1% W/EPI 1:100,000 MDV 20 ML VIAL ONE (14:01)
--- NOTE | 2019-08-29 15:23 | ER ---
Nurse's Notes [facility] Name: Kimani Augustin Jr Age: 34 yrs Sex: Male : 1985 Arrival Date: 08/29/2019 Time: 12:54 Bed 17 Private MD: Diagnosis: Epilepsy and recurrent seizures;Superficial injury of head;Laceration without foreign body of left eyelid and periocular area-left eyebrow Presentation: 08/28 13:07 Chief complaint: Patient states: Getting ready for work about thirty minutes ago then ss had a seizure. Last seizure was two months ago. Laceration noted to L eyebrow. Bleeding controlled. Coronavirus screen: Proceed with normal triage. Patient denies a cough. Patient denies shortness of breath or difficulty breathing. Patient denies measured and/or subjective temperature greater than 100.4F prior to today's visit. Patient denies travel on a cruise ship or to a country the [facility] currently lists as an affected area. Patient denies contact with known and/or suspected case of COVID-19. Ebola Screen: Patient denies exposure to infectious person. Patient denies travel to an Ebola-affected area in the 21 days before illness onset. Mechanism of Injury: resulted from a fall, from a standing position. Initial Sepsis Screen: Does the patient meet any 2 criteria? HR > 90 bpm. Does the patient have a suspected source of infection? No. Patient's initial sepsis screen is negative. Risk Assessment: Do you want to hurt yourself or someone else? Patient reports no desire to harm self or others. 13:07 Method Of Arrival: Ambulatory ss 13:07 Acuity: GUZMAN 3 ss 13:10 Onset of symptoms was August 29, 2019. ca1 Triage Assessment: 15:30 Neuro: Reports. ca1 Historical: - Allergies: 13:10 EGG/POULTRY; ss - PMHx: 13:10 hypocalcemia; Seizures; ss - PSHx: 13:10 None; ss - Immunization history:: Adult Immunizations unknown. - Social history:: Smoking status: Patient reports the use of cigarette tobacco products, denies chronic smoking, but will smoke occasionally. Screenin:26 Abuse screen: Denies threats or abuse. Denies injuries from another. Nutritional ss screening: No deficits noted. Tuberculosis screening: Never had TB. Fall Risk None identified. Assessment: 13:26 Reassessment: Pt to CT VIA stretcher. ss 13:44 General: Appears in no apparent distress. comfortable, Behavior is calm, cooperative, ca1 appropriate for age. Pain: Pain: Complains of pain in middle aspect of left eyebrow. Neuro: Level of Consciousness is awake, alert, obeys commands, Oriented to person, place, time, situation. EENT: No signs and/or symptoms were reported regarding the EENT system. Derm: Skin is healthy with good turgor, Skin is pink, warm \T\ dry. Musculoskeletal: Circulation, motion, and sensation intact. Capillary refill < 3 seconds. Injury Description: Laceration sustained to inner aspect of left eyebrow and middle aspect of left eyebrow is clean, 2.6 to 7.5 cm long, bleeding moderately, was sustained less than 30 minutes ago. a small amount of bleeding noted at this time. 15:29 Reassessment: Patient appears in no apparent distress at this time. Patient is alert, ca1 oriented x 3, equal unlabored respirations, skin warm/dry/pink. Vital Signs: 13:07 BP 94 / 75; Pulse 97; Resp 15; Temp 99.0(TE); Pulse Ox 97% on R/A; Height 5 ft. 6 in. ss (167.64 cm); 15:29 BP 101 / 68; Pulse 92; Resp 16 S; Pulse Ox 98% on R/A; ca1 [place] Coma Score: 13:07 Eye Response: spontaneous(4). Verbal Response: oriented(5). Motor Response: obeys commands(6). Total: 15. 13:52 Eye Response: spontaneous(4). Verbal Response: oriented(5). Motor Response: obeys kb commands(6). Total: 15. 13:56 Eye Response: spontaneous(4). Verbal Response: oriented(5). Motor Response: obeys kb commands(6). Total: 15. ED Course: 12:54 Patient arrived in ED. as 13:04 Edwige Ruiz FNP-C is [facility]. kb 13:04 Lewis Cheng MD is Attending Physician. kb 13:09 Triage completed. ss 13:10 Arm band placed on left wrist. ss 13:25 Patient has correct armband on for positive identification. Bed in low position. Call ss light in reach. Side rails up X2. Seizure precautions initiated. 13:33 CT Head C Spine In Process Unspecified. EDMS 13:35 Francesca Martinez, RN is Primary Nurse. ca1 15:20 Assist provider with laceration repair on inner aspect of left eyebrow and middle ca1 aspect of left eyebrow that was 2.5 cm. or less using sutures. Set up tray. Performed by Edwige COSME Dressed with Neosporin, Patient tolerated well. 15:30 Patient did not have IV access during this emergency room visit. ca1 Administered Medications: 15:08 Drug: Lidocaine-Epinephrine -1%: (1:100,000) 1 vials {Note: by KAE Gibbons.} Volume: 20 ca1 ml; Route: Infiltration; Outcome: 15:22 Discharge ordered by . kate 15:30 Discharged to home ambulatory. ca1 15:30 Condition: stable 15:30 Discharge instructions given to patient, Instructed on discharge instructions, follow up and referral plans. wound care, Demonstrated understanding of instructions, follow-up care, wound care. 15:31 Patient left the ED. ca1 Signatures: Dispatcher [employer] EDIL Edwige Ruiz FNP-C FNP-Michelle Ngo Shelby, LILIAN RN Francesca Martinez, RN RN ca1
--- NOTE | 2019-08-29 15:23 | EDPHYS ---
Physician Documentation [facility] Name: Kimani Augustin Jr Age: 34 yrs Sex: Male : 1985 Arrival Date: 08/29/2019 Time: 12:54 Bed 17 Private MD: ED Physician Lewis Cheng HPI: 08/28 15:23 This 34 yrs old Male presents to ER via Ambulatory with complaints of Head kb Injury-Adult, Laceration - eyebrow, Seizure. 13:52 The patient or guardian reports a laceration, 4 cm(s), pain. The complaints affect the kb middle aspect of left eyebrow. Context of injury: The problem was sustained at home, resulted from a fall, from a standing position. Onset: The symptoms/episode began/occurred just prior to arrival. Associated signs and symptoms: Loss of consciousness: This patient did not experience any loss of consciousness. Pertinent positives: seizure. Severity of symptoms: At their worst the symptoms were moderate, in the emergency department the symptoms are unchanged. The patient has not experienced similar symptoms in the past. The patient has not recently seen a physician. Pt states he was working and had a seizure. Has longstanding history of seizures. Laceration to left eyebrow noted. Historical: - Allergies: 13:10 EGG/POULTRY; ss - PMHx: 13:10 hypocalcemia; Seizures; ss - PSHx: 13:10 None; ss - Immunization history:: Adult Immunizations unknown. - Social history:: Smoking status: Patient reports the use of cigarette tobacco products, denies chronic smoking, but will smoke occasionally. ROS: 13:54 Constitutional: Negative for fever, chills, and weight loss, Cardiovascular: Negative kb for chest pain, palpitations, and edema, Respiratory: Negative for shortness of breath, cough, wheezing, and pleuritic chest pain, Abdomen/GI: Negative for abdominal pain, nausea, vomiting, diarrhea, and constipation, Back: Negative for injury and pain, MS/Extremity: Negative for injury and deformity. 13:54 Skin: Positive for laceration(s), of the middle aspect of left eyebrow, Negative for abrasions, abscesses, avulsion, burn, cellulitis, diaphoresis, discoloration, ecchymosis, erythema, hematoma, jaundice, lesions, pallor, puncture, rash, ulceration. 13:54 Neuro: Positive for seizure activity. Exam: 13:54 Constitutional: This is a well developed, well nourished patient who is awake, alert, kb and in no acute distress. Head/Face: Normocephalic, atraumatic. Chest/axilla: Normal chest wall appearance and motion. Nontender with no deformity. No lesions are appreciated. Cardiovascular: Regular rate and rhythm with a normal S1 and S2. No gallops, murmurs, or rubs. Normal PMI, no JVD. No pulse deficits. Respiratory: Lungs have equal breath sounds bilaterally, clear to auscultation and percussion. No rales, rhonchi or wheezes noted. No increased work of breathing, no retractions or nasal flaring. Abdomen/GI: Soft, non-tender, with normal bowel sounds. No distension or tympany. No guarding or rebound. No evidence of tenderness throughout. Back: No spinal tenderness. No costovertebral tenderness. Full range of motion. MS/ Extremity: Pulses equal, no cyanosis. Neurovascular intact. Full, normal range of motion. Neuro: Awake and alert, GCS 15, oriented to person, place, time, and situation. Cranial nerves II-XII grossly intact. Motor strength 5/5 in all extremities. Sensory grossly intact. Cerebellar exam normal. Normal gait. 13:54 Skin: injury, laceration(s), the wound is approximately 4 cm(s), of the middle aspect of left eyebrow, that can be described as clean, no foreign body, linear, with mild bleeding, hematoma noted to left eyebrow. Vital Signs: 13:07 BP 94 / 75; Pulse 97; Resp 15; Temp 99.0(TE); Pulse Ox 97% on R/A; Height 5 ft. 6 in. ss (167.64 cm); 15:29 BP 101 / 68; Pulse 92; Resp 16 S; Pulse Ox 98% on R/A; ca1 [place] Coma Score: 13:07 Eye Response: spontaneous(4). Verbal Response: oriented(5). Motor Response: obeys ss commands(6). Total: 15. 13:52 Eye Response: spontaneous(4). Verbal Response: oriented(5). Motor Response: obeys commands(6). Total: 15. 13:56 Eye Response: spontaneous(4). Verbal Response: oriented(5). Motor Response: obeys kb commands(6). Total: 15. Laceration: 15:20 Wound Repair of 4cm ( 1.6in ) subcutaneous laceration to middle aspect of left eyebrow. kb Irregularly shaped.. Distal neuro/vascular/tendon intact. Anesthesia: Wound infiltrated with 2 mls of 1% lidocaine w/ Epi. Wound prep: Extensive cleansing with betadine by me, Wound irrigation with saline by me. Skin closed with 5 5-0 fast absorbing chromic using simple sutures and sterile technique. Patient tolerated well. MDM: 13:31 Patient medically screened. kb 13:56 Data reviewed: vital signs, nurses notes. Data interpreted: Pulse oximetry: on room air kb is 97 %. Interpretation: normal. Counseling: I had a detailed discussion with the patient and/or guardian regarding: the historical points, exam findings, and any diagnostic results supporting the discharge/admit diagnosis, radiology results, the need for outpatient follow up, a family practitioner, to return to the emergency department if symptoms worsen or persist or if there are any questions or concerns that arise at home. 08/28 13:15 Order name: CT Head C Spine; Complete Time: 13:52 kb 08/28 13:48 Order name: Vicryl, Sutures; Complete Time: 14:28 kb 08/28 13:48 Order name: Dressing - Wound; Complete Time: 14:28 kb 08/28 13:48 Order name: Gloves, Sterile; Complete Time: 14:28 kb 08/28 13:48 Order name: Setup Suture Tray; Complete Time: 15:08 kb Administered Medications: 15:08 Drug: Lidocaine-Epinephrine -1%: (1:100,000) 1 vials {Note: by KAE Gibbons.} Volume: 20 ca1 ml; Route: Infiltration; Disposition: 15:37 Co-signature as Attending Physician, Lewis Cheng MD I agree with the assessment and kdr plan of care. Disposition: 08/29/19 15:22 Discharged to Home. Impression: Epilepsy and recurrent seizures, Superficial injury of head, Laceration without foreign body of left eyelid and periocular area - left eyebrow. - Condition is Stable. - Discharge Instructions: Seizure, Adult, [id number], Facial Laceration, [id number], Head Injury, Adult, [id number]. - Medication Reconciliation Form, Thank You Letter, Antibiotic Education, Prescription Opioid Use, Work release form form. - Follow up: Emergency Department; When: As needed; Reason: Worsening of condition. Follow up: Private Physician; When: 2 - 3 days; Reason: Recheck today's complaints, Continuance of care, Re-evaluation by your physician. Signatures: Dispatcher [employer] EDMS Edwige Ruiz, CIRCUIT DESIGNER-C CIRCUIT DESIGNER-Lewis Correa MD MD [facility] Keyonna Duke RN RN ss Francesca Martinez RN RN ca1 Corrections: (The following items were deleted from the chart) 15:31 15:22 08/29/2019 15:22 Discharged to Home. Impression: Epilepsy and recurrent seizures; ca1 Superficial injury of head; Laceration without foreign body of left eyelid and periocular area - left eyebrow. Condition is Stable. Forms are Work release form, Medication Reconciliation Form, Thank You Letter, Antibiotic Education, Prescription Opioid Use. Follow up: Emergency Department; When: As needed; Reason: Worsening of condition. Follow up: Private Physician; When: 2 - 3 days; Reason: Recheck today's complaints, Continuance of care, Re-evaluation by your physician. kb
[2019-08-29 16:15] VITALS: BP 94/75; TEMP 99; O2SAT 97
== END 2019-08-29 15:31 | disposition home or self-care (01) ==
LOC: ER 12:54
PROC: 0JQ10ZZ Repair Face Subcutaneous Tissue and Fascia, Open Approach (ICD-10-PCS; principal; 2019-08-29)
DX: S01.112A Laceration without foreign body of left eyelid and periocular area, initial encounter (principal); G40.909 Epilepsy, unspecified, not intractable, without status epilepticus; Y92.9 Unspecified place or not applicable; X58.XXXA Exposure to other specified factors, initial encounter; Y93.9 Activity, unspecified
CPT/HCPCS: 70450; 72125; 99283

== ENCOUNTER 2019-08-29 16:28 | Emergency (ER) | payer OTHER ==
--- NOTE | 2019-08-29 18:12 | ER ---
Nurse's Notes [facility] Name: Kimani Augustin Jr Age: 34 yrs Sex: Male : 1985 Arrival Date: 08/29/2019 Time: 16:32 Bed 23 Private MD: Diagnosis: Syncope and collapse Presentation: 08/28 16:32 Initial Sepsis Screen: Does the patient meet any 2 criteria? No. Patient's initial sv sepsis screen is negative. Does the patient have a suspected source of infection? No. Patient's initial sepsis screen is negative. Risk Assessment: Do you want to hurt yourself or someone else? Patient reports no desire to harm self or others. Onset of symptoms was August 29, 2019. 16:32 Method Of Arrival: EMS: [facility] sv 16:32 Chief complaint: EMS states: was ambulating down the road and got hot and the next sv thing he remembers was waking up with EMS. Coronavirus screen: Proceed with normal triage. Patient denies a cough. Patient denies shortness of breath or difficulty breathing. Patient denies measured and/or subjective temperature greater than 100.4F prior to today's visit. Patient denies travel on a cruise ship or to a country the [facility] currently lists as an affected area. Patient denies contact with known and/or suspected case of COVID-19. Ebola Screen: No symptoms or risks identified at this time. 16:32 Acuity: GUZMAN 4 sv Triage Assessment: 16:42 General: Appears uncomfortable, Behavior is calm, cooperative. Pain: Complains of pain ls4 in left eye Pain currently is 6 out of 10 on a pain scale. Neuro: Level of Consciousness is awake, alert, obeys commands, Oriented to person, place, time, situation. Cardiovascular: Denies chest pain, diaphoresis, fatigue, lightheadedness, nausea, palpitations, shortness of breath, vomiting. Respiratory: Airway is patent Respiratory effort is even, unlabored, Respiratory pattern is regular, Breath sounds are clear bilaterally. GI: Abdomen is non-distended, Bowel sounds present X 4 quads. Abd is soft and non tender X 4 quads. : No deficits noted. No signs and/or symptoms were reported regarding the genitourinary system. Derm: Bruising that is dark purple, swelling and bruising to left eye as a result of a fall earlier today. . Historical: - Allergies: 16:33 EGG/POULTRY; sv - PMHx: 16:33 hypocalcemia; Seizures; sv - PSHx: 16:33 None; sv - Immunization history:: Adult Immunizations up to date. - Social history:: Smoking status: Patient denies any tobacco usage or history of. Screenin:59 Abuse screen: Denies threats or abuse. Denies injuries from another. Nutritional ls4 screening: No deficits noted. Tuberculosis screening: No symptoms or risk factors identified. Fall Risk None identified. Assessment: 16:57 Reassessment: PT STATES THAT HE WANTS TO LEAVE. HE STATES HIS MOTHER IS ON THE WAY AND ls4 ALL HE WANTS TO DO IS GO AND GET HIS PRESCRIPTIONS AND FILL THEM FROM DR FARNSWORTH. 17:20 Reassessment: After CORINNE WILLETT EXPLAINED THE RISKS OF LEAVING ED AGAINST MEDICAL ADVICE ls4 PT STILL WANTS TO LEAVE. PT IS ALERT AND ORIENTED X 4, AND CORINNE Mehta MADE PT AWARE OF DANGERS AND RISKS OF RETURNING AGAIN AFTER FALL OR WORSE INJURY OR . PT SIGNED AMA AND I WHEELED PT TO FRONT OF ED ENTRANCE. Cardiovascular: No deficits noted. Respiratory: No deficits noted. Vital Signs: 16:32 BP 119 / 66; Pulse 86; Resp 16; Temp 98.9; Pulse Ox 98% ; sv ED Course: 16:32 Patient arrived in ED. sv 16:33 Arm band placed on. sv 16:33 Patient has correct armband on for positive identification. Bed in low position. Call sv light in reach. Side rails up X2. Pulse ox on. NIBP on. 16:35 Corinne Pittman PA [facility] 16:35 Lewis Cheng MD is Attending Physician. [facility] 16:41 Taya Paiz, RN is Primary Nurse. ls4 18:01 Triage completed. sv Administered Medications: No medications were administered Outcome: 17:20 Patient left the ED. ls4 17:20 AMA AMA form signed ls4 Signatures: Makeda Medina, RN RN Corinne Pittman PA PA jmm Stewart, Lisa, RN RN ls4 Corrections: (The following items were deleted from the chart) 18:52 18:24 Patient left the ED. ls4 ls4
--- NOTE | 2019-08-29 18:13 | EDPHYS ---
Physician Documentation [facility] Name: Kimani Augustin Jr Age: 34 yrs Sex: Male : 1985 Arrival Date: 08/29/2019 Time: 16:32 Bed 23 Private MD: ED Physician Lewis Cheng HPI: 08/28 18:08 This 34 yrs old Male presents to ER via EMS with complaints of syncope. jmm 18:08 Onset: The symptoms/episode began/occurred acutely, just prior to arrival. Duration: jmm This was a single episode. Patient currently denies shortness of breath, abdominal pain, chest pain, vomiting. . Historical: - Allergies: 16:33 EGG/POULTRY; sv - PMHx: 16:33 hypocalcemia; Seizures; sv - PSHx: 16:33 None; sv - Immunization history:: Adult Immunizations up to date. - Social history:: Smoking status: Patient denies any tobacco usage or history of. ROS: 18:08 Constitutional: Negative for fever, chills, and weight loss, Cardiovascular: Negative jmm for chest pain, palpitations, and edema, Respiratory: Negative for shortness of breath, cough, wheezing, and pleuritic chest pain, Neuro: Negative for headache, weakness, numbness, tingling, and seizure. 18:08 All other systems are negative. Exam: 18:08 Constitutional: This is a well developed, well nourished patient who is awake, alert, jmm and in no acute distress. 18:08 Eyes: EOMI, no conjunctival erythema appreciated ENT: Moist Mucus Membranes Neck: Trachea midline, Supple Chest/axilla: Normal chest wall appearance and motion. Cardiovascular: Regular rate and rhythm. No edema appreciated Respiratory: Normal respirations, no respiratory distress appreciated Abdomen/GI: Non distended, soft Back: Normal ROM Skin: General appearance color normal MS/ Extremity: Moves all extremities, no obvious deformities appreciated, no edema noted to the lower extremities Neuro: Awake and alert, normal gait Psych: Behavior is normal, Mood is normal, Patient is cooperative and pleasant 18:08 Head/face: edema and echymosis noted to the left forehead, left eye lid. . Vital Signs: 16:32 BP 119 / 66; Pulse 86; Resp 16; Temp 98.9; Pulse Ox 98% ; sv MDM: 16:55 Patient medically screened. [facility] 18:10 Data reviewed: vital signs, nurses notes. Counseling: I had a detailed discussion with [facility] the patient and/or guardian regarding:. ED course: Patient is alert and non toxic in appearance in the ED. Appears to be competent to make sound judgements. A x o x 3. Refused evaluation in the ED. . 08/28 16:46 Order name: EKG - Nurse/Tech [facility] 08/28 16:46 Order name: IV Saline Lock [facility] 08/28 16:46 Order name: Labs collected and sent [facility] 08/28 16:46 Order name: Urine Dipstick-Ancillary (obtain specimen) [facility] Administered Medications: No medications were administered Disposition: 08/29/19 18:12 Patient has left against medical advice. Impression: Syncope and collapse. - Patients states they are going to Home. - Condition is Stable. Follow up: Private Physician; When: 2 - 3 days; Reason: Recheck today's complaints, Continuance of care, Re-evaluation by your physician. - Problem is new. - Symptoms are resolved. Addendum: 09/01/2019 16:32 Co-signature as Attending Physician, Lewis Cheng MD I agree with the assessment and k dr plan of care. Signatures: Dispatcher [employer] Makeda Hernandez, RN RN Lewis Phelan MD MD [facility] Marc Pittman PA PA [facility] Taya Paiz, RN RN ls4 Corrections: (The following items were deleted from the chart) 08/28 18:24 18:12 08/29/2019 18:12 Patients has left against medical advice. Impression: Syncope ls4 and collapse. Patient states they are going to Home. Condition is Stable. Follow up: Private Physician; When: 2 - 3 days; Reason: Recheck today's complaints, Continuance of care, Re-evaluation by your physician. Problem is new. Symptoms are resolved. [facility]
[2019-08-29 18:46] VITALS: BP 119/66; TEMP 98.9; O2SAT 98
== END 2019-08-29 18:24 | disposition left against medical advice (07) ==
LOC: ER 16:28
DX: R55 Syncope and collapse (principal)
CPT/HCPCS: 99283

== ENCOUNTER 2019-09-28 20:39 | Emergency (ER) | payer OTHER ==
[2019-09-28] MEDS ORDERED: NA CHLORIDE 0.9% 100 ML IV ONE (21:13)
[2019-09-28] MEDS ORDERED: LEVETIRACETAM 500 MG/5 ML VIAL IV ONE (21:13)
[2019-09-28 21:14] LABS: Absolute Lymphocytes (CBC) 1.3 K/uL (0.7-4.9); Hematocrit 40.7 % (39.6-49.0); Lymphocytes % 21.5 % (15.3-44.8); MPV 10.9 fL (7.6-11.3); RBC Red Blood Cell Count 4.65 M/uL (4.33-5.43)
[2019-09-28 21:28] LABS: Protime INR 1.17
[2019-09-28 21:34] LABS: Barbiturates NEGATIVE (NEGATIVE); Benzodiazepines NEGATIVE (NEGATIVE); Cocaine NEGATIVE (NEGATIVE); METHAMPHETAM NEGATIVE (NEGATIVE); Methadone NEGATIVE (NEGATIVE); Opiates NEGATIVE (NEGATIVE); Phencyclidine NEGATIVE (NEGATIVE); THC Cannibis NEGATIVE (NEGATIVE)
[2019-09-28 21:35] LABS: ALT/SGPT 35 U/L (12-78); AST/SGOT 51 U/L (15-37); Albumin 3.2 g/dL (3.4-5.0); Alkaline Phosphatase 97 U/L (45-117); BUN Blood Urea Nitrogen 10 mg/dL (7-18); Bicarbonate 27 mmol/L (21-32); Bilirubin Direct < 0.1 mg/dL (0-0.2); Bilirubin Total 0.3 mg/dL (0.2-1.0); Glucose Level 104 mg/dL (74-106); Potassium 3.5 mmol/L (3.5-5.1); Protein, Total 8.1 g/dL (6.4-8.2); Sodium Level 140 mmol/L (136-145)
[2019-09-28 21:43] LABS: Urine Blood TRACE (NEG); Urine Glucose NEGATIVE (NEG); Urine Protein 3+ (NEG); Urine Specific Gravity 1.025 (1.005-1.030); Urine pH 6.5 (5.0-7.0)
--- NOTE | 2019-09-28 22:08 | ER ---
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 mg2 on scene he was lethargic and post ictal. he had history of head trauma 4 months ago and since then has seizure. BGL- 98. Coronavirus screen: Client denies travel out of the [place] in the last 14 days. At this time, the client does not indicate any symptoms associated with coronavirus-19. Ebola Screen: No symptoms or risks identified at this time. Initial Sepsis Screen: Does the patient meet any 2 criteria? No. Patient's initial sepsis screen is negative. Does the patient have a suspected source of infection? No. Patient's initial sepsis screen is negative. Risk Assessment: Do you want to hurt yourself or someone else? Patient reports no desire to harm self or others. Onset of symptoms was September 28, 2019. 20:45 Method Of Arrival: EMS: [facility] mg2 20:45 Acuity: GUZMAN 3 mg2 Triage Assessment: 20:49 General: Appears in no apparent distress. comfortable, Behavior is calm, cooperative. mg2 Pain: Denies pain. EENT: No deficits noted. Neuro: Level of Consciousness is awake, alert, obeys commands, Oriented to person, place, time. Cardiovascular: Capillary refill < 3 seconds Patient's skin is warm and dry. Respiratory: Airway is patent Respiratory effort is even, unlabored, Respiratory pattern is regular, symmetrical. GI: No signs and/or symptoms were reported involving the gastrointestinal system. : No signs and/or symptoms were reported regarding the genitourinary system. Derm: Skin is intact, is healthy with good turgor, Skin is pink, warm \T\ dry. normal. Musculoskeletal: Circulation, motion, and sensation intact. Capillary refill < 3 seconds. Historical: - Allergies: 20:49 EGG/POULTRY; mg2 - Home Meds: 20:49 seizure medicine [Active]; mg2 - PMHx: 20:49 hypocalcemia; Seizures; mg2 - PSHx: 20:49 None; mg2 - Immunization history:: Flu vaccine status is unknown. - Social history:: Smoking status: Patient reports the use of cigarette tobacco products, Patient uses alcohol, Patient/guardian denies using street drugs. - Family history:: not pertinent. Screenin:50 Abuse screen: Denies threats or abuse. Denies injuries from another. Nutritional mg2 screening: No deficits noted. Tuberculosis screening: No symptoms or risk factors identified. Fall Risk Secondary diagnosis (15 points) seizures, IV access (20 points). Assessment: 20:50 General: see triage assessment. mg2 21:13 Reassessment: [id number]. mg2 23:07 Reassessment: patient still on calcium infusion. for dc after completion. mg2 Vital Signs: 20:45 BP 126 / 72; Pulse 105; Resp 18; Temp 99; Pulse Ox 96% on R/A; Height 5 ft. 8 in. mg2 (172.72 cm); 21:00 BP 126 / 70; Pulse 101; Resp 18; Pulse Ox 100% on R/A; mg2 23:20 BP 115 / 65; Pulse 86; Resp 18; Pulse Ox 100% on R/A; mg2 ED Course: 20:45 Patient arrived in ED. mg2 20:48 Triage completed. mg2 20:49 Nelson Mercer MD is Attending Physician. fermín 20:49 Arm band placed on. mg2 20:50 No provider procedures requiring assistance completed. Maintain EMS IV. Good blood mg2 return noted. Site clean \T\ dry. Gauge \T\ site: 18 \T\ RAC. 20:51 Mona Villegas RN is Primary Nurse. ea 20:51 Patient has correct armband on for positive identification. 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 Pulse mg2 ox on. NIBP on. Door closed. 22:08 Ezequiel Joyner MD is Referral Physician. fermín 23:57 IV discontinued, intact, bleeding controlled, No redness/swelling at site. Pressure mg2 dressing applied. Administered Medications: 21:04 Drug: Keppra 1000 mg Route: IV; Rate: per protocol; Site: right antecubital; mg2 23:19 Follow up: Response: No adverse reaction; IV Status: Completed infusion mg2 22:16 Drug: Calcium Gluconate 2 grams Route: IVPB; Infused Over: 60 mins; Site: right mg2 antecubital; 23:19 Follow up: Response: No adverse reaction; IV Status: Completed infusion mg2 22:31 Drug: Calcium Carbonate 500 mg 2 tablet Route: PO; ea 23:09 Follow up: Response: No adverse reaction mg2 Outcome: 22:08 Discharge ordered by . fermín 23:57 Discharged to home ambulatory. mg2 23:57 Condition: stable 23:57 Discharge instructions given to patient, Instructed on discharge instructions, follow up and referral plans. medication usage, Demonstrated understanding of instructions, follow-up care, medications, Prescriptions given X 3. 23:57 Patient left the ED. mg2 Signatures: Nelson Mercer MD MD cha Antunez, Elena, RN RN Obey Recinos RN RN mg2
--- NOTE | 2019-09-28 22:09 | EDPHYS ---
Physician Documentation [facility] Name: Kimani Augustin Jr Age: 34 yrs Sex: Male : 1985 Arrival Date: 09/28/2019 Time: 20:45 Bed 2 Private MD: CHRISTOPHER Physician Nelson Mercer HPI: 09/27 21:05 This 34 yrs old Male presents to ER via EMS with complaints of seizure at home.fermín 21:05 The patient presents after having a single isolated seizure, that lasted 1 minute(s). fermín Character of seizure(s): Loss of consciousness: the patient experienced loss of consciousness, Motor activity: generalized. Seizure onset: just prior to arrival. Context: the seizure(s) was witnessed, by family, aunt. Seizure Hx: Original onset: longstanding, since childhood,\E\. Associated injury: The patient did not suffer any apparent associated injury. EMS care: none. Current symptoms: Currently, the patient is not experiencing any symptoms, the patient feels back to baseline, no decreased level of consciousness, no confusion, no dysphasia, no headache, no paralysis, no visual changes. The patient has experienced similar episodes in the past, multiple times. Historical: - Allergies: 20:49 EGG/POULTRY; mg2 - Home Meds: 20:49 seizure medicine [Active]; mg2 - PMHx: 20:49 hypocalcemia; Seizures; mg2 - PSHx: 20:49 None; mg2 - Immunization history:: Flu vaccine status is unknown. - Social history:: Smoking status: Patient reports the use of cigarette tobacco products, Patient uses alcohol, Patient/guardian denies using street drugs. - Family history:: not pertinent. ROS: 21:05 Constitutional: Negative for fever, chills, and weight loss, Eyes: Negative for injury, fermín pain, redness, and discharge, ENT: Negative for injury, pain, and discharge, Neck: Negative for injury, pain, and swelling, Cardiovascular: Negative for chest pain, palpitations, and edema, Respiratory: Negative for shortness of breath, cough, wheezing, and pleuritic chest pain, Abdomen/GI: Negative for abdominal pain, nausea, vomiting, diarrhea, and constipation, Back: Negative for injury and pain, : Negative for injury, bleeding, discharge, and swelling, MS/Extremity: Negative for injury and deformity, Skin: Negative for injury, rash, and discoloration, Psych: Negative for depression, anxiety, suicide ideation, homicidal ideation, and hallucinations, Allergy/Immunology: Negative for hives, rash, and allergies, Endocrine: Negative for neck swelling, polydipsia, polyuria, polyphagia, and marked weight changes, Hematologic/Lymphatic: Negative for swollen nodes, abnormal bleeding, and unusual bruising. 21:05 Neuro: Negative for altered mental status, dizziness, gait disturbance, headache, hearing loss, loss of consciousness, numbness, pt was at baseline upon arrival. Exam: 21:05 Constitutional: This is a well developed, well nourished patient who is awake, alert, fermín and in no acute distress. Head/Face: Normocephalic, atraumatic. Eyes: Pupils equal round and reactive to light, extra-ocular motions intact. Lids and lashes normal. Conjunctiva and sclera are non-icteric and not injected. Cornea within normal limits. Periorbital areas with no swelling, redness, or edema. ENT: Nares patent. No nasal discharge, no septal abnormalities noted. Tympanic membranes are normal and external auditory canals are clear. Oropharynx with no redness, swelling, or masses, exudates, or evidence of obstruction, uvula midline. Mucous membranes moist. Neck: Trachea midline, no thyromegaly or masses palpated, and no cervical lymphadenopathy. Supple, full range of motion without nuchal rigidity, or vertebral point tenderness. No Meningismus. Chest/axilla: Normal chest wall appearance and motion. Nontender with no deformity. No lesions are appreciated. Cardiovascular: Regular rate and rhythm with a normal S1 and S2. No gallops, murmurs, or rubs. Normal PMI, no JVD. No pulse deficits. Respiratory: Lungs have equal breath sounds bilaterally, clear to auscultation and percussion. No rales, rhonchi or wheezes noted. No increased work of breathing, no retractions or nasal flaring. Abdomen/GI: Soft, non-tender, with normal bowel sounds. No distension or tympany. No guarding or rebound. No evidence of tenderness throughout. Back: No spinal tenderness. No costovertebral tenderness. Full range of motion. Male : Normal genitalia with no discharge or lesions. Skin: Warm, dry with normal turgor. Normal color with no rashes, no lesions, and no evidence of cellulitis. MS/ Extremity: Pulses equal, no cyanosis. Neurovascular intact. Full, normal range of motion. Neuro: Awake and alert, GCS 15, oriented to person, place, time, and situation. Cranial nerves II-XII grossly intact. Motor strength 5/5 in all extremities. Sensory grossly intact. Cerebellar exam normal. Normal gait. Psych: Awake, alert, with orientation to person, place and time. Behavior, mood, and affect are within normal limits. 21:12 ECG was reviewed by the Attending Physician. [facility] Vital Signs: 20:45 BP 126 / 72; Pulse 105; Resp 18; Temp 99; Pulse Ox 96% on R/A; Height 5 ft. 8 in. mg2 (172.72 cm); 21:00 BP 126 / 70; Pulse 101; Resp 18; Pulse Ox 100% on R/A; mg2 23:20 BP 115 / 65; Pulse 86; Resp 18; Pulse Ox 100% on R/A; mg2 MDM: 20:49 Patient medically screened. [facility] 21:09 Data reviewed: vital signs, nurses notes, lab test result(s), EKG. Data interpreted: [facility] Pulse oximetry: on room air is 96 %. Test interpretation: by ED physician or midlevel provider: ECG. Counseling: I had a detailed discussion with the patient and/or guardian regarding: the historical points, exam findings, and any diagnostic results supporting the discharge/admit diagnosis, lab results, the need for outpatient follow up, for definitive care, a neurologist. 21:12 Differential diagnosis: cerebral vascular accident, drug overdose, seizure. [facility] 21:19 ED course: pt at baseline, loaded with marielle, will follow up. [facility] 09/27 20:53 Order name: Acetaminophen 09/27 20:53 Order name: Basic Metabolic Panel 09/27 20:53 Order name: CBC with Diff 09/27 20:53 Order name: ETOH Level 09/27 20:53 Order name: Hepatic Function 09/27 20:53 Order name: PT-INR 09/27 20:53 Order name: Ptt, Activated 09/27 20:53 Order name: Salicylate 09/27 20:53 Order name: Urine Drug Screen 09/27 21:02 Order name: Calcium [facility] 09/27 21:15 Order name: Urine Dipstick--Ancillary (enter results) ar5 09/27 21:24 Order name: CBC with Automated Diff; Complete Time: 21:58 EDMS 09/27 21:33 Order name: Protime (+INR); Complete Time: 21:58 EDMS 09/27 21:33 Order name: PTT, Activated Partial Thromb; Complete Time: 21:58 EDMS 09/27 20:53 Order name: EKG; Complete Time: 20:54 ea 09/27 20:53 Order name: EKG - Nurse/Tech; Complete Time: 21:03 ea 09/27 20:53 Order name: IV Saline Lock; Complete Time: 21:03 ea 09/27 20:53 Order name: Labs collected and sent; Complete Time: 21:03 ea 09/27 20:53 Order name: Urine Dipstick-Ancillary (obtain specimen); Complete Time: 21:11 ea 09/27 21:34 Order name: Urine Drug Screen; Complete Time: 21:58 EDMS 09/27 21:36 Order name: Basic Metabolic Panel; Complete Time: 21:58 EDMS 09/27 21:36 Order name: Liver (Hepatic) Function; Complete Time: 21:58 EDMS 09/27 21:39 Order name: Acetaminophen Level; Complete Time: 21:58 EDMS 09/27 21:42 Order name: Salicylates Level; Complete Time: 21:58 EDMS 09/27 21:43 Order name: Alcohol Serum/Plasma; Complete Time: 21:58 EDMS 09/27 21:43 Order name: Urine Dipstick-Ancillary; Complete Time: 21:58 EDMS 09/27 23:32 Order name: Calcium Level EDOH 09/27 21:02 Order name: Seizure Precautions; Complete Time: 21:03 fermín EC:12 Rate is 95 beats/min. QRS [place] is Normal. TN interval is normal. QRS interval is fermín normal. QT interval is normal. No Q waves. T waves are Normal. No ST changes noted. Clinical impression: Normal ECG and No evidence of ischemia. Interpreted by me. Reviewed by me. Administered Medications: 21:04 Drug: Keppra 1000 mg Route: IV; Rate: per protocol; Site: right antecubital; mg2 23:19 Follow up: Response: No adverse reaction; IV Status: Completed infusion mg2 22:16 Drug: Calcium Gluconate 2 grams Route: IVPB; Infused Over: 60 mins; Site: right mg2 antecubital; 23:19 Follow up: Response: No adverse reaction; IV Status: Completed infusion mg2 22:31 Drug: Calcium Carbonate 500 mg 2 tablet Route: PO; ea 23:09 Follow up: Response: No adverse reaction mg2 Disposition: 09/28/19 22:08 Discharged to Home. Impression: Epilepsy and recurrent seizures, Persons encountering health services for other counseling and medical advice, not elsewhere classified - medication refill, Hypocalcemia. - Condition is Stable. - Discharge Instructions: Seizure, Adult, Seizure, Adult, Opes-uc-Text, Hypocalcemia, Adult. - Prescriptions for calcitriol 0.25 mcg Oral capsule - take 1 capsule by ORAL route every 12 hours; 60 capsule. Keppra 500 mg Oral Tablet - take 1 tablet by ORAL route every 12 hours; 20 tablet. Calcium 600 with Vitamin D3 - take 1 tablet by ORAL route 2 times per day; 60 tablet. - Medication Reconciliation Form, Thank You Letter, Antibiotic Education, Prescription Opioid Use, Work release form form. - Follow up: Private Physician; When: 2 - 3 days; Reason: Recheck today's complaints, Continuance of care, Re-evaluation by your physician. Follow up: Ezequiel Joyner MD; When: 2 - 3 days; Reason: Recheck today's complaints, Re-evaluation by your physician. - Problem is new. - Symptoms have improved. Signatures: Dispatcher [employer] EDMS Nelson Mercer MD MD cha Antunez, Elena, RN RN ea Gardose, Michele, RN RN mg2 Corrections: (The following items were deleted from the chart) 22:08 22:08 09/28/2019 22:08 Discharged to Home. Impression: Epilepsy and recurrent seizures; fermín Persons encountering health services for other counseling and medical advice, not elsewhere classified - medication refill; Hypocalcemia. Condition is Stable. Discharge Instructions: Seizure, Adult, Seizure, Adult, [id number], Hypocalcemia, Adult. Prescriptions for calcitriol 0.25 mcg Oral capsule - take 1 capsule by ORAL route every 12 hours; 60 capsule, Keppra 500 mg Oral Tablet - take 1 tablet by ORAL route every 12 hours; 20 tablet, Calcium 600 with Vitamin D3 - take 1 tablet by ORAL route 2 times per day; 60 tablet. and Forms are Medication Reconciliation Form, Thank You Letter, Antibiotic Education, Prescription Opioid Use. Follow up: Private Physician; When: 2 - 3 days; Reason: Recheck today's complaints, Continuance of care, Re-evaluation by your physician. Problem is new. Symptoms have improved. fermín 23:57 22:08 09/28/2019 22:08 Discharged to Home. Impression: Epilepsy and recurrent seizures; mg2 Persons encountering health services for other counseling and medical advice, not elsewhere classified - medication refill; Hypocalcemia. Condition is Stable. Discharge Instructions: Seizure, Adult, Seizure, Adult, [id number], Hypocalcemia, Adult. Prescriptions for calcitriol 0.25 mcg Oral capsule - take 1 capsule by ORAL route every 12 hours; 60 capsule, Keppra 500 mg Oral Tablet - take 1 tablet by ORAL route every 12 hours; 20 tablet, Calcium 600 with Vitamin D3 - take 1 tablet by ORAL route 2 times per day; 60 tablet. and Forms are Medication Reconciliation Form, Thank You Letter, Antibiotic Education, Prescription Opioid Use. Follow up: Private Physician; When: 2 - 3 days; Reason: Recheck today's complaints, Continuance of care, Re-evaluation by your physician. Follow up: Ezequiel Joyner; When: 2 - 3 days; Reason: Recheck today's complaints, Re-evaluation by your physician. Problem is new. Symptoms have improved. fermín
[2019-09-28] MEDS ORDERED: CALCIUM GLUCONATE 1 GM IVPB 1 GM/50 ML BAG IV ONE ×2 (22:16→22:34)
[2019-09-28] MEDS ORDERED: CALCIUM CARBONATE 500 MG TAB ONE (22:34)
[2019-09-29 00:25] VITALS: TEMP 99
[2019-09-29 00:26] VITALS: O2SAT 100
[2019-09-29 00:28] VITALS: BP 115/65
== END 2019-09-28 23:57 | disposition home or self-care (01) ==
LOC: ER 20:39
DX: E83.51 Hypocalcemia (principal); Z71.89 Other specified counseling; F17.210 Nicotine dependence, cigarettes, uncomplicated; Z91.012 Allergy to eggs; Z91.018 Allergy to other foods
CPT/HCPCS: 93005; 85025; 80048; 36415; 80320; 82310; 80329 ×2; 85610; 80076; 80307 ×8; 85730; 81003; J1953; J0610 ×2; 96365; 99284

== ENCOUNTER 2020-02-26 21:04 | Emergency (ER) | payer OTHER ==
[2020-02-26 22:29] LABS: Absolute Lymphocytes (CBC) 1.2 K/uL (0.7-4.9); Basophils % 0.4 % (0-1.3); Hematocrit 42.7 % (39.6-49.0); RBC Red Blood Cell Count 4.86 M/uL (4.33-5.43)
[2020-02-26 22:38] LABS: Barbiturates NEGATIVE (NEGATIVE); Benzodiazepines NEGATIVE (NEGATIVE); Cocaine NEGATIVE (NEGATIVE); METHAMPHETAM NEGATIVE (NEGATIVE); Methadone NEGATIVE (NEGATIVE); Opiates NEGATIVE (NEGATIVE); Phencyclidine NEGATIVE (NEGATIVE); THC Cannibis NEGATIVE (NEGATIVE)
[2020-02-26 22:38] LABS: Urine Blood NEGATIVE (NEG); Urine Glucose NEGATIVE (NEG); Urine Protein 2+ (NEG); Urine Specific Gravity >1.030 (1.005-1.030); Urine pH 5.5 (5.0-7.0)
[2020-02-26] MEDS ORDERED: NA CHLORIDE 0.9% 1,000 ML ONE (22:44)
[2020-02-26] MEDS ORDERED: LEVETIRACETAM 500 MG/5 ML VIAL IV ONE (23:23)
[2020-02-26] MEDS ORDERED: CALCIUM GLUCONATE 1 GM IVPB 2 GM/100 ML BAG IV ONE (23:23)
[2020-02-26] MEDS ORDERED: NA CHLORIDE 0.9% 100 ML ONE (23:23)
--- NOTE | 2020-02-27 05:04 | ER ---
Nurse's Notes [facility] Name: Kimani Augustin Jr Age: 34 yrs Sex: Male : 1985 Arrival Date: 02/26/2020 Time: 21:04 Bed 6 Private MD: Diagnosis: Seizure disorder. Hypocalcemia. Non complaint. Presentation: 02/25 21:23 Chief complaint: Patient states: 3 seizures within 1 hour period this morning started ll1 around 0530. Has not been taking medications as prescribed. Confused since, hasn't gotten back to his normal all day. Shaky, hands clenched straight. Coronavirus screen: Client denies travel out of the [place] in the last 14 days. At this time, the client does not indicate any symptoms associated with coronavirus-19. Ebola Screen: Patient denies travel to an Ebola-affected area in the 21 days before illness onset. Initial Sepsis Screen: Does the patient meet any 2 criteria? No. Patient's initial sepsis screen is negative. Does the patient have a suspected source of infection? No. Patient's initial sepsis screen is negative. Risk Assessment: Do you want to hurt yourself or someone else? Patient reports no desire to harm self or others. Onset of symptoms was February 26, 2020. 21:23 Method Of Arrival: Ambulatory ll1 21:23 Acuity: GUZMAN 3 ll1 Historical: - Allergies: 21:25 EGG/POULTRY; ll1 - PMHx: 21:25 Seizures; hypocalcemia; ll1 - PSHx: 21:25 None; ll1 - Immunization history:: Flu vaccine is not up to date. - Social history:: Smoking status: Patient reports the use of cigarette tobacco products, smokes one-half pack cigarettes per day. Screenin:46 Abuse screen: Denies threats or abuse. Denies injuries from another. Nutritional mg2 screening: No deficits noted. Tuberculosis screening: No symptoms or risk factors identified. Fall Risk Secondary diagnosis (15 points) seizures, IV access (20 points). Assessment: 22:40 Reassessment: Patient appears in no apparent distress at this time. Patient is alert, rr5 oriented x 3, equal unlabored respirations, skin warm/dry/pink. back from CTscan. 23:30 General: Appears in no apparent distress. comfortable, Behavior is calm, cooperative. mg2 Pain: Denies pain. Neuro: Level of Consciousness is awake, alert, obeys commands, Oriented to person, place, time, situation. Cardiovascular: Capillary refill < 3 seconds Patient's skin is warm and dry. Respiratory: Airway is patent Respiratory effort is even, unlabored, Respiratory pattern is regular, symmetrical. GI: No signs and/or symptoms were reported involving the gastrointestinal system. : No signs and/or symptoms were reported regarding the genitourinary system. EENT: No signs and/or symptoms were reported regarding the EENT system. Derm: Skin is intact, is healthy with good turgor, Skin is pink, warm \T\ dry. normal. Musculoskeletal: Circulation, motion, and sensation intact. Capillary refill < 3 seconds. 02/26 00:30 Reassessment: Patient appears in no apparent distress at this time. Patient and/or rr5 family updated on plan of care and expected duration. Pain level reassessed. 01:25 Reassessment: Jairo ( brother) [phone]. mg2 02:00 Reassessment: Patient appears in no apparent distress at this time. Patient is alert, rr5 oriented x 3, equal unlabored respirations, skin warm/dry/pink. awaiting for review, vital signs taken and recorded. 02:12 Reassessment: Patient appears in no apparent distress at this time. patient sleeping. mg2 03:00 Reassessment: Patient appears in no apparent distress at this time. No changes from rr5 previously documented assessment. 04:35 Reassessment: Family is coming to brain picker the patient. mg2 04:57 Reassessment: Patient appears in no apparent distress at this time. Patient is alert, rr5 oriented x 3, equal unlabored respirations, skin warm/dry/pink. ED provider explained to patient and relative of the patient the discharge instruction. verbalized understanding. Vital Signs: 02/25 21:23 BP 126 / 90; Pulse 87; Resp 18; Temp 98.7; Pulse Ox 98% ; Weight 74.84 kg; Height 5 ft. ll1 10 in. (177.80 cm); Pain 0/10; 02/26 01:00 BP 106 / 73; Pulse 65; Resp 18; Pulse Ox 100% on R/A; mg2 02:11 BP 101 / 62; Pulse 60; Resp 17; Pulse Ox 99% ; rr5 03:29 BP 103 / 68; Pulse 69; Resp 18; Pulse Ox 99% on R/A; mg2 04:58 BP 110 / 70; Pulse 65; Resp 19; Pulse Ox 99% ; rr5 02/25 21:23 Body Mass Index 23.67 (74.84 kg, 177.80 cm) ll1 [place] Coma Score: 01:00 Eye Response: spontaneous(4). Verbal Response: oriented(5). Motor Response: obeys mg2 commands(6). Total: 15. 04:58 Eye Response: spontaneous(4). Verbal Response: oriented(5). Motor Response: obeys rr5 commands(6). Total: 15. ED Course: 02/25 21:04 Patient arrived in ED. cl3 21:25 Triage completed. ll1 21:26 Arm band placed on Patient placed in an exam room, on a stretcher. ll1 21:43 Lars Rivera, RN is Primary Nurse. rr5 21:45 Yakov Do MD is Attending Physician. pkl 21:50 Patient has correct armband on for positive identification. Bed in low position. Call mh5 light in reach. Side rails up X2. Adult w/ patient. Seizure precautions initiated. youth nutritional monitor on. Pulse ox on. NIBP on. 22:13 Initial lab(s) drawn, by me, sent to lab. Urine collected: clean catch specimen, clear, mh5 EKG done, by ED staff, reviewed by Yakov Do MD. Inserted saline lock: 20 gauge in right forearm, using aseptic technique. Blood collected. 22:23 UDS Sent. mh5 22:24 Chem 7 Sent. mh5 22:24 CBC with Diff Sent. mh5 22:43 CT Head Brain wo Cont In Process Unspecified. EDMS 23:23 patient sister in law Tricia [phone]. mw2 02/26 01:00 No provider procedures requiring assistance completed. mg2 04:58 IV discontinued, intact, bleeding controlled, No redness/swelling at site. Pressure rr5 dressing applied. 05:03 Ezequiel Joyner MD is Referral Physician. pkl Administered Medications: 02/25 22:40 Drug: NS 0.9% 1000 ml Route: IV; Rate: 125 ml/hr; Site: right forearm; rr5 02/26 05:13 Follow up: Response: No adverse reaction; IV Status: Order to discontinue infusion; IV rr5 Intake: 850ml 02/25 23:13 Drug: Keppra 1000 mg Route: IV; Rate: calculated rate; Site: right antecubital; mg2 23:30 Follow up: Response: No adverse reaction; IV Status: Completed infusion; IV Intake: rr5 100ml 23:30 Drug: Calcium Gluconate 2 grams Route: IVPB; Infused Over: 60 mins; Site: right rr5 antecubital; 02/26 00:30 Follow up: Response: No adverse reaction; IV Status: Completed infusion; IV Intake: rr5 200ml Intake: 02/25 23:30 IV: 100ml; Total: 100ml. rr5 02/26 00:30 IV: 200ml; Total: 300ml. rr5 05:13 IV: 850ml; Total: 1150ml. rr5 Outcome: 04:58 Discharged to home ambulatory. rr5 04:58 Condition: stable 04:58 Discharge instructions given to patient, family, Instructed on discharge instructions, follow up and referral plans. medication usage, Demonstrated understanding of instructions, follow-up care, medications, Prescriptions given X 2. 05:04 Discharge ordered by . gustavo 05:12 Patient left the ED. rr5 Signatures: Dispatcher [employer] EDMS Yakov Do MD MD pkl Martinez, [facility] Buck Brown 2 Obey Howard RN RN mg2 Lars Rivera RN RN rr5 Eileen Taylor 3 Xiomara Taylor RN RN ll1
--- NOTE | 2020-02-27 05:05 | EDPHYS ---
Physician Documentation [facility] Name: Kimani Augustin Jr Age: 34 yrs Sex: Male : 1985 Arrival Date: 02/26/2020 Time: 21:04 Bed 6 Private MD: ED Physician Yakov Do HPI: 02/25 21:58 This 34 yrs old Male presents to ER via Ambulatory with complaints of Seizure. pkl 21:58 The patient presents with a history of multiple seizures, a total of 3. Character of pkl seizure(s): Loss of consciousness: the patient experienced loss of consciousness, Motor activity: generalized. Seizure onset: this morning. family said patient non complaint with his medications. Historical: - Allergies: 21:25 EGG/POULTRY; ll1 - PMHx: 21:25 Seizures; hypocalcemia; ll1 - PSHx: 21:25 None; ll1 - Immunization history:: Flu vaccine is not up to date. - Social history:: Smoking status: Patient reports the use of cigarette tobacco products, smokes one-half pack cigarettes per day. ROS: 21:58 Eyes: Negative for injury, pain, redness, and discharge, ENT: Negative for injury, pkl pain, and discharge, Neck: Negative for injury, pain, and swelling, Cardiovascular: Negative for chest pain, palpitations, and edema, Respiratory: Negative for shortness of breath, cough, wheezing, and pleuritic chest pain, Abdomen/GI: Negative for abdominal pain, nausea, vomiting, diarrhea, and constipation, Back: Negative for injury and pain, : Negative for injury, bleeding, discharge, and swelling. 21:58 MS/extremity: Positive for carpal pedal spasm both hands. 21:58 Skin: Negative for rash. 21:58 Neuro: Positive for seizure activity. Exam: 21:58 Head/Face: Normocephalic, atraumatic. Eyes: Pupils equal round and reactive to light, pkl extra-ocular motions intact. Lids and lashes normal. Conjunctiva and sclera are non-icteric and not injected. Cornea within normal limits. Periorbital areas with no swelling, redness, or edema. ENT: Nares patent. No nasal discharge, no septal abnormalities noted. Tympanic membranes are normal and external auditory canals are clear. Oropharynx with no redness, swelling, or masses, exudates, or evidence of obstruction, uvula midline. Mucous membranes moist. Neck: Trachea midline, no thyromegaly or masses palpated, and no cervical lymphadenopathy. Supple, full range of motion without nuchal rigidity, or vertebral point tenderness. No Meningismus. Chest/axilla: Normal chest wall appearance and motion. Nontender with no deformity. No lesions are appreciated. Cardiovascular: Regular rate and rhythm with a normal S1 and S2. No gallops, murmurs, or rubs. Normal PMI, no JVD. No pulse deficits. Respiratory: Lungs have equal breath sounds bilaterally, clear to auscultation and percussion. No rales, rhonchi or wheezes noted. No increased work of breathing, no retractions or nasal flaring. Abdomen/GI: Soft, non-tender, with normal bowel sounds. No distension or tympany. No guarding or rebound. No evidence of tenderness throughout. Back: No spinal tenderness. No costovertebral tenderness. Full range of motion. Skin: Warm, dry with normal turgor. Normal color with no rashes, no lesions, and no evidence of cellulitis. 21:58 Musculoskeletal/extremity: Extremities: grossly normal except: noted in the both hands: carpal pedal spasm. 21:58 Skin: Exam negative for rash. 21:58 Neuro: Orientation: is normal, Mentation: confused, Cranial nerves: grossly normal, Motor: is normal. Vital Signs: 21:23 BP 126 / 90; Pulse 87; Resp 18; Temp 98.7; Pulse Ox 98% ; Weight 74.84 kg; Height 5 ft. ll1 10 in. (177.80 cm); Pain 0/10; 02/26 01:00 BP 106 / 73; Pulse 65; Resp 18; Pulse Ox 100% on R/A; mg2 02:11 BP 101 / 62; Pulse 60; Resp 17; Pulse Ox 99% ; rr5 03:29 BP 103 / 68; Pulse 69; Resp 18; Pulse Ox 99% on R/A; mg2 04:58 BP 110 / 70; Pulse 65; Resp 19; Pulse Ox 99% ; rr5 02/25 21:23 Body Mass Index 23.67 (74.84 kg, 177.80 cm) ll1 [place] Coma Score: 01:00 Eye Response: spontaneous(4). Verbal Response: oriented(5). Motor Response: obeys mg2 commands(6). Total: 15. 04:58 Eye Response: spontaneous(4). Verbal Response: oriented(5). Motor Response: obeys rr5 commands(6). Total: 15. MDM: 02/25 21:45 Patient medically screened. pkl 02/26 04:58 Data reviewed: vital signs, nurses notes, lab test result(s), radiologic studies, CT pkl scan, plain films. ED course: Patient feeling better. discussed lab and CT Scan results with patient and his brother ( Jairo ). Advised patient patient to take his medications consistently. To follow up with Dr. Joyner in 2 to 3 days. Patient and brother understood instructions. 02/25 21:34 Order name: Glucose, Ancillary Testing; Complete Time: 21:56 EDMS 02/25 21:58 Order name: CBC with Diff; Complete Time: 22:56 pkl 02/25 21:58 Order name: Chem 7; Complete Time: 22:56 pkl 02/25 21:58 Order name: UDS; Complete Time: 22:56 pkl 02/25 21:58 Order name: CT Head Brain wo Cont pkl 02/25 22:24 Order name: Urine Dipstick--Ancillary (enter results); Complete Time: 22:56 mw2 Administered Medications: 02/25 22:40 Drug: NS 0.9% 1000 ml Route: IV; Rate: 125 ml/hr; Site: right forearm; rr5 02/26 05:13 Follow up: Response: No adverse reaction; IV Status: Order to discontinue infusion; IV rr5 Intake: 850ml 02/25 23:13 Drug: Keppra 1000 mg Route: IV; Rate: calculated rate; Site: right antecubital; mg2 23:30 Follow up: Response: No adverse reaction; IV Status: Completed infusion; IV Intake: rr5 100ml 23:30 Drug: Calcium Gluconate 2 grams Route: IVPB; Infused Over: 60 mins; Site: right rr5 antecubital; 02/26 00:30 Follow up: Response: No adverse reaction; IV Status: Completed infusion; IV Intake: rr5 200ml Disposition: 02/27/20 05:04 Discharged to Home. Impression: Seizure disorder. Hypocalcemia. Non complaint.. - Condition is Stable. - Prescriptions for Keppra 500 mg Oral Tablet - take 1 tablet by ORAL route every 12 hours; 60 tablet. - Medication Reconciliation Form, Thank You Letter, Antibiotic Education, Prescription Opioid Use form. - Follow up: Ezequiel Joyner MD; When: 2 - 3 days; Reason: Re-evaluation by your physician. - Problem is new. - Symptoms have improved. Signatures: Dispatcher [employer] EDRI Yakov Do MD MD pkl Obey Howard RN RN mg2 Lars Rivera RN RN rr5 Xiomara Taylor RN RN ll1 Corrections: (The following items were deleted from the chart) 05:12 05:04 02/27/2020 05:04 Discharged to Home. Impression: Seizure disorder. Hypocalcemia. rr5 Non complaint.. Condition is Stable. Forms are Medication Reconciliation Form, Thank You Letter, Antibiotic Education, Prescription Opioid Use. Follow up: Ezequiel Joyner; When: 2 - 3 days; Reason: Re-evaluation by your physician. Problem is new. Symptoms have improved. pkl
--- NOTE | 2020-02-27 11:07 | RAD REPORT ---
EXAM DESCRIPTION: CT of the head without contrast CLINICAL HISTORY: Confused;Seizure COMPARISON: 08/29/2019 TECHNIQUE: Axial CT of the head obtained from the skull apex to the skull base without contrast. FINDINGS: No acute intracranial hemorrhage identified. No mass, mass effect, shift of the midline, a bnormal extra-axial fluid collection or CT evidence of acute ischemic change identified. The ventricu lar system is unremarkable. Cavum septa pellucida. No acute abnormalities of the supratentorial white matter, basal ganglia, cerebellum, or brainstem. Scattered subcortical and periventricular focal laz cifications as well as linear calcifications in the periventricular white matter which are stable. Opacities in the right maxillary sinus. Mastoid air cells are underpneumatized. No skull fracture tammy ntified. Visualized orbits and globes are unremarkable. IMPRESSION: 1. No acute intracranial abnormality identified. 2. Stable intracranial calcifications. 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 This exam was performed according to our departmental dose-optimization program, which includes autom ated exposure control, adjustment of the mA and/or kV according to patient size and/or use of iterati ve reconstruction technique. Electronically signed by: Orlando Cooper 02/26/2020 10:55 PM [employer] INTEGRATION SPECIALIST Due to temporary technical issues with the PACS/Fluency reporting system, reports are being signed by the in house radiologist without review as a courtesy to ensure prompt reporting. The interpreting r adiologist is fully responsible for the content of the report.
--- NOTE | 2020-02-27 22:33 | EKG ---
Test Date: 2020-02-26 Test Time: 21:57:37 Underwriting Support Specialist: ALLY MEASUREMENT RESULTS: Intervals: Rate: 93 NH: 102 QRSD: 94 QT: 398 QTc: 494 [place]: P: 69 NH: 102 QRS: 54 T: 68 INTERPRETIVE STATEMENTS: Sinus rhythm with short NH Incomplete right bundle branch block Prolonged QT Abnormal ECG Compared to ECG 09/28/2019 20:59:49 Short NH interval now present Incomplete right bundle-branch block now present Prolonged QT interval now present Electronically Signed On 02-27-20 22:29:40 RATER ASSOCIATE by Beni Rhodes
== END 2020-02-27 05:12 | disposition home or self-care (01) ==
LOC: ER 21:04
DX: G40.909 Epilepsy, unspecified, not intractable, without status epilepticus (principal); E83.51 Hypocalcemia; F17.210 Nicotine dependence, cigarettes, uncomplicated; Z91.14 Patient's other noncompliance with medication regimen; Z91.012 Allergy to eggs
CPT/HCPCS: 96365; 96367; 96361; 93005; 85025; 80048; 36415; 82947; 80307 ×8; 81003; 70450; 99285; J1953; J0610; J7030

== ENCOUNTER 2021-05-07 09:43 | Emergency (ER) | payer OTHER ==
--- OUTSIDE RECORDS SUMMARY | 2021-05-07 09:46 | XMS REPORT | Continuity of Care Document ---
:1985 Author Organization [facility] t Address [address] [place] [address] Care Team Providers Name Role Phone CHARLEEN CARSON Attending Clinician Unavailable Payers Payer Name Policy Type Policy Number Effective Date Expiration Date S ource [employer]ICA[employer] [place] [id number] 2020 00:00:00 Problems This patient has no known problems. Allergies, Adverse Reactions, Alerts Allergy Allergy Status Severity Reaction(s) Onset Inactive Treating Comm ents Source Name Type Date Date Clinician NO KNOWN Drug Active [facility] Medications This patient has no known medications. Procedures This patient has no known procedures. Encounters Start End Encounter Admission Attending Care Care Encounter Source Date/Time Date/Time Type Type Clinicians Facility Department ID 2020-07-06 2020-07-06 Emergency X DWAYNE CARSON ERT [id number] [facility] 14:08:00 14:08:00 CHARLEEN [facility] Results This patient has no known results.
[2021-05-07] MEDS ORDERED: NA CHLORIDE 0.9% 1,000 ML ONE (10:09)
[2021-05-07 10:12] LABS: Absolute Lymphocytes (CBC) 1.3 K/uL (0.7-4.9); Hematocrit 46.6 % (39.6-49.0); Lymphocytes % 17.7 % (15.3-44.8); MPV 11.1 fL (7.6-11.3); RBC Red Blood Cell Count 5.13 M/uL (4.33-5.43)
[2021-05-07] MEDS ORDERED: levETIRAcetam 1,000 MG in NA CHLORIDE 0.9% 100 ML IV ONE (10:15)
[2021-05-07 10:38] LABS: Albumin 3.5 g/dL (3.4-5.0); Bilirubin Total 0.3 mg/dL (0.2-1.0); Potassium 3.8 mmol/L (3.5-5.1); Protein, Total 8.3 g/dL (6.4-8.2)
[2021-05-07] MEDS ORDERED: CALCIUM GLUCONATE 1 GM IVPB 2 GM/100 ML BAG IV ONE (11:02)
--- NOTE | 2021-05-07 11:39 | EDPHYS ---
Physician Documentation [facility] Name: Kimani Augustin Jr Age: 35 yrs Sex: Male : 1985 Arrival Date: 05/07/2021 Time: 09:52 Bed 13 Private MD: ED Physician Pawan Sales HPI: 05/07 10:12 This 35 yrs old Male presents to ER via EMS with complaints of seizure. ma2 10:12 Character of seizure(s): Loss of consciousness: the patient did not lose consciousness, ma2 Motor activity: generalized. Seizure onset: just prior to arrival. Associated injury: The patient did not suffer any apparent associated injury. Current symptoms: Currently, the patient is not experiencing any symptoms. The patient has experienced similar episodes in the past. Historical: - Allergies: 09:56 EGG/POULTRY; ic1 - Home Meds: 09:56 seizure medicine [Active]; ic1 - PMHx: 09:56 hypocalcemia; Seizures; ic1 - Immunization history:: Adult Immunizations up to date. - Social history:: Smoking status: Patient reports the use of cigarette tobacco products, smokes one pack cigarettes per day. Patient/guardian denies using alcohol, street drugs, The patient lives with family, with spouse. - Family history:: not pertinent. ROS: 10:12 Constitutional: Negative for fever, chills, and weight loss. ma2 10:12 All other systems are negative. Exam: 10:12 Constitutional: This is a well developed, well nourished patient who is awake, alert, ma2 and in no acute distress. Head/Face: Normocephalic, atraumatic. Eyes: Pupils equal round and reactive to light, extra-ocular motions intact. Lids and lashes normal. Conjunctiva and sclera are non-icteric and not injected. Cornea within normal limits. Periorbital areas with no swelling, redness, or edema. ENT: Nares patent. No nasal discharge, no septal abnormalities noted. Tympanic membranes are normal and external auditory canals are clear. Oropharynx with no redness, swelling, or masses, exudates, or evidence of obstruction, uvula midline. Mucous membranes moist. Neck: Trachea midline, no thyromegaly or masses palpated, and no cervical lymphadenopathy. Supple, full range of motion without nuchal rigidity, or vertebral point tenderness. No Meningismus. Chest/axilla: Normal chest wall appearance and motion. Nontender with no deformity. No lesions are appreciated. Cardiovascular: Regular rate and rhythm with a normal S1 and S2. No gallops, murmurs, or rubs. Normal PMI, no JVD. No pulse deficits. Respiratory: Lungs have equal breath sounds bilaterally, clear to auscultation and percussion. No rales, rhonchi or wheezes noted. No increased work of breathing, no retractions or nasal flaring. Abdomen/GI: Soft, non-tender, with normal bowel sounds. No distension or tympany. No guarding or rebound. No evidence of tenderness throughout. Back: No spinal tenderness. No costovertebral tenderness. Full range of motion. Skin: Warm, dry with normal turgor. Normal color with no rashes, no lesions, and no evidence of cellulitis. MS/ Extremity: Pulses equal, no cyanosis. Neurovascular intact. Full, normal range of motion. Neuro: Awake and alert, GCS 15, oriented to person, place, time, and situation. Cranial nerves II-XII grossly intact. Motor strength 5/5 in all extremities. Sensory grossly intact. Cerebellar exam normal. Normal gait. Vital Signs: 09:52 BP 105 / 78; Pulse 92; Resp 16; Temp 97.4(T); Pulse Ox 95% on R/A; ic1 12:12 BP 109 / 71; Pulse 80; Resp 16; Pulse Ox 100% on R/A; ic1 MDM: 09:55 Patient medically screened. ny2 10:12 Differential diagnosis: drug overdose, cardiac arrhythmia, seizure. Data reviewed: ny2 vital signs, nurses notes, EMS record, halfway records. Counseling: I had a detailed discussion with the patient and/or guardian regarding: the historical points, exam findings, and any diagnostic results supporting the discharge/admit diagnosis, the presence of at least one elevated blood pressure reading (>120/80) during this emergency department visit, the need for outpatient follow up. Response to treatment: the patient's symptoms have resolved after treatment. 05/07 09:58 Order name: CBC with Diff; Complete Time: 11:24 ma2 05/07 09:58 Order name: CMP; Complete Time: 11:24 ma2 Administered Medications: 10:10 Drug: NS 0.9% 1000 ml Route: IV; Rate: 1 bolus; Site: left antecubital; ic1 10:36 Drug: Keppra (levETIRAcetam) 1000 mg Route: IV; Rate: calculated rate; Site: left ic1 antecubital; 11:04 Dru grams of (Calcium Gluconate 1 grams, NS 0.9% 50 ml) Route: IVPB; Infused Over: ic1 60 mins; Site: left antecubital; Disposition Summary: 05/07/21 11:39 Discharge Ordered Location: Home ma2 Condition: Stable ma2 Diagnosis - Other seizures ma2 Followup: ma2 - With: Private Physician - When: Today - Reason: Followup: ma2 - With: - When: Tomorrow - Reason: If symptoms return, Continuance of care Discharge Instructions: - Discharge Summary Sheet ma2 - Seizure, Adult ma2 Forms: - Medication Reconciliation Form ma2 - Thank You Letter ma2 - Antibiotic Education ma2 - Prescription Opioid Use ma2 Prescriptions: - Keppra 500 mg Oral Tablet - take 1 tablet by ORAL route every 12 hours; 20 tablet; Refills: 0, Product ma2 Selection Permitted Signatures: Dispatcher [employer] EDPawan Anders MD MD ma2 Rachell Negro RN RN ic1
--- NOTE | 2021-05-07 11:39 | ER ---
Nurse's Notes [facility] Name: Kimani Augustin Jr Age: 35 yrs Sex: Male : 1985 Arrival Date: 05/07/2021 Time: 09:52 Bed 13 Private MD: Diagnosis: Other seizures Presentation: 05/07 09:52 Chief complaint: EMS states: Pt brought in by amb for seizure activity this AM right ic1 after waking up. Pt has hx of seizures and states he forgot to take his Keppra this morning, but did take it last night. C/o headache. Coronavirus screen: Vaccine status: Patient reports being unvaccinated. Ebola Screen: No symptoms or risks identified at this time. Initial Sepsis Screen: Does the patient meet any 2 criteria? No. Patient's initial sepsis screen is negative. Does the patient have a suspected source of infection? No. Patient's initial sepsis screen is negative. Risk Assessment: Do you want to hurt yourself or someone else? Patient reports no desire to harm self or others. Onset of symptoms was May 07, 2021. 09:52 Method Of Arrival: EMS ic1 09:52 Acuity: GUZMAN 3 ic1 Triage Assessment: 09:56 General: Appears in no apparent distress. comfortable, Behavior is calm, cooperative. ic1 Pain: Complains of pain in head. EENT: No deficits noted. Neuro: Level of Consciousness is awake, alert, obeys commands, drowsy, but wakes up immediately when spoken to. . Oriented to person, place, time, situation. Cardiovascular: No deficits noted. Respiratory: No deficits noted. GI:. : No deficits noted. Derm: No deficits noted. Musculoskeletal: No deficits noted. Historical: - Allergies: 09:56 EGG/POULTRY; ic1 - Home Meds: 09:56 seizure medicine [Active]; ic1 - PMHx: 09:56 hypocalcemia; Seizures; ic1 - Immunization history:: Adult Immunizations up to date. - Social history:: Smoking status: Patient reports the use of cigarette tobacco products, smokes one pack cigarettes per day. Patient/guardian denies using alcohol, street drugs, The patient lives with family, with spouse. - Family history:: not pertinent. Screenin:59 Abuse screen: Denies threats or abuse. Denies injuries from another. Nutritional ic1 screening: No deficits noted. Tuberculosis screening: No symptoms or risk factors identified. Fall Risk No fall in past 12 months (0 pts). Secondary diagnosis (15 points) IV access (20 points). Gait- Normal/Bed Rest/Wheelchair (0 pts) Mental Status- Oriented to own ability (0 pts). Total Domínguez Fall Scale indicates Low Risk Score (25-44 pts). Side Rails Up X 2 Placed close to Nursing Station Frequent Obs/Assesments occuring As available Patient and Family Educated on Fall Prevention Program and strategies. Assessment: :59 Reassessment: see triage. ic1 12:13 Reassessment: Patient appears in no apparent distress at this time. Patient and/or ic1 family updated on plan of care and expected duration. Pain level reassessed. Patient is alert, oriented x 3, equal unlabored respirations, skin warm/dry/pink. Patient states feeling better. Patient states symptoms have improved. Neuro: Level of Consciousness is awake, alert, obeys commands, Oriented to person, place, time, situation. Vital Signs: 09:52 BP 105 / 78; Pulse 92; Resp 16; Temp 97.4(T); Pulse Ox 95% on R/A; ic1 12:12 BP 109 / 71; Pulse 80; Resp 16; Pulse Ox 100% on R/A; ic1 ED Course: 09:52 Patient arrived in ED. ic1 09:52 Rachell Negro, RN is Primary Nurse. ic1 09:54 Patient has correct armband on for positive identification. Placed in gown. Bed in low mh5 position. Call light in reach. Side rails up X2. Seizure precautions initiated. Warm blanket given. monitoring engineer on. Pulse ox on. NIBP on. 09:55 Pawan Sales MD is Attending Physician. ma2 09:55 by ED staff, sent to lab. EKG done, by ED staff, reviewed by Pawan Sales MD. 5 09:56 Triage completed. ic1 09:56 Arm band placed on Patient placed in the treatment room, on monitoring manager, on pulse ic1 oximetry. EKG completed in triage. Results shown to MD. :59 No provider procedures requiring assistance completed. Inserted saline lock: 20 gauge ic1 in right antecubital area, using aseptic technique. Blood collected. 11:39 Ezequiel Joyner MD is Referral Physician. ma2 12:12 IV discontinued, intact, bleeding controlled, No redness/swelling at site. Pressure ic1 dressing applied. Administered Medications: 10:10 Drug: NS 0.9% 1000 ml Route: IV; Rate: 1 bolus; Site: left antecubital; ic1 10:36 Drug: Keppra (levETIRAcetam) 1000 mg Route: IV; Rate: calculated rate; Site: left ic1 antecubital; 11:04 Dru grams of (Calcium Gluconate 1 grams, NS 0.9% 50 ml) Route: IVPB; Infused Over: ic1 60 mins; Site: left antecubital; Outcome: 11:39 Discharge ordered by . ma2 12:13 Discharged to home ambulatory. ic1 12:13 Condition: stable 12:13 Discharge instructions given to patient, Instructed on discharge instructions, follow up and referral plans. Demonstrated understanding of instructions, follow-up care, medications, Prescriptions given X 1. 12:13 Patient left the ED. ic1 Signatures: [facility] Pawan Sales MD MD ma2 Rachell Negro RN RN ic1 Corrections: (The following items were deleted from the chart) 11:04 11:03 2 grams of (Calcium Gluconate 2 grams, NS 0.9% 100 ml) IVPB in left antecubital ic1 over 60 mins ic1
[2021-05-07 12:48] VITALS: TEMP 97.4
[2021-05-07 12:49] VITALS: BP 109/71; O2SAT 100
--- NOTE | 2021-05-09 08:24 | EKG ---
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
== END 2021-05-07 12:13 | disposition home or self-care (01) ==
LOC: ER 09:43
DX: G40.89 Other seizures (principal); F17.210 Nicotine dependence, cigarettes, uncomplicated; Z91.012 Allergy to eggs; Z91.018 Allergy to other foods
CPT/HCPCS: 93005; 85025; 36415; 80053; 96375; 96374; 99284; J1953; J0610; J7030

== ENCOUNTER 2022-05-01 22:15 | Inpatient (IN) | payer OTHER ==
--- OUTSIDE RECORDS SUMMARY | 2022-05-01 22:22 | XMS REPORT | Continuity of Care Document ---
:[address] [facility] t Address [address] [facility] [place] [address] Care Team Providers Name Role Phone Johana Murillo Primary Care Physician ABBIE RAMOS Attending Clinician Unavailable Abbie Ramos DO Attending Clinician JUMA MCDONALD Attending Clinician Unavailable Kei Adkins MD Attending Clinician Juma Mcdonald MD Attending Clinician Jen Navarro RN Attending Clinician LUCIE KEITH Attending Clinician Unavailable Lucie Keith MD Attending Clinician CHARLEEN CARSON Attending Clinician Unavailable JUMA MCDONALD Admitting Clinician Unavailable Juma Mcdonald MD Admitting Clinician LUCIE KEITH Admitting Clinician Unavailable Lucie Keith MD Admitting Clinician CHARLEEN CARSON Admitting Clinician Unavailable Payers Payer Name Policy Type Policy Number Effective Date Expiration Date Polo cabrera [facility] [id number] 2018 00:00:00 PLUS Problems Condition Condition Condition Status Onset Resolution Last Treating Co mments Source Name Details Category Date Date Treatment Clinician Date Fall, Fall, Disease Active 2021-02 Univers initial initial 0-30 [place] of [place] [facility] [place] Hypocalcem Hypocalcem Disease Active U nivers ia ia 7-21 ity of 00:00: [place] [facility] Seizure Seizure Disease Active Univers 7-20 ity of 00:00: [place] [id number] Medical Branch Bipolar Bipolar Disease Active Overview: Univ ers disorder disorder 8-22 Formattin ity of 00:00: g of this note Medical might be Branch different from the original. 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 Allergies, Adverse Reactions, Alerts Allergy Allergy Status Severity Reaction(s) Onset Inactive Treating Comm ents Source Name Type Date Date Clinician NO KNOWN Drug Active Univers ALLERGIE Class ity of S [facility] Social History Social Habit Start Date Stop Date Quantity Comments Source History of Cigarette Smoker Universi ty of tobacco use [facility] Exposure to 2022-04-21 2022-05-01 Not sure University SARS-CoV-2 00:00:00 10:47:00 [facility] (event) Branch Tobacco use and 2021-12-18 2021-12-18 Smokeless tobacco Un iversity of exposure 00:00:00 00:00:00 non-user [facility] Sex Ass[birth year] At [birth year] Universit y of 00:00:00 00:00:00 [facility] Smoking Status Start Date Stop Date Source Occasional tobacco smoker 2021-12-18 00:00:00 Un iversity of [facility] Medications Ordered Filled Start Stop Current Ordering Indication Dosage Frequency Signature Comments Components Source Medication Medication Date Date Medication? Clinician (SIG) Name Name calcium 2021-02 Yes 1000mg 1,000 mg, Uni vers carbonate 1-17 Oral, BID, ity of (OSCAL-500) 02:00: First dose [place] tablet 00 (after Medical 1,000 mg last Branch modificati on) on Sun01/04/22 at 2000, Until Discontinu ed, Routine levETIRAcet 2021-02- No 500mg Take 500 Univers am (KEPPRA) 1-16 11-16 mg by ity of 500 mg 10:40: 00:00 mouth in [place] tablet 30 :00 the Medical morning Branch and 500 mg in the evening. risperiDONE 2022-1 2022- No 3mg Take 3 mg Univers 3 mg tablet 03-06 by mouth ity of 10:40: 00:00 at [place] 30 :00 bedtime. Medical Branch calcium 2021-02- No 1500mg 1,500 mg, [place] carbonate 03-06 Oral, BID, ity of (OSCAL-500) 02:00: 16:11 First dose [place] tablet 00 :28 (after Medical 1,500 mg last Branch modificati on) on Sun01/03/22 at 2000, Until Discontinu ed, Routine calcium 2021-02- No [id number] 1000mg Take 2 Univers carbonate 03-06 tablets by ity of 500 mg 00:00: 05:59 mouth in [place] calcium 00 :00 the Medical (1,250 mg) morning Branch tablet and 2 tablets in the evening. Do all this for 30 days. levETIRAcet 2021-02- No [id number] 750mg Take 1 Univers am 750 mg 03-06 tablet by ity of tablet 00:00: 05:59 mouth in [place] 00 :00 the Medical morning Branch and 1 tablet in the evening. Do all this for 30 days. nicotine 21 2021-02- No [id number] 1{patch Apply 1 Univers mg/24 hr 03-06 } Patch to ity of patch 00:00: 05:59 area(s) [place] 00 :00 every 24 Medical (twenty-fo Branch ur) hours for 28 days. nicotine 2021-02 Yes 1{patch 1 Patch, [place] (NICODERM) 03-05 } Topical, ity o f 21 mg/24 hr 18:00: Administer [place] patch 1 00 over 24 Medical Patch Hours, Branch Q24H, First dose on Sun01/03/22 at 1200, Until Discontinu ed, Routine calcium 2021-02- No 2g 2 g, IV Univer s gluconate 2 03-05 Infusion, it y of g in NaCl 15:45: 16:06 at 100 [place] 100 mL 00 :00 mL/hr Medical (ISO-OSM) Administer Bran ch RTU IV over 60 infusion 2 Minutes, g ONCE, 1 dose, On Sun01/03/22 at 0945, Routine magnesium 2021-02 Yes 400mg 400 mg, Univ ers oxide 1-15 Oral, ity of (MAG-OX 15:00: DAILY, [place] 400) tablet 00 First dose Me dical 400 mg on [facility] 01/03/22 at 0900, Until Discontinu ed cholecalcif 2021-02 Yes 2000U 2,000 Univ ers muna 1-15 Units, ity of (vitamin 15:00: Oral, [place] D3) tablet 00 DAILY, Medical 2,000 Units First dose Br anch on [facility] 01/03/22 at 0900, Until Discontinu ed, Routine calcitrioL 2021-02 Yes 1ug 1 mcg, Unive rs (ROCALTROL) 1-15 Oral, ity of capsule 1 15:00: DAILY, [place] mcg 00 First dose Medical on [facility] 01/03/22 at 0900, Until Discontinu ed, Routine divalproex 2021-02 Yes 500mg 500 mg, Uni vers (DEPAKOTE) 1-15 Oral, BID, ity of [place] tablet 14:00: First dose [place] 500 mg 00 on [facility] 01/03/22 Branch at 0800, Until Discontinu ed, Routine calcium 2021-02 No 1500mg 1,500 mg, [place] carbonate 1-15 -15 Oral, BID, ity of (OSCAL-500) 14:00: 14:52 First dose [place] tablet 00 :38 on [facility] 1,500 mg 01/03/22 Branch at 0800, Until Discontinu ed, Routine LORazepam 2021-02 Yes 1mg 1 mg, Univers (ATIVAN) 1-15 Intravenou ity o f injection 1 06:01: s, Q4HPRN, [place] mg 36 Starting Medical on [facility] 01/03/22 at 0001, Until Discontinu ed, Routine, Seizures docusate 2021-02 Yes 100mg 100 mg, Unive rs (COLACE) 1-15 Oral, ity of capsule 100 06:00: QDAILYPRN, [place] mg 50 Starting Medical on [facility] 01/03/22 at 0000, Until Discontinu ed, Routine, Constipati on levETIRAcet 2021-02 Yes 750mg 750 mg, [place] am (KEPPRA) 1-15 Oral, BID, it y of tablet 750 05:00: First dose [place] mg 00 on [facility] 01/02/22 Branch at 2300, Until Discontinu ed, Routine NaCl 0.9% 2021-02 No 1000mL at 125 Uni vers (NS) IV -15 11-16 mL/hr, IV ity of infusion 05:00: 16:12 Infusion, [place] 1,000 mL 00 :27 CONTINUOUS Medic al , Starting Branch on Sun01/02/22 at 2300, Until Sun01/04/22 at 1012, Routine ondansetron 2021-02 Yes 4mg 4 mg, Slow Univers (ZOFRAN 1-15 IV Push, ity of (PF)) 04:51: Q6HPRN, [place] injection 4 55 Starting Medi laz mg on [place] Branch 01/02/22 at 2251, Until Discontinu ed, Routine, Nausea and Vomiting (N/V) HYDROcodone 2021-02- No 1{tbl} 1 tablet, Univers -acetaminop 03-0517 Oral, ity of hen (NORCO 04:51: 04:50 Q6HPRN, [place] 5) 5-325 mg 40 :40 Starting Medi laz tablet 1 on [place] Branch tablet 01/02/22 at 2251, Until Sun01/04/22 at 2250, Routine, Pain (scale 4-6) acetaminoph 2021-02 Yes 650mg 650 mg, [place] en 1-15 Oral, ity of (TYLENOL) 04:51: Q6HPRN, [place] tablet 650 36 Starting Medic al mg on [place] [facility] 01/02/22 at 2251, Until Discontinu ed, Routine, Pain (scale 1-3) calcium 2021-02- No 1g 1 g, IV Univer s gluconate 1 -15 11-15 Infusion, it y of g in NaCl 04:45: 04:39 at 100 [place] 50 mL 00 :00 mL/hr Medical (ISO-OSM) Administer Bran ch RTU IV over 30 infusion 1 Minutes, g ONCE, 1 dose, On Sun01/02/22 at 2245, MARTHA cholecalcif 2021-02 Yes [id number] 2000U Take 2 Univers muna, 1-02 tablets by ity of vitamin D3, 00:00: mouth in [place] 25 mcg 00 the Medical (1,000 morning. Branch unit) tablet cholecalcif 2021-02 Yes [id number] Take 2 Univers muna, 1-02 tablets by ity of vitamin D3, 00:00: mouth in [place] 25 mcg 00 the Medical ( morning. Branch unit) tablet cholecalcif 2021-02 Yes [id number] Take 2 Univers muna, 1-02 tablets by ity of vitamin D3, 00:00: mouth in [place] 25 mcg 00 the Medical ( morning. Branch unit) tablet cholecalcif 2021-02 Yes [id number] Take 2 Univers muna, 1-02 tablets by ity of vitamin D3, 00:00: mouth in [place] 25 mcg 00 the Medical ( morning. Branch unit) tablet calcitrioL 2021-02 Yes 1ug 1 mcg, Unive rs (ROCALTROL) 02-19 Oral, ity of capsule 1 14:15: DAILY, [place] mcg 00 First dose Medical (after [place] last modificati on) on Sun12/20/21 at 0915, Until Discontinu ed, Routine calcitrioL 2021-02- No .5ug 0.5 mcg, [place] (ROCALTROL) 02-19 Oral, ity of capsule 0.5 14:00: 14:11 DAILY, [place] mcg 00 :53 First dose Medical (after [place] last modificati on) on Sun12/20/21 at 0900, Until Discontinu ed, Routine levetiracet 2021-02- No 500mg Take 500 Univers am (KEPPRA 02-19 mg by ity of XR ORAL) 11:07: 00:00 mouth. [place] 00 :00 pharmacy Medical states [facility] only gets this from an ED, not regular prescribed . calcium 2021-02 Yes 1500mg 1,500 mg, Uni vers carbonate 02-19 Oral, BID, ity of (OSCAL-500) 01:00: First dose [place] tablet 00 (after Medical 1,500 mg last Branch modificati on) on Sun12/19/21 at 2000, Until Discontinu ed, Routine magnesium 2021-02 Yes 400mg 400 mg, Univ ers oxide 02-19 Oral, BID, ity of (MAG-OX 01:00: First dose [place] 400) tablet 00 (after Medica l 400 mg last Branch modificati on) on Sun12/19/21 at 2000, Until Discontinu ed, Routine calcitrioL 2021-02- No [id number] 1ug Take 2 U nivers 0.5 mcg 02-19 capsules ity of capsule 00:00: 05:59 by mouth [place] 00 :00 in the [facility] Branch for 30 days. calcium 2021-02- No [id number] 1500mg Take 3 [place] carbonate 02-19 tablets by ity of 500 mg 00:00: 05:59 mouth in [place] calcium 00 :00 the Medical (1,250 mg) morning Branch tablet and 3 tablets in the evening. Do all this for 30 days. magnesium 2021-02- No [id number] 400mg Take 400 Univers oxide 420 02-19 mg by ity of mg Tab 00:00: 05:59 mouth [place] 00 :00 daily for Medical 30 days. Branch divalproex 2021-02- No [id number] 500mg Take 1 Univers 500 mg EC 02-19 tablet by ity of tablet 00:00: 05:59 mouth in [place] 00 :00 the [facility] Branch and 1 tablet in the evening. Do all this for 30 days. calcitrioL 2021-02- No [id number] 1ug Take 2 U nivers 0.5 mcg 02-19 capsules ity of capsule 00:00: 05:59 by mouth [place] 00 :00 in the [facility] Branch for 30 days. magnesium 2021-02- No [id number] 400mg Take 400 Univers oxide 420 02-19 mg by ity of mg Tab 00:00: 05:59 mouth [place] 00 :00 daily for Medical 30 days. Branch divalproex 2021-02- No [id number] 500mg Take 1 Univers 500 mg EC 02-19 tablet by ity of tablet 00:00: 05:59 mouth in [place] 00 :00 the [facility] morning Branch and 1 tablet in the evening. Do all this for 30 days. calcitrioL 2021-02- No [id number] 1ug Take 2 U nivers 0.5 mcg 02-19 capsules ity of capsule 00:00: 05:59 by mouth [place] 00 :00 in the Medical morning Branch for 30 days. calcium 2021-02- No [id number] 1500mg Take 3 [place] carbonate 02-19 tablets by ity of 500 mg 00:00: 05:59 mouth in [place] calcium 00 :00 the Medical (1,250 mg) morning Branch tablet and 3 tablets in the evening. Do all this for 30 days. magnesium 2021-02- No [id number] 400mg Take 400 Univers oxide 420 02-19 mg by ity of mg Tab 00:00: 05:59 mouth [place] 00 :00 daily for Medical 30 days. Branch divalproex 2021-02- No [id number] 500mg Take 1 Univers 500 mg EC 02-19 tablet by ity of tablet 00:00: 05:59 mouth in [place] 00 :00 the [facility] Branch and 1 tablet in the evening. Do all this for 30 days. calcium 2021-02- No [id number] 1500mg Take 3 [place] carbonate 02-19 tablets by ity of 500 mg 00:00: 00:00 mouth in [place] calcium 00 :00 the Medical (1,250 mg) morning Branch tablet and 3 tablets in the evening. Do all this for 30 days. calcitrioL 2021-02 .5ug 0.5 mcg, [place] (ROCALTROL) 12-19 Oral, ity of capsule 0.5 15:30: 15:53 ONCE, 1 [place] mcg 00 :00 dose, On Medical [facility] 12/19/21 at 1030, Routine calcium 2021-02 No 2g 2 g, IV Univer s gluconate 2 12-19 Infusion, it y of g in NaCl 15:00: 19:37 at 66.67 [place] 100 mL 00 :00 mL/hr Medical (ISO-OSM) Administer Bran ch RTU IV over 90 infusion 2 Minutes, g Q2H, 2 doses, First dose on Sun12/19/21 at 1000, Last dose on Sun12/19/21 at 1200, Routine magnesium 2021-02 No 2g 2 g, IV Univ ers sulfate in 12-19 Piggyback, it y of water 2 15:00: 16:57 Administer [place] gram/50 mL 00 :00 over 60 Medica l (4 %) Minutes, Branch infusion 2 ONCE, 1 g dose, On [facility] 12/19/21 at 1000, Routine cholecalcif 2021-02 Yes 2000U 2,000 Univ ers muna 0-31 Units, ity of (vitamin 14:45: Oral, [place] D3) tablet 00 DAILY, Medical 2,000 Units First dose Br anch on [facility] 12/19/21 at 0945, Until Discontinu ed, Routine divalproex 2021-02 Yes 500mg 500 mg, Uni vers (DEPAKOTE) 0 Oral, QAM, ity of EC tablet 14:00: First dose [place] 500 mg 00 on [facility] 12/19/21 Branch at 0900, Until Discontinu ed, Routine magnesium 2021-02 No 400mg 400 mg, Uni vers oxide 12-19 Oral, ity of (MAG-OX 14:00: 14:43 DAILY, [place] 400) tablet 00 :11 First dose Me dical 400 mg on [facility] 12/19/21 at 0900, Until Discontinu ed, Routine calcium 2021-02 No 1000mg 1,000 mg, [place] carbonate 12-19 Oral, ity of (OSCAL-500) 14:00: 14:43 DAILY, [place] tablet 00 :11 First dose Medical 1,000 mg on [facility] 12/19/21 at 0900, Until Discontinu ed, Routine calcitrioL 2021-02 No .5ug 0.5 mcg, [place] (ROCALTROL) 12-19 Oral, ity of capsule 0.5 14:00: 14:43 DAILY, [place] mcg 00 :11 First dose Medical on [facility] 12/19/21 at 0900, Until Discontinu ed, Routine melatonin 2021-02 Yes 3mg 3 mg, Univers (MELATIN) Oral, QHS, ity of tablet 3 mg 02:00: First dose [place] 00 on [facility] 12/18/21 Branch at 2100, Until Discontinu ed, Routine LORazepam 2021-02 No 2mg 2 mg, Slow U nivers (ATIVAN) 12-19 IV Push, ity of injection 2 01:30: 01:04 ONCE, 1 [place] mg 00 :00 dose, On [facility] 12/18/21 at 2030, Routine docusate 2021-02 Yes 100mg 100 mg, Unive rs (COLACE) 0-31 Oral, BID, ity o f capsule 100 01:00: First dose [place] mg 00 on [facility] 12/18/21 Branch at 2000, Until Discontinu ed, Routine OLANZapine 2021-02 Yes 10mg 10 mg, Unive rs (ZYPREXA) 0-31 Intramuscu ity of injection 00:37: lar, [place] 10 mg 50 BIDPRN, Medical Starting Branch on [place] 12/18/21 at 1937, Until Discontinu ed, Routine, Agitation calcium 2021-02 No 2g 2 g, IV Univer s gluconate 2 012-19 Infusion, it y of g in NaCl 00:30: 02:03 at 200 [place] 100 mL 00 :00 mL/hr Medical (ISO-OSM) Administer Bran ch RTU IV over 30 infusion 2 Minutes, g ONCE, 1 dose, On [place] 12/18/21 at 1930, Routine enoxaparin 2021-02 Yes 40mg 40 mg, Unive rs (LOVENOX) 0-30 Subcutaneo ity of injection 22:00: us, DAILY, [place] 40 mg 00 First dose Medical on [facility] 12/18/21 at 1700, Until Discontinu ed, Routine divalproex 2021-02 Yes 1000mg 1,000 mg, Univers (DEPAKOTE) 0-30 Oral, QPM, ity of EC tablet 22:00: First dose [place] 1,000 mg 00 on [facility] 12/18/21 Branch at 1700, Until Discontinu ed, Routine calcium 2021-02 No 500mg 500 mg, Unive rs carbonate 030 31 Oral, QPM, ity of (OSCAL-500) 22:00: 14:43 First dose [place] tablet 500 00 :26 on [facility] 12/18/21 Branch at 1700, Until Discontinu ed, Routine ondansetron 2021-02 Yes 4mg 4 mg, Slow Univers (ZOFRAN 0-30 IV Push, ity of (PF)) 15:16: Q6HPRN, [place] injection 4 39 Starting Medi laz mg on [facility] 10/30/22 at 1016, Until Discontinu ed, Routine, Nausea and Vomiting (N/V) acetaminoph 2021-02 Yes 650mg 650 mg, [place] en 0-30 Oral, ity of (TYLENOL) 15:16: Q6HPRN, [place] tablet 650 31 Starting Medic al mg on [place] [facility] 12/18/21 at 1016, Until Discontinu ed, Routine, Pain (scale 1-3) divalproex 2021-02- No 250mg 250 mg, [place] ER 0-30 10-30 Oral, ity of (DEPAKOTE 15:00: 14:21 ONCE, 1 [place] ER) 24 hr 00 :00 dose, On Medica l tablet 250 [place] Branch mg 12/18/21 at 1000, Routine calcium 2021-02- No 2g 2 g, IV Univer s gluconate 2 0-30 10-30 Infusion, it y of g in NaCl 14:30: 14:20 at 200 [place] 100 mL 00 :00 mL/hr Medical (ISO-OSM) Administer Bran ch RTU IV over 30 infusion 2 Minutes, g ONCE, 1 dose, On [place] 12/18/21 at 0930, Routine NaCl 0.9% 2021-02 No 1000mL at 999 Uni vers (NS) bolus 0-30 10-30 mL/hr, ity of infusion 14:00: 14:21 1,000 mL, [place] 1,000 mL 00 :00 IV Medical Infusion, Branch ONCE, 1 dose, On [place] 12/18/21 at 0900, MARTHA divalproex 2021- No [id number] 1000mg Take 2 Univers 500 mg EC 5-12-20 tablets by ity of tablet 00:00: 00:00 mouth [place] 00 :00 every Medical evening. [place] calcium 2021- No [id number] 500mg Take 1 [place] carbonate 5-18 - tablet by ity of 500 mg 00:00: 00:00 mouth [place] calcium 00 :00 every Medical (1,250 mg) evening. Branc h tablet calcitrioL 2021- No [id number] .5ug Take 1 U nivers 0.5 mcg -12-20 capsule by ity o f capsule 00:00: 00:00 mouth [place] 00 :00 daily. Medical Branch calcium 2021- No 1000mg Take 2 Unive rs carbonate 09-10 tablets by ity of 500 mg 00:00: 00:00 mouth [place] calcium 00 :00 daily. Medical (1,250 mg) Branch tablet magnesium 2021- No 400mg Take 1 Univ ers oxide 400 09-10 tablet by ity of mg tablet 00:00: 00:00 mouth [place] 00 :00 daily.X 12 Medical MOS.HG Branch docusate Yes 100mg Take 1 Univer s 100 mg 7-22 capsule by ity of capsule 00:00: mouth once [place] 00 daily as Medical needed for Branch Constipati on. docusate Yes 100mg Take 1 Univer s 100 mg 7-22 capsule by ity of capsule 00:00: mouth once [place] 00 daily as Medical needed for Branch Constipati on. docusate Yes 100mg Take 1 Univer s 100 mg 7-22 capsule by ity of capsule 00:00: mouth once [place] 00 daily as Medical needed for Branch Constipati on. docusate Yes 100mg Take 1 Univer s 100 mg 7-22 capsule by ity of capsule 00:00: mouth once [place] 00 daily as Medical needed for Branch Constipati on. divalproex 2021- No 500mg Take 1 Uni vers 500 mg EC 09-09 tablet by ity of tablet 00:00: 00:00 mouth [place] 00 :00 every Medical morning. Branch nystatin 2021- Apply to Univ ers 100,000 09-09 area(s) 2 ity of unit/gram 00:00: 00:00 (two) [place] powder 00 :00 times Medical daily.X 1 Branch MON.HG Immunizations Ordered Filled Immunization Date Status Comments [facility] e Immunization Name Name Td 2021-12-18 Completed [facility] 00:00:00 [facility] Td 2021-12-18 Completed [place] [facility] 00:00:00 [facility] TD, NOS 2021-12-18 Completed University of 00:00:00 [facility] Td 2021-12-18 Completed [facility] 00:00:00 [facility] TDAP 2020-07-06 Completed [place] [facility] 00:00:00 [facility] TDAP 2020-07-06 Completed University of 00:00:00 [place] [facility] TDAP 2020-07-06 Completed University of 00:00:00 [place] [facility] TDAP 2020-07-06 Completed University of 00:00:00 [facility] Vital Signs Vital Name Observation Time Observation Value Comments Source Systolic blood 2022-05-01 15:50:00 113 mm[Hg] Univer sity of pressure [place] [facility] Diastolic blood 2022-05-01 15:50:00 68 mm[Hg] Unive rsity of pressure [place] [facility] Heart rate 2022-05-01 15:50:00 85 /min Universi ty of [place] [facility] Body temperature 2022-05-01 15:50:00 36.67 Huong Univ ersity of [place] [facility] Respiratory rate 2022-05-01 15:50:00 18 /min Univ ersity of [place] [facility] Body weight 2022-05-01 15:50:00 68.04 kg Universi ty of [place] [facility] [place] BMI 2022-05-01 15:50:00 22.81 kg/m2 Universi ty of [place] [facility] [place] Oxygen saturation in 2022-05-01 15:50:00 100 /min University of Arterial blood by [place] Pulmonx laz Pulse oximetry Branch Systolic blood 2022-01-04 13:04:00 94 mm[Hg] Univer sity of pressure [place] [facility] Diastolic blood 2022-01-04 13:04:00 58 mm[Hg] Unive rsity of pressure [place] [facility] Heart rate 2022-01-04 13:04:00 83 /min Universi ty of [place] [facility] Body temperature 2022-01-04 13:04:00 36.56 Huong Univ ersity of [place] [facility] Respiratory rate 2022-01-04 13:04:00 18 /min Univ ersity of [place] [facility] Oxygen saturation in 2022-01-04 13:04:00 96 /min University of Arterial blood by [place] Pulmonx laz Pulse oximetry Branch Body weight 2022-01-04 09:41:00 69.491 kg Universi ty of [place] [facility] BMI 2022-01-04 09:41:00 23.29 kg/m2 Universi ty of [place] [facility] Body height 2022-01-03 04:41:00 172.7 cm Universi ty of [place] [facility] Systolic blood 2021-12-20 13:01:00 121 mm[Hg] Univer sity of [facility] Diastolic blood 2021-12-20 13:01:00 87 mm[Hg] [facility] 2021-12-20 13:01:00 106 /min [facility] Body temperature 2021-12-20 13:01:00 36.33 Huong [facility] [place] [facility] Res[facility] rate 2021-12-20 13:01:00 18 /min [facility] Oxygen saturation in 2021-12-20 13:01:00 96 /min [facility] blood [facility] Pulse oximetry [place] Body weight 2021-12-18 15:29:00 70.489 kg [facility] BMI 2021-12-18 15:29:00 24.34 kg/m2 [facility] Body height 2021-12-18 15:22:00 170.2 cm [facility] Procedures Procedure Date / Time Performing Clinician Source Performed PHOSPHORUS 2022-01-04 09:35:00 Dexter [facility] MAGNESIUM 2022-01-04 09:35:00 [facility] IONIZED CALCIUM 2022-01-04 09:35:00 [facility]OL[facility] PANEL 2022-01-04 09:35:00 Tamara Juma [facility] (NA, K, CL, CO2, [facility] GLUCOSE, BUN, CREATININE, CA) IONIZED CALCIUM 2022-01-03 15:16:00 [facility]OL[facility] PANEL 2022-01-03 10:05:00 Kai [facility] (NA, K, CL, CO2, [facility] GLUCOSE, BUN, CREATININE, CA) CBC WITH DIFF 2022-01-03 10:05:00 Russell Pepe [facility] URINALYSIS 2022-01-03 03:11:[address] [facility] URINE DRUG (IMMUNOASSAY) 2022-01-03 03:11:00 Kei Adkins [facility] Medical [facility] SCREEN W/O REFLEX LACTIC ACID WHOLE BLOOD 2022-01-03 03:06:00 Jed [facility] CREATINE KINASE 2022-01-03 03:05:00 Jed [facility] MAGNESIUM 2022-01-03 03:05:00 Jed [facility] FREE T4 2022-01-03 03:05:00 Jed [facility] THYROID STIMULATING 2022-01-03 03:05:00 Kei Adkins [facility] HORMONE [facility] COMP. METABOLIC PANEL 2022-01-03 03:05:00 Jed [facility] ([id number]) [facility] VALPROIC ACID, TOTAL 2022-01-03 03:05:00 Kei Adkins [facility] ETHANOL 2022-01-03 03:05:00 Jed [facility] CBC WITH DIFF 2022-01-03 03:05:00 Jed [facility] HB ECG ROUTINE & RHYTHM 2022-01-03 03:01:59 [facility] 2021-12-20 09:41[facility]00 [facility] 2021-12-20 09:41[facility] 2021-12-20 09:41:00 [facility] (NA, K, CL, CO2, Medical Branch GLUCOSE, BUN, CREATININE, CA) VITAMIN D, 25-OH 2021-12-19 11:59:00 Sagar [facility] PHOSPHORUS 2021-12-19 11:59:00 [facility]UM 2021-12-19 11:59:00 Sagar [facility] IONIZED CALCIUM 2021-12-19 11:59:00 Sagar [facility] BASIC METABOLIC PANEL 2021-12-19 11:59:00 Sagar [facility] (NA, K, CL, CO2, Medical Branch GLUCOSE, BUN, CREATININE, CA) CBC WITH DIFF 2021-12-19 11:58:00 [place], [facility] URINE DRUG (IMMUNOASSAY) 2021-12-18 22:24:00 Lucie Keith [facility] nc SCREEN W/O REFLEX IONIZED CALCIUM 2021-12-18 19:01:00 Sagar [facility] MRSA / MSSA SCREEN BY 2021-12-18 16:46:00 Lucie Keith [facility] PCR, NARES Medical Branch CT TRAUMA HEAD WO 2021-12-18 13:58:59 Abbie Ramos [facility] CONTRAST [facility] CT TRAUMA CERVICAL SPINE 2021-12-18 13:58:59 Abbie Ramos [facility] WO CONTRAST Medical Branch CT 2021-12-18 13:58:59 Abbie Ramos [facility] MAXILLOFACIAL/MANDIBLE Medical [place] WO CONTRAST HB ECG ROUTINE & RHYTHM 2021-12-18 13:12:29 Abbie Ramos [facility] STRIP [facility] LACTIC ACID WHOLE BLOOD 2021-12-18 13:09:00 Abbie Ramos [facility] MAGNESIUM 2021-12-18 13:08:00 Sagar [facility] COMP. METABOLIC PANEL 2021-12-18 13:08:00 Abbie Ramos [facility] ([id number]) [facility] VALPROIC ACID, TOTAL 2021-12-18 13:08:00 Abbie Ramos [facility] ETHANOL 2021-12-18 13:08:00 Abbie Ramos [facility] CBC WITH DIFF 2021-12-18 13:08:00 Abbie Ramos [facility] Encounters Start End Encounter Admission Attending Care Care Encounter Source Date/Time Date/Time Type Type Clinicians Facility Department ID 2022-05-01 2022-05-01 Emergency X DWAYNE RAMOS ERT [id number] Univers 10:51:00 12:29:00 ABBIE hernandez [facility] 2022-05-01 2022-05-01 Emergency DWAYNE Ramos [id number] Univers 10:51:00 12:29:00 Abbie COL[id number] [facility] 4.2.7.2.686 [facility] [id number] [facility] 084 Branch 2022-01-02 2022-01-04 Outpatient X TAMARA [facility] SALAS [id number] Univers 20:51:00 13:40:00 JUMA noemi [facility] 2022-01-02 2022-01-04 Emergency Kei Adkins [facility] 1.2.840. [id number] Univers 20:51:00 13:40:00 Tamara Juma COLON 350.1.13.10 [facility] 4.2.7.2.686 [facility] [id number] [place] [address] [place] 2021-12-21 2021-12-21 Transition Ramon KODIMin [id number] Univers 00:00:00 00:00:00 of Care Jen Mehta SOHAN 350.1.13.10 i ty of [place] 4.2.7.[address] [facility] [id number] [facility] 403 Branch 2021-12-18 2021-12-20 Inpatient X SAGAR [facility] [id number] Univers 08:00:00 11:48:00 LUCIE [facility] 2021-12-18 2021-12-20 Hospital Abbie Ramos [facility] 1.2.84 0.114 [id number] Univers 08:00:00 11:48:00 Encounter Lucie Keith KEOTA [id number] [facility] 4.2.7.2.686 [facility] [id number] [address] 2020-07-06 2020-07-06 Emergency X YAMILETH [facility] ERT [id number] Univers 14:08:00 15:32:00 NADMARTHA [facility] Results Test Description Test Time Test Comments Results Result Comments Source Basic Metabolic Panel (NA, K, CL, CO2, GLUCOSE, BUN, 2021-12 13:03:27 CREATININE, [place]) Test Item Value Reference Range Interpretation Comme nts NA (test code = 5250678145) 140 mmol/L 135-145 K (test code = 9403972513) 3.8 mmol/L 3.5-5.0 CL (test code = 5823919131) 103 mmol/L 98-108 CO2 TOTAL (test code = 8084428776) 30 mmol/L 23-31 AGAP (test code = 2311240809) 2-16 BUN (test code = 4491657141) 13 mg/dL 7-23 GLUCOSE (test code = 1798073801) 87 mg/dL 70-110 CREATININE (test code = 0.92 mg/dL 0.60-1.25 0717286916) CALCIUM (test code = 1639460524) 7.5 mg/dL 8.6-10.6 L eGFR (test code = 2319075133) mL/min/1.73m2 STEFANI (test code = STEFANI) Association of Glomerular Filtration Rate (GFR) and Staging of Kidney Disease* + +-------- + ------+| GFR (mL/min/1.73 m2) ?| With Kidney Damage ?| ?Without Kidney Damage+ +-- + +| ?>90 ?| ?Stage one ?| ? Normal ?+ +------- + -------+| ?60-89 ?| ?Stage two ?| ? Decreased GFR ? + +-------- + ------+| ?30-59 ?| ?Stage three ?| ? Stage three ? + +-------- + ------+| ?15-29 ?| ?Stage four ? | ? Stage four ?+ +------- + -------+| ?<15 (or dialysis) ? ?| ?Stage five ? | ? Stage five ?+ +------- + -------+ *Each stage assumes the associated GFR level has been in effect for at least three months. ?Stages 1 to 5, with or without kidney disease, indicate chronic kidney disease. Notes: Determination of stages one and two (with eGFR >59mL/min/1.73 m2) requires estimation of kidney damage for at least three months as defined by structural or functional abnormalities of the kidney, manifested by either:Pathological abnormalities or Markers of kidney damage (including abnormalities in the composition of the blood or urine or abnormalities in imaging tests). Lab Interpretation (test code = Abnormal 00661-4) [facility] with [id number] 11:01:59 Test Item Value Reference Range Interpretation Comments WBC (test code = See_Comment [Automated 6690-2) message] The sy stem which generated this result transmitted reference range : 4.20 - 10.70 10*3/?L. The reference range was not used to interpret this result as normal/abnormal . RBC (test code = See_Comment L [Automated 789-8) message] The sy stem which generated this result transmitted reference range : 4.26 - 5.52 10*6/?L. The reference range was not used to interpret this result as normal/abnormal . HGB (test code = 12.6 g/dL 12.2-16.4 718-7) HCT (test code = 37.1 % 38.4-49.3 L 4544-3) MCV (test code = 90.9 fL 81.7-95.6 787-2) MCH (test code = 30.9 pg 26.1-32.7 785-6) MCHC (test code = 34.0 g/dL 31.2-35.0 786-4) RDW-SD (test code = 44.6 fL 38.5-51.6 01239-9) RDW-CV (test code = 13.3 % 12.1-15.4 788-0) PLT (test code = See_Comment L [Automated 777-3) message] The sy stem which generated this result transmitted reference range : 150 - 328 10*3/ ?L. The reference r samantha was not used to interpret this result as normal/abnormal . MPV (test code = 12.6 fL 9.8-13.0 79123-5) NRBC/100 WBC (test See_Comment [Automat ed code = 7924043714) message] The system which generated this result transmitted reference range : 0.0 - 10.0 /100 WBCs. The refer ence range was not u sed to interpret th is result as normal/abnormal . NRBC x10^3 (test code See_Comment [Auto mated = 5812519342) message] The s ystem which generated this result transmitted reference range : 10*3/?L. The reference range was not used to interpret this result as normal/abnormal . GRAN MAT (NEUT) % 69.8 % (test code = 770-8) IMM GRAN % (test code 0.70 % = 7375180330) LYMPH % (test code = 17.0 % 736-9) MONO % (test code = 9.8 % 5905-5) EOS % (test code = 2.3 % 713-8) BASO % (test code = 0.4 % 706-2) GRAN MAT x10^3(ANC) 5.12 10*3/uL 1.99-6.95 (test code = 1876248041) IMM GRAN x10^3 (test 0.05 10*3/uL 0.00-0.06 code = 1380592457) LYMPH x10^3 (test code 1.25 10*3/uL 1.09-3.23 = 731-0) MONO x10^3 (test code 0.72 10*3/uL 0.36-1.02 = 742-7) EOS x10^3 (test code = 0.17 10*3/uL 0.06-0.53 711-2) BASO x10^3 (test code 0.03 10*3/uL 0.01-0.09 = 704-7) Lab Interpretation Abnormal (test code = 39050-9) [facility] [id number] 04:18:20 Test Item Value Reference Range Interpretation Comments VALPROIC A (test code = 62 ug/mL 50-100 3374424260) STEFANI (test code = STEFANI) Toxic Range: ?Greater than 100 ug/mL Lab Interpretation (test Normal code = 70658-2) [facility] [id number] 04:00:53 Test Item Value Reference Range Interpretation Comments TSH (test code = See_Comment [Automated message] 8721436742) The system [employer] generated this result transmitted ref erence range: 0.45 - 4 .70 mIU/L. The refe rence range was not u sed to interpret this result as normal/abnor mal. Lab Interpretation (test Normal code = 12064-4) [facility] 03:48:18 ALCOHOL<10mg/dL01/02/2022 9:48 PM [facility]10 Tbbwbwmb53-335 Toxic>100 Depression of UNIX SYSTEM ADMINISTRATOR>400 Fatalities ReportedUnWhite Rock Medical CenterFREE [id number] 03:46:53 Test Item Value Reference Range Interpretation Comments FREE T4 (test code = See_Comment [Autom ated message] 0458252662) The system [employer] generated this result transmitted ref erence range: 0.78 - 2 .20 ng/dL:. The ref erence range was not u sed to interpret this result as normal/abnor mal. Lab Interpretation (test Normal code = 36371-6) [facility]. METABOLIC PANEL (52360)2022-01-03 03:30:31 Test Item Value Reference Range Interpretation Comments NA (test code = 140 mmol/L 135-145 5932197608) K (test code = 5.4 mmol/L 3.5-5.0 H 2837749659) CL (test code = 98 mmol/L 98-108 8010290558) CO2 TOTAL (test code = 32 mmol/L 23-31 H 6211246258) AGAP (test code = 2-16 9991474319) BUN (test code = 14 mg/dL 7-23 4257159182) GLUCOSE (test code = 107 mg/dL 70-110 6393807550) CREATININE (test code = 0.94 mg/dL 0.60-1.25 4769214420) TOTAL BILI (test code = 0.3 mg/dL 0.1-1.3 0224459541) CALCIUM (test code = 7.6 mg/dL 8.6-10.6 L 6332389248) T PROTEIN (test code = 8.1 g/dL 6.3-8.2 8131586529) ALBUMIN (test code = 4.4 g/dL 3.5-5.0 8919834611) ALK PHOS (test code = 65 U/L 34-122 6110594699) ALTv (test code = 19 U/L 5-50 1742-6) AST(SGOT) (test code = 28 U/L 13-40 9474464442) eGFR (test code = mL/min/1.73m2 0789888613) STEFANI (test code = STEFANI) Association of Glomerular Filtration Rate (GFR) and Staging of Kidney Disease* + --+ --+ ------+| GFR (mL/min/1.73 m2) ?| With Kidney Damage ?| ?Without Kidney Damage+ --------+ --------+ +| ?>90 ?| ?Stage one ?| ? Normal ?+ ---+ ---+ -------+| ?60-89 ?| ?Stage two ?| ? Decreased GFR ? + --+ --+ ------+| ?30-59 ?| ?Stage three ?| ? Stage three ? + --+ --+ ------+| ?15-29 ?| ?Stage four ? | ? Stage four ?+ ---+ ---+ -------+| ?<15 (or dialysis) ? ?| ?Stage five ? | ? Stage five ?+ ---+ ---+ -------+ *Each stage assumes the associated GFR level has been in effect for at least three months. ?Stages 1 to 5, with or without kidney disease, indicate chronic kidney disease. Notes: Determination of stages one and two (with eGFR >59mL/min/1.73 m2) requires estimation of kidney damage for at least three months as defined by structural or functional abnormalities of the kidney, manifested by either:Pathological abnormalities or Markers of kidney damage (including abnormalities in the composition of the blood or urine or abnormalities in imaging tests). Lab Interpretation Abnormal (test code = 52882-1) [facility] 03:30:31 Test Item Value Reference Range Interpretation Comments MAGNESIUM (test code = 7939643786) 1.8 mg/dL 1.7-2.4 Lab Interpretation (test code = Normal 79461-9) [facility]CREAT[facility] [id number] 03:30:11 Test Item Value Reference Range Interpretation Comments CK (test code = 5047887923) 128 U/L 33-194 Lab Interpretation (test code = Normal 35418-5) [facility] Center[facility] WITH [id number] 03:25:12 Test Item Value Reference Range Interpretation Comments WBC (test code = See_Comment [Automated 6490-2) message] The sy stem which generated this result transmitted reference range : 4.20 - 10.70 10*3/?L. The reference range was not used to interpret this result as normal/abnormal . RBC (test code = See_Comment [Automated 789-8) message] The sy stem which generated this result transmitted reference range : 4.26 - 5.52 10*6/?L. The reference range was not used to interpret this result as normal/abnormal . HGB (test code = 14.3 g/dL 12.2-16.4 718-7) HCT (test code = 42.8 % 38.4-49.3 4544-3) MCV (test code = 91.1 fL 81.7-95.6 787-2) MCH (test code = 30.4 pg 26.1-32.7 785-6) MCHC (test code = 33.4 g/dL 31.2-35.0 786-4) RDW-SD (test code = 45.0 fL 38.5-51.6 49503-5) RDW-CV (test code = 13.2 % 12.1-15.4 788-0) PLT (test code = See_Comment L [Automated 777-3) message] The sy stem which generated this result transmitted reference range : 150 - 328 10*3/ ?L. The reference r samantha was not used to interpret this result as normal/abnormal . MPV (test code = 12.2 fL 9.8-13.0 65882-0) NRBC/100 WBC (test See_Comment [Automat ed code = 1475961184) message] The system which generated this result transmitted reference range : 0.0 - 10.0 /100 WBCs. The refer ence range was not u sed to interpret th is result as normal/abnormal . NRBC x10^3 (test code See_Comment [Auto mated = 9433236808) message] The s ystem which generated this result transmitted reference range : 10*3/?L. The reference range was not used to interpret this result as normal/abnormal . GRAN MAT (NEUT) % 83.1 % (test code = 770-8) IMM GRAN % (test code 0.90 % = 0245043335) LYMPH % (test code = 8.3 % 736-9) MONO % (test code = 6.4 % 5905-5) EOS % (test code = 0.9 % 713-8) BASO % (test code = 0.4 % 706-2) GRAN MAT x10^3(ANC) 8.50 10*3/uL 1.99-6.95 H (test code = 7901091724) IMM GRAN x10^3 (test 0.09 10*3/uL 0.00-0.06 H code = 3056986474) LYMPH x10^3 (test code 0.85 10*3/uL 1.09-3.23 L = 731-0) MONO x10^3 (test code 0.65 10*3/uL 0.36-1.02 = 742-7) EOS x10^3 (test code = 0.09 10*3/uL 0.06-0.53 711-2) BASO x10^3 (test code 0.04 10*3/uL 0.01-0.09 = 704-7) Lab Interpretation Abnormal (test code = 51976-9) [facility]"
[2022-05-01] MEDS ORDERED: NA CHLORIDE 0.9% 1,000 ML ONE (23:17)
[2022-05-01 23:54] LABS: Hematocrit 37.8 % (39.6-49.0); Lymphocytes % 10.8 % (15.3-44.8); MCV 88.5 fL (80-100); MPV 10.4 fL (7.6-11.3); RBC Red Blood Cell Count 4.28 M/uL (4.33-5.43)
[2022-05-01 23:58] LABS: Protime INR 1.29
[2022-05-02 01:21] LABS: ALT/SGPT 30 U/L (16-61); AST/SGOT 41 U/L (15-37); Albumin 3.2 g/dL (3.4-5.0); Alkaline Phosphatase 86 U/L (45-117); BUN Blood Urea Nitrogen 19 mg/dL (7-18); Bicarbonate 29 mmol/L (21-32); Bilirubin Direct 0.1 mg/dL (0-0.2); Bilirubin Total 0.4 mg/dL (0.2-1.0); Glomerular Filtration Rate 108 ml/min (=/>90); Glucose Level 114 mg/dL (74-106); Potassium 3.5 mmol/L (3.5-5.1); Sodium Level 137 mmol/L (136-145)
[2022-05-02 01:50] LABS: Urine Blood Trace-lysed (Negative); Urine Glucose Trace (Negative); Urine Protein 1+ (Negative); Urine Specific Gravity 1.025 (1.005-1.030)
[2022-05-02] MEDS ORDERED: CALCIUM GLUCONATE 1 GM IVPB 2 GM/100 ML BAG IV ONE ×2 (01:51→17:19)
[2022-05-02] MEDS ORDERED: LORazepam 2 MG/ML VIAL ONE (02:03)
[2022-05-02 02:05] LABS: Barbiturates NEGATIVE (NEGATIVE); Benzodiazepines NEGATIVE (NEGATIVE); Cocaine NEGATIVE (NEGATIVE); METHAMPHETAM NEGATIVE (NEGATIVE); Methadone NEGATIVE (NEGATIVE); Opiates NEGATIVE (NEGATIVE); Phencyclidine NEGATIVE (NEGATIVE); THC Cannibis NEGATIVE (NEGATIVE)
[2022-05-02 02:15] LABS: Magnesium 1.6 mg/dL (1.6-2.4); Phosphorus 5.6 mg/dL (2.5-4.9); T3 Free 2.75 pg/mL (2.18-3.98); Thyroid Stimulating Hormone 2.26 uIU/mL (0.358-3.740)
[2022-05-02] MEDS ORDERED: LEVETIRACETAM 500 MG/5 ML VIAL IV ONE ×2 (02:35→22:01)
[2022-05-02] MEDS ORDERED: NA CHLORIDE 0.9% 100 ML ONE ×2 (02:35→22:01)
--- NOTE | 2022-05-02 02:47 | P.HP ---
Certification for Inpatient Patient admitted to: Inpatient With expected LOS: >2 Midnights Patient will require the following post-hospital care: None Practitioner: I am a practitioner with admitting privileges, knowledge of patient current condition, hospital course, and medical plan of care. Services: Services provided to patient in accordance with Admission requirements found in Title 42 Section 412.3 of the Code of Federal Regulations <Luis Enrique Bright - Last Filed: 05/02/22 02:43> Patient History Date of Service: 05/02/22 Reason for admission: Severe hypocalcemia History of Present Illness: 36-year-old male with history of hyperparathyroidism, seizure disorder, noncompliance with medications was brought in to the emergency department by police. He was reportedly at home with family when he began acting irrational and making verbal threats to harm himself and others. He was brought in with an CALLY from . During his stay in the emergency department he was altered although he denied any thoughts of harming himself or others when asked directly. His work-up revealed severe hypocalcemia which is acute on chronic, patient with known history of hyperparathyroidism, has previously been noncompliant with his medications and been seen in the ER/admitted to the hospital on multiple occasions for hypocalcemia and seizures. Today his calcium measured less than 5 initially albumin is 3.2, magnesium 1.6 phosphorus 5.6, patient was agitated trying to get out of bed and was given Ativan in the emergency department, and by time of evaluation he was quite confused, unable to provide additional history. He did have mild QT prolongation on his EKG, he was treated with IV calcium gluconate 2 g in ED. He has not had any seizures witnessed by staff no reported prior to arrival, does appear to be having some muscle spasms. Will need to be admitted for further evaluation and management of severe hypocalcemia, questionable SI/HI. - Past Medical/Surgical History Diabetic: No -: hypocalcemia -: seizures -: hypoparathyroidism -: Partial colectomy Psychosocial/ Personal History: Patient lives at home with family - Family History Father -: Hypertension, Diabetes, Kidney disease Mother -: Diabetes, Cancer - Social History Alcohol use: Yes CD- Drugs: No Caffeine use: No Place of Residence: Home <Luis Enrique Bright - Last Filed: 05/02/22 02:43> Date of Service: 05/02/22 <Bernardo Saunders - Last Filed: 05/02/22 09:37> Allergies No Known Allergies Allergy (Verified 03/14/18 06:21) Home Medications: RX: Divalproex Sodium [Depakote] 2 tab PO BID 03/14/18 RX: levETIRAcetam [Keppra*] 1 tab PO BID 03/14/18 Calcium Carbonate/Vitamin D3 [Calcium 500 + Vit D 200 Caplet] 2 each PO TID #180 tablet 03/16/18 RX: calcitrioL [Rocaltrol] 0.5 mcg PO BID #60 capsule 03/16/18 Review of Systems is unable to be obtained <Luis Enrique Bright - Last Filed: 05/02/22 02:43> Physical Examination - Physical Exam General: Alert, In no apparent distress, Oriented x2, Cooperative, Confused HEENT: Atraumatic, PERRLA, Mucous membr. moist/pink Neck: Supple, 2+ carotid pulse no bruit, No LAD Respiratory: Clear to auscultation bilaterally, Normal air movement Cardiovascular: No edema, Regular rate/rhythm, Normal S1 S2 Capillary refill: <2 Seconds Gastrointestinal: Normal bowel sounds, No tenderness Musculoskeletal: No tenderness Integumentary: No rashes Neurological: Normal strength at 5/5 x4 extr, Normal tone, Normal affect - Studies Laboratory Data (last 24 hrs) 05/02/22 00:56: Phosphorus 5.6 H, Magnesium 1.6 05/02/22 00:56: Sodium 137, Potassium 3.5, BUN 19 H, Creatinine 0.94, Glucose 114 H, Total Bilirubin 0.4, AST 41 H, ALT 30, Alkaline Phosphatase 86 05/01/22 23:27: PT 14.2 H, INR 1.29, APTT 33.3 05/01/22 23:27: WBC 9.10, Hgb 12.6 L, Hct 37.8 L, Plt Count 120 L <Luis Enrique Bright - Last Filed: 05/02/22 02:43> - Studies Laboratory Data (last 24 hrs) 05/02/22 00:56: Phosphorus 5.6 H, Magnesium 1.6 05/02/22 00:56: Sodium 137, Potassium 3.5, BUN 19 H, Creatinine 0.94, Glucose 114 H, Total Bilirubin 0.4, AST 41 H, ALT 30, Alkaline Phosphatase 86 05/01/22 23:27: PT 14.2 H, INR 1.29, APTT 33.3 05/01/22 23:27: WBC 9.10, Hgb 12.6 L, Hct 37.8 L, Plt Count 120 L <Bernardo Saunders - Last Filed: 05/02/22 09:37> Assessment and Plan - Plan Assessment: Metabolic encephalopathy secondary to severe acute on chronic hypocalcemia with underlying hyperparathyroidism and noncompliance Seizure disorder Questionable suicidal ideation/homicidal ideation Plan: Metabolic encephalopathy secondary to severe acute on chronic hypocalcemia with underlying hyperparathyroidism and noncompliance Given IV calcium 2 g in ED, repeat calcium level this morning. Ionized calcium level ordered. Continue IV fluids. Patient will need to be again counseled on the importance of continuing his home medications on an outpatient basis. Monitor on telemetry given prolonged QT. Seizure disorder Continue Keppra. Questionable suicidal ideation/homicidal ideation Patient very altered upon presentation to ED, denies any SI/HI when asked by staff. We will need to clarify when he is more alert/oriented. He was reportedly making threats at his home to harm himself/others. He does have an CALLY in place from PD. DVT PPX: Lovenox Code status: Full Discharge Plan: Home Plan to discharge in: 48 Hours - Advance Directives Does patient have a Living Will: No Does patient have a Durable POA for Healthcare: No - Code Status/Comfort Care Code Status Assessed: Yes (Full code) Critical Care: No Time Spent Managing Pts Care (In Minutes): 70 <Luis Enrique Bright - Last Filed: 05/02/22 02:43> Physician Review: Patient Assessed, Agree with Above Assessment and Plan Physician Review Additional Text: Unable to obtain history as he is quite sedated post lorazepam. Consulted Psychiatry and spoke with Dr. Au. He will try to contact family members for collateral history. Additionally, he has recommended discontinuing lorazepam and starting ziprazidone 10 mg IV q8hr PRN. Consulted Nephrology and spoke with Dr. Lee - recommendations appreciated. Bernardo Saunders M.D. <Bernardo Saunders - Last Filed: 05/02/22 09:37>
[2022-05-02] MEDS ORDERED: MAGNESIUM SULFATE 1 gm IVPB 1 GM/100 ML BAG IV ONE (05:04)
[2022-05-02] MEDS: D5.45NS W/KCL 20MEQ 1,000 ML IV SCH ×2 (05:16→15:16)
[2022-05-02] MEDS ORDERED: ONDANSETRON 4 MG/2 ML VIAL IV PRN (05:16)
[2022-05-02] MEDS ORDERED: D5.45NS W/KCL 20MEQ 1,000 ML IV ONE ×2 (06:17→15:28)
[2022-05-02 07:27] LABS: Albumin 3.2 g/dL (3.4-5.0); Bilirubin Total 0.5 mg/dL (0.2-1.0); Magnesium 2.3 mg/dL (1.6-2.4); Potassium 3.2 mmol/L (3.5-5.1)
[2022-05-02] MEDS ORDERED: ENOXAPARIN 40 MG/0.4 ML SQ SCH (09:00)
[2022-05-02] MEDS ORDERED: CALCIUM GLUCONATE 1 GM IVPB 1 GM/50 ML BAG IV ONE ×5 (09:35→22:35)
[2022-05-02] MEDS ORDERED: ZIPRASIDONE MESYLA 20 MG/VIAL IM PRN (09:39)
[2022-05-02] MEDS ORDERED: WATER FOR INJ,STERILE 10 ML IM PRN (09:39)
[2022-05-02] MEDS ORDERED: ENOXAPARIN 40 MG/0.4 ML SQ ONE (10:07)
--- NOTE | 2022-05-02 12:39 | EKG ---
Test Date: 2022-05-01 Test Time: 23:19:40 [employer] Worker: MEASUREMENT RESULTS: Intervals: Rate: 90 WY: 110 QRSD: 98 QT: 412 QTc: 504 [place]: P: 73 WY: 110 QRS: 75 T: 60 INTERPRETIVE STATEMENTS: Sinus rhythm with short W[place] Prolonged QT Abnormal ECG Compared to ECG 05/07/2021 09:49:32 Short W[place] interval now present Prolonged QT interval now present Incomplete right bundle-branch block no longer present Electronically Signed On 05-02-22 12:38:35 CDT by Lázaro Jackson
[2022-05-02] MEDS: CALCIUM GLUCONATE 1 GM IVPB 2 GM/100 ML BAG IV SCH ×3 (13:00→21:00)
--- NOTE | 2022-05-02 14:54 | RAD REPORT ---
EXAM DESCRIPTION: CT head without IV contrast CLINICAL HISTORY: 36 years Male MENTAL STATUS CHANGE TECHNIQUE: Multiple axial CT images of the brain were performed followed by sagittal and coronal rec onstructed images. The CT study is performed according to ALARA (as low as reasonably achievable) or ALARA/IMAGE GENTLY, with automatic adjustment of mA and/or kV according to patient size. Performed on: 05/02/2022 at 12:36 AM COMPARISON: Head CT performed on 02/26/2020. FINDINGS: Brain: There is no evidence of mass, acute mass effect or midline shift. There are no acut e extra-axial fluid collections. There is no evidence of acute intracranial hemorrhage. The cerebra l sulci and ventricles are normal in size and configuration. Again demonstrated are numerous stable subcortical and periventricular calcifications which may be related to underlying cerebrovascular fe moral calcinosis, endocrinologic disorder or possibly postinfectious or other chronic toxic/metabolic process. Paranasal Sinuses and Mastoids: There is mild mucosal thickening of the paranasal sinuses. The mastoi d air cells are clear. Orbits: The orbital contents are grossly unremarkable. Bones: No acute osseous abnormalities are identified. Soft Tissues: No focal soft tissue abnormalities are identified. IMPRESSION: 1. There is no evidence of acute intracranial pathology. 2. Stable chronic intracranial calcifications. Electronically signed by: Ricarda Dey DO 05/02/2022 1:08 AM CDT Due to temporary technical issues with the PACS/Fluency reporting system, reports are being signed by the in house radiologists without review as a courtesy to insure prompt reporting. The interpreting radiologist is fully responsible for the content of the report.
[2022-05-02] MEDS ORDERED: MULTIVITAMIN TAB PO ONE ×2 (16:00→16:33)
[2022-05-02] MEDS ORDERED: ZIPRASIDONE MESYLA 20 MG/VIAL IM ONE (16:33)
[2022-05-02] MEDS ORDERED: WATER FOR INJ,STERILE 10 ML ONE (16:33)
[2022-05-02] MEDS: levETIRAcetam 500 MG in NA CHLORIDE 0.9% 100 ML IV SCH (21:00)
[2022-05-02] MEDS: CALCIUM GLUC 10% INJ 4.65 MEQ in NA CHLORIDE 0.9% 100 ML IV SCH ×2 (22:00→23:50)
--- NOTE | 2022-05-02 22:58 | CON ---
Date of Consultation: 05/02/2022 Chief Complaint: Hypocalcemia, underlying hypoparathyroidism and noncompliance with calcitriol and c alcium tablet. History Of Present Illness: The patient presented to the hospital because of generalized weakness. He was found to have seizure. He has underlying seizure disorder and he has been taking Keppra. The patient was found to have altered mental status and hypocalcemia. He received IV calcium gluconate 2 g in the emergency room. Ionized calcium level was ordered and is pending. The patient had a seri es of calcium and over the last 12 hours calcium level is slightly improved. The patient is on IV ca lcium gluconate 2 g every 4 hours. On arrival to the hospital, EKG showed prolonged QT. The patient is treated for seizure disorder and he remains on Keppra. Apparently, he had suicidal ideation and homicidal ideation and primary team is evaluating the patient for altered mental status changes. Review of Systems: The patient cannot provide review of systems. He is somewhat drowsy. He received IV calcium and lab work is pending. The patient had lab work done in the emergency room. It showed albumin 3.2, magne sium 1.6, phosphorus 5.6, calcium total was 5 initially. He has not had any seizure witnessed by sta ff in the emergency room as per nursing report. Past Medical History: Hypocalcemia, seizure, hypoparathyroidism, and partial colectomy. Family History: Father with hypertension, diabetes, and kidney disease. Mother with diabetes mellit us and cancer of unknown origin. Physical Examination: General: The patient is somnolent although arousable. Eyes: Anicteric sclerae. EOMI. Ears, Nose, Mouth, And Throat: Oral mucosa moist. No pallor. Neck: Supple. No bruits. Lungs: Clear to auscultation bilaterally. Heart: S1, S2. Abdomen: Soft. Extremities: No edema. Laboratory Data: Phosphorus 5.6, magnesium 1.6, sodium 137, potassium 3.5, BUN 19, creatinine 0.94, glucose 114, total bilirubin 0.4, AP 86. INR 1.29. APTT 33.2. WBC 9.2, hemoglobin 12.6, platelet c ount 120,000. Impression And Plan: 1.Metabolic encephalopathy. The patient has underlying hypocalcemia and hypoparathyroidism. Plan i s to continue IV calcium and to resume calcitriol and calcium tablet. 25 hydroxy vitamin D level is pending. The patient developed hypocalcemia due to noncompliance with his medication. 2.Seizure. The patient was taking Keppra per recommendation from primary team. 3.Hypertension. Continue to monitor blood pressure. Continue blood pressure medication. PHOEBE/MODStefan Voice ID: [id number] Report ID: [id number]
[2022-05-03 01:41] VITALS: O2SAT 98
[2022-05-03] MEDS ORDERED: D5.45NS W/KCL 20MEQ 1,000 ML IV ONE (02:51)
[2022-05-03] MEDS: D5.45NS W/KCL 20MEQ 1,000 ML IV SCH (03:32)
[2022-05-03 04:40] LABS: Absolute Lymphocytes (CBC) 0.8 K/uL (0.7-4.9); Hematocrit 42.9 % (39.6-49.0); Lymphocytes % 14.9 % (15.3-44.8); MCV 89.8 fL (80-100); MPV 9.9 fL (7.6-11.3); RBC Red Blood Cell Count 4.78 M/uL (4.33-5.43)
[2022-05-03] MEDS ORDERED: LORazepam 2 MG/ML VIAL ONE (04:45)
[2022-05-03] MEDS ORDERED: LORazepam 2 MG/ML VIAL IV ONE (04:47)
[2022-05-03 05:21] LABS: Albumin 3.5 g/dL (3.4-5.0); Bilirubin Total 0.7 mg/dL (0.2-1.0); Magnesium 1.8 mg/dL (1.6-2.4); Potassium 3.2 mmol/L (3.5-5.1); Protein, Total 8.1 g/dL (6.4-8.2); Thyroid Stimulating Hormone 0.988 uIU/mL (0.358-3.740); Uric Acid 4.6 mg/dL (3.5-7.2)
[2022-05-03 05:44] LABS: Hepatitis B surface AG Interp. Nonreactive (Nonreactive); Hepatitis C Virus Ab Nonreactive (Nonreactive)
[2022-05-03] MEDS ORDERED: CALCIUM GLUCONATE 1 GM IVPB 1 GM/50 ML BAG IV ONE (05:44)
[2022-05-03] MEDS: CALCIUM GLUC 10% INJ 4.65 MEQ in NA CHLORIDE 0.9% 100 ML IV SCH (06:00)
[2022-05-03 07:16] VITALS: BMI 21.4
[2022-05-03] MEDS ORDERED: MAGNESIUM SULFATE 1 gm IVPB 1 GM/100 ML BAG IV ONE ×2 (08:00→09:09)
[2022-05-03] MEDS ORDERED: KCL 20 MEQ/100 mL IVPB 20 MEQ/100 ML BAG IV SCH (08:00)
--- NOTE | 2022-05-03 08:00 | RAD REPORT ---
EXAM DESCRIPTION: US - Renal Ultrasound-Complete - 05/03/2022 1:05 am CLINICAL HISTORY: proteinuria COMPARISON: ABDOMINAL EXAM COMPLETE dated 03/26/2007 TECHNIQUE: Sonographic grayscale and color flow images of the kidneys and bladder were obtained. FINDINGS: Both kidneys are normal in size, shape and echotexture, although over shadowing bowel some what limits evaluation, particularly on the left. The right kidney measures 9.9 centimeter in length. No hydronephrosis, focal mass or shadowing calcul i. The left kidney measures 9.4 centimeter in length. No hydronephrosis, focal mass or shadowing calculi . The urinary bladder is incompletely distended without gross abnormality seen. IMPRESSION: Unremarkable renal sonogram, although evaluation is somewhat limited particularly on the left given over shadowing bowel. Suboptimal distention of the urinary bladder limiting evaluation.
--- NOTE | 2022-05-03 08:15 | RAD REPORT ---
EXAM DESCRIPTION: CT - Stone Protocol - 05/03/2022 7:24 am CLINICAL HISTORY: proteinuria ckd COMPARISON: No comparisons TECHNIQUE: Thin cut axial CT imaging of the abdomen and pelvis was performed without IV contrast. Mu ltiplanar reformats were generated and reviewed. All CT scans are performed using dose optimization technique as appropriate and may include automated exposure control or mA/KV adjustment according to patient size. FINDINGS: Streak artifact related to extracorporeal wires and metallic densities somewhat limits mary lou luation. No suspicious findings in the lung bases. The liver, spleen, and pancreas show no suspicious findings. Gallbladder demonstrates mild layering h yperdense sludge. No evidence of calculi. No evidence of intra or extrahepatic biliary ductal dilatio n. Symmetric renal contour, without suspicious parenchymal findings within limits of noncontrast techniq ue. No evidence of radiopaque calculi or hydroureteronephrosis. No dilated bowel loops or bowel wall thickening. No free air, free fluid or inflammatory stranding. N o suspicious mass or bulky lymphadenopathy. Small ventral supraumbilical hernia containing fat, measu ring 12 millimeter in transverse diameter at the neck. The urinary bladder is without significant fin ding. The medial calcifications of the iliac vessels, which can be seen in the setting of diabetes mellitus . Please correlate clinically. No suspicious bony findings. Healing right 9th to 11, and left ninth and tenth rib fractures. IMPRESSION: No acute intra-abdominal process. Incidental findings as above.
[2022-05-03] MEDS ORDERED: CALCITROL 0.25 MCG CAP PO SCH (09:00)
[2022-05-03] MEDS ORDERED: LEVETIRACETAM 500 MG/5 ML VIAL IV ONE (09:08)
[2022-05-03] MEDS ORDERED: KCL 20 MEQ/100 mL IVPB 0 ML IV ONE (09:08)
[2022-05-03] MEDS ORDERED: NA CHLORIDE 0.9% 100 ML ONE (09:09)
[2022-05-03 09:49] LABS: Specific Gravity 1.014 (1.005-1.030); Urine Bacteria <20 /HPF (<20); Urine Bilirubin NEGATIVE (Negative); Urine Blood Trace (Negative); Urine Clarity Clear (Clear); Urine Color Light-Yellow (Yellow); Urine Glucose NEGATIVE (Negative); Urine Mucus Slight /HPF (None Seen); Urine Protein NEGATIVE (Negative); Urine RBC <5 /HPF (None Seen); Urine Urobilinogen Normal (Normal); Urine pH 6.5 (5.0-7.0)
[2022-05-03] MEDS ORDERED: VITAMIN D 1000 UNIT TAB PO SCH (10:00)
[2022-05-03] MEDS ORDERED: CALCIUM CARBONATE 500 MG TAB PO SCH (10:00)
[2022-05-03 10:03] LABS: UR MICROALBUMIN 1.3 mg/dL (< 1.9)
[2022-05-03] MEDS: levETIRAcetam 500 MG in NA CHLORIDE 0.9% 100 ML IV SCH (10:19)
--- NOTE | 2022-05-03 10:23 | P.DS ---
Admission Date: 05/02/22 Discharge Date: 05/03/22 Disposition: TRANSFR TO OTHER-PSY/CD/REHAB Comment: [facility] Discharge Condition: FAIR Reason for Admission: Severe hypocalcemia Consultations: 1. Psychiatry 2. Nephrology Hospital Course: DIAGNOSES: # Acute Toxic Metabolic Encephalopathy secondary to Severe Acute on Chronic Hypocalcemia with Underlying Hypoparathyroidism and Medication Noncompliance - improved # Mild Rhabdomyolysis - improved # Questionable Suicidal/Homicidal Ideation - per Report # Seizure Disorder # Small Ventral Hernia HOSPITAL COURSE: Mr. Kimani Augustin is a 36 year old male with a past medical history significant for hypoparathyroidism, seizure disorder, and medication non-compliance who was admitted to the [facility] on 05/02/2012 for hypocalcemia. He was brought in to the Emergency Department by the Police Department on an Emergency Alf Order due to suicidal/homicidal ideation. He was admitted to the Medicine service for medical clearance. Upon further evaluation, he was found to have a calcium level of less than 5.0 as well as mild rhabdomyolysis. Nephrology was consulted and he was evaluated by Dr. Latif. He was treated with calcitriol and calcium gluconate replacement. With the treatment, his calcium and CK levels improved. He was cleared for discharge by Dr. Solis with calcitriol, cholecalciferol, and calcium carbonate. Additionally, Psychiatry was consulted and he was evaluated by Dr. Au. He has re commended that he be transferred to an inpatient psychiatric facility. With the assistance of case management, he was accepted to [facility]. The accepting physician was Dr. David King. On 05/03/2022, he was seen on morning rounds and deemed medically stable for transfer to the Med/Psych facility. He was advised of the plan for an inpatient psychiatric hospitalization and verbalized agreement to go. A copy of this discharge summary will be sent to the above providers to facilitate continuity of care. Today, I personally spent 25 minutes on his case, of which greater than 50% of the time was spent in patient education, counseling, and coordination of care as described above. Vital Signs/Physical Exam: Temp Pulse Resp BP Pulse Ox 98.3 F 65 13 103/89 100 05/03/22 07:00 05/03/22 07:00 05/03/22 07:00 05/03/22 07:00 05/03/22 07:00 General: Alert, In no apparent distress, Other (intermittently agitated) HEENT: Atraumatic, Mucous membr. moist/pink, Sclerae nonicteric Neck: JVD not distended Respiratory: Clear to auscultation bilaterally, Normal air movement Cardiovascular: No edema, Regular rate/rhythm, Normal S1 S2, No murmurs Gastrointestinal: Normal bowel sounds, Soft and benign, Non-distended, No tenderness Musculoskeletal: No clubbing Integumentary: No rashes Neurological: Normal speech, Other (intermittently agitated) Laboratory Data at Discharge: WBC 5.70 K/uL (4.3-10.9) 05/03/22 04:22 Hgb 14.2 g/dL (13.6-17.9) 05/03/22 04:22 Hct 42.9 % (39.6-49.0) 05/03/22 04:22 Plt Count 120 thou/uL (152-406) L 05/03/22 04:22 PT 14.2 SECONDS (9.5-12.5) H 05/01/22 23:27 INR 1.29 05/01/22 23:27 APTT 33.3 SECONDS (24.3-36.9) 05/01/22 23:27 Sodium 140 mmol/L (136-145) 05/03/22 04:22 Potassium 3.2 mmol/L (3.5-5.1) L 05/03/22 04:22 BUN 3 mg/dL (7-18) L 05/03/22 04:22 Creatinine 0.78 mg/dL (0.70-1.30) 05/03/22 04:22 Glucose 110 mg/dL (74-106) H 05/03/22 04:22 Uric Acid 4.6 mg/dL (3.5-7.2) 05/03/22 04:22 Phosphorus 5.6 mg/dL (2.5-4.9) H 05/02/22 00:56 Magnesium 1.8 mg/dL (1.6-2.4) 05/03/22 04:22 Total Bilirubin 0.7 mg/dL (0.2-1.0) 05/03/22 04:22 AST 28 U/L (15-37) 05/03/22 04:22 ALT 28 U/L (16-61) 05/03/22 04:22 Alkaline Phosphatase 80 U/L (45-117) 05/03/22 04:22 Home Medications: RX: Divalproex Sodium [Depakote] 2 tab PO BID 03/14/18 RX: levETIRAcetam [Keppra*] 1 tab PO BID 03/14/18 RX: Calcitrol [Rocaltrol*] 1.5 mcg PO DAILY cap 05/03/22 RX: Calcium Carbonate [Oscal*] 2,000 mg PO DAILY tab 05/03/22 RX: Cholecalciferol (Vitamin D3) [Vitamin D 1000 Iu Tab*] 1,000 unit PO DAILY tab 05/03/22 Physician Discharge Instructions: - Continue care at [facility] Diet: Regular Activity: Suicide precautions Followup: Daily Latif MD [COURTESY - CAN ADMIT] - Haile Au MD [OUTSIDE PHYSICIAN] - Time spent managing pt's care (in minutes): 25
[2022-05-03 11:18] VITALS: BP 100/74; TEMP 99.1
[2022-05-03] MEDS ORDERED: CALCIUM GLUCONATE 1 GM IVPB 1 GM/50 ML BAG IV SCH (12:00)
--- NOTE | 2022-05-03 13:19 | EKG ---
Test Date: 2022-05-03 Test Time: 08:40:26 Insurance Operations Rep: MATT MEASUREMENT RESULTS: Intervals: Rate: 78 VT: 112 QRSD: 96 QT: 410 QTc: 467 [place]: P: 76 VT: 112 QRS: 67 T: 60 INTERPRETIVE STATEMENTS: Normal sinus rhythm with sinus arrhythmia Normal ECG Compared to ECG 05/01/2022 23:19:40 Short VT interval no longer present Prolonged QT interval no longer present Electronically Signed On 05-03-22 13:19:01 CDT by Lázaro Jackosn
[2022-05-03] MEDS ORDERED: THIAMINE HCL IV ONE (16:00)
[2022-05-03] MEDS ORDERED: NA CHLORIDE 0.9% IV ONE (16:00)
[2022-05-03] MEDS ORDERED: FOLIC ACID IV ONE (16:00)
--- NOTE | 2022-05-04 14:07 | CON ---
Date of Consultation: 05/02/2022 Reason For Consult: Evaluate patient for suicidal ideation and make recommendations. History Of Present Illness: Mr. Harman is a 36-year-old male with no significant past history of ment al illness, but was brought to the ED by the local police after on account of acute confus ion, agitation, . On evaluation, patient was found to be heavily sedated. History was pro vided mostly by . Per treatment team, patient was having the police were called . He was subsequently taken home . Police was subsequently called in and he was brought t o the ED. On examination, he was observed to be acutely confused, agitated, and hypocalce mikey. The patient does have history of seizure disorder and has also had multiple ER presentations to . His procalcitonin level was extremely low. mom has been his caregiver until she 4 years ago. She stated that since then patient has been by mom's and has been drinking alcohol on a regular basis. moved out of the mom's house into an in timate friend's house. When mom was alive, his mood, but he could not remember what medic ation the mom was giving to him. . Objective: GENERAL: The patient is alert and oriented to name, but not to place. He is acutely con fused, . HEENT: Atraumatic. Laboratory Data: On presentation, . Mental Status Examination: Mood is fine. Affect is labile. Now mood congruent. Thought process, m ostly . Thought content, . Denies any suicidal ideation and insight poor. Assessment: 1. . 2. . 3.Substance induced mood disorder. 4. disorder. Plan: 1.Recommend patient be transferred to psychiatric inpatient facility when medically stable. 2.Recommend to increase his Ativan patient's altered mental status. . 3.Recommendation discussed with treatment team. CITLALI/ILENE Voice ID: [id number] Report ID: [id number]
[2022-05-05 23:10] LABS: Vitamin D 1,25-Dihydroxy Total 32 pg/mL (18-72); Vitamin D,1,25-OH2, D2 <8 pg/mL
[2022-05-06 19:41] LABS: KAPPA LC FREE UR 216.61 mg/L (<=32.90)
[2022-05-07 01:33] LABS: Albumin, (SPE) 3.7 g/dL (3.8-4.8); Alpha-1-Globulins 0.4 g/dL (0.2-0.3); Alpha-2-Globulins 0.7 g/dL (0.5-0.9); Gamma Globulins 1.6 g/dL (0.8-1.7); INTERPRETATION REPORT
== END 2022-05-03 12:00 | DRG 640 ==
LOC: ER 22:15 → ERHOLD 05-02 02:28
PROVIDERS: ADMIT Internal Medicine; ATTEND Internal Medicine
DX: E83.51 Hypocalcemia (principal); G92.8 Other toxic encephalopathy; M62.82 Rhabdomyolysis; R45.851 Suicidal ideations; R45.850 Homicidal ideations; K43.9 Ventral hernia without obstruction or gangrene; E20.9 Hypoparathyroidism, unspecified; F19.14 Other psychoactive substance abuse with psychoactive substance-induced mood disorder; G40.909 Epilepsy, unspecified, not intractable, without status epilepticus; Z91.14 Patient's other noncompliance with medication regimen; Z90.49 Acquired absence of other specified parts of digestive tract; Z20.822 Contact with and (suspected) exposure to COVID-19
CPT/HCPCS: 36415; 70450; 74176; 76377; 76770; 80048; 80053; 80076; 80307; 81001; 81003; 82043; 82140; 82306; 82308; 82310; 82330; 82550; 82570; 82652; 83519; 83520; 83735; 83970; 84100; 84156; 84165; 84439; 84443; 84481; 84550; 85025; 85610; 85730; 86021; 86334; 86803; 87086; 87088; 87340; 93005; 96361; 96365; 96367; 96375; 99285; G0480; J0610; J1650; J1953; J3411; J3475; J3480; J3486; J7030; U0003